=== PATIENT | female | born 1960 | race Caucasian/White ===

== ENCOUNTER 2018-11-05 12:21 | Emergency (ER) | payer OTHER ==
[2018-11-05 13:26] LABS: Absolute Lymphocytes (CBC) 1.8 K/uL (0.7-4.9); Absolute Monocytes 0.7 K/uL (0.1-1.3); Absolute Neutrophil 6.9 K/uL (1.8-8.0); Basophils % 0.3 % (0-1.3); Eosinophils % 0.4 % (0-4.4); Hematocrit 44.1 % (36.0-45.0); Lymphocytes % 19.3 % (15.3-44.8); MPV 8.2 fL (7.6-11.3); Monocytes % 7.2 % (3.3-12.3); RBC Red Blood Cell Count 5.43 M/uL (3.86-4.86)
[2018-11-05] MEDS ORDERED: FENTANYL CITR 100 MCG/2 ML ONE (13:41)
[2018-11-05 13:45] LABS: ALT/SGPT 21 U/L (12-78); AST/SGOT 23 U/L (15-37); Albumin 3.7 g/dL (3.4-5.0); Alkaline Phosphatase 149 U/L (45-117); BUN Blood Urea Nitrogen 8 mg/dL (7-18); Bicarbonate 30 mmol/L (21-32); Bilirubin Direct 0.1 mg/dL (0-0.2); Bilirubin Total 0.3 mg/dL (0.2-1.0); Glucose Level 90 mg/dL (74-106); Potassium 3.6 mmol/L (3.5-5.1); Protein, Total 8.4 g/dL (6.4-8.2); Sodium Level 137 mmol/L (136-145)
--- NOTE | 2018-11-05 14:34 | RAD REPORT ---
EXAM DESCRIPTION: CT - Abdomen W Contrast - 11/05/2018 1:59 pm CLINICAL HISTORY: Abdominal pain with diarrhea COMPARISON: 2014 TECHNIQUE: Computed axial tomography from the diaphragm to the iliac crest was obtained. Oral contra st was given. 100 cc Isovue-[address] scans are performed using dose optimization technique as appropriate and may include automated exposure control or mA/KV adjustment according to patient size. FINDINGS: The evaluation of solid organs and vessels is limited secondary to the lack of IV contrast administration. The liver, spleen, adrenals, pancreas and kidneys appear grossly normal. Wall of the distal stomach is thickened. Mild gallbladder distention IMPRESSION: Wall of the distal stomach is thickened which may indicate gastritis. Mild gallbladder distention
--- NOTE | 2018-11-05 14:36 | RAD REPORT ---
EXAM DESCRIPTION: Dennis Pa And Lat (2 Views)11/05/2018 1:26 pm CLINICAL HISTORY: Cough COMPARISON: 2015 FINDINGS: Lungs are hyperaerated with upper lobe volume loss. Bilateral nodules within the lungs are without obvious change. Heart is normal sized
--- NOTE | 2018-11-05 15:50 | RAD REPORT ---
EXAM DESCRIPTION: US - Abdomen Exam Limited - 11/05/2018 3:00 pm CLINICAL HISTORY: Abdominal pain. COMPARISON: CT abdomen October 2018 FINDINGS: Gallbladder is borderline distended. A gallstone is not seen. Gallbladder wall is mildly t hickened. . The biliary tree is normal caliber. IMPRESSION: Mild gallbladder wall thickening with borderline gallbladder distention
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
[2018-11-05 19:00] VITALS: TEMP 98.1
[2018-11-05 19:07] VITALS: BP 129/79; O2SAT 99
== END 2018-11-05 16:47 | disposition home or self-care (01) ==
LOC: ER 12:21
DX: S39.011A Strain of muscle, fascia and tendon of abdomen, initial encounter (principal); X58.XXXA Exposure to other specified factors, initial encounter; R05 Cough; K82.8 Other specified diseases of gallbladder; Z72.0 Tobacco use
CPT/HCPCS: 36415; 71046; 74160; 76705; 80048; 80076; 85025; 87040; 96374; 99284; J3010; Q9967

== ENCOUNTER 2019-06-27 13:27 | Emergency (ER) | payer OTHER ==
[2019-06-27] MEDS ORDERED: IPRATROPIUM BROM 0.5MG/2.5ML ONE ×2 (13:55→14:33)
[2019-06-27] MEDS ORDERED: ALBUTEROL 2.5 MG/3 ML NEB SOL ONE ×2 (13:55→14:33)
[2019-06-27] MEDS ORDERED: METHYLPREDNISOLONE 125 MG INJ ONE (14:19)
[2019-06-27 14:40] LABS: Absolute Lymphocytes (CBC) 1.4 K/uL (0.7-4.9); Basophils % 0.3 % (0-1.3); Hematocrit 34.2 % (36.0-45.0); Lymphocytes % 7.2 % (15.3-44.8); MPV 7.5 fL (7.6-11.3); RBC Red Blood Cell Count 4.43 M/uL (3.86-4.86)
[2019-06-27 14:53] LABS: Albumin 2.8 g/dL (3.4-5.0); Bilirubin Direct 0.2 mg/dL (0-0.2); Bilirubin Total 0.5 mg/dL (0.2-1.0); Potassium 3.4 mmol/L (3.5-5.1); Protein, Total 7.6 g/dL (6.4-8.2)
--- NOTE | 2019-06-27 14:53 | RAD REPORT ---
EXAM DESCRIPTION: RAD - Chest Pa And Lat (2 Views) - 06/27/2019 2:29 pm CLINICAL HISTORY: Cough;Congestion Chest pain. COMPARISON: Chest Pa And Lat (2 Views) dated 11/05/2018; CHEST SINGLE VIEW dated 04/01/2014; CHEST SINGL E VIEW dated 06/01/2012; CHEST SINGLE VIEW dated 05/29/2012 FINDINGS: Emphysematous changes are present with irregular scarring in the lung apices with pleural thickening, greater on the left. This appears unchanged since comparative study. No focal infiltrate typical of pneumonia seen. The heart is normal in size. No displaced fractures. IMPRESSION: Prominent emphysematous changes with pleural and parenchymal scarring in both lung apice s, unchanged. No acute focal infiltrate detected.
[2019-06-27] MEDS ORDERED: CEFTRIAXONE/SWI 1gm 1 GM/10 ML SYR ONE (15:39)
[2019-06-27] MEDS ORDERED: AZITHROMYCIN IV 500 MG in NA CHLORIDE 0.9% 250 ML IVPB ONE (16:00)
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
[2019-06-27 17:54] VITALS: TEMP 98.2
[2019-06-27 18:01] VITALS: BP 116/65; O2SAT 94
== END 2019-06-27 17:42 | disposition home or self-care (01) ==
LOC: ER 13:27
DX: J44.1 Chronic obstructive pulmonary disease with (acute) exacerbation (principal); Z88.6 Allergy status to analgesic agent
CPT/HCPCS: 96365; 96368; 87040 ×2; 85025; 80048; 36415; 80076; 87804 ×2; 71046; 94640; 96375; 99284; J0456; J0696; J2930

== ENCOUNTER 2019-07-12 16:42 | Inpatient (IN) | payer OTHER ==
[2019-07-12] MEDS ORDERED: ACETAMINOPHEN 500 MG TAB ONE (18:06)
[2019-07-12] MEDS ORDERED: FENTANYL CITR 100 MCG/2 ML ONE ×2 (18:06→21:25)
[2019-07-12] MEDS ORDERED: NA CHLORIDE 0.9% 250 ML ONE (18:07)
[2019-07-12] MEDS ORDERED: ONDANSETRON 4 MG/2 ML VIAL ONE (18:07)
[2019-07-12] MEDS ORDERED: NA CHLORIDE 0.9% 1,000 ML ONE ×2 (18:07→21:06)
[2019-07-12 18:36] LABS: Absolute Lymphocytes (CBC) 1.7 K/uL (0.7-4.9); Basophils % 0.4 % (0-1.3); Hematocrit 33.8 % (36.0-45.0); MPV 7.7 fL (7.6-11.3); RBC Red Blood Cell Count 4.43 M/uL (3.86-4.86)
[2019-07-12 18:41] LABS: Protime INR 1.07
[2019-07-12 18:54] LABS: ALT/SGPT 28 U/L (12-78); AST/SGOT 20 U/L (15-37); Albumin 2.6 g/dL (3.4-5.0); Alkaline Phosphatase 222 U/L (45-117); BUN Blood Urea Nitrogen 13 mg/dL (7-18); Bicarbonate 29 mmol/L (21-32); Bilirubin Direct < 0.1 mg/dL (0-0.2); Bilirubin Total 0.2 mg/dL (0.2-1.0); Creatine Phosphokinase 33 U/L (26-192); Glucose Level 94 mg/dL (74-106); Lipase 75 U/L (73-393); Potassium 3.8 mmol/L (3.5-5.1); Protein, Total 6.8 g/dL (6.4-8.2); Sodium Level 135 mmol/L (136-145); Troponin (Emerg Dept Use Only) < 0.02 ng/mL (0.0-0.045)
--- NOTE | 2019-07-12 20:16 | RAD REPORT ---
EXAM DESCRIPTION: CT - Chest Abdomen Pelvis W Cont - 07/12/2019 7:55 pm CLINICAL HISTORY: Chest and abdominal pain COMPARISON: CT chest 2015 TECHNIQUE: Computed axial tomography of the chest, abdomen and pelvis was obtained. 100 cc Isovue-30 0 was administered intravenously. Oral contrast was not requested. This limits evaluation of bowel. All CT scans are performed using dose optimization technique as appropriate and may include automated exposure control or mA/KV adjustment according to patient size. FINDINGS: Left upper lobe cavitary lesion posteriorly measuring 3 centimeters was present on the juan daniel or exam. A 2 centimeter soft tissue structure medial left upper lobe has developed. 2.6 centimeter ca vitary lesion posterior left upper lobe has developed since the prior exam. Mild lingular opacities a re present. A couple of subcentimeter lung nodules noted. Calcified granulomas noted Right upper lobe opacities without significant change. Moderate to marked COPD No pleural effusion. No pericardial effusion. No mediastinal or hilar lymphadenopathy. The liver, spleen, pancreas, adrenals and kidneys appear unremarkable. Moderate amount stool within the colon. IMPRESSION: Development of 2.6 centimeter cavitary lesion left upper lobe as well as 2 centimeter le ft upper lobe opacity with small right lung nodules most likely infectious. This could indicate TB/fu ngal infection . YUDITH is another consideration
--- NOTE | 2019-07-12 20:18 | RAD REPORT ---
EXAM DESCRIPTION: Dennis Single View07/12/2019 6:30 pm CLINICAL HISTORY: Chest pain COMPARISON: May 2019 FINDINGS: Mild worsening in left upper lobe opacities. No change in right lung opacities Upper lobe volume loss Moderate to marked COPD Heart is normal size IMPRESSION: Mild worsening in left upper lobe opacities some which are cavitary. This likely represe nts an acute process superimposed over chronic changes. This may represent TB/fungal infection or YUDITH
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
[2019-07-12] MEDS ORDERED: PIPER/TAZO/NS 3.375gm 3.375 GM/100 ML BAG ONE (21:06)
[2019-07-12] MEDS ORDERED: ACETAMINOPHEN 500 MG TAB PO PRN (22:19)
[2019-07-12] MEDS ORDERED: ONDANSETRON 4 MG/2 ML VIAL IV PRN (22:19)
[2019-07-13 00:09] VITALS: BMI 16.4
[2019-07-13] MEDS: IPRATROPIUM BROM 0.5MG/2.5ML NEB SCH ×4 (02:00→20:00)
[2019-07-13] MEDS: ALBUTEROL 2.5 MG/3 ML NEB SOL NEB SCH ×4 (02:00→20:00)
[2019-07-13] MEDS: FENTANYL CITR 100 MCG/2 ML IV PRN ×3 (05:51→22:00)
[2019-07-13 06:39] LABS: Absolute Lymphocytes (CBC) 1.1 K/uL (0.7-4.9); Basophils % 0.6 % (0-1.3); MPV 7.4 fL (7.6-11.3)
[2019-07-13 06:56] LABS: ALT/SGPT 23 U/L (12-78); AST/SGOT 17 U/L (15-37); Albumin 2.1 g/dL (3.4-5.0); Alkaline Phosphatase 176 U/L (45-117); BUN Blood Urea Nitrogen 9 mg/dL (7-18); Bicarbonate 28 mmol/L (21-32); Bilirubin Total 0.1 mg/dL (0.2-1.0); Glucose Level 84 mg/dL (74-106); HDL Cholesterol 31 mg/dL (40-60); LDL Cholesterol, Calculated 96 (<130); Magnesium 2.2 mg/dL (1.8-2.4); NT PRO-BNP 159 pg/mL (<125); Phosphorus 3.4 mg/dL (2.5-4.9); Protein, Total 5.8 g/dL (6.4-8.2); Sodium Level 143 mmol/L (136-145)
[2019-07-13 07:09] LABS: Protime INR 1.01
[2019-07-13] MEDS: ENOXAPARIN 40 MG/0.4 ML SQ SCH (08:07)
[2019-07-13] MEDS ORDERED: CEFTRIAXONE 1 GM/NS 50 ML 1 GM/50 ML BAG IV SCH (09:00)
[2019-07-13] MEDS: AZITHROMYCIN IV 500 MG in NA CHLORIDE 0.9% 250 ML IVPB SCH (09:10)
[2019-07-13] MEDS: CEFTRIAXONE/SWI 1gm 1 GM/10 ML SYR IVP SCH ×2 (09:11→20:51)
[2019-07-13 10:01] LABS: Urine Appearance CLEAR; Urine Bilirubin NEGATIVE (NEG); Urine Blood NEGATIVE (NEG); Urine Color YELLOW; Urine Glucose NEGATIVE (NEG); Urine Protein NEGATIVE (NEG); Urine Urobilinogen 0.2 mg/dL (0.2-1.0); Urine pH 5.5 (5.0-7.0)
[2019-07-13 10:32] LABS: Urine Bacteria <20 /HPF (<20); Urine Culture Reflex Order NOT NEEDED; Urine RBC <5 /HPF (NONE SEEN); Urine Yeast PRESENT (NONE SEEN)
[2019-07-13 10:33] LABS: Urine Mucus LIGHT /HPF (NONE SEEN)
[2019-07-13] MEDS: TEMAZEPAM 15 MG CAP PO PRN (23:14)
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
[2019-07-13] MEDS: METHYLPREDNISOLONE 125 MG INJ IV SCH (23:30)
[2019-07-14] MEDS: IPRATROPIUM BROM 0.5MG/2.5ML NEB SCH ×4 (02:00→20:00)
[2019-07-14] MEDS: ALBUTEROL 2.5 MG/3 ML NEB SOL NEB SCH ×4 (02:00→20:00)
[2019-07-14] MEDS: METHYLPREDNISOLONE 125 MG INJ IV SCH ×4 (05:13→23:10)
[2019-07-14] MEDS: FENTANYL CITR 100 MCG/2 ML IV PRN ×4 (05:13→23:10)
[2019-07-14] MEDS: ENOXAPARIN 40 MG/0.4 ML SQ SCH (08:35)
[2019-07-14] MEDS: CEFTRIAXONE/SWI 1gm 1 GM/10 ML SYR IVP SCH ×2 (08:36→20:19)
[2019-07-14] MEDS: AZITHROMYCIN IV 500 MG in NA CHLORIDE 0.9% 250 ML IVPB SCH (09:23)
--- NOTE | 2019-07-14 11:37 | EKG ---
Test Date: 2019-07-12 Test Time: 18:15:14 [employer] Laborer: ISABEL MEASUREMENT RESULTS: Intervals: Rate: 88 [place]: 126 QRSD: 94 QT: 360 QTc: 435 [place]: P: 88 [place]: 126 QRS: 88 T: 74 INTERPRETIVE STATEMENTS: Normal sinus rhythm Normal ECG Compared to ECG 04/01/2014 07:51:04 No significant changes Electronically Signed On 07-14-19 11:31:38 CDT by Jagdeep Romano
[2019-07-14] MEDS: ENSURE ENLIVE 237 ML CAN PO SCH (20:19)
[2019-07-14] MEDS: TEMAZEPAM 15 MG CAP PO PRN (20:19)
[2019-07-15] MEDS: ALBUTEROL 2.5 MG/3 ML NEB SOL NEB SCH ×4 (02:00→21:08)
[2019-07-15] MEDS: IPRATROPIUM BROM 0.5MG/2.5ML NEB SCH ×4 (02:00→21:08)
[2019-07-15] MEDS: FENTANYL CITR 100 MCG/2 ML IV PRN ×3 (05:38→19:59)
[2019-07-15] MEDS: METHYLPREDNISOLONE 125 MG INJ IV SCH ×2 (05:38→11:45)
[2019-07-15] MEDS: AZITHROMYCIN IV 500 MG in NA CHLORIDE 0.9% 250 ML IVPB SCH (09:00)
[2019-07-15] MEDS: CEFTRIAXONE/SWI 1gm 1 GM/10 ML SYR IVP SCH (09:00)
[2019-07-15] MEDS: ENSURE ENLIVE 237 ML CAN PO SCH ×2 (09:26→19:47)
[2019-07-15] MEDS: ENOXAPARIN 40 MG/0.4 ML SQ SCH (09:26)
[2019-07-15] MEDS: levoFLOXacin 500 MG TAB PO SCH (09:33)
[2019-07-15] MEDS: PIPER/TAZO/NS 4.5gm 4.5 GM/100 ML BAG IVPB SCH ×2 (16:00→23:59)
[2019-07-15] MEDS: VENLAFAXINE HCL XR 37.5MG CAP PO SCH (16:15)
[2019-07-15] MEDS: METHYLPREDNISOLONE 40 MG INJ IV SCH (19:52)
[2019-07-15] MEDS ORDERED: TRAMADOL HCL 50 MG TAB PO PRN (20:45)
--- NOTE | 2019-07-15 21:02 | PN ---
Date of Progress Note: 07/15/2019 Subjective: Patient is seen and examined. Chart reviewed and case discussed with RN. Treatment luis n explained. All questions answered. Case discussed with Dr. Kilpatrick. Patient still has not produ malika sample for AFB smears today. Medications: List reviewed. Physical Examination: Vital Signs: Temperature 98.2, heart rate 77, blood pressure 111/64, respirations 16, O2 of 95% on r oom air. General: Awake, alert, oriented x3. Frail, cachectic, appears older than stated age female. BMI 16 . CV: S1, S2. Regular rate and rhythm. No murmurs. Peripheral pulses present. Respiratory: Diminished breath sounds. Some rhonchi heard. No wheezing or stridor. Gastrointestinal: Abdomen is soft, nontender, nondistended. Positive bowel sounds. Extremities: No clubbing, cyanosis, or edema. Neuro: Cranial nerves 2 through 12 intact grossly. No focal neurological deficits. Speech is lolis l. Laboratory Data: Blood cultures, no growth to date. Sputum cultures growing out normal quantity of respiratory hailey. AFB smear is pending. Assessment And Plan: A 59-year-old female with: 1.Pneumonia, failed outpatient treatment. CT scan shows development of 2.6 cm cavitary lesion in th e left upper lobe and 2 cm left upper lobe opacity with small right lung nodules, most likely infecti ous, possible tuberculosis, fungal infection. AURORA is another consideration. Patient is on respirato ry isolation with negative pressure room. Patient will need to provide AFB smears x3. If negative, can take off isolation. Appreciate Dr. Kilpatrick's input. 2.Failure to thrive. BMI 16. 3.Severe protein-calorie malnutrition. Albumin is 2.1. 4.Microcytic hypochromic anemia, likely due to iron deficiency anemia. Ferritin level is normal. W e will continue to monitor hemoglobin and transfuse as needed. 5.Deep venous thrombosis prophylaxis with Lovenox. Plan: Respiratory Therapy consultation for obtaining AFB smears. Continue with IV antibiotics. Fol low up on culture results and AFB smear. We will start to wean steroids. Continue respiratory isola tion. SA/MODL Voice ID: [id number] Report ID: [id number]
[2019-07-15] MEDS: CODEINE 30MG/APAP 300MG TAB PO PRN (22:04)
[2019-07-15] MEDS: TEMAZEPAM 15 MG CAP PO PRN (22:04)
[2019-07-16] MEDS: IPRATROPIUM BROM 0.5MG/2.5ML NEB SCH ×4 (02:15→20:20)
[2019-07-16] MEDS: ALBUTEROL 2.5 MG/3 ML NEB SOL NEB SCH ×4 (02:15→20:20)
[2019-07-16 04:41] LABS: Absolute Lymphocytes (CBC) 0.7 K/uL (0.7-4.9); Basophils % 0.1 % (0-1.3); MPV 7.9 fL (7.6-11.3)
[2019-07-16 04:53] LABS: ALT/SGPT 37 U/L (12-78); AST/SGOT 37 U/L (15-37); Albumin 2.2 g/dL (3.4-5.0); Alkaline Phosphatase 153 U/L (45-117); BUN Blood Urea Nitrogen 17 mg/dL (7-18); Bicarbonate 30 mmol/L (21-32); Bilirubin Total 0.1 mg/dL (0.2-1.0); Glucose Level 135 mg/dL (74-106); Potassium 3.9 mmol/L (3.5-5.1); Protein, Total 5.9 g/dL (6.4-8.2); Sodium Level 144 mmol/L (136-145)
[2019-07-16 05:22] LABS: Blood Morphology Comment NOT SEEN (NOT SEEN); Platelet Estimate INCR
[2019-07-16] MEDS ORDERED: POTASSIUM CL SA 10 MEQ TAB PO ONE (09:00)
[2019-07-16] MEDS: PIPER/TAZO/NS 4.5gm 4.5 GM/100 ML BAG IVPB SCH (09:58)
[2019-07-16] MEDS: ENOXAPARIN 40 MG/0.4 ML SQ SCH (09:58)
[2019-07-16] MEDS: VENLAFAXINE HCL XR 37.5MG CAP PO SCH (09:59)
[2019-07-16] MEDS: METHYLPREDNISOLONE 40 MG INJ IV SCH (09:59)
[2019-07-16] MEDS: levoFLOXacin 500 MG TAB PO SCH (09:59)
[2019-07-16] MEDS: ENSURE ENLIVE 237 ML CAN PO SCH ×2 (10:01→19:50)
[2019-07-16] MEDS: CODEINE 30MG/APAP 300MG TAB PO PRN ×2 (10:37→20:01)
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
[2019-07-16] MEDS: predniSONE 20 MG TAB PO SCH ×2 (14:27→19:50)
--- NOTE | 2019-07-16 15:30 | PN ---
Date of Progress Note: 07/16/2019 Subjective: Patient seen and examined. Chart reviewed and case discussed with RN and Dr. Kilpatrick. Patient does not have any specific complaints. No acute events overnight. Medications: List reviewed. Physical Examination: Vital Signs: Temperature 98, heart rate 59, blood pressure 106/63, respirations 16, O2 96% on room air. General: Awake, alert, oriented x3, not in any acute distress. CV: S1, S2. Regular rate and rhythm. Peripheral pulses present. Respiratory: Diminished breath sounds. No wheezing or stridor. Gastrointestinal: Abdomen is soft, nontender, nondistended. Positive bowel sounds. Extremities: No clubbing, cyanosis, or edema. Neurologic: Nonfocal. Laboratory Data: Sodium 144, potassium 3.9 chloride 107, CO2 30, BUN 17, creatinine 0.61, glucose 135, calcium 8.7, albumin 2.2. WBC 24.1, H and H 9.8 and 29, platelets 480, neutrophils 94%. Blood cultures, no growth to date. Acid fast bacilli smear pending. Assessment: A 59-year-old female with; 1. Pneumonia, failed outpatient treatment. Concern for possible tuberculosis due to cavitary lesions in the left upper lobe and small right lung nodules. AFB smear x3 pending. Appreciate Pulmonology input. Currently on respiratory isolation in negative pressure room. 2. Severe protein-calorie malnutrition. Albumin is 2.2. Continue with supplementation. 3. Failure to thrive. BMI 16. 4. Microcytic hypochromic anemia, likely due to iron deficiency anemia. We will continue to monitor H and H level, transfuse as needed. 5. Leukocytosis with left shift, likely secondary to above. Patient is also on steroids. We will continue to wean down. We will switch to p.o. 6. Deep venous thrombosis prophylaxis. Lovenox. Disposition: Pending AFB smears. /SURESH Voice ID: [id number] Report ID: [id number] MTDD
[2019-07-16] MEDS: TEMAZEPAM 15 MG CAP PO PRN (22:45)
[2019-07-17] MEDS: ALBUTEROL 2.5 MG/3 ML NEB SOL NEB SCH ×4 (01:35→20:30)
[2019-07-17] MEDS: IPRATROPIUM BROM 0.5MG/2.5ML NEB SCH ×4 (01:35→20:30)
[2019-07-17 05:42] LABS: Hematocrit 30.7 % (36.0-45.0); Lymphocytes % 5.7 % (15.3-44.8); MPV 7.9 fL (7.6-11.3)
[2019-07-17 05:52] LABS: ALT/SGPT 58 U/L (12-78); AST/SGOT 36 U/L (15-37); Albumin 2.4 g/dL (3.4-5.0); Alkaline Phosphatase 151 U/L (45-117); BUN Blood Urea Nitrogen 14 mg/dL (7-18); Bicarbonate 31 mmol/L (21-32); Bilirubin Total 0.1 mg/dL (0.2-1.0); Glucose Level 110 mg/dL (74-106); Potassium 4.3 mmol/L (3.5-5.1); Protein, Total 5.8 g/dL (6.4-8.2); Sodium Level 143 mmol/L (136-145)
[2019-07-17] MEDS: VENLAFAXINE HCL XR 37.5MG CAP PO SCH (09:34)
[2019-07-17] MEDS: levoFLOXacin 500 MG TAB PO SCH (09:34)
[2019-07-17] MEDS: predniSONE 20 MG TAB PO SCH ×2 (09:34→21:02)
[2019-07-17] MEDS: ENSURE ENLIVE 237 ML CAN PO SCH ×2 (09:35→21:00)
[2019-07-17] MEDS: ENOXAPARIN 40 MG/0.4 ML SQ SCH (09:35)
[2019-07-17] MEDS: CODEINE 30MG/APAP 300MG TAB PO PRN ×2 (09:40→18:06)
--- NOTE | 2019-07-17 18:13 | PN ---
Date of Progress Note: 07/17/2019 Subjective: Patient seen and examined. Chart reviewed and case discussed with RN and Dr. Kilpatrick. Patient overall feels better. Still having some cough with sputum production. Medications: List reviewed. Physical Examination: Vital Signs: Temperature 97.9, heart rate 70, blood pressure 149/88, respirations 18, O2 98% on room air. General: Awake, alert, oriented x3, not in any acute distress, frail cachectic female, BMI 16. CV: S1, S2. No murmurs. Respiratory: Diminished breath sounds. No wheezing or stridor. Gastrointestinal: Abdomen is soft, nontender, nondistended. Positive bowel sounds. Extremities: No clubbing, cyanosis, or edema. Neurologic: Nonfocal. Laboratory Data: Sodium 143, potassium 4.3, chloride 106, CO2 of 31, BUN 14, creatinine 0.61, glucos e 110, calcium 9, albumin 2.4. WBC 18.4, H and H 10.1 and 30.7, platelets 467, neutrophils 91%. Blo od cultures, no growth to date. AFB smear is pending. Sputum culture, normal respiratory hailey. Assessment: A 59-year-old female with; 1.Pneumonia, failed outpatient treatment, possible tuberculosis due to cavitary lesions in the left upper lobe. Patient also has small right lung nodules, likely infectious. AFB smear is pending. Cu rrently in isolation room with negative pressure. Pulmonology on board. 2.Severe protein-calorie malnutrition. Albumin is improving. Continue with supplementation. 3.Failure to thrive. BMI 16. 4.Microcytic hyperchromic anemia, likely due to iron deficiency. Continue to monitor H and H, trans fuse as needed. 5.Leukocytosis with left shift, likely secondary to above and also possibly due to steroids. Patien t now on p.o. steroids. WBC count is trending down. 6.Deep venous thrombosis prophylaxis with Lovenox. Plan: Pending AFB smears. /MODL Voice ID: [id number] Report ID: [id number]
[2019-07-17] MEDS: TEMAZEPAM 15 MG CAP PO PRN (21:02)
[2019-07-18] MEDS: IPRATROPIUM BROM 0.5MG/2.5ML NEB SCH ×2 (01:50→08:00)
[2019-07-18] MEDS: ALBUTEROL 2.5 MG/3 ML NEB SOL NEB SCH ×2 (01:50→08:00)
[2019-07-18 06:17] LABS: Absolute Lymphocytes (CBC) 1.4 K/uL (0.7-4.9); Basophils % 0.1 % (0-1.3); Hematocrit 32.6 % (36.0-45.0); Lymphocytes % 11.2 % (15.3-44.8); MPV 7.7 fL (7.6-11.3); RBC Red Blood Cell Count 4.26 M/uL (3.86-4.86)
[2019-07-18 06:38] LABS: ALT/SGPT 62 U/L (12-78); AST/SGOT 34 U/L (15-37); Albumin 2.4 g/dL (3.4-5.0); Alkaline Phosphatase 149 U/L (45-117); BUN Blood Urea Nitrogen 15 mg/dL (7-18); Bicarbonate 31 mmol/L (21-32); Bilirubin Total 0.1 mg/dL (0.2-1.0); Glucose Level 103 mg/dL (74-106); Potassium 4.4 mmol/L (3.5-5.1); Protein, Total 5.8 g/dL (6.4-8.2); Sodium Level 140 mmol/L (136-145)
[2019-07-18] MEDS: VENLAFAXINE HCL XR 37.5MG CAP PO SCH (09:30)
[2019-07-18] MEDS: predniSONE 20 MG TAB PO SCH (09:30)
[2019-07-18] MEDS: ENOXAPARIN 40 MG/0.4 ML SQ SCH (09:30)
[2019-07-18] MEDS: levoFLOXacin 500 MG TAB PO SCH (09:30)
[2019-07-18] MEDS: ENSURE ENLIVE 237 ML CAN PO SCH ×2 (09:31→20:28)
[2019-07-18] MEDS ORDERED: ALBUTEROL 2.5 MG/3 ML NEB SOL NEB PRN ×2 (11:16→15:00)
--- NOTE | 2019-07-18 11:18 | P.PN ---
Subjective Date of Service: 07/18/19 Chief Complaint: Pneumonia COPD exacerbation Subjective: Improving (Patient is doing well no new complaints) Review of Systems Unremarkable Physical Examination - Vital Signs Temperature: 97.6 F Blood Pressure: 163/79 Pulse: 53 Respirations: 18 Pulse Ox (%): 97 - Physical Exam General: Alert, Oriented x3 Neck: Supple Respiratory: Expiratory wheezes Cardiovascular: No edema, Normal S1 S2 - Studies Microbiology Data (last 24 hrs): 07/12/19 18:25 Blood - Blood Aerobic Blood Culture - Final No growth in 5 days. 07/12/19 18:25 Blood - Blood Anaerobic Blood Culture - Final No growth in 5 days. 07/12/19 18:10 Blood - Blood Aerobic Blood Culture - Final No growth in 5 days. 07/12/19 18:10 Blood - Blood Anaerobic Blood Culture - Final No growth in 5 days. Assessment & Plan - Problems (Diagnosis) (1) COPD exacerbation Current Visit: Yes Status: Acute Plan: Patient is doing much better white count is declining doubt active tuberculosis possible Perez a verses a regular pneumonia patient's white count is declining once her AFB smear is negative she can be discharged home on Dulera from the hospital I will also fax in a prescription for trilogy also prednisone 10 mg twice a day for 10 days and a nebulized bronchodilator p.r.n. basis to follow up with me in 2 weeks also add Levaquin for another 7 days
[2019-07-18] MEDS ORDERED: IPRATROPIUM BROM 0.5MG/2.5ML NEB PRN ×2 (11:19→15:00)
[2019-07-18] MEDS: FENTANYL CITR 100 MCG/2 ML IV PRN ×2 (13:15→21:25)
--- NOTE | 2019-07-18 14:02 | PN ---
Date of Progress Note: 07/18/2019 Subjective: Patient seen and examined. Chart reviewed and case discussed with RN and Dr. Kilpatrick. Patient is doing significantly better. Cough has improved. Patient has already sent out 3 AFB sputum smears, which are pending as they are sent out. Medications: List reviewed. Physical Examination: Vital Signs: Temperature 97.6, heart rate 53, blood pressure 163/79, respirations 18, O2 97% on room air. General: Awake, alert, oriented x3, not in any acute distress, frail, cachectic female. BMI 16. CV: S1, S2. Regular rate and rhythm. Peripheral pulses present. Respiratory: Diminished breath sounds at the apices, however, otherwise moving air well. No wheezing or stridor. Gastrointestinal: Abdomen is soft, nontender, nondistended. Positive bowel sounds. Extremities: No clubbing, cyanosis, or edema. Neurologic: Nonfocal. Laboratory Data: Sodium 140, potassium 4.4, CO2 of 31, BUN 15, creatinine 0.52 , glucose 103, calcium 8.9, magnesium 2.4, albumin is also 2.4. WBC 12.5, H and H are 10.9 and 32.6, platelets 492. Blood cultures negative to date. AFB smears still pending. Sputum cultures, no growth to date. Assessment And Plan: A 59-year-old female with: 1. Pneumonia, failed outpatient treatment, possibility of tuberculosis due to cavitary lesions in the left upper lobe versus YUDITH. AFB smears x3 have been sent out, currently pending. We will check in with [facility] sent on labs. Appreciate Dr. Kilpatrick's input. 2. Severe protein-calorie malnutrition. Albumin is 2.4. We will continue with supplementation. 3. Failure to thrive, BMI 16. 4. Microcytic hypochromic anemia, likely due to iron deficiency. H and H are stable. Continue to monitor and transfuse for hemoglobin less than 7. 5. Deep venous thrombosis prophylaxis with Lovenox. 6. Acute chronic obstructive pulmonary disease exacerbation, improving. Continue to wean steroids. 7. Disposition: Discharge once AFB smears are negative. /MODL Voice ID: [id number] Report ID: [id number] [facility]
[2019-07-18] MEDS: predniSONE 10 MG TAB PO SCH (20:27)
[2019-07-18] MEDS: DULERA 200/5 (MOMETASONE/FORMOTEROL) INHALER IH SCH (20:28)
[2019-07-18] MEDS: TEMAZEPAM 15 MG CAP PO PRN (21:25)
[2019-07-19] MEDS: VENLAFAXINE HCL XR 37.5MG CAP PO SCH (08:41)
[2019-07-19] MEDS: ENOXAPARIN 40 MG/0.4 ML SQ SCH (08:41)
[2019-07-19] MEDS: ENSURE ENLIVE 237 ML CAN PO SCH ×2 (08:41→20:08)
[2019-07-19] MEDS: predniSONE 10 MG TAB PO SCH ×2 (08:41→20:08)
[2019-07-19] MEDS: levoFLOXacin 500 MG TAB PO SCH (08:41)
[2019-07-19] MEDS: DULERA 200/5 (MOMETASONE/FORMOTEROL) INHALER IH SCH ×2 (08:43→20:11)
[2019-07-19] MEDS ORDERED: PYRAZINAMIDE 500 MG TAB PO SCH (11:04)
--- NOTE | 2019-07-19 12:15 | PN ---
Date of Progress Note: 07/19/2019 Patient seen and examined. Chart reviewed and case discussed with RN and Dr. Kilpatrick. Patient's AFB smear came back positive. Medications: List reviewed. Physical Examination: Vital Signs: Temperature 97.2, heart rate 66, blood pressure 133/36, respirations 18, O2 at 95% on room air. General: Awake, alert, oriented x3, not in any acute distress, frail, cachectic female. BMI 16. CV: S1, S2. No murmurs. Respiratory: Diminished breath sounds. No wheezing or stridor. Gastrointestinal: Abdomen is soft, nontender, nondistended. Positive bowel sounds. Extremities: No clubbing, cyanosis, or edema. Neurologic: Nonfocal. Laboratory Data: Pending blood cultures. No growth final, sputum cultures no growth. AFB smear positive. Assessment And Plan: A 59-year-old female with: 1. Pneumonia with failed outpatient treatment, AFB smear positive. Likely has TB versus YUDITH. We will start on RIPE therapy. Dr. Kilpatrick on board. 2. Severe protein-calorie malnutrition. Albumin 2.4. 3. Failure to thrive. BMI 16. 4. Microcytic hypochromic anemia, likely due to iron deficiency. Transfuse as needed. 5. Acute chronic obstructive pulmonary disease exacerbation, improved. Wean steroids. 6. DVT prophylaxis with Lovenox. Plan: Initiate RIPE therapy. Patient will likely be discharged with face mask for 7 days. The patient will need to follow up with health department and Pulmonology for ongoing treatment and PCP and Pulmonology to follow up on final culture results. GHAZALA Voice ID: [id number] Report ID: [id number] LEXIE
[2019-07-19] MEDS: ISONIAZID 300 MG TAB PO SCH (12:21)
[2019-07-19] MEDS: AZITHROMYCIN 250 MG TAB PO SCH (12:21)
[2019-07-19] MEDS: PYRIDOXINE (VIT B6) 50 MG TAB PO SCH (12:23)
[2019-07-19] MEDS: FENTANYL CITR 100 MCG/2 ML IV PRN ×3 (12:57→23:26)
[2019-07-19] MEDS: ETHAMBUTOL HCL 400 MG TAB PO SCH (20:08)
[2019-07-19] MEDS: PANTOPRAZOLE 40MG TABLET PO SCH (23:26)
[2019-07-19] MEDS: TEMAZEPAM 15 MG CAP PO PRN (23:59)
[2019-07-20] MEDS: PANTOPRAZOLE 40MG TABLET PO SCH (05:35)
[2019-07-20 05:59] LABS: Hematocrit 34.3 % (36.0-45.0); Lymphocytes % 15.7 % (15.3-44.8); MPV 7.7 fL (7.6-11.3); RBC Red Blood Cell Count 4.49 M/uL (3.86-4.86)
[2019-07-20 06:05] LABS: ALT/SGPT 68 U/L (12-78); AST/SGOT 34 U/L (15-37); Albumin 2.4 g/dL (3.4-5.0); Alkaline Phosphatase 140 U/L (45-117); BUN Blood Urea Nitrogen 21 mg/dL (7-18); Bicarbonate 31 mmol/L (21-32); Bilirubin Total 0.3 mg/dL (0.2-1.0); Glucose Level 80 mg/dL (74-106); Potassium 4.5 mmol/L (3.5-5.1); Protein, Total 5.6 g/dL (6.4-8.2); Sodium Level 140 mmol/L (136-145)
[2019-07-20] MEDS: AZITHROMYCIN 250 MG TAB PO SCH (09:48)
[2019-07-20] MEDS: ENOXAPARIN 40 MG/0.4 ML SQ SCH (09:48)
[2019-07-20] MEDS: predniSONE 10 MG TAB PO SCH ×2 (09:49→20:15)
[2019-07-20] MEDS: ENSURE ENLIVE 237 ML CAN PO SCH ×2 (09:49→20:15)
[2019-07-20] MEDS: ISONIAZID 300 MG TAB PO SCH (09:49)
[2019-07-20] MEDS: PYRIDOXINE (VIT B6) 50 MG TAB PO SCH (09:49)
[2019-07-20] MEDS: VENLAFAXINE HCL XR 37.5MG CAP PO SCH (09:49)
[2019-07-20] MEDS: DULERA 200/5 (MOMETASONE/FORMOTEROL) INHALER IH SCH ×2 (09:58→20:16)
[2019-07-20] MEDS: FENTANYL CITR 100 MCG/2 ML IV PRN ×3 (10:04→20:25)
--- NOTE | 2019-07-20 15:31 | PN ---
Date of Progress Note: 07/20/2019 Subjective: Patient is seen and examined. Chart reviewed and case discussed with RN. Patient seems to be in good spirits despite being told she is AFB positive. She was started on RIPE therapy yesterday. Tolerated medications well. Physical Examination: Vital Signs: Temperature 97.1, heart rate 61, blood pressure 115/98, respirations 17, O2 at 91% on room air. General: Awake, alert, oriented x3, not in any acute distress. CV: S1 and S2. Peripheral pulses present. Respiratory: Diminished breath sounds. Some rhonchi heard. Gastrointestinal: Abdomen is soft, nontender, nondistended. Positive bowel sounds. Extremities: No clubbing, cyanosis, edema. Neurologic: Nonfocal. Laboratory Data: Sodium 140, potassium 4.5, chloride 105, CO2 of 31, BUN 21, creatinine 0.57, glucose 80, calcium 8.6. AST 34, ALT 16, albumin 2.4. WBC 12.9, H and H 11.5 and 34.3, platelets 547. AFB smear positive x1. Remainder are still pending, not reported by [facility] as of yet. Assessment And Plan: A 59-year-old female with: 1. Pneumonia with failed outpatient treatment. AFB smear positive, likely TB versus YUDITH. The patient has been initiated on RIPE therapy. Dr. Kilpatrick on board. 2. Severe protein-calorie malnutrition. We will continue with supplementation. 3. Failure to thrive. BMI 16. 4. Microcytic hypochromic anemia, likely due to iron deficiency. We will continue with monitoring H and H. 5. Acute chronic obstructive pulmonary disease exacerbation, improved. We will wean steroids as tolerated. 6. Deep vein thrombosis prophylaxis with Lovenox. Plan: As per Pulmonology. SA/MODL Voice ID: [id number] Report ID: [id number] LEXIE
[2019-07-20] MEDS: ETHAMBUTOL HCL 400 MG TAB PO SCH (20:15)
[2019-07-20] MEDS: TEMAZEPAM 15 MG CAP PO PRN (21:28)
[2019-07-21] MEDS: FENTANYL CITR 100 MCG/2 ML IV PRN ×2 (03:39→09:01)
[2019-07-21] MEDS: PANTOPRAZOLE 40MG TABLET PO SCH (05:21)
[2019-07-21 08:02] VITALS: BP 118/62; TEMP 97.1
--- NOTE | 2019-07-21 08:47 | P.PN ---
Subjective Date of Service: 07/21/19 Chief Complaint: AFB positive Subjective: Improving (Patient is doing well no new complaints complaining of some chest discomfort on the right side coughing and insomnia) Review of Systems General: Weakness Respiratory: Cough, Shortness of Breath Physical Examination - Vital Signs Temperature: 97.1 F Blood Pressure: 118/62 Pulse: 60 Respirations: 17 Pulse Ox (%): 98 - Physical Exam General: Alert, Oriented x3 HEENT: Atraumatic Neck: Supple Respiratory: Clear to auscultation bilaterally, Diminished Cardiovascular: No edema, Normal pulses Assessment & Plan - Problems (Diagnosis) (1) COPD exacerbation Current Visit: Yes Status: Acute Plan: Patient is doing much better continue with Dulera and nebulizers p.r.n. (2) Acid fast bacillus Current Visit: Yes Status: Acute Plan: Patient has acid-fast bacilli in the sputum probably atypical mycobacterium infection as she has chronic fiber cavitary changes in the left apex patient will be started on 4 drug therapy pending cultures resume work in 1 week and wear a mask for at least a week follow up with me next week white count improving labs reviewed vital signs stable discharged home
[2019-07-21] MEDS: ENOXAPARIN 40 MG/0.4 ML SQ SCH (08:58)
[2019-07-21] MEDS: PYRIDOXINE (VIT B6) 50 MG TAB PO SCH (08:59)
[2019-07-21] MEDS: AZITHROMYCIN 250 MG TAB PO SCH (08:59)
[2019-07-21] MEDS: ISONIAZID 300 MG TAB PO SCH (08:59)
[2019-07-21] MEDS: predniSONE 10 MG TAB PO SCH (08:59)
[2019-07-21] MEDS: ENSURE ENLIVE 237 ML CAN PO SCH (09:00)
[2019-07-21] MEDS: VENLAFAXINE HCL XR 37.5MG CAP PO SCH (09:00)
[2019-07-21] MEDS: DULERA 200/5 (MOMETASONE/FORMOTEROL) INHALER IH SCH (09:02)
[2019-07-21 09:08] VITALS: O2SAT 95
--- NOTE | 2019-07-21 22:41 | DS ---
Date of Discharge: 07/21/2019 Consultants: Dr. Kilpatrick with Pulmonology. Admitting Diagnosis: Pneumonia. Discharge Diagnoses: 1.Acute chronic obstructive pulmonary disease exacerbation, improved. 2.Pneumonia with failed outpatient treatment, likely secondary to TB versus YUDITH. 3.Acid-fast bacilli positive. 4.Severe protein-calorie malnutrition. 5.Failure to thrive, BMI 16. 6.Microcytic hypochromic anemia. Hospital Course: Patient is a 59-year-old female who comes into the hospital with shortness of breat h, pneumonia was found on the x-ray. She was previously on antibiotics orally, however, did not impr ove. CT scan was done of the chest, abdomen, and pelvis, showed left upper lobe cavitary lesion lore uring 3 cm, which was present on prior exam in 2014, 2 cm soft tissue structure medial left upper lob e has developed 2.6 cm cavitary lesion posterior left upper lobe has developed since prior exam. Emy gular opacities present along with subcentimeter lung nodules, calcified granulomas noted. Marked CO PD. Possibility of TB, fungal infection or YUDITH was considered due to the cavitary lesions and patien t's cachectic status, therefore AFB smears were ordered. Pulmonology was consulted. Patient's AFB s mear was positive. She was started on RIPE therapy. Her blood cultures and sputum cultures were neg ative. Patient will need to be on RIPE therapy for extended period of time, cultures which take 5-6 weeks will be reported through the laboratory and Department of Health. Spoke with infection control nurse, Susan Hardy who is aware of the patient's status. Patient was then cleared for discharge from Pulmonology standpoint. She will wear N95 mask, stay home from work, continue on RIPE therapy. Followup: Will need to follow up with primary care physician and with cotton grower, Dr. Kilpatrick in a week. Diet: Regular diet. Activity: As tolerated. The patient was encouraged to continue with protein supplementation. Physical Examination: General: Awake, alert, oriented x3. No acute distress. CV: S1-S2. RESPIRATORY: Moving air well bilaterally. Abdomen: Abdomen is soft, nontender, nondistended. Positive bowel sounds. Extremities: No clubbing, cyanosis, or edema. Neurologic: Nonfocal. Time Spent: Total time spent discharging patient was 45 minutes. SA/MODL Voice ID: [id number] Report ID: [id number]
--- NOTE | 2019-07-23 16:42 | P.PN ---
Subjective Date of Service: 07/14/19 Chief Complaint: AFB positive Subjective: No new changes Review of Systems 10-point ROS is otherwise unremarkable Physical Examination - Vital Signs Temperature: 97.1 F Blood Pressure: 118/62 Pulse: 60 Respirations: 17 Pulse Ox (%): 98 - Physical Exam General: Cachectic HEENT: Atraumatic, PERRLA, EOMI Neck: Supple, JVD not distended Respiratory: Clear to auscultation bilaterally, Normal air movement Cardiovascular: Regular rate/rhythm, Normal S1 S2 Gastrointestinal: Normal bowel sounds, No tenderness Musculoskeletal: No tenderness Integumentary: No rashes Neurological: Normal speech, Normal tone, Normal affect Lymphatics: No axilla or inguinal lymphadenopathy Assessment And Plan - Current Problems (Diagnosis) (1) Failure to thrive Status: Acute Qualifiers: Failure to thrive age range: in adult Qualified Code(s): R62.7 - Adult failure to thrive (2) Malnutrition Status: Acute Qualifiers: Malnutrition type: protein-calorie malnutrition Protein-calorie malnutrition severity: moderate Qualified Code(s): E44.0 - Moderate protein- calorie malnutrition (3) Pneumonia Status: Acute Qualifiers: Pneumonia type: due to unspecified organism Laterality: unspecified laterality Lung location: unspecified part of lung Qualified Code(s): J18.9 - Pneumonia, unspecified organism - Plan 1. Continue with IV antibiotics 2. Awaiting sputum and blood cultures 3. Repeat chest x-ray 4. Appreciate pulmonary consultation 5. Continue with nebs as needed 6. O2 per protocol 7. Continue with gentle hydration 8. Repeat labs including CBC and renal function in a.m. 9. GI and DVT prophylaxis
== END 2019-07-21 12:10 | disposition home or self-care (01) | DRG 177 ==
LOC: ER 16:42 → 4TH 23:13
PROVIDERS: ADMIT Hospitalist; ATTEND Hospitalist
DX: A15.0 Tuberculosis of lung (principal); E43 Unspecified severe protein-calorie malnutrition; J44.0 Chronic obstructive pulmonary disease with (acute) lower respiratory infection; Z68.1 Body mass index [BMI] 19.9 or less, adult; R64 Cachexia; J44.1 Chronic obstructive pulmonary disease with (acute) exacerbation; D50.9 Iron deficiency anemia, unspecified
CPT/HCPCS: 36415; 71045; 71260; 74177; 80048; 80053; 80061; 80076; 81001; 82550; 82728; 82962; 83605; 83690; 83735; 83880; 84100; 84145; 84484; 85025; 85610; 85730; 87015; 87040; 87070; 87116; 87205; 87206; 93005; 94760; 96361; 96365; 96375; 99285; J0456; J0696; J1650; J2405; J2543; J2920; J2930; J3010; J7030; J7512; J7606; Q9967

== ENCOUNTER 2022-03-31 06:55 | Day surgery (SDC) | payer OTHER ==
--- NOTE | 2022-03-30 09:12 | RAD REPORT ---
EXAM DESCRIPTION: RAD - Chest Pa And Lat (2 Views) - 03/30/2022 8:59 am CLINICAL HISTORY: Pre op pending colonoscopy COMPARISON: Chest Single View dated 07/12/2019; Chest Pa And Lat (2 Views) dated 06/27/2019; Chest Pa And Lat (2 Views) dated 11/05/2018; CHEST SINGLE VIEW dated 04/01/2014; Chest Abdomen Pelvis W Cont dated 07/12/2019 FINDINGS: Lines: None. Lungs: Emphysema. New left suprahilar masslike opacity measuring over 5 cm. Bilateral apical scarring . Pleural: No significant pleural effusions or pneumothorax. Cardiac: The heart size is within normal limits. Bones: No acute fractures. Other: IMPRESSION: Possible left upper lobe mass. Recommend chest CT for further evaluation. Background of emphysema and apical scarring.
[2022-03-30 09:53] LABS: Absolute Lymphocytes (CBC) 2.8 K/uL (0.7-4.9); Hematocrit 37.7 % (36.0-45.0); Lymphocytes % 16.2 % (15.3-44.8)
[2022-03-31] MEDS ORDERED: Ringers Lactate 1,000 ML IV ONE (07:08)
[2022-03-31] MEDS ORDERED: propofoL 200 MG/20 ML VIAL IV ONE ×3 (09:32→10:49)
[2022-03-31] MEDS ORDERED: LIDOCAINE 1% MPF 5 ML VIAL ONE (09:32)
[2022-03-31] MEDS ORDERED: NA CHLORIDE 0.9% 1,000 ML ONE (10:43)
--- NOTE | 2022-03-31 11:08 | ENDO RPT ---
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 ESTIMATED BLOOD LOSS: None CONSENT: The patient understands the risks and benefits of the procedure and understands that these risks include, but are not limited to: sedation, allergic reaction, infection, perforation and/or bleeding. Alternative means of evaluation and treatment include, among others: physical exam, x-rays, and/or surgical intervention. The patient elects to proceed with this endoscopic procedure. DESCRIPTION OF PROCEDURE: During intra-op preparation period all mechanical medical equipment was checked for proper function. Hand hygiene and appropriate measures for infection prevention was taken. Procedure, possible complications, alternatives including, but not limited to possibility of bleeding, perforation, tear, infection, sepsis, need for surgery, need for blood transfusion, were explained to the patient. After the risks, benefits and alternatives of the procedure were thoroughly explained, Informed consent was verified, confirmed and timeout was successfully executed by the treatment team. The patient was placed in the left lateral position. A digital rectal exam was performed and revealed internal hemorrhoids, A digital rectal exam was performed and revealed a palpable rectal mass, and A digital rectal exam was performed and revealed external hemorrhoids. After appropriate level of anesthesia, the scope was passed. The EC-[id number] ([id number]) and EC-[id number] ([id number]) endoscope was introduced through the anus and advanced to the cecum, which was identified by both the appendix and ileocecal valve. The quality of the prep was poor. The instrument was then slowly withdrawn as the colon was fully examined. Scope withdrawal time was 30 minutes. COLON FINDINGS: A one-quarter circumferential firm and fungating mass with friable surfaces was found in the rectum. A polypectomy was performed using snare cautery. The resection was complete, the polyp tissue was completely retrieved and sent to histology. A saline Injection was given to lift the mucosal wall. A tattoo was applied to the resection site in the rectum @ 8cm from verge. There was moderate diverticulosis noted in the sigmoid colon with associated angulation. No bleeding was noted from the diverticulosis. Multiple semi-pedunculated polyps were found in the rectum. A polypoid shaped and smooth semi-pedunculated polyp ranging between 5-9mm in size with a friable surface was found in the descending colon. A polypectomy was performed using snare cautery. The resection was complete, the polyp tissue was completely retrieved and sent to histology. A tattoo was applied. Retroflexed views revealed no abnormalities. The scope was then completely withdrawn from the patient and the procedure terminated. ADVERSE EVENTS: There were no complications. IMPRESSIONS: One-quarter circumferential mass was found in the rectum RECOMMENDATIONS: RECALL: Talat Price DR eSigned: Talat Price DR 03/31/2022 11:07 AM cc: CPT CODES: ICD9 CODES: PATIENT NAME: Irene Venegas MR#: [id number]
[2022-03-31 12:24] VITALS: BP 144/76; TEMP 97.8; O2SAT 100
--- NOTE | 2022-04-01 14:34 | EKG ---
Test Date: 2022-03-30 Test Time: 08:40:17 Professor Of Industrial Technology: MIS MEASUREMENT RESULTS: Intervals: Rate: 72 ND: 120 QRSD: 72 QT: 372 QTc: 407 Nora: P: 92 ND: 120 QRS: 88 T: 81 INTERPRETIVE STATEMENTS: Normal sinus rhythm with sinus arrhythmia Normal ECG Compared to ECG 07/12/2019 18:15:14 No significant changes Electronically Signed On 04-01-22 14:33:32 CDT by Seven Fair
== END 2022-03-31 12:08 | disposition home or self-care (01) ==
LOC: OR 06:55
PROVIDERS: ATTEND Surgery
PROC: 0DBP8ZX Excision of Rectum, Via Natural or Artificial Opening Endoscopic, Diagnostic (ICD-10-PCS; 2022-03-31)
PROC: 0DBK8ZX Excision of Ascending Colon, Via Natural or Artificial Opening Endoscopic, Diagnostic (ICD-10-PCS; principal; 2022-03-31 08:30)
DX: Z12.11 Encounter for screening for malignant neoplasm of colon (principal); Z20.822 Contact with and (suspected) exposure to COVID-19; D12.7 Benign neoplasm of rectosigmoid junction; D12.4 Benign neoplasm of descending colon; K64.8 Other hemorrhoids
CPT/HCPCS: 93005; 85025; 36415; 88305; 71046; 45385; U0003; J2704 ×3; J7120; J7030

== ENCOUNTER 2022-05-25 07:51 | Day surgery (SDC) | payer OTHER, SELFPAY ==
[2022-05-25 08:16] LABS: MPV 7.1 fL (7.6-11.3)
[2022-05-25] MEDS ORDERED: NA CHLORIDE 0.9% 500 ML ONE (08:20)
[2022-05-25 08:22] LABS: Protime INR 1.03
[2022-05-25 09:02] VITALS: TEMP 98; BMI 18.7
[2022-05-25] MEDS ORDERED: MIDAZOLAM HCL 2 MG/2 ML INJ ONE (09:22)
[2022-05-25] MEDS ORDERED: FENTANYL CITR 100 MCG/2 ML ONE (09:23)
[2022-05-25] MEDS ORDERED: NALOXONE 0.4 MG/ML VIAL ONE (09:23)
[2022-05-25] MEDS ORDERED: FLUMAZENIL 0.1 MG/ML (5 mL VIAL) IV ONE (09:23)
--- NOTE | 2022-05-25 11:37 | RAD REPORT ---
EXAM DESCRIPTION: CT - Lung Biopsy Perc w/CT - 05/25/2022 11:02 am CLINICAL HISTORY: left lung mass COMPARISON: No comparisons FINDINGS: Preoperative diagnosis: Left lower lobe lung mass Post operative diagnosis: Same Conscious Sedation: Conscious sedation was provided. 30 minutes of urrb-yo-jyxx time. 1 milligram Sudhakar sed, 50 mcg fentanyl. Patient was continuously monitored by nursing staff. Contrast used: NONE Estimated blood loss: less than 5 mL Specimens: 3 x 18 gauge core samples The patient was placed prone on the table and the left back area was prepped and draped in the usual sterile fashion. 1% lidocaine was infiltrated into the subcutaneous tissues for local anesthesia. Und er computed tomographic guidance, a 17 gauge introducer was advanced into the lesion. Subsequently, a 18 gauge, 15 cm long, 20 mm throw core biopsy gun was advanced into the lesion and 3 cores were obta ined. Postprocedure imaging demonstrated no complications. Samples were given to pathology for analysis. Th e patient tolerated the procedure without immediate complication and transferred to the recovery room in stable condition. IMPRESSION: 1. Technically successful CT-guided core biopsy of a left lower lobe lung mass. 2. No immediate complications. 3. Conscious sedation was utilized. All CT scans are performed using dose optimization technique as appropriate and may include automated exposure control or mA/KV adjustment according to patient size.
--- NOTE | 2022-05-25 12:54 | RAD REPORT ---
EXAM DESCRIPTION: RAD - Chest Single View - 05/25/2022 12:36 pm CLINICAL HISTORY: POST LUNG BX COMPARISON: CT chest biopsy 05/25/2022 and two view chest 03/30/2022 TECHNIQUE: Portable supine inspiration and expiration images obtained 05/25/2022 12:36 pm . FINDINGS: No pneumothorax is identifiable. Again noted is the very extensive pleural and parenchymal disease. Heart size is normal. No abnormal pleural fluid collection. IMPRESSION: Initial post biopsy examination shows no identifiable pneumothorax.
[2022-05-25 14:16] VITALS: O2SAT 96
[2022-05-25 14:18] VITALS: BP 121/73
== END 2022-05-25 13:30 | disposition home or self-care (01) ==
LOC: DS 07:51
PROVIDERS: ATTEND Internal Medicine Sleep Medicine
PROC: 0BDJ4ZX Extraction of Left Lower Lung Lobe, Percutaneous Endoscopic Approach, Diagnostic (ICD-10-PCS; principal; 2022-05-25)
DX: R91.8 Other nonspecific abnormal finding of lung field (principal)
CPT/HCPCS: 36415; 71045; 77012; 85049; 85610; 85730; 88305; 88312; J2250; J2310; J3010; J7040

== ENCOUNTER 2022-07-04 19:59 | Inpatient (IN) | payer OTHER ==
--- OUTSIDE RECORDS SUMMARY | 2022-07-04 20:02 | XMS REPORT | Continuity of Care Document ---
:1960 Author Organization [facility] Address [address] [place] [address] Care Team Providers Name Role Phone FLORY_Richie Attending Clinician Unavailable Umm Starks Attending Clinician [phone] Umm Starks Attending Clinician Doctor Unassigned, [place] [address] [place] Attending Clinician Unavailable Lab, Adc Fam Pob I Attending Clinician Unavailable Isac Payne Attending Clinician ISAC CARRERA Attending Clinician Unavailable FLORY_Richie Admitting Clinician Unavailable Payers Payer Name Policy Type Policy Number Effective Date Expiration Date S pillo [facility] - [id number] 2018 SELF FUNDED - 00:00:00 [facility] [id number] 2018 [facility] 00:00:00 CHOICE PLUS Problems This patient has no known problems. Allergies, Adverse Reactions, Alerts Allergy Allergy Status Severity Reaction(s) Onset Inactive Treating Comm ents Source Name Type Date Date Clinician NO KNOWN Drug Active Univers ALLERGIE Class ity of S [facility] Social History Social Habit Start Date Stop Date Quantity Comments Source Sex Assigned At [birth year] [facility] 00:00:00 00:00:00 Medical Branch Smoking Status Start Date Stop Date Source Unknown if ever smoked [facility] Medications This patient has no known medications. Procedures Procedure Date / Time Performed Performing Clinician [facility] e REFERRAL- 2021-03-17 05:01:00 [facility]RESPONSE Name Medical Branch Encounters Start End Encounter Admission Attending Care Care Encounter Source Date/Time Date/Time Type Type Clinicians Facility Department ID 2022-06-23 2022-06-23 Outpatient KEFFER[facility]A [facility] [id number] [place] 00:00:00 00:00:00 [facility] 2022-06-20 2022-06-20 Outpatient [facility] [id number] [place] 00:00:00 00:00:00 [facility] 2022-06-20 2022-06-20 Outpatient Umm Starks [facility] [id number] 00:00:00 00:00:00 Judith [id number] 2022-06-17 2022-06-17 Outpatient KEEDVIN_A [facility] [id number] [place] 00:00:00 00:00:00 [facility] 2022-05-15 2022-05-15 Outpatient [facility] [id number] [place] 05:02:00 05:02:00 718 [facility] 2022-04-24 2022-04-24 Outpatient KEFFER_Richie [facility] [id number] 0220 [place] 02:04:00 02:04:00 627 [facility] 2022-04-24 2022-04-24 Outpatient Umm Starks [facility] [id number] 00:00:00 00:00:00 Judith [id number] 2022-04-08 2022-04-08 Outpatient [facility] [id number] 0220 [place] 01:24:00 01:24:00 611 [facility] 2022-03-20 2022-03-20 Outpatient [facility]VIN[facility] [id number] 0220 [place] 02:04:00 02:04:00 523 [facility] 2022-03-20 2022-03-20 Outpatient Umm Starks [facility] [id number] 00:00:00 00:00:00 Judith [id number] 2022-03-132022-03-13 Outpatient [facility] [id number] 0220 [place] 06:18:00 06:18:00 516 [facility] 2022-03-13 2022-03-13 Outpatient Umm Starks [facility] [id number] 00:00:00 00:00:00 Judith [id number] 2022-03-13 2022-03-13 Outpatient Umm Starks [facility] [id number] 00:00:00 00:00:00 Judith [id number] 2022-02-20 2022-02-20 Outpatient KEEDVIN[facility]A [facility] [id number] 0220 [place] 04:34:00 04:34:00 425 [facility] 2022-02-20 2022-02-20 Outpatient Umm Starks [facility] [id number] 00:00:00 00:00:00 Judith [id number] 2022-02-15 2022-02-15 Outpatient [facility] [id number] 0220 [place] 07:49:00 07:49:00 420 [facility] 2021-07-28 2021-07-28 Outpatient [facility] [id number] [place] 12:51:00 12:51:00 930 [facility] 2021-03-30 2021-03-30 Umm Kidd [id number] Univers 00:00:00 00:00:00 (Out) Sylvester MONTES [id number] [facility] [id number] Mao as [phone] [address] 2021-03-17 2021-03-17 Outpatient KEFFER_Richie [facility] [id number] 0210 [place] 12:03:00 12:03:00 520 [facility] 2021-03-17 2021-03-17 Kavitha DAVIDSON [id number] Univers 00:00:00 00:00:00 Only Unassigned, JYOTI [id number] [facility]y of [place] [facility] [place] [facility] [id number] Mao as [phone] [facility] 009 Branch 2021-03-17 2021-03-17 Outpatient Umm Starks [facility] [id number] 00:00:00 00:00:00 Judith [id number] 2020-12-12 2020-12-12 Outpatient FLORY_Richie [facility] [id number] 0210 [place] 01:03:00 01:03:00 214 [facility] 2020-11-07 2020-11-07 Outpatient FLORY_Richie [facility] [id number] 0210 [place] 01:02:00 01:02:00 110 [facility] 2020-06-17 2020-06-17 Laboratory Lab, Adc Fam Pob I [facility] [id number] Univers 12:47:46 13:07:46 Only Isac Carrera [facility] [id number] ity of [place] [id number] Mao as Professio [phone] [facility] [address] 2020-06-17 2020-06-17 Outpatient R DEBI [facility] [id number] Univers 13:00:00 13:00:00 ISAC ity of [facility] 2020-06-17 2020-06-17 Outpatient R [facility] [id number] Univers 11:00:00 11:00:00 ity of [facility] 2020-06-17 2020-06-17 Letter Doctor STUART [id number] Univers 00:00:00 00:00:00 (Out) Unassigned, JYOTI [id number] [facility]y [facility] [place] [facility] [id number] Mao as [phone] [address] Results This patient has no known results.
[2022-07-04 22:28] LABS: Absolute Lymphocytes (CBC) 1.8 K/uL (0.7-4.9); Hematocrit 39.1 % (36.0-45.0); Lymphocytes % 12.2 % (15.3-44.8); MCV 74.5 fL (80-100); MPV 7.5 fL (7.6-11.3); RBC Red Blood Cell Count 5.25 M/uL (3.86-4.86)
--- NOTE | 2022-07-04 22:30 | RAD REPORT ---
EXAM DESCRIPTION: RAD - Chest Single View - 07/04/2022 10:14 pm CLINICAL HISTORY: Hemoptysis COMPARISON: Chest Single View dated 05/25/2022; Chest Pa And Lat (2 Views) dated 03/30/2022; Chest Sing le View dated 07/12/2019; Chest Pa And Lat (2 Views) dated 06/27/2019; Lung Biopsy Perc w/CT dated 05/25; Chest Abdomen Pelvis W Cont dated 07/12/2019 FINDINGS: Lines: None. Lungs: Biapical scarring. Previously biopsied left lung mass is better demonstrated on CT. Advanced e mphysema. Pleural: No pleural effusions or pneumothorax. Cardiac: The heart size is within normal limits. Mediastinum: Within normal limits. Bones: No acute fractures. Other: None IMPRESSION: Known left lung mass and biapical scarring that is similar to 05/25/2022. Hemoptysis cou ld be secondary to the patient's known lung mass. No new acute process identified.
[2022-07-04 22:38] LABS: ALT/SGPT 20 U/L (12-78); AST/SGOT 16 U/L (15-37); Albumin 3.2 g/dL (3.4-5.0); Alkaline Phosphatase 187 U/L (45-117); BUN Blood Urea Nitrogen 12 mg/dL (7-18); Bicarbonate 27 mmol/L (21-32); Bilirubin Total 0.3 mg/dL (0.2-1.0); Glomerular Filtration Rate 100 ml/min (=/>90); Glucose Level 117 mg/dL (74-106); Magnesium 2.3 mg/dL (1.8-2.4); NT PRO-BNP 90 pg/mL (<125); Potassium 3.6 mmol/L (3.5-5.1); Sodium Level 136 mmol/L (136-145); Troponin High Sensitivity 6.4 pg/mL (<58.9)
[2022-07-04] MEDS ORDERED: NA CHLORIDE 0.9% 500 ML ONE (22:55)
[2022-07-04 23:04] LABS: Protime INR 1.14
[2022-07-04 23:05] LABS: Bilirubin Direct < 0.1 mg/dL (0-0.2)
[2022-07-05] MEDS ORDERED: Levofloxacin500mg IV 500 MG/100 ML BAG IV ONE (01:28)
--- NOTE | 2022-07-05 02:17 | EDPHYS ---
Physician Documentation [facility] Name: Irene Venegas Age: 62 yrs Sex: Female : 1960 Arrival Date: 07/04/2022 Time: 20:03 Bed 15 Private MD: ED Physician Americo Vital HPI: 07/04 21:20 This 62 yrs old Female presents to ER via Ambulatory with complaints of Cough, cp COUGHING/VOMITING BLOOD, Congestion. 21:20 The patient or guardian reports cough, with productive sputum, that is bloody. Onset: cp The symptoms/episode began/occurred today. Severity of symptoms: in the emergency department the symptoms are unchanged. Associated signs and symptoms: Pertinent positives: sweats. Historical: - Allergies: 20:14 Morphine; ld1 - PMHx: 20:14 Pneumonia; Pneumothorax; ld1 - PSHx: 20:14 Total abdominal hysterectomy; Partial stomach removed; ld1 - Immunization history:: Adult Immunizations up to date, Client reports receiving the 2nd dose of the Covid vaccine. - Social history:: Smoking status: Patient reports the use of cigarette tobacco products, smokes one-half pack cigarettes per day, Patient/guardian denies using alcohol. ROS: 21:25 Constitutional: Negative for body aches, chills, fever. cp 21:25 Eyes: Negative for injury, pain, redness, and discharge. cp 21:25 ENT: Negative for drainage from ear(s), ear pain, sore throat, difficulty swallowing, difficulty handling secretions. 21:25 Cardiovascular: Negative for chest pain, edema, palpitations. 21:25 Respiratory: Positive for hemoptysis, Negative for wheezing. 21:25 Abdomen/GI: Negative for abdominal pain, nausea, vomiting, and diarrhea. 21:25 Neuro: Negative for altered mental status, dizziness, headache, numbness, weakness. 21:25 All other systems are negative. Exam: 21:30 Constitutional: The patient appears in no acute distress, alert, awake, cp non-diaphoretic, non-toxic, well developed, well nourished. 21:30 Head/Face: Normocephalic, atraumatic. cp 21:30 Eyes: Periorbital structures: appear normal, Conjunctiva: normal, no exudate, no injection, Sclera: no appreciated abnormality, Lids and lashes: appear normal, bilaterally. 21:30 ENT: External ear(s): are unremarkable, Nose: is normal, Mouth: Lips: moist, Oral mucosa: pink and intact, moist, Posterior pharynx: Airway: no evidence of obstruction, patent. 21:30 Neck: ROM/movement: is normal, is supple, without pain, no range of motions limitations. 21:30 Chest/axilla: Inspection: normal. 21:30 Cardiovascular: Rate: tachycardic, Rhythm: regular, Edema: is not appreciated, JVD: is not appreciated. 21:30 Respiratory: the patient does not display signs of respiratory distress, Respirations: normal, no use of accessory muscles, no retractions, labored breathing, is not present, Breath sounds: are clear throughout, no decreased breath sounds, no stridor, no wheezing. 21:30 Abdomen/GI: Inspection: abdomen appears normal, Bowel sounds: active, all quadrants, Palpation: abdomen is soft and non-tender, in all quadrants. 21:30 Back: pain, is absent, ROM is normal. 21:30 Skin: no rash present. 21:30 Neuro: Orientation: to person, place \\T\\ time. Mentation: is normal, Motor: moves all fours, strength is normal, Sensation: is normal. 22:07 ECG was reviewed by the Attending Physician. Vital Signs: 20:12 BP 124 / 106; Pulse 120; Resp 18; Temp 99.3(O); Pulse Ox 98% on R/A; Weight 43.54 kg; ld1 Height 5 ft. 3 in. (160.02 cm); Pain 0/10; 22:41 BP 124 / 75; Pulse 89; Resp 16; Pulse Ox 96% on R/A; jb4 07/05 00:30 BP 126 / 83; Pulse 87; Resp 16; Pulse Ox 95% on R/A; jb4 06:00 BP 122 / 86; Pulse 83; Resp 22; Pulse Ox 96% on R/A; jb4 07/04 20:12 Body Mass Index 17.00 (43.54 kg, 160.02 cm) ld1 MDM: 07/04 20:58 Patient medically screened. cp 23:00 Differential Diagnosis: Bronchitis Influenza Pneumonia Other carcinoma, pulmonary cp embolism. 07/05 01:15 Data reviewed: vital signs, nurses notes, lab test result(s), EKG, radiologic studies, cp CT scan, plain films, I have discussed the patient's presentation/case with the attending Emergency Department Physician; and as a result, I will admit patient. 01:15 Test interpretation: by ED physician or midlevel provider: ECG, plain radiologic cp studies. Physician consultation: Kourtney SPANN was called at 01:15, was contacted at 01:15, regarding admission, to the telemetry unit. 07/04 21:17 Order name: COVID-19 SARS RT PCR (Document "Date of Onset" if Symptomatic) 07/04 22:08 Order name: Basic Metabolic Panel; Complete Time: 23:09 EDMS 07/04 23:13 Interpretation: Normal except: GLUC 117. 07/04 22:08 Order name: Liver (Hepatic) Function; Complete Time: 23:09 EDMS 07/05 00:09 Interpretation: Normal except: ALK 187; ALB 3.2; GLOB 4.8; A/G 0.7. 07/04 22:08 Order name: Troponin High Sensitivity; Complete Time: 23:09 EDNE 07/04 22:08 Order name: NT PRO-BNP; Complete Time: 23:09 EDMS 07/04 21:56 Order name: Chest Single View; Complete Time: 22:44 EDMS 07/04 22:13 Order name: CT Chest For PE Angio 07/04 22:23 Order name: Magnesium; Complete Time: 23:09 EDMS 07/04 22:23 Order name: CBC with Automated Diff; Complete Time: 22:44 EDMS 07/04 22:44 Interpretation: Normal except: WBC 14.40; RBC 5.25; MCV 74.5; MCH 24.0; PLT 602; RDW cp 15.6; MPV 7.5; KAYLEEN% 81.3; LYM% 12.2; NEUT A 11.7. 07/04 22:23 Order name: Protime (+INR); Complete Time: 00:08 EDMS 07/05 00:08 Interpretation: Abnormal. 07/04 22:23 Order name: D-Dimer; Complete Time: 23:37 EDMS 07/04 22:23 Order name: SARS-COV-2 RT PCR; Complete Time: 00:08 EDMS 07/04 22:23 Order name: Influenza Screen (A ; Complete Time: 00:08 EDMS 07/05 10:20 Order name: CBC with Automated Diff EDMS 07/05 10:30 Order name: Basic Metabolic Panel EDMS 07/05 10:30 Order name: Magnesium EDMS 07/04 21:17 Order name: EKG; Complete Time: 22:37 cp 07/04 21:17 Order name: Cardiac monitoring; Complete Time: 22:04 cp 07/04 21:17 Order name: EKG - Nurse/Tech; Complete Time: 22:04 cp 07/04 21:17 Order name: IV Saline Lock; Complete Time: 22:04 cp 07/04 21:17 Order name: Labs collected and sent; Complete Time: 22:04 cp 07/04 21:17 Order name: O2 Per Protocol; Complete Time: 22:04 cp 07/04 21:17 Order name: O2 Sat Monitoring; Complete Time: 22:04 cp EC/06 22:07 Rate is 92 beats/min. Rhythm is regular. [place] interval is normal. QRS interval is normal. cp QT interval is normal. T waves are Inverted in leads aVL, aVR. Interpreted by me. Reviewed by me. Administered Medications: 22:54 Drug: NS 0.9% 500 ml Route: IV; Rate: bolus; Site: right antecubital; jb4 07/05 01:00 CANCELLED (Physician Discretion): LevaQUIN (levofloxacin) 500 mg 100 ml IVPB once over cp 60 mins 01:37 Drug: LevaQUIN (levofloxacin) 500 mg Volume: 100 ml; Route: IVPB; Infused Over: 60 jb4 mins; Site: right forearm; Disposition Summary: 07/05/22 02:16 Hospitalization Ordered Hospitalization Status: Inpatient Admission cp Provider: Kishore Garcia cp Condition: Stable cp Problem: new cp Symptoms: have improved cp Bed/Room Type: Standard cp Location: [facility] ER HOLD(07/05/22 04:28) cg Room Assignment: ERHOLD-(07/05/22 04:28) cg Diagnosis - Hemoptysis cp - Other pneumonia, unspecified organism cp Forms: - Medication Reconciliation Form cp - SBAR form cp Signatures: Dispatcher [employer] Americo Michel MD MD cha Page, Corey, PA PA cp Garcia, Cindy, RN RN Elian Hope RN RN jb4 Lucero Melendez RN RN ld1 Kourtney Iglesias PA PA sb3 Corrections: (The following items were deleted from the chart) 07/04 20:14 20:14 PSHx: stomach removed; ld1 ld1 22:43 22:37 Chest Single View+RAD.RAD.BRZ ordered. EDMS EDMS 22:44 22:35 Chest For Pe Angio ordered. EDMS EDMS 22:56 22:37 CBC+H.LAB.BRZ ordered. EDMS EDMS 22:56 22:37 D-DIMER+COAG.LAB.BRZ ordered. EDMS EDMS 22:56 22:37 PROTIME (+INR)+COAG.LAB.BRZ ordered. EDMS EDMS 22:56 22:37 Influenza Screen (A \\T\\ B)+BA.LAB.BRZ ordered. EDMS EDMS 23:34 22:37 BASIC METABOLIC PANEL+C.LAB.BRZ ordered. EDMS EDMS 23:34 22:37 HEPATIC FUNCTION+C.LAB.BRZ ordered. EDMS EDMS 23:34 22:37 MAGNESIUM+C.LAB.BRZ ordered. EDMS EDMS 23:34 22:37 PROBNP+C.LAB.BRZ ordered. EDMS EDMS 23:34 22:37 Troponin High Sensitivity+C.LAB.BRZ ordered. EDMS EDMS 07/05 01:00 01:00 LevaQUIN (levofloxacin) 500 mg 100 ml IVPB once over 60 mins ordered. cp cp 04:28 02:16 Telemetry/MedSurg (Inpatient) cp cg 04:28 02:16 cp cg
--- NOTE | 2022-07-05 02:17 | ER ---
Nurse's Notes [facility] – [place], [place] Name: Irene Venegas Age: 62 yrs Sex: Female : 1960 Arrival Date: 07/04/2022 Time: 20:03 Bed 15 Private MD: Diagnosis: Hemoptysis;Other pneumonia, unspecified organism Presentation: 07/04 20:12 Chief complaint: Patient states: 2 episodes of coughing up blood at 1900 this evening. ld1 Denies pain. Pt reports sweating at work this evening. Coronavirus screen: At this time, the client does not indicate any symptoms associated with coronavirus-19. Ebola Screen: No symptoms or risks identified at this time. Resp Distress? No respiratory distress is noted at this time. Initial Sepsis Screen: Does the patient meet any 2 criteria? No. Patient's initial sepsis screen is negative. Does the patient have a suspected source of infection? No. Patient's initial sepsis screen is negative. Risk Assessment: Do you want to hurt yourself or someone else? Patient reports no desire to harm self or others. Onset of symptoms was July 04, 2022. 20:12 Method Of Arrival: Ambulatory ld1 20:12 Acuity: REVA 3 ld1 Triage Assessment: 20:14 General: Appears in no apparent distress. comfortable, Behavior is calm, cooperative, ld1 appropriate for age. Pain: Denies pain. EENT: No signs and/or symptoms were reported regarding the EENT system. Neuro: Level of Consciousness is awake, alert, obeys commands, Oriented to person, place, time, situation. Cardiovascular: Capillary refill < 3 seconds Patient's skin is warm and dry. Respiratory: Airway is patent Respiratory effort is even, unlabored. GI: Abdomen is flat, non-distended. : No signs and/or symptoms were reported regarding the genitourinary system. Derm: No signs and/or symptoms reported regarding the dermatologic system. Musculoskeletal: No signs and/or symptoms reported regarding the musculoskeletal system. 20:18 Respiratory: Breath sounds with crackles bilaterally. ld1 Historical: - Allergies: 20:14 Morphine; ld1 - PMHx: 20:14 Pneumonia; Pneumothorax; ld1 - PSHx: 20:14 Total abdominal hysterectomy; Partial stomach removed; ld1 - Immunization history:: Adult Immunizations up to date, Client reports receiving the 2nd dose of the Covid vaccine. - Social history:: Smoking status: Patient reports the use of cigarette tobacco products, smokes one-half pack cigarettes per day, Patient/guardian denies using alcohol. Assessment: 21:00 General: Appears in no apparent distress. comfortable, Behavior is calm, cooperative, jb4 appropriate for age. Pain: Denies pain. Neuro: Level of Consciousness is awake, alert, obeys commands, Oriented to person, place, time, situation. Cardiovascular: Patient's skin is warm and dry. Respiratory: Reports cough that is productive, Report coughing up blood Airway is patent Respiratory effort is even, unlabored, Respiratory pattern is regular, symmetrical. GI: No signs and/or symptoms were reported involving the gastrointestinal system. : No signs and/or symptoms were reported regarding the genitourinary system. EENT: No signs and/or symptoms were reported regarding the EENT system. Derm: Skin is intact, Skin is pink, warm \T\ dry. 22:00 Reassessment: Patient appears in no apparent distress at this time. Patient and/or jb4 family updated on plan of care and expected duration. Pain level reassessed. Patient is alert, oriented x 3, equal unlabored respirations, skin warm/dry/pink. 23:00 Reassessment: Patient appears in no apparent distress at this time. Patient and/or jb4 family updated on plan of care and expected duration. Pain level reassessed. Patient is alert, oriented x 3, equal unlabored respirations, skin warm/dry/pink. 07/05 00:00 Reassessment: Patient appears in no apparent distress at this time. Patient and/or jb4 family updated on plan of care and expected duration. Pain level reassessed. Patient is alert, oriented x 3, equal unlabored respirations, skin warm/dry/pink. 01:00 Reassessment: Patient appears in no apparent distress at this time. Patient and/or jb4 family updated on plan of care and expected duration. Pain level reassessed. Patient is alert, oriented x 3, equal unlabored respirations, skin warm/dry/pink. 02:00 Reassessment: Patient appears in no apparent distress at this time. Patient and/or jb4 family updated on plan of care and expected duration. Pain level reassessed. Patient is alert, oriented x 3, equal unlabored respirations, skin warm/dry/pink. 03:00 Reassessment: Pt is resting in bed with no s/s of pain or dsitress noted. Respirations jb4 are even and unlabored with no s/s of pain or distress noted. 04:00 Reassessment: Patient appears in no apparent distress at this time. No changes from jb4 previously documented assessment. Patient and/or family updated on plan of care and expected duration. Pain level reassessed. 05:00 Reassessment: Patient appears in no apparent distress at this time. No changes from jb4 previously documented assessment. Patient and/or family updated on plan of care and expected duration. Pain level reassessed. 06:00 Reassessment: Patient appears in no apparent distress at this time. Patient and/or jb4 family updated on plan of care and expected duration. Pain level reassessed. Patient is alert, oriented x 3, equal unlabored respirations, skin warm/dry/pink. Vital Signs: 07/04 20:12 BP 124 / 106; Pulse 120; Resp 18; Temp 99.3(O); Pulse Ox 98% on R/A; Weight 43.54 kg; ld1 Height 5 ft. 3 in. (160.02 cm); Pain 0/10; 22:41 BP 124 / 75; Pulse 89; Resp 16; Pulse Ox 96% on R/A; jb4 07 00:30 BP 126 / 83; Pulse 87; Resp 16; Pulse Ox 95% on R/A; jb4 06:00 BP 122 / 86; Pulse 83; Resp 22; Pulse Ox 96% on R/A; jb4 07/04 20:12 Body Mass Index 17.00 (43.54 kg, 160.02 cm) ld1 ED Course: 07/04 20:03 Patient arrived in ED. jj6 20:14 Triage completed. ld1 20:14 Arm band placed on right wrist. ld1 20:42 Americo Sky PA is PHCP. cp 20:42 Americo Vital MD is Attending Physician. cp 21:20 Elian Sethi, CONNIE is Primary Nurse. jb4 21:35 Initial lab(s) drawn, by pr, sent to lab. Inserted saline lock: 18 gauge in right jb4 forearm, using aseptic technique. Blood collected. 22:23 Chest Single View In Process Unspecified. EDMS 23:44 CT Chest For PE Angio In Process Unspecified. EDMS 07/05 02:15 Kishore Garcia MD is Hospitalizing Provider. cp Administered Medications: 07/04 22:54 Drug: NS 0.9% 500 ml Route: IV; Rate: bolus; Site: right antecubital; jb4 07/05 01:00 CANCELLED (Physician Discretion): LevaQUIN (levofloxacin) 500 mg 100 ml IVPB once over cp 60 mins 01:37 Drug: LevaQUIN (levofloxacin) 500 mg Volume: 100 ml; Route: IVPB; Infused Over: 60 jb4 mins; Site: right forearm; Outcome: 02:16 Decision to Hospitalize by Provider. cp 12:26 Patient left the ED. ph Signatures: Dispatcher [employer] EDMS Danika Mahan RN RN ph Americo Sky PA PA cp Elian Sethi RN RN jb4 Lucero Melendez RN RN ld1 Leanne Espinal jj6 Corrections: (The following items were deleted from the chart) 07/04 20:14 20:14 PSHx: stomach removed; ld1 ld1 20:16 20:12 43.54 kg; Height 5 ft. 3 in.; BMI: 17.0; Pain 0/10; ld1 ld1 20:17 20:12 Chief complaint: Patient states: 2 episodes of coughing up blood at 1900 this ld1 evening. Denies pain ld1
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
[2022-07-05] MEDS ORDERED: ACETAMINOPHEN 500 MG TAB PO PRN (07:51)
[2022-07-05] MEDS ORDERED: ALBUTEROL 2.5 MG/3 ML NEB SOL NEB PRN ×2 (07:51→13:00)
[2022-07-05] MEDS ORDERED: ONDANSETRON 4 MG/2 ML VIAL IV PRN (07:51)
[2022-07-05] MEDS ORDERED: ENOXAPARIN 40 MG/0.4 ML SQ ONE (08:33)
[2022-07-05] MEDS ORDERED: ENOXAPARIN 40 MG/0.4 ML SQ SCH (09:00)
[2022-07-05] MEDS ORDERED: predniSONE 20 MG TAB PO SCH (09:00)
[2022-07-05] MEDS ORDERED: DOXYCYCLINE 100 MG CAP PO SCH (09:00)
[2022-07-05] MEDS ORDERED: levoFLOXacin 500 MG TAB PO SCH (09:00)
[2022-07-05] MEDS ORDERED: levoFLOXacin 250 MG TAB ONE (09:54)
[2022-07-05] MEDS ORDERED: DOXYCYCLINE 100 MG CAP PO ONE (09:55)
[2022-07-05] MEDS ORDERED: predniSONE 20 MG TAB ONE (09:57)
[2022-07-05 10:16] LABS: Absolute Lymphocytes (CBC) 1.2 K/uL (0.7-4.9); Hematocrit 34.6 % (36.0-45.0); Lymphocytes % 8.7 % (15.3-44.8); MCV 73.1 fL (80-100); MPV 7.1 fL (7.6-11.3); RBC Red Blood Cell Count 4.74 M/uL (3.86-4.86)
[2022-07-05 10:30] LABS: Magnesium 2.2 mg/dL (1.8-2.4); Potassium 3.9 mmol/L (3.5-5.1)
[2022-07-05 10:38] VITALS: BMI 16.9
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
[2022-07-05 12:48] VITALS: TEMP 99.3
--- NOTE | 2022-07-05 12:48 | EKG ---
Test Date: 2022-07-04 Test Time: 22:03:06 Trailer Driver: NACHO MEASUREMENT RESULTS: Intervals: Rate: 92 HI: 132 QRSD: 86 QT: 342 QTc: 422 Palmer: P: 88 HI: 132 QRS: 88 T: 77 INTERPRETIVE STATEMENTS: Normal sinus rhythm Normal ECG Compared to ECG 03/30/2022 08:40:17 Sinus arrhythmia no longer present Electronically Signed On 07-05-22 12:46:45 CDT by Seven Fair
[2022-07-05 12:54] VITALS: BP 122/86; O2SAT 96
[2022-07-06] MEDS ORDERED: Levofloxacin500mg IV 500 MG/100 ML BAG IV SCH (01:00)
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
== END 2022-07-05 12:25 | disposition home or self-care (01) | DRG 204 ==
LOC: ER 19:59 → ERHOLD 07-05 03:18
PROVIDERS: ADMIT Hospitalist; ATTEND Hospitalist
DX: R04.2 Hemoptysis (principal); J43.2 Centrilobular emphysema; F17.210 Nicotine dependence, cigarettes, uncomplicated; R91.8 Other nonspecific abnormal finding of lung field; Z88.5 Allergy status to narcotic agent; Z79.52 Long term (current) use of systemic steroids; Z90.710 Acquired absence of both cervix and uterus; Z79.899 Other long term (current) drug therapy; Z20.822 Contact with and (suspected) exposure to COVID-19
CPT/HCPCS: 36415; 71045; 71275; 80048; 80076; 83735; 83880; 84484; 85025; 85379; 85610; 87804; 93005; 96374; 99284; J1650; J7040; J7512; Q9967; U0003

== ENCOUNTER 2023-09-02 12:14 | Inpatient (IN) | payer OTHER ==
--- OUTSIDE RECORDS SUMMARY | 2023-09-02 12:17 | XMS REPORT | Continuity of Care Document ---
:1960 Author Organization [facility] t Address [address] [place] [id number] Care Team Providers Name Role Phone FLORY_Richie Attending Clinician Unavailable Umm Starks Attending Clinician [phone] Umm Starks Attending Clinician Doctor Unassigned, [place] Attending Clinician Unavailable Lab, Adc Fam Pob I Attending Clinician Unavailable Eboni Payne Attending Clinician EBONI CARRERA Attending Clinician Unavailable FLORY_Richie Admitting Clinician Unavailable Payers Payer Name Policy Type Policy Number Effective Date Expiration Date S pillo [employer] - [id number] 2018 SELF FUNDED - 00:00:00 [facility] [id number] 2018 [facility] 00:00:00 CHOICE PLUS Problems Condition Condition Condition Status Onset Resolution Last Treating Co mments Source Name Details Category Date Date Treatment Clinician Date Hernia of Hernia of Problem Active 2022-10 Swe bernadette anterior Anterior 0-16 Commun i abdominal Abdominal 00:00: ty wall Wall 00 [facility] Hemoptysis Hemoptysis Problem Active S weeny 9-20 [facility]i 00:00: ty 00 [facility] 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 00 [facility] Long-term Long-term Problem Active Swe bernadette drug Drug 8-23 [facility] therapy Therapy 00:00: ty 00 [facility] 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 weeny rectum Rectum 6-27 [facility]i 00:00: ty 00 [facility] Solitary Solitary Problem Active 2022-0 [facility] nodule of Nodule of 6-27 [facility] lung Lung 00:00: ty [facility] Thrombocyt Thrombocyt Problem Active S we[facility] osis osis 03-20 [facility] 00:00: ty [facility] Loss of Loss of Problem Active [place] appetite Appetite 03-20 [facility] i 00:00: ty 00 [facility] Pain of Pain of Problem Active [place] right Right 03-17 [facility] shoulder Shoulder 00:00: ty joint Joint 00 [facility] Chronic Chronic Problem Active 2019- [place] neck pain Neck Pain 07-01 Comm uni 00:00: ty [facility] Scapulalgi Scapulalgi Problem Active 2019- S weeny a a 07-01 [facility] 00:00: ty 00 [facility] Gout Gout Problem Active 2018- [place] 05-19 [facility] 00:00: ty 00 [facility] Insomnia Insomnia Problem Active 2018- [facility] 05-19 [facility] 00:00: ty 00 [facility] Hearing Hearing Problem Active 2018- [place] loss Loss 05-19 [facility] 00:00: ty 00 [facility] Hypertensi Hypertensi Problem Active 2018-0 S weeny ve ve 05-19 [facility]i disorder Disorder 00:00: ty 00 [facility] Seasonal Seasonal Problem Active 2018- [facility] allergy Allergy 05-19 [facility] 00:00: ty 00 [facility] Asthma Asthma Problem Active 2018- [place] 05-19 [facility] 00:00: ty 00 [facility] Chronic Chronic Problem Active 2018-0 [place] obstructiv Obstructiv 05-19 Co m[facility]i e lung e Lung 00:00: ty disease Disease 00 [facility] Hematochez Hematochez Problem Active 2019-0 S weeny ia ia 05-19 [facility] 00:00: ty 00 [facility] Arthritis Arthritis Problem Active 2018-0 Swe bernadette 05-19 [facility] 00:00: ty 00 [facility] Cramp in Cramp in Problem Active 2019-0 [facility] lower leg Lower Leg 05-19 Comm uni associated Associated 00:00: ty with rest with Rest 00 [facility] Syncope Syncope Problem Active 2018-0 [place] 05-19 [facility] 00:00: ty 00 [facility] Malaise Malaise Problem Active [place] 05-19 [facility] 00:00: ty 00 [facility] Fracture Fracture Problem Active [facility] of of 05-19 [facility]i multiple Multiple 00:00: ty ribs Ribs 00 [facility] Bipolar Bipolar Problem Active [place] disorder Disorder Commun i ty [facility] 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eny manic Manic Communi depressive Depressive ty disorder Disorder [facility] Clin[facility] Allergies, Adverse Reactions, Alerts Allergy Allergy Status Severity Reaction(s) Onset Inactive Treating Comm ents Source Name Type Date Date Clinician NO KNOWN Drug Active Univers ALLERGIE Class ity of S [facility] Morphine Allergy Active [place] to Communi substanc ty e [facility]ospita [facility] Clinics Social History Social Habit Start Date Stop Date Quantity Comments Source Sex Assigned At [birth year] [facility] 00:00:00 00:00:00 [facility] Smoking Status Start Date Stop Date Source Unknown if ever smoked [facility] Heavy Tobacco Smoker [place] [facility] Medications Ordered Filled Start Stop Current Ordering Indication Dosage Frequency Signature Comments Components Source Medication Medication Date Date Medication? Clinician (SIG) Name Name cyanocobala cyanocobala No cyanocobal [place] min (vit min (vit 5-16 rahman (vit Co m[facility]i B-12) 1,000 B-12) 1,000 17:16: B-12) ty mcg/mL mcg/mL 36 1,000 Hospita injection injection mcg/mL l solutionInj solutionInj injection Clinics ect 1 mL ect 1 mL solutionIn every month every month ject 1 mL by by every subcutaneou subcutaneou month by s route. s route. subcutaneo us route. albuterol albuterol No 2puff(s Q4H albuterol [place] sulfate HFA sulfate HFA ) sulfate Communi 90 90 HFA 90 ty mcg/actuati mcg/actuati mcg/actuat Hospita on aerosol on aerosol ion l inhaler inhaler aerosol Clinic s Inhale 2 Inhale 2 inhaler puffs every puffs every Inhale 2 4 hours by 4 hours by puffs inhalation inhalation every 4 route as route as hours by needed for needed for inhalation 90 days. 90 days. route as needed for 90 days. cyclobenzap cyclobenzap No cyclobenza [place] rine 10 mg rine 10 mg king 10 Communi tablet TAKE tablet TAKE mg tablet ty 1 TABLET BY 1 TABLET BY TAKE 1 Hospita MOUTH THREE MOUTH THREE TABLET BY l TIMES A DAY TIMES A DAY MOUTH Clinics NEEDED NEEDED THREE TIMES A DAY NEEDED gabapentin gabapentin No gabapentin [place] 300 mg 300 mg 300 mg Communi capsule capsule capsule ty TAKE 1 TAKE 1 TAKE 1 Hospita CAPSULE BY CAPSULE BY CAPSULE BY l MOUTH TWICE MOUTH TWICE MOUTH Clinics A DAY A DAY TWICE A DAY hydrocodone hydrocodone No 1 Q6H hydrocodon [place] 5 5 e 5 Communi mg-acetamin mg-acetamin mg-acetami ty ophen 325 ophen 325 nophen 325 Hospita mg tablet mg tablet mg tablet l Take 1 Take 1 Take 1 Clinics tablet tablet tablet every 6 every 6 every 6 hours by hours by hours by oral route oral route oral route as needed. as needed. as needed. iron otc iron otc No iron otc Swe bernadette one BID one BID one BID Commun i with meals with meals with meals ty [facility]ospita [facility] Clinics meloxicam meloxicam No meloxicam [place] 7.5 mg 7.5 mg 7.5 mg Communi tablet TAKE tablet TAKE tablet ty 1 TABLET BY 1 TABLET BY TAKE 1 Hospita MOUTH EVERY MOUTH EVERY TABLET BY l DAY DAY MOUTH Clinics EVERY DAY quetiapine quetiapine No quetiapine [place] 100 mg 100 mg 100 mg Communi tablet TAKE tablet TAKE tablet ty 1 TABLET BY 1 TABLET BY TAKE 1 Hospita MOUTH MOUTH TABLET BY l EVERYDAY AT EVERYDAY AT MOUTH Clinics BEDTIME BEDTIME EVERYDAY AT BEDTIME Symbicort Symbicort No 2puff(s BID Symbicort [place] 160 mcg-4.5 160 mcg-4.5 ) 160 C om[facility]i mcg/actuati mcg/actuati mcg-4.5 ty on HFA on HFA mcg/actuat Hospi ta aerosol aerosol ion HFA l inhaler inhaler aerosol Clinic s Inhale 2 Inhale 2 inhaler puffs twice puffs twice Inhale 2 a day by a day by puffs inhalation inhalation twice a route as route as day by directed directed inhalation for 30 for 30 route as days. days. directed for 30 days. venlafaxine venlafaxine No venlafaxin [place] ER 37.5 mg ER 37.5 mg e ER 37.5 Communi capsule,ext capsule,ext mg t y ended ended capsule,ex Hospita release 24 release 24 tended l hr TAKE 1 hr TAKE 1 release 24 Clinics CAPSULE BY CAPSULE BY hr TAKE 1 MOUTH EVERY MOUTH EVERY CAPSULE BY DAY DAY MOUTH EVERY DAY Vitamin D3 Vitamin D3 No Vitamin D3 [place] otc 5000 iu otc 5000 iu otc 5000 Communi daily daily iu daily ty Hospita l Clinics albuterol albuterol No albuterol [place] sulfate 2.5 sulfate 2.5 sulfate Communi mg/3 mL mg/3 mL 2.5 mg/3 ty (0.083 %) (0.083 %) mL (0.083 Hospita solution solution %) l for for solution Clinics nebulizatio nebulizatio for n USE 1 n USE 1 nebulizati VIAL IN VIAL IN on USE 1 NEBULIZER 3 NEBULIZER 3 VIAL IN TIMES A DAY TIMES A DAY NEBULIZER 3 TIMES A DAY albuterol albuterol No albuterol [place] sulfate HFA sulfate HFA sulfate Communi 90 90 HFA 90 ty mcg/actuati mcg/actuati mcg/actuat Hospita on aerosol on aerosol ion l inhaler inhaler aerosol Clinic s INHALE 2 INHALE 2 inhaler PUFFS EVERY PUFFS EVERY INHALE 2 4 HOURS 4 HOURS PUFFS NEEDED NEEDED EVERY 4 HOURS NEEDED azithromyci azithromyci No azithromyc [place] n 250 mg n 250 mg in 250 mg Co m[facility]i tablet TAKE tablet TAKE tablet ty 2 TABLETS 2 TABLETS TAKE 2 Hos mazin BY MOUTH BY MOUTH TABLETS BY l TODAY, THEN TODAY, THEN MOUTH Clinics TAKE 1 TAKE 1 TODAY, TABLET TABLET THEN TAKE DAILY FOR 4 DAILY FOR 4 1 TABLET DAYS DAYS DAILY FOR 4 DAYS cyclobenzap cyclobenzap No cyclobenza [place] rine 10 mg rine 10 mg king 10 Communi tablet TAKE tablet TAKE mg tablet ty 1 TABLET BY 1 TABLET BY TAKE 1 Hospita MOUTH THREE MOUTH THREE TABLET BY l TIMES A DAY TIMES A DAY MOUTH Clinics NEEDED NEEDED THREE TIMES A DAY NEEDED escitalopra escitalopra No escitalopr [place] m 10 mg m 10 mg am 10 mg Commu ni tablet TAKE tablet TAKE tablet ty 1 TABLET BY 1 TABLET BY TAKE 1 Hospita MOUTH EVERY MOUTH EVERY TABLET BY l DAY FOR 30 DAY FOR 30 MOUTH Cl inics DAYS DAYS EVERY DAY FOR 30 DAYS gabapentin gabapentin No gabapentin [place] 300 mg 300 mg 300 mg Communi capsule capsule capsule ty TAKE 1 TAKE 1 TAKE 1 Hospita CAPSULE BY CAPSULE BY CAPSULE BY l MOUTH TWICE MOUTH TWICE MOUTH Clinics A DAY A DAY TWICE A DAY hydrocodone hydrocodone No 1 Q6H hydrocodon [place] 5 5 e 5 Communi mg-acetamin mg-acetamin mg-acetami ty ophen 325 ophen 325 nophen 325 Hospita mg tablet mg tablet mg tablet l Take 1 Take 1 Take 1 Clinics tablet tablet tablet every 6 every 6 every 6 hours by hours by hours by oral route oral route oral route as needed. as needed. as needed. iron otc iron otc No iron otc Swe bernadette one BID one BID one BID Commun i with meals with meals with meals ty Hospita [facility] Clinics meloxicam meloxicam No meloxicam [place] 7.5 mg 7.5 mg 7.5 mg Communi tablet TAKE tablet TAKE tablet ty 1 TABLET BY 1 TABLET BY TAKE 1 Hospita MOUTH EVERY MOUTH EVERY TABLET BY l DAY DAY MOUTH Clinics EVERY DAY methylpredn methylpredn No methylpred [place] isolone 4 isolone 4 nisolone 4 Communi mg tablets mg tablets mg tablets ty in a dose in a dose in a dose Hospita pack TAKE 6 pack TAKE 6 pack TAKE l TABLETS ON TABLETS ON 6 TABLETS Clinics DAY 1 DAY 1 ON DAY 1 DIRECTED ON DIRECTED ON PACKAGE AND PACKAGE AND DIRECTED DECREASE BY DECREASE BY ON PACKAGE 1 TAB EACH 1 TAB EACH AND DAY FOR A DAY FOR A DECREASE TOTAL OF 6 TOTAL OF 6 BY 1 TAB DAYS DAYS EACH DAY FOR A TOTAL OF 6 DAYS quetiapine quetiapine No quetiapine [place] 100 mg 100 mg 100 mg Communi tablet TAKE tablet TAKE tablet ty 1 TABLET BY 1 TABLET BY TAKE 1 Hospita MOUTH MOUTH TABLET BY l EVERYDAY AT EVERYDAY AT MOUTH Clinics BEDTIME BEDTIME EVERYDAY AT BEDTIME Symbicort Symbicort No 2puff(s BID Symbicort [place] 160 mcg-4.5 160 mcg-4.5 ) 160 C [facility]i mcg/actuati mcg/actuati mcg-4.5 ty on HFA on HFA mcg/actuat Hospi ta aerosol aerosol ion HFA l inhaler inhaler aerosol Clinic s Inhale 2 Inhale 2 inhaler puffs twice puffs twice Inhale 2 a day by a day by puffs inhalation inhalation twice a route as route as day by directed directed inhalation for 30 for 30 route as days. days. directed for 30 days. venlafaxine venlafaxine No venlafaxin [place] ER 37.5 mg ER 37.5 mg e ER 37.5 Communi capsule,ext capsule,ext mg t y ended ended capsule,ex Hospita release 24 release 24 tended l hr TAKE 1 hr TAKE 1 release 24 Clinics CAPSULE BY CAPSULE BY hr TAKE 1 MOUTH EVERY MOUTH EVERY CAPSULE BY DAY DAY MOUTH EVERY DAY Vitamin D3 Vitamin D3 No Vitamin D3 [place] otc 5000 iu otc 5000 iu otc 5000 Communi daily daily iu daily ty Hospita l Clinics albuterol albuterol No albuterol [place] sulfate 2.5 sulfate 2.5 sulfate Communi mg/3 mL mg/3 mL 2.5 mg/3 ty (0.083 %) (0.083 %) mL (0.083 Hospita solution solution %) l for for solution Clinics nebulizatio nebulizatio for n USE 1 n USE 1 nebulizati VIAL IN VIAL IN on USE 1 NEBULIZER 3 NEBULIZER 3 VIAL IN TIMES A DAY TIMES A DAY NEBULIZER 3 TIMES A DAY albuterol albuterol No albuterol [place] sulfate HFA sulfate HFA sulfate Communi 90 90 HFA 90 ty mcg/actuati mcg/actuati mcg/actuat Hospita on aerosol on aerosol ion l inhaler inhaler aerosol Clinic s INHALE 2 INHALE 2 inhaler PUFFS EVERY PUFFS EVERY INHALE 2 4 HOURS 4 HOURS PUFFS NEEDED NEEDED EVERY 4 HOURS NEEDED benzonatate benzonatate No benzonatat [place] 100 mg 100 mg e 100 mg Communi capsule capsule capsule ty TAKE 1 TAKE 1 TAKE 1 Hospita CAPSULE BY CAPSULE BY CAPSULE BY l MOUTH THREE MOUTH THREE MOUTH Clinics TIMES A DAY TIMES A DAY THREE TIMES A DAY cyclobenzap cyclobenzap No cyclobenza [place] rine 10 mg rine 10 mg king 10 Communi tablet TAKE tablet TAKE mg tablet ty 1 TABLET BY 1 TABLET BY TAKE 1 Hospita MOUTH THREE MOUTH THREE TABLET BY l TIMES A DAY TIMES A DAY MOUTH Clinics NEEDED NEEDED THREE TIMES A DAY NEEDED escitalopra escitalopra No escitalopr [place] m 10 mg m 10 mg am 10 mg Commu ni tablet TAKE tablet TAKE tablet ty 1 TABLET BY 1 TABLET BY TAKE 1 Hospita MOUTH EVERY MOUTH EVERY TABLET BY l DAY FOR 30 DAY FOR 30 MOUTH Cl inics DAYS DAYS EVERY DAY FOR 30 DAYS meloxicam meloxicam No meloxicam [place] 7.5 mg 7.5 mg 7.5 mg Communi tablet TAKE tablet TAKE tablet ty 1 TABLET BY 1 TABLET BY TAKE 1 Hospita MOUTH EVERY MOUTH EVERY TABLET BY l DAY DAY MOUTH Clinics EVERY DAY quetiapine quetiapine No quetiapine [place] 100 mg 100 mg 100 mg Communi tablet TAKE tablet TAKE tablet ty 1 TABLET BY 1 TABLET BY TAKE 1 Hospita MOUTH MOUTH TABLET BY l EVERYDAY AT EVERYDAY AT MOUTH Clinics BEDTIME BEDTIME EVERYDAY AT BEDTIME Vitamin D3 Vitamin D3 No Vitamin D3 [place] otc 5000 iu otc 5000 iu otc 5000 Communi daily daily iu daily ty Hospita l Clinics albuterol albuterol No albuterol [place] sulfate 2.5 sulfate 2.5 sulfate Communi mg/3 mL mg/3 mL 2.5 mg/3 ty (0.083 %) (0.083 %) mL (0.083 Hospita solution solution %) l for for solution Clinics nebulizatio nebulizatio for n USE 1 n USE 1 nebulizati VIAL IN VIAL IN on USE 1 NEBULIZER 3 NEBULIZER 3 VIAL IN TIMES A DAY TIMES A DAY NEBULIZER 3 TIMES A DAY albuterol albuterol No albuterol [place] sulfate HFA sulfate HFA sulfate Communi 90 90 HFA 90 ty mcg/actuati mcg/actuati mcg/actuat Hospita on aerosol on aerosol ion l inhaler inhaler aerosol Clinic s INHALE 2 INHALE 2 inhaler PUFFS EVERY PUFFS EVERY INHALE 2 4 HOURS 4 HOURS PUFFS NEEDED NEEDED EVERY 4 HOURS NEEDED benzonatate benzonatate No benzonatat [place] 100 mg 100 mg e 100 mg Communi capsule capsule capsule ty TAKE 1 TAKE 1 TAKE 1 Hospita CAPSULE BY CAPSULE BY CAPSULE BY l MOUTH THREE MOUTH THREE MOUTH Clinics TIMES A DAY TIMES A DAY THREE TIMES A DAY cyanocobala cyanocobala No 1mL cyanocobal [place] min (vit min (vit rahman (vit Co [facility]i B-12) 1,000 B-12) 1,000 B-12) ty mcg/mL mcg/mL 1,000 Hospita injection injection mcg/mL l solution solution injection Cl inics Inject 1 mL Inject 1 mL solution every month every month Inject 1 by by mL every subcutaneou subcutaneou month by s route. s route. subcutaneo us route. cyclobenzap cyclobenzap No cyclobenza [place] rine 10 mg rine 10 mg king 10 Communi tablet TAKE tablet TAKE mg tablet ty 1 TABLET BY 1 TABLET BY TAKE 1 Hospita MOUTH THREE MOUTH THREE TABLET BY l TIMES A DAY TIMES A DAY MOUTH Clinics NEEDED NEEDED THREE TIMES A DAY NEEDED escitalopra escitalopra No escitalopr [place] m 10 mg m 10 mg am 10 mg Commu ni tablet TAKE tablet TAKE tablet ty 1 TABLET BY 1 TABLET BY TAKE 1 Hospita MOUTH EVERY MOUTH EVERY TABLET BY l DAY FOR 30 DAY FOR 30 MOUTH Cl inics DAYS DAYS EVERY DAY FOR 30 DAYS meloxicam meloxicam No meloxicam [place] 7.5 mg 7.5 mg 7.5 mg Communi tablet TAKE tablet TAKE tablet ty 1 TABLET BY 1 TABLET BY TAKE 1 Hospita MOUTH EVERY MOUTH EVERY TABLET BY l DAY DAY MOUTH Clinics EVERY DAY quetiapine quetiapine No quetiapine [place] 100 mg 100 mg 100 mg Communi tablet TAKE tablet TAKE tablet ty 1 TABLET BY 1 TABLET BY TAKE 1 Hospita MOUTH MOUTH TABLET BY l EVERYDAY AT EVERYDAY AT MOUTH Clinics BEDTIME BEDTIME EVERYDAY AT BEDTIME Vitamin D3 Vitamin D3 No Vitamin D3 [place] otc 5000 iu otc 5000 iu otc 5000 Communi daily daily iu daily ty Hospita l Clinics albuterol albuterol No albuterol [place] sulfate 2.5 sulfate 2.5 sulfate Communi mg/3 mL mg/3 mL 2.5 mg/3 ty (0.083 %) (0.083 %) mL (0.083 Hospita solution solution %) l for for solution Clinics nebulizatio nebulizatio for n USE 1 n USE 1 nebulizati VIAL IN VIAL IN on USE 1 NEBULIZER 3 NEBULIZER 3 VIAL IN TIMES A DAY TIMES A DAY NEBULIZER 3 TIMES A DAY albuterol albuterol No albuterol [place] sulfate HFA sulfate HFA sulfate Communi 90 90 HFA 90 ty mcg/actuati mcg/actuati mcg/actuat Hospita on aerosol on aerosol ion l inhaler inhaler aerosol Clinic s INHALE 2 INHALE 2 inhaler PUFFS EVERY PUFFS EVERY INHALE 2 4 HOURS 4 HOURS PUFFS NEEDED NEEDED EVERY 4 HOURS NEEDED benzonatate benzonatate No benzonatat [place] 100 mg 100 mg e 100 mg Communi capsule capsule capsule ty TAKE 1 TAKE 1 TAKE 1 Hospita CAPSULE BY CAPSULE BY CAPSULE BY l MOUTH THREE MOUTH THREE MOUTH Clinics TIMES A DAY TIMES A DAY THREE TIMES A DAY cyanocobala cyanocobala No 1mL cyanocobal [place] min (vit min (vit rahman (vit Co [facility]i B-12) 1,000 B-12) 1,000 B-12) ty mcg/mL mcg/mL 1,000 Hospita injection injection mcg/mL l solution solution injection Cl inics Inject 1 mL Inject 1 mL solution every month every month Inject 1 by by mL every subcutaneou subcutaneou month by s route. s route. subcutaneo us route. cyclobenzap cyclobenzap No cyclobenza [place] rine 10 mg rine 10 mg king 10 Communi tablet TAKE tablet TAKE mg tablet ty 1 TABLET BY 1 TABLET BY TAKE 1 Hospita MOUTH THREE MOUTH THREE TABLET BY l TIMES A DAY TIMES A DAY MOUTH Clinics NEEDED NEEDED THREE TIMES A DAY NEEDED escitalopra escitalopra No escitalopr [place] m 10 mg m 10 mg am 10 mg Commu ni tablet TAKE tablet TAKE tablet ty 1 TABLET BY 1 TABLET BY TAKE 1 Hospita MOUTH EVERY MOUTH EVERY TABLET BY l DAY FOR 30 DAY FOR 30 MOUTH Cl inics DAYS DAYS EVERY DAY FOR 30 DAYS megestrol megestrol No 10mL Q1D megestrol [place] 400 mg/10 400 mg/10 400 mg/10 Communi mL (40 mL (40 mL (40 ty mg/mL) oral mg/mL) oral mg/mL) Hospita suspension suspension oral l Take 10 mL Take 10 mL suspension Clinics every day every day Take 10 mL by oral by oral every day route in route in by oral the the route in morning. morning. the morning. meloxicam meloxicam No meloxicam [place] 7.5 mg 7.5 mg 7.5 mg Communi tablet TAKE tablet TAKE tablet ty 1 TABLET BY 1 TABLET BY TAKE 1 Hospita MOUTH EVERY MOUTH EVERY TABLET BY l DAY DAY MOUTH Clinics EVERY DAY quetiapine quetiapine No quetiapine [place] 100 mg 100 mg 100 mg [facility]i tablet TAKE tablet TAKE tablet ty 1 TABLET BY 1 TABLET BY TAKE 1 Hospita MOUTH MOUTH TABLET BY l EVERYDAY AT EVERYDAY AT MOUTH Clinics BEDTIME BEDTIME EVERYDAY AT BEDTIME Vitamin D3 Vitamin D3 No Vitamin D3 [place] otc 5000 iu otc 5000 iu otc 5000 Communi daily daily iu daily ty Hospita l Clinics albuterol albuterol No albuterol [place] sulfate 2.5 sulfate 2.5 sulfate Communi mg/3 mL mg/3 mL 2.5 mg/3 ty (0.083 %) (0.083 %) mL (0.083 Hospita solution solution %) l for for solution Clinics nebulizatio nebulizatio for n USE 1 n USE 1 nebulizati VIAL IN VIAL IN on USE 1 NEBULIZER 3 NEBULIZER 3 VIAL IN TIMES A DAY TIMES A DAY NEBULIZER 3 TIMES A DAY albuterol albuterol No albuterol [place] sulfate HFA sulfate HFA sulfate Communi 90 90 HFA 90 ty mcg/actuati mcg/actuati mcg/actuat Hospita on aerosol on aerosol ion l inhaler inhaler aerosol Clinic s INHALE 2 INHALE 2 inhaler PUFFS EVERY PUFFS EVERY INHALE 2 4 HOURS 4 HOURS PUFFS NEEDED NEEDED EVERY 4 HOURS NEEDED benzonatate benzonatate No benzonatat [place] 100 mg 100 mg e 100 mg Communi capsule capsule capsule ty TAKE 1 TAKE 1 TAKE 1 Hospita CAPSULE BY CAPSULE BY CAPSULE BY l MOUTH THREE MOUTH THREE MOUTH Clinics TIMES A DAY TIMES A DAY THREE TIMES A DAY cyanocobala cyanocobala No 1mL cyanocobal [place] min (vit min (vit rahman (vit Co [facility]i B-12) 1,000 B-12) 1,000 B-12) ty mcg/mL mcg/mL 1,000 Hospita injection injection mcg/mL l solution solution injection Cl inics Inject 1 mL Inject 1 mL solution every month every month Inject 1 by by mL every subcutaneou subcutaneou month by s route. s route. subcutaneo us route. cyclobenzap cyclobenzap No cyclobenza [place] rine 10 mg rine 10 mg king 10 Communi tablet TAKE tablet TAKE mg tablet ty 1 TABLET BY 1 TABLET BY TAKE 1 Hospita MOUTH THREE MOUTH THREE TABLET BY l TIMES A DAY TIMES A DAY MOUTH Clinics NEEDED NEEDED THREE TIMES A DAY NEEDED escitalopra escitalopra No escitalopr [place] m 10 mg m 10 mg am 10 mg Commu ni tablet TAKE tablet TAKE tablet ty 1 TABLET BY 1 TABLET BY TAKE 1 Hospita MOUTH EVERY MOUTH EVERY TABLET BY l DAY FOR 30 DAY FOR 30 MOUTH Cl inics DAYS DAYS EVERY DAY FOR 30 DAYS megestrol megestrol No megestrol [place] 400 mg/10 400 mg/10 400 mg/10 Communi mL (40 mL (40 mL (40 ty mg/mL) oral mg/mL) [facility] oral l TAKE 10 ML TAKE 10 ML suspension Clinics BY MOUTH BY MOUTH TAKE 10 ML EVERY DAY EVERY DAY BY MOUTH IN THE IN THE EVERY DAY MORNING. MORNING. IN THE MORNING. meloxicam meloxicam No meloxicam [place] 7.5 mg 7.5 mg 7.5 mg Communi tablet TAKE tablet TAKE tablet ty 1 TABLET BY 1 TABLET BY TAKE 1 Hospita MOUTH EVERY MOUTH EVERY TABLET BY l DAY DAY MOUTH Clinics EVERY DAY quetiapine quetiapine No quetiapine [place] 100 mg 100 mg 100 mg Communi tablet TAKE tablet TAKE tablet ty 1 TABLET BY 1 TABLET BY TAKE 1 Hospita MOUTH MOUTH TABLET BY l EVERYDAY AT EVERYDAY AT MOUTH Clinics BEDTIME BEDTIME EVERYDAY AT BEDTIME Vitamin D3 Vitamin D3 No Vitamin D3 [place] otc 5000 iu otc 5000 iu otc 5000 Communi daily daily iu daily ty Hospita l Clinics albuterol albuterol No albuterol [place] sulfate 2.5 sulfate 2.5 sulfate Communi mg/3 mL mg/3 mL 2.5 mg/3 ty (0.083 %) (0.083 %) mL (0.083 Hospita solution solution %) l for for solution Clinics nebulizatio nebulizatio for n USE 1 n USE 1 nebulizati VIAL IN VIAL IN on USE 1 NEBULIZER 3 NEBULIZER 3 VIAL IN TIMES A DAY TIMES A DAY NEBULIZER 3 TIMES A DAY albuterol albuterol No albuterol [place] sulfate HFA sulfate HFA sulfate Communi 90 90 HFA 90 ty mcg/actuati mcg/act[facility]ati [facility] ion l inhaler inhaler aerosol Clinic s INHALE 2 INHALE 2 inhaler PUFFS EVERY PUFFS EVERY INHALE 2 4 HOURS 4 HOURS PUFFS NEEDED NEEDED EVERY 4 HOURS NEEDED benzonatate benzonatate No benzonatat [place] 100 mg 100 mg e 100 mg Communi capsule capsule capsule ty TAKE 1 TAKE 1 TAKE 1 Hospita CAPSULE BY CAPSULE BY CAPSULE BY l MOUTH THREE MOUTH THREE MOUTH Clinics TIMES A DAY TIMES A DAY THREE TIMES A DAY cyanocobala cyanocobala No 1mL cyanocobal [place] min (vit min (vit rahman (vit Co [facility]i B-12) 1,000 B-12) 1,000 B-12) ty mcg/mL mcg/mL 1,000 Hospita injection injection mcg/mL l solution solution injection Cl inics Inject 1 mL Inject 1 mL solution every month every month Inject 1 by by mL every subcutaneou subcutaneou month by s route. s route. subcutaneo us route. cyclobenzap cyclobenzap No cyclobenza [place] rine 10 mg rine 10 mg king 10 Communi tablet TAKE tablet TAKE mg tablet ty 1 TABLET BY 1 TABLET BY TAKE 1 Hospita MOUTH THREE MOUTH THREE TABLET BY l TIMES A DAY TIMES A DAY MOUTH Clinics NEEDED NEEDED THREE TIMES A DAY NEEDED escitalopra escitalopra No escitalopr [place] m 10 mg m 10 mg am 10 mg Commu ni tablet TAKE tablet TAKE tablet ty 1 TABLET BY 1 TABLET BY TAKE 1 Hospita MOUTH EVERY MOUTH EVERY TABLET BY l DAY FOR 30 DAY FOR 30 MOUTH Cl inics DAYS DAYS EVERY DAY FOR 30 DAYS megestrol megestrol No megestrol [place] 400 mg/10 400 mg/10 400 mg/10 Communi mL (40 mL (40 mL (40 ty mg/mL) oral mg/mL) oral mg/mL) Hospita suspension suspension oral l TAKE 10 ML TAKE 10 ML suspension Clinics BY MOUTH BY MOUTH TAKE 10 ML EVERY DAY EVERY DAY BY MOUTH IN THE IN THE EVERY DAY MORNING. MORNING. IN THE MORNING. meloxicam meloxicam No meloxicam [place] 7.5 mg 7.5 mg 7.5 mg Communi tablet TAKE tablet TAKE tablet ty 1 TABLET BY 1 TABLET BY TAKE 1 Hospita MOUTH EVERY MOUTH EVERY TABLET BY l DAY DAY MOUTH Clinics EVERY DAY prednisone prednisone No prednisone [place] 10 mg 10 mg 10 mg Communi tablet TAKE tablet TAKE tablet ty 1 TABLET BY 1 TABLET BY TAKE 1 Hospita MOUTH EVERY MOUTH EVERY TABLET BY l DAY FOR 30 DAY FOR 30 MOUTH Cl inics DAYS DAYS EVERY DAY FOR 30 DAYS quetiapine quetiapine No quetiapine [place] 100 mg 100 mg 100 mg Communi tablet TAKE tablet TAKE tablet ty 1 TABLET BY 1 TABLET BY TAKE 1 Hospita MOUTH MOUTH TABLET BY l EVERYDAY AT EVERYDAY AT MOUTH Clinics BEDTIME BEDTIME EVERYDAY AT BEDTIME tramadol tramadol No tramadol Swe bernadette 37.5 37.5 37.5 Communi mg-acetamin mg-acetamin mg-acetami ty ophen 325 ophen 325 nophen 325 Hospita mg tablet mg tablet mg tablet l TAKE 1 TAKE 1 TAKE 1 Clinics TABLET BY TABLET BY TABLET BY MOUTH EVERY MOUTH EVERY MOUTH 8 HOURS 8 HOURS EVERY 8 NEEDED FOR NEEDED FOR HOURS 15 DAYS. 15 DAYS. NEEDED FOR 15 DAYS. Vitamin D3 Vitamin D3 No Vitamin D3 [place] otc 5000 iu otc 5000 iu otc 5000 Communi daily daily iu daily ty Hospita l Clinics albuterol albuterol No albuterol [place] sulfate 2.5 sulfate 2.5 sulfate Communi mg/3 mL mg/3 mL 2.5 mg/3 ty (0.083 %) (0.083 %) mL (0.083 Hospita solution solution %) l for for solution Clinics nebulizatio nebulizatio for n USE 1 n USE 1 nebulizati VIAL IN VIAL IN on USE 1 NEBULIZER 3 NEBULIZER 3 VIAL IN TIMES A DAY TIMES A DAY NEBULIZER 3 TIMES A DAY albuterol albuterol No 2puff(s Q4H albuterol [place] sulfate HFA sulfate HFA ) sulfate Communi 90 90 HFA 90 ty mcg/actuati mcg/actuati mcg/actuat Hospita on aerosol on aerosol ion l inhaler inhaler aerosol Clinic s Inhale 2 Inhale 2 inhaler puffs every puffs every Inhale 2 4 hours by 4 hours by puffs inhalation inhalation every 4 route as route as hours by needed for needed for inhalation 90 days. 90 days. route as needed for 90 days. Cymbalta 60 Cymbalta 60 No 1capsul Q1D Cymbalta [place] mg mg e(s) 60 mg Communi capsule,del capsule,del capsule,de ty ayed ayed layed Hospita release release release l Take 1 Take 1 Take 1 Clinics capsule capsule capsule every day every day every day by oral by oral by oral route. route. route. albuterol albuterol No albuterol [place] sulfate 2.5 sulfate 2.5 sulfate Communi mg/3 mL mg/3 mL 2.5 mg/3 ty (0.083 %) (0.083 %) mL (0.083 Hospita solution solution %) l for for solution Clinics nebulizatio nebulizatio for n USE 1 n USE 1 nebulizati VIAL IN VIAL IN on USE 1 NEBULIZER 3 NEBULIZER 3 VIAL IN TIMES A DAY TIMES A DAY NEBULIZER 3 TIMES A DAY albuterol albuterol No albuterol [place] sulfate HFA sulfate HFA sulfate Communi 90 90 HFA 90 ty mcg/actuati mcg/actuati mcg/actuat Hospita on aerosol on aerosol ion l inhaler inhaler aerosol Clinic s INHALE 2 INHALE 2 inhaler PUFFS BY PUFFS BY INHALE 2 MOUTH EVERY MOUTH EVERY PUFFS BY 4 HOURS 4 HOURS MOUTH NEEDED NEEDED EVERY 4 HOURS NEEDED duloxetine duloxetine No duloxetine [place] 30 mg 30 mg 30 mg Communi capsule,del capsule,del capsule,de ty ayed ayed layed Hospita release release release l TAKE 1 TAKE 1 TAKE 1 Clinics CAPSULE BY CAPSULE BY CAPSULE BY MOUTH EVERY MOUTH EVERY MOUTH DAY DAY EVERY DAY albuterol albuterol No albuterol [place] sulfate 2.5 sulfate 2.5 sulfate Communi mg/3 mL mg/3 mL 2.5 mg/3 ty (0.083 %) (0.083 %) mL (0.083 Hospita solution solution %) l for for solution Clinics nebulizatio nebulizatio for n USE 1 n USE 1 nebulizati VIAL IN VIAL IN on USE 1 NEBULIZER 3 NEBULIZER 3 VIAL IN TIMES A DAY TIMES A DAY NEBULIZER 3 TIMES A DAY albuterol albuterol No albuterol [place] sulfate HFA sulfate HFA sulfate Communi 90 90 HFA 90 ty mcg/actuati mcg/actuati mcg/actuat Hospita on aerosol on aerosol ion l inhaler inhaler aerosol Clinic s INHALE 2 INHALE 2 inhaler PUFFS EVERY PUFFS EVERY INHALE 2 4 HOURS 4 HOURS PUFFS NEEDED NEEDED EVERY 4 HOURS NEEDED cyanocobala cyanocobala No 1mL cyanocobal [place] min (vit min (vit rahman (vit Co mmuni B-12) 1,000 B-12) 1,000 B-12) ty mcg/mL mcg/mL 1,000 Hospita injection injection mcg/mL l solution solution injection Cl inics Inject 1 mL Inject 1 mL solution every month every month Inject 1 by by mL every subcutaneou subcutaneou month by s route. s route. subcutaneo us route. doxycycline doxycycline No doxycyclin [place] hyclate 100 hyclate 100 e hyclate Communi mg tablet mg tablet 100 mg ty TAKE 1 TAKE 1 tablet Hospita TABLET BY TABLET BY TAKE 1 l MOUTH TWICE MOUTH TWICE TABLET BY Clinics A DAY A DAY MOUTH TWICE A DAY levofloxaci levofloxaci No levofloxac [place] n 500 mg n 500 mg in 500 mg Co mmuni tablet TAKE tablet TAKE tablet ty 1 TABLET BY 1 TABLET BY TAKE 1 Hospita MOUTH EVERY MOUTH EVERY TABLET BY l DAY DAY MOUTH Clinics EVERY DAY prednisone prednisone No prednisone [place] 10 mg 10 mg 10 mg Communi tablet TAKE tablet TAKE tablet ty 1 TABLET BY 1 TABLET BY TAKE 1 Hospita MOUTH EVERY MOUTH EVERY TABLET BY l DAY FOR 30 DAY FOR 30 MOUTH Cl inics DAYS DAYS EVERY DAY FOR 30 DAYS tramadol tramadol No tramadol Swe bernadette 37.5 37.5 37.5 Communi mg-acetamin mg-acetamin mg-acetami ty ophen 325 ophen 325 nophen 325 Hospita mg tablet mg tablet mg tablet l TAKE 1 TAKE 1 TAKE 1 Clinics TABLET BY TABLET BY TABLET BY MOUTH EVERY MOUTH EVERY MOUTH 8 HOURS 8 HOURS EVERY 8 NEEDED FOR NEEDED FOR HOURS 15 DAYS. 15 DAYS. NEEDED FOR 15 DAYS. Vitamin D3 Vitamin D3 No Vitamin D3 [place] otc 5000 iu otc 5000 iu otc 5000 Communi daily daily iu daily ty Hospita l Clinics Immunizations Ordered Filled Immunization Date Status Comments [facility] e Immunization Name Name SARS-COV-2 SARS-COV-2 2021-01-26 Completed [place] (COVID-19) vaccine, (COVID-19) vaccine, 00:00:00 Community UNSPECIFIED UNSPECIFIED Hospital Clinics SARS-COV-2 SARS-COV-2 2021-01-26 Completed [place] (COVID-19) vaccine, (COVID-19) vaccine, 00:00:00 Community UNSPECIFIED UNSPECIFIED Hospital Clinics COVID-19 COVID-19 2021-01-26 Completed [place] (SARS-COV-2) (SARS-COV-2) 00:00:00 Community vaccine, vaccine, Hospital unspecified unspecified Clinics COVID-19 COVID-19 2021-01-26 Completed [place] (SARS-COV-2) (SARS-COV-2) 00:00:00 Community vaccine, vaccine, Hospital unspecified unspecified Clinics COVID-19 COVID-19 2021-01-26 Completed [place] (SARS-COV-2) (SARS-COV-2) 00:00:00 [facility] vaccine, vaccine, Hospital unspecified unspecified Clinics COVID-19 COVID-19 2021-01-26 Completed [place] (SARS-COV-2) (SARS-COV-2) 00:00:00 [facility] vaccine, vaccine, Hospital unspecified unspecified Clinics COVID-19 COVID-19 2021-01-26 Completed [place] (SARS-COV-2) (SARS-COV-2) 00:00:00 [facility] vaccine, vaccine, Hospital unspecified unspecified Clinics COVID-19 COVID-19 2021-01-26 Completed [place] (SARS-COV-2) (SARS-COV-2) 00:00:00 [facility] vaccine, vaccine, Hospital unspecified unspecified Clinics COVID-19 COVID-19 2021-01-26 Completed [place] (SARS-COV-2) (SARS-COV-2) 00:00:00 [facility] vaccine, vaccine, Hospital unspecified unspecified Clinics COVID-19 COVID-19 2021-01-26 Completed [place] (SARS-COV-2) (SARS-COV-2) 00:00:00 Community vaccine, vaccine, Hospital unspecified unspecified Clinics COVID-19 COVID-19 2021-01-26 Completed [place] (SARS-COV-2) (SARS-COV-2) 00:00:00 [facility] vaccine, vaccine, Hospital unspecified unspecified Clinics COVID-19 COVID-19 2021-01-26 Completed [place] (SARS-COV-2) (SARS-COV-2) 00:00:00 [facility] vaccine, vaccine, Hospital unspecified unspecified Clinics COVID-19 COVID-19 2021-01-26 Completed [place] (SARS-COV-2) (SARS-COV-2) 00:00:00 [facility] vaccine, vaccine, Hospital unspecified unspecified Clinics COVID-19 COVID-19 2021-01-26 Completed [place] (SARS-COV-2) (SARS-COV-2) 00:00:00 [facility] vaccine, vaccine, Hospital unspecified unspecified Clinics COVID-19 COVID-19 2021-01-26 Completed [place] (SARS-COV-2) (SARS-COV-2) 00:00:00 [facility] vaccine, vaccine, Hospital unspecified unspecified Clinics COVID-19 COVID-19 2021-01-26 Completed [place] (SARS-COV-2) (SARS-COV-2) 00:00:00 [facility] vaccine, vaccine, Hospital unspecified unspecified Clinics COVID-19 COVID-19 Unknown Completed [place] (SARS-COV-2) (SARS-COV-2) [facility] vaccine, vaccine, Hospital unspecified unspecified Clinics COVID-19 COVID-19 Unknown Completed [place] (SARS-COV-2) (SARS-COV-2) [facility] vaccine, vaccine, Hospital unspecified unspecified Clinics COVID-19 COVID-19 Unknown Completed [place] (SARS-COV-2) (SARS-COV-2) [facility] vaccine, vaccine, Hospital unspecified unspecified Clinics COVID-19 COVID-19 Unknown Completed [place] (SARS-COV-2) (SARS-COV-2) [facility] vaccine, vaccine, Hospital unspecified unspecified Clinics Vital Signs Vital Name Observation Time Observation Value Comments Source Height 2023-08-13 00:00:00 61 [in_i] [facility] s BP Diastolic 2023-08-13 00:00:00 80 mm[Hg] [facility] s Body Weight 2023-08-13 00:00:00 1308.8 [oz_av] [facility] s BP Systolic 2023-08-13 00:00:00 140 mm[Hg] [facility] s BMI (Body Mass 2023-08-13 00:00:00 15.5 kg/m2 [facility] s BMI (Body Mass 2023-07-19 00:00:00 15.2 kg/m2 [facility] Height 2023-07-19 00:00:00 61 [in_i] [facility] s Body Weight 2023-07-19 00:00:00 1286.4 [oz_av] [facility] s BP Diastolic 2023-07-19 00:00:00 80 mm[Hg] [facility] s BP Systolic 2023-07-19 00:00:00 130 mm[Hg] [facility] s BP Diastolic 2022-07-18 00:00:00 84 mm[Hg] [facility] s Height 2022-07-18 00:00:00 61 [in_i] [facility] s BMI (Body Mass 2022-07-18 00:00:00 17 kg/m2 [facility] s BP Systolic 2022-07-18 00:00:00 160 mm[Hg] [facility] s Body Weight 2022-07-18 00:00:00 1440 [oz_av] [facility] s BP Diastolic 2022-06-20 00:00:00 80 mm[Hg] [facility] s Height 2022-06-20 00:00:00 61 [in_i] [facility] s BMI (Body Mass 2022-06-20 00:00:00 17.2 kg/m2 [facility] s BP Systolic 2022-06-20 00:00:00 121 mm[Hg] [facility] Body Weight 2022-06-20 00:00:00 1452.8 [oz_av] [facility] s BP Diastolic 2022-04-24 00:00:00 80 mm[Hg] [facility] s Height 2022-04-24 00:00:00 61 [in_i] [facility] s BMI (Body Mass 2022-04-24 00:00:00 17.3 kg/m2 [facility]) [facility] s BP Systolic 2022-04-24 00:00:00 120 mm[Hg] [facility] s Body Weight 2022-04-24 00:00:00 1465.6 [oz_av] [facility] s BP Diastolic 2022-03-20 00:00:00 88 mm[Hg] [facility] Height 2022-03-20 00:00:00 61 [in_i] [facility] s BMI (Body Mass 2022-03-20 00:00:00 16 kg/m2 [facility]) [facility] s BP Systolic 2022-03-20 00:00:00 144 mm[Hg] [facility] s Body Weight 2022-03-20 00:00:00 1356.8 [oz_av] [facility] s BP Diastolic 2022-03-13 00:00:00 80 mm[Hg] [facility] s Height 2022-03-13 00:00:00 61 [in_i] [facility] s BMI (Body Mass 2022-03-13 00:00:00 15.9 kg/m2 [facility]) [facility] s BP Systolic 2022-03-13 00:00:00 125 mm[Hg] [facility] s Body Weight 2022-03-13 00:00:00 1347.2 [oz_av] [facility] s Height 2022-02-20 00:00:00 61 [in_i] [facility] s BP Diastolic 2021-03-17 00:00:00 90 mm[Hg] [facility] s Height 2021-03-17 00:00:00 61 [in_i] [facility] s BMI (Body Mass 2021-03-17 00:00:00 17.7 kg/m2 [facility] s BP Systolic 2021-03-17 00:00:00 160 mm[Hg] [facility] s Body Weight 2021-03-17 00:00:00 1497.6 [oz_av] [facility] s Procedures Procedure Date / Time Performed Performing Clinician [facility] e Biopsy of Lung 2022-05-25 00:00:00 [facility] CT, abdomen + pelvis, 2022-04-24 00:00:00 [facility] w/ contrast [facility] CT, chest, w/ 2022-04-24 00:00:00 [facility] XR, chest, 2 view 2022-03-13 00:00:00 [facility] REFERRAL- 2021-03-17 05:01:00 Doctor Unassigned, No Veronica [facility] REQUEST/RESPONSE Name Medical Branch XR, shoulder, 2 or 2021-03-17 00:00:00 [facility] Procedure on Spleen [facility] Procedure on Lung [facility] Procedure on Ear [facility] Unlisted Procedure [facility] Plan of Care Planned Activity Planned Date Details Comments Source Diagnostic Test 2022-06-20 CMP, serum or [place] Comm [facility] Pending 00:00:00 plasma [code = Hospital Clin ics CMP, serum or plasma] Diagnostic Test 2022-06-20 CBC w/ diff [code [facility] Pending 00:00:00 = CBC w/ diff] Hospital Clin ics Diagnostic Test 2022-06-20 iron panel, serum [facility] Pending 00:00:00 or plasma [code = [facility] linics iron panel, serum or plasma] Future Appointment 2023-11-13 Umm Starks, [address] [facility] 00:00:00 Andrew Moss [facility] s [address]; [address], [place] [address] Encounters Start End Encounter Admission Attending Care Care Encounter Source Date/Time Date/Time Type Type Clinicians Facility Department ID 2023-08-13 2023-08-13 Outpatient LYN [facility] [id number] [place] 00:00:00 00:00:00 [facility] 2023-08-13 2023-08-13 Umm Wong [facility] [place] - [place] 016 [place] 00:00:00 00:00:00 Nafisa Starks MD: [address] [facility] Hospit a [address], COMMUNITY [address], H[facility] [place], [place] CLINIC, [address] FLORY , Ph. 2023-07-19 2023-07-19 Outpatient KEFFER_A [facility] [id number] [place] 00:00:00 00:00:00 921 [facility] i ty [facility] Clinics 2023-07-19 2023-07-19 Umm Wong [facility] [place] [facility] [place] 921 [place] 00:00:00 00:00:00 Nafisa Starks MD: [address] [facility] a [address], COMMUNITY l [address], [facility] [place], [place] CLINIC, [address] FLORY , Ph. 2022-10-01 2022-10-01 Outpatient KEFFER_A [facility] [id number] [place] 00:00:00 00:00:00 204 [facility] i ty [facility] Clinics 2022-08-26 2022-08-26 Outpatient KEFFER_A [facility] [id number] [place] 00:00:00 00:00:00 029 Commun i ty [facility] Clinics 2022-07-22 2022-07-22 Outpatient KEFFER_A [facility] [id number] [place] 00:00:00 00:00:00 924 [facility] i ty [facility] Clinics 2022-07-18 2022-07-18 Outpatient KEFFER_A [facility] [id number] [place] 00:00:00 00:00:00 920 Commun i ty [facility]osp[facility] Clinics 2022-07-18 2022-07-18 Umm Wong [facility] [place] [facility] [place] 920 [place] 00:00:00 00:00:00 Nafisa Starks MD: [address] [facility] Hospit a [address], COMMUNITY l [address], HOSP[facility], [address] FLORY , Ph. 2022-06-23 2022-06-23 Outpatient KEFFER_A [facility] [id number] [place] 00:00:00 00:00:00 826 Commun i ty [facility]osp[facility] Clinics 2022-06-20 2022-06-20 Outpatient KEFFER_A [facility] [id number] [place] 00:00:00 00:00:00 823 Commun i ty [facility]osp[facility] Clinics 2022-06-20 2022-06-20 Outpatient Umm Starks [facility] [id number] 00:00:00 00:00:00 Judith [id number] 2022-06-20 2022-06-20 Umm Wong [facility] [place] - [place] 823 [place] 00:00:00 00:00:00 Nafisa Starks MD: [address] [facility] Hospit a [address], [facility] l [address], [place], [place] CLINIC, [address] FLORY , Ph. 2022-06-17 2022-06-17 Outpatient KEFFER_A [facility] [id number] [place] 00:00:00 00:00:00 820 Commun i ty [facility] Clinics 2022-05-15 2022-05-15 Outpatient KEFFER_A [facility] [id number] [place] 05:02:00 05:02:00 718 Commun i ty Hospita l Clinics 2022-04-24 2022-04-24 Outpatient KEFFER_A [facility] [id number] [place] 02:04:00 02:04:00 627 Commun i ty Hospita l Clinics 2022-04-24 2022-04-24 Umm Wong [facility] [place] [facility] [place] 627 [place] 00:00:00 00:00:00 Nafisa Starks MD: [address] [facility] Hospit a [address], COMMUNITY l [address], H[facility] [place], [place] CLINIC, [address] FLORY , Ph. 2022-04-24 2022-04-24 Outpatient Umm Starks [facility] [id number] 00:00:00 00:00:00 Judith [id number] 2022-04-08 2022-04-08 Outpatient FLORY_Richie [facility] [id number] [place] 01:24:00 01:24:00 611 [facility] i [facility] Clinics 2022-03-20 2022-03-20 Outpatient FLORY_Richie [facility] [id number] [place] 02:04:00 02:04:00 523 Commun i ty Hospita l Clinics 2022-03-20 2022-03-20 Umm Wong [facility] [place] [facility] [place] 523 [place] 00:00:00 00:00:00 Nafisa Starks MD: [address] [facility] Hospit a [address], COMMUNITY l [address], [facility] [place], [place] CLINIC, [address] FLORY , Ph. 2022-03-20 2022-03-20 Outpatient Umm Starks [facility] [id number] 00:00:00 00:00:00 Judith [id number] 2022-03-13 2022-03-13 Outpatient FLORY_Richie [facility] [id number] [place] 06:18:00 06:18:00 516 Commun i ty Hospita [facility] Clinics 2022-03-13 2022-03-13 Umm Wong [facility] [place] [facility] [place] 516 [place] 00:00:00 00:00:00 Nafisa Starks MD: [address] [facility] Hospit a [address], COMMUNITY l [address], [facility] [place], [place]INIC, [address] FLORY , Ph. 2022-03-13 2022-03-13 Outpatient Umm Starks [facility] [id number] 00:00:00 00:00:00 Judith [id number] 2022-03-13 2022-03-13 Outpatient Umm Starks [facility] [id number] 00:00:00 00:00:00 Judith [id number] 2022-02-20 2022-02-20 Outpatient FLORY_Richie [facility] [id number] [place] 04:34:00 04:34:00 425 Commun i ty [facility]osp[facility] Clinics 2022-02-20 2022-02-20 Umm Reddn [facility] [place] [facility] [place] 00:00:00 00:00:00 Nafisa Starks [facility] MD: [address] [facility] a [address], [facility] B, [facility], [facility], [address] FLORY , Ph. 2022-02-20 2022-02-20 Outpatient Flory Umm [facility] [id number] 00:00:00 00:00:00 Judith [id number] 2022-02-15 2022-02-15 Outpatient FLORY_Richie [facility] [id number] [place] 07:49:00 07:49:00 420 [facility] Clinics 2021-07-28 2021-07-28 Outpatient FLORY_Richie [facility] [id number] [place] 12:51:00 12:51:00 930 Commun i ty [facility]osp[facility] Clinics 2021-03-30 2021-03-30 Umm Kidd [id number] [facility] 00:00:00 00:00:00 (Out) Sylvester MONTES [id number] [facility] [id number] Mao as [phone] [address] 2021-03-172021-03-17 Outpatient KEFFER_A [facility] [id number] [place] 12:03:00 12:03:00 520 [facility] Clinics 2021-03-17 2021-03-17 Orders Doctor STUART [id number] 00:00:00 00:00:00 Only Unassigned, JYOTI [id number] ity of [place] [facility] [id number] Mao as [id number] [address] 2021-03-17 2021-03-17 Outpatient Umm Starks [facility] [id number] 00:00:00 00:00:00 Judith [id number] 2021-03-17 2021-03-17 Umm Wong [facility] [place] [facility] [place] 520 [place] 00:00:00 00:00:00 Nafisa Starks MD: [address] [facility] Hospit a [address], [facility] l [address], HOSPITAL Clinic [facility], [place] CLINIC, [address] FLORY , Ph. 2020-12-12 2020-12-12 Outpatient FLORY_Richie [facility] [id number] [place] 01:03:00 01:03:00 214 Commun i ty [facility]osp[facility] 2020-11-07 2020-11-07 Outpatient FLORY_A [facility] [id number] [place] 01:02:00 01:02:00 110 Commun i ty [facility] Clinics 2020-06-17 2020-06-17 Laboratory Lab, Adc Fam Pob I [facility] [id number] [facility] 12:47:46 13:07:46 Only Eboni Carrera [id number] ity of [place] [id number] Mao as Professio [phone] Ks dical nal [address] 2020-06-17 2020-06-17 Outpatient Gregoria CARRERA [facility] [id number] [facility] 13:00:00 13:00:00 EBONI ity [facility] 2020-06-17 2020-06-17 Outpatient R [facility] [id number] [facility] 11:00:00 11:00:00 ity [facility] 2020-06-17 2020-06-17 Letter Doctor STUART [id number] [facility] 00:00:00 00:00:00 (Out) Unassigned, JYOTI [id number] ity of [place] [facility] [id number] Mao as [phone] [address] Results Test Description Test Time Test Comments Results Result Comments Source Free T4 and TSH panel - Serum or Plasma 2022-03-14 00:00:00 Test Item Value Reference Range Interpretation Comme nts Thyrotropin [Units/volume] in Serum or Plasma by 2.720 uIU/mL 0.450 -4.500 Detection limit <= 0.005 mIU/L (test code = 78447-6) Thyroxine (T4) free [Mass/volume] in Serum or Plasma 1.02 NG/dL 0 .82-1.77 (test code = 3024-7) [facility] W Auto Differential panel - [id number] 00:00:00 Test Item Value Reference Range Interpretation Comments Leukocytes [#/volume] in Blood 13.0 x10e3/uL 3.4-10.8 H by Automated count (test code = 6690-2) Erythrocytes [#/volume] in 4.74 x10e6/uL 3.77-5.28 Blood by Automated count (test code = 789-8) Hemoglobin [Mass/volume] in 11.5 g/dL 11.1-15.9 Blood (test code = 718-7) Hematocrit [Volume Fraction] of 35.5 % 34.0-46.6 Blood by Automated count (test code = 4544-3) Erythrocyte mean corpuscular 75 fL 79-97 L volume [Entitic volume] by Automated count (test code = 787-2) MCH [Entitic mass] by Automated 24.3 pg 26.6-33.0 L count (test code = 785-6) Erythrocyte mean corpuscular 32.4 g/dL 31.5-35.7 hemoglobin concentration [Mass/volume] by Automated count (test code = 786-4) Erythrocyte distribution width 13.7 % 11.7-15.4 [Ratio] by Automated count (test code = 788-0) Platelets [#/volume] in Blood 743 x10e3/uL 150-450 H by Automated count (test code = 777-3) Neutrophils/100 leukocytes in 75 % not estab. Blood by Automated count (test code = 770-8) Lymphocytes/100 leukocytes in 15 % not estab. Blood by Automated count (test code = 736-9) Monocytes/100 leukocytes in 8 % not estab. Blood by Automated count (test code = 5905-5) Eosinophils/100 leukocytes in 2 % not estab. Blood by Automated count (test code = 713-8) Basophils/100 leukocytes in 0 % not estab. Blood by Automated count (test code = 706-2) immature cells (test code = meat soaker immature cells) Neutrophils [#/volume] in Blood 9.8 x10e3/uL 1.4-7.0 H by Automated count (test code = 751-8) Lymphocytes [#/volume] in Blood 1.9 x10e3/uL 0.7-3.1 by Automated count (test code = 731-0) Monocytes [#/volume] in Blood 1.0 x10e3/uL 0.1-0.9 H by Automated count (test code = 742-7) Eosinophils [#/volume] in Blood 0.2 x10e3/uL 0.0-0.4 by Automated count (test code = 711-2) Basophils [#/volume] in Blood 0.0 x10e3/uL 0.0-0.2 by Automated count (test code = 704-7) Immature granulocytes/100 0 % not estab. leukocytes in Blood by Automated count (test code = 55327-8) Immature granulocytes 0.0 x10e3/uL 0.0-0.1 [#/volume] in Blood by Automated count (test code = 28226-4) Nucleated erythrocytes/100 meat soaker leukocytes [Ratio] in Blood by Automated count (test code = 24953-7) Morphology [Interpretation] in meat soaker Blood Narrative (test code = 81745-1) [facility] - Serum or [id number] 00:00:00 Test Item Value Reference Range Interpretation Comments Glucose [Mass/volume] in 92 mg/dL 65-99 Serum or Plasma (test code = 2345-7) Urea nitrogen [Mass/volume] 9 mg/dL 6-24 in Serum or Plasma (test code = 3094-0) Creatinine [Mass/volume] in 0.53 mg/dL 0.57-1.00 L Serum or Plasma (test code = 2160-0) eGFR (test code = eGFR) 106 mL/min/1.73 >59 Urea nitrogen/Creatinine 17 9-23 [Mass Ratio] in Serum or Plasma (test code = 3097-3) Sodium [Moles/volume] in 137 mmol/L 134-144 Serum or Plasma (test code = 2951-2) Potassium [Moles/volume] in 4.1 mmol/L 3.5-5.2 Serum or Plasma (test code = 2823-3) Chloride [Moles/volume] in 97 mmol/L 96-106 Serum or Plasma (test code = 5-0) Carbon dioxide, total 26 mmol/L 20-29 [Moles/volume] in Serum or Plasma (test code = 2027-9) Calcium [Mass/volume] in 9.4 mg/dL 8.7-10.2 Serum or Plasma (test code = 44010-8) Protein [Mass/volume] in 6.5 g/dL 6.0-8.5 Serum or Plasma (test code = 2885-2) Albumin [Mass/volume] in 3.8 g/dL 3.8-4.9 Serum or Plasma (test code = 1751-7) Globulin [Mass/volume] in 2.7 g/dL 1.5-4.5 Serum by calculation (test code = 16054-1) Albumin/Globulin [Mass Ratio] 1.4 1.2-2.2 in Serum or Plasma (test code = 1759-0) Bilirubin.total [Mass/volume] <0.2 0.0-1.2 in Serum or Plasma (test code = 1974-) Alkaline phosphatase 212 IU/L 44-121 H [Enzymatic activity/volume] in Serum or Plasma (test code = 6768-6) Aspartate aminotransferase 12 IU/L 0-40 [Enzymatic activity/volume] in Serum or Plasma (test code = 1920-8) Alanine aminotransferase 12 IU/L 0-32 [Enzymatic activity/volume] in Serum or Plasma (test code = 1742-6) [facility] Reflex Culture panel - [id number] 00:00:00 Test Item Value Reference Range Interpretation Comments Specific gravity of Urine by Test 1.013 1.005-1.030 strip (test code = 5811-5) pH of Urine by Test strip (test 5.5 5.0-7.5 code = 5803-2) Color of Urine (test code = 5778-6) yellow yellow Appearance of Urine (test code = clear clear 5767-9) Leukocyte esterase [Presence] in 1+ negative A Urine by Test strip (test code = 5799-2) Protein [Presence] in Urine by Test negative negative/trace strip (test code = 32386-7) Glucose [Presence] in Urine by Test negative negative strip (test code = 35858-5) Ketones [Presence] in Urine by Test negative negative strip (test code = 2514-8) Hemoglobin [Presence] in Urine by negative negative Test strip (test code = 5794-3) Bilirubin.total [Presence] in Urine negative negative by Test strip (test code = 5770-3) Urobilinogen [Mass/volume] in Urine 0.2 mg/dL 0.2-1.0 by Test strip (test code = 58640-2) Nitrite [Presence] in Urine by Test negative negative strip (test code = 5802-4) Microscopic observation meat soaker [Identifier] in Urine sediment by Light microscopy (test code = 29793-6) Leukocytes [#/area] in Urine 6-10 0-5 A sediment by Microscopy high power field (test code = 5821-4) Erythrocytes [#/area] in Urine none seen 0-2 sediment by Microscopy high power field (test code = 11953-1) Epithelial cells [#/area] in Urine 0-10 0-10 sediment by Microscopy high power field (test code = 5787-7) Epithelial cells.renal [#/area] in meat soaker Urine sediment by Microscopy high power field (test code = 59160-2) Casts [Presence] in Urine sediment none seen none seen by Light microscopy (test code = 61118-5) Casts [Type] in Urine sediment by meat soaker Light microscopy (test code = 68466-3) Unidentified crystals [Presence] in meat soaker Urine sediment by Light microscopy (test code = 5783-6) Crystals [type] in Urine sediment meat soaker by Light microscopy (test code = 5782-8) Mucus [Presence] in Urine sediment meat soaker by Light microscopy (test code = 8247-9) Bacteria [#/area] in Urine sediment none seen none seen/few by Microscopy high power field (test code = 5769-5) Yeast [#/area] in Urine sediment by meat soaker Microscopy high power field (test code = 5822-2) Trichomonas vaginalis [Presence] in meat soaker Urine sediment by Light microscopy (test code = 5813-1) Urine sediment comments by Light meat soaker microscopy Narrative (test code = 21385-5) urinalysis reflex (test code = comment urinalysis reflex) Bacteria identified in Urine by no growth Culture (test code = 630-4) [facility]olate[facility]Cyanocobalamin [Interpretation] in Serum or [id number] 00:00:00 Test Item Value Reference Range Interpretation Comments Cobalamin (Vitamin B12) 870 pg/mL 232-1245 [Mass/volume] in Serum or Plasma (test code = 2132-9) Folate [Mass/volume] in Serum or 9.7 NG/mL >3.0 Plasma (test code = 2284-8) [facility]25-Hydroxy[facility]amin D3+25-Hydroxyvitamin D2 [Mass/volume] in Serum or [id number] 00:00:00 Test Item Value Reference Range Interpretation Comments 25-Hydroxyvitamin 34.4 NG/mL 30.0-100.0 D3+25-Hydroxyvitamin D2 [Mass/volume] in Serum or Plasma (test code = 70710-0) [facility]em[facility] A1c/Hemoglobin.total in Blood 2022-03-14 00:00:00 Test Item Value Reference Range Interpretation Comments Hemoglobin A1c/Hemoglobin.total in 6.1 % 4.8-5.6 H Blood (test code = 4548-4) [facility]Erythrocyte sedimentation [id number] 00:00:00 Test Item Value Reference Range Interpretation Comments Erythrocyte sedimentation rate by 76 mm/HR 0-40 H Westergren method (test code = 4537-7) [facility]-reactive protein, [id number] 00:00:00 Test Item Value Reference Range Interpretation Comments C reactive protein [Mass/volume] in 41 mg/L 0-10 H Serum or Plasma (test code = 1987-5) [facility]
[2023-09-02] MEDS ORDERED: METHYLPREDNISOLONE 125 MG INJ ONE (13:12)
[2023-09-02] MEDS ORDERED: ACETAMINOPHEN 325 MG TABLET ONE (13:13)
[2023-09-02] MEDS ORDERED: IPRATROPIUM BROM 0.5MG/2.5ML ONE (13:13)
[2023-09-02] MEDS ORDERED: MAGNESIUM SULFATE 1 gm IVPB 1 GM/100 ML BAG IV ONE (13:13)
[2023-09-02] MEDS ORDERED: LEVALBUTEROL 1.25 MG/3 ML NEB ONE (13:13)
[2023-09-02] MEDS ORDERED: NA CHLORIDE 0.9% 1,000 ML ONE (13:13)
[2023-09-02 13:15] LABS: Absolute Lymphocytes (CBC) 1.1 K/uL (0.7-4.9); Hematocrit 36.7 % (36.0-45.0); Lymphocytes % 4.8 % (15.3-44.8); MCV 75.9 fL (80-100); MPV 7.7 fL (7.6-11.3); Platelets 617 thou/uL (152-406); RBC Red Blood Cell Count 4.84 M/uL (3.86-4.86)
[2023-09-02 13:20] LABS: SARS-CoV-2 Antigen Rapid Res Negative (Negative)
[2023-09-02 13:27] LABS: Protime INR 1.2
[2023-09-02 13:36] LABS: Albumin 2.6 g/dL (3.4-5.0); Bilirubin Total 0.4 mg/dL (0.2-1.0); Potassium 3.9 mEq/L (3.5-5.1); Protein, Total 7.9 g/dL (6.4-8.2)
--- NOTE | 2023-09-02 13:58 | RAD REPORT ---
EXAM DESCRIPTION: RADChest Single View09/02/2023 12:51 pm CLINICAL HISTORY: Dyspnea;Fever COMPARISON: Chest Single View dated 07/04/2022; Chest Single View dated 05/25/2022; Chest Pa And Lat (2 Views) dated 03/30/2022; Chest Single View dated 07/12/2019; Chest For Pe Angio dated 07/04/2022 TECHNIQUE: Portable AP view of the chest. FINDINGS: Chronic interstitial changes, and areas of bilateral upper lobe scarring and left upper lo be previously biopsied mass are stable. Emphysematous background changes and bullae formation at the right apex are also stable. New reticulonodular opacities in the right mid to lower lung. No pneumot horax or effusion. The cardiomediastinal contours are unremarkable. IMPRESSION: New reticulonodular opacities in the right mid to lower lung, suggestive of COPD exacerb ation or areas of pneumonitis. Other stable findings as above.
[2023-09-02] MEDS ORDERED: Levofloxacin500mg IV 500 MG/100 ML BAG IV ONE (14:59)
[2023-09-02] MEDS ORDERED: OSELTAMIVIR 75 MG CAP PO ONE (14:59)
[2023-09-02 15:07] LABS: Platelet Estimate INCR
[2023-09-02 15:08] LABS: Anisocytosis 1+; Blood Morphology Comment NOTED (NOT SEEN); Poikilocytosis 1+
--- NOTE | 2023-09-02 15:21 | EDPHYS ---
Physician Documentation [facility] Name: Irene Venegas Age: 63 yrs Sex: Female : 1960 Arrival Date: 09/02/2023 Time: 12:14 Bed 20 Private MD: ED Physician Issa Santamaria HPI: 09/02 12:42 This 63 yrs old Female presents to ER via EMS with complaints of Shortness Of Breath. rn 12:42 The patient has shortness of breath at rest, with light activity. Onset: The rn symptoms/episode began/occurred 1 week(s) ago. Duration: The symptoms are continuous. The patient's shortness of breath is aggravated by exertion, light activity, is alleviated by rest, sitting up, application of supplemental oxygen. Associated signs and symptoms: Pertinent positives: productive cough, fever, Pertinent negatives: hemoptysis, loss of consciousness. Severity of symptoms: At their worst the symptoms were moderate in the emergency department the symptoms are unchanged. The patient has experienced similar episodes in the past. The patient has not recently seen a physician. Historical: - Allergies: 12:27 Morphine; db - PMHx: 12:27 Pneumonia; Pneumothorax; db - PSHx: 12:27 Partial stomach removed; Total abdominal hysterectomy; db - Immunization history:: Adult Immunizations unknown. - Social history:: Smoking status: Patient reports the use of cigarette tobacco products, smokes one pack cigarettes per day. - Family history:: not pertinent. - Hospitalizations: : No recent hospitalization is reported. ROS: 12:42 Constitutional: Positive for fever and chills Eyes: Negative for injury, pain, redness, rn and discharge, Cardiovascular: Negative for chest pain, palpitations, and edema, Respiratory: Positive for shortness of breath and productive cough Abdomen/GI: Positive for nausea and vomiting with diarrhea MS/Extremity: Negative for injury and deformity, Skin: Negative for injury, rash, and discoloration, Neuro: Positive for generalized weakness Exam: 12:42 Constitutional: Thin cachectic female with moderate tachypnea Head/Face: rn Normocephalic, atraumatic. ENT: Dry mucous membranes, no stridor Cardiovascular: Regular rate and rhythm with a normal S1 and S2. No gallops, murmurs, or rubs. Normal PMI, no JVD. No pulse deficits. Respiratory: Moderate tachypnea, poor inspiratory airflow, diminished at bilateral bases Abdomen/GI: Soft, non-tender Skin: Warm, dry MS/ Extremity: Pulses equal, no cyanosis. Neuro: Awake and alert, GCS 15 17:38 ECG was reviewed by the Attending Physician. rn Vital Signs: 12:15 BP 156 / 127; Pulse 111; Resp 30; Temp 99.9; Pulse Ox 88% on R/A; Weight 39.46 kg; db Height 5 ft. 1 in. ; 12:15 BP 191 / 88; Pulse 129; Resp 30; Pulse Ox 97% on 4 lpm NC; db 12:30 BP 152 / 86; Pulse 114; Resp 30; Pulse Ox 98% on 4 lpm NC; db 13:00 BP 146 / 105; Pulse 107; Resp 30; Pulse Ox 98% on 4 lpm NC; db 14:00 BP 137 / 78; Pulse 95; Resp 28; Pulse Ox 99% on 4 lpm NC; db 14:30 BP 134 / 78; Pulse 100; Resp 26; Pulse Ox 98% on 4 lpm NC; db 15:30 BP 136 / 90; Pulse 96; Resp 18; Pulse Ox 99% on 4 lpm NC; db 16:00 BP 156 / 100; Pulse 102; Resp 28; Pulse Ox 98% on 4 lpm NC; db 17:30 BP 143 / 70; Pulse 93; Resp 22; Pulse Ox 98% on 4 lpm NC; db 12:15 Body Mass Index 16.44 (39.46 kg, 154.94 cm) db 12:15 PLACED ON 4L O2 db MDM: 12:28 Patient medically screened. rn 15:18 Differential diagnosis: Anemia Chronic Obstructive Pulmonary Disease pneumonia, rn Pneumothorax pulmonary edema, reactive airway disease. Data reviewed: vital signs, nurses notes, lab test result(s), radiologic studies, plain films, and as a result, I will admit patient. Independent interpretation of the following test(s) in the Emergency Department EKG: See my EKG interpretation above X-Ray: My interpretation is Chest x-ray images show basilar infiltrate per my interpretation. Counseling: I had a detailed discussion with the patient and/or guardian regarding the historical points, exam findings, and any diagnostic results supporting the discharge/admit diagnosis, lab results, radiology results, the need for further work-up and treatment in the hospital. Response to treatment: the patient's symptoms have mildly improved after treatment, and as a result, I will admit patient. ED course: Patient with influenza, possible pneumonitis on x-ray, COPD exacerbation. Spoke with hospitalist and will admit for further care. Antibiotics administered after blood cultures and lactate.. 09/02 12:32 Order name: Blood Culture Adult (2) rn 09/02 12:32 Order name: CBC with Diff; Complete Time: 15:14 rn 09/02 12:32 Order name: CMP; Complete Time: 14:11 09/02 12:32 Order name: Lactate w/ 2H reflex if indic.; Complete Time: 14:11 09/02 12:32 Order name: Protime (+inr); Complete Time: 14:11 09/02 12:32 Order name: Ptt, Activated; Complete Time: 14:11 09/02 12:32 Order name: Flu; Complete Time: 14:11 09/02 12:32 Order name: SARS RAPID; Complete Time: 14:11 09/02 13:24 Order name: Manual Differential; Complete Time: 15:14 EDMS 09/02 16:21 Order name: Urinalysis w/ reflexes EDMS 09/02 16:21 Order name: Basic Metabolic Panel EDMS 09/02 16:21 Order name: Basic Metabolic Panel EDMS 09/02 16:21 Order name: Basic Metabolic Panel EDMS 09/02 16:21 Order name: Basic Metabolic Panel EDMS 09/02 16:21 Order name: Basic Metabolic Panel EDMS 09/02 16:21 Order name: Basic Metabolic Panel EDMS 09/02 16:21 Order name: CBC with Automated Diff EDMS 09/02 16:21 Order name: CBC with Automated Diff EDMS 09/02 16:21 Order name: CBC with Automated Diff EDMS 09/02 16:21 Order name: CBC with Automated Diff EDMS 09/02 16:21 Order name: CBC with Automated Diff EDMS 09/02 16:21 Order name: CBC with Automated Diff EDMS 09/02 16:21 Order name: Magnesium EDMS 09/02 16:21 Order name: Magnesium EDMS 09/02 16:21 Order name: Magnesium EDMS 09/02 16:21 Order name: Magnesium EDMS 09/02 16:21 Order name: Magnesium EDMS 09/02 16:21 Order name: Magnesium EDMS 09/02 16:21 Order name: Phosphorus EDMS 09/02 16:21 Order name: Phosphorus EDMS 09/02 16:21 Order name: Phosphorus EDMS 09/02 16:21 Order name: Phosphorus EDMS 09/02 16:21 Order name: Phosphorus EDMS 09/02 16:21 Order name: Phosphorus EDMS 09/02 12:32 Order name: Chest Single View XRAY; Complete Time: 14:11 rn 09/02 12:32 Order name: EKG; Complete Time: 12:33 rn 09/02 16:21 Order name: Dietitian Consult EDMO 09/02 12:32 Order name: Accucheck; Complete Time: 15:34 rn 09/02 12:32 Order name: Cardiac monitoring; Complete Time: 13:05 rn 09/02 12:32 Order name: EKG - Nurse/Tech; Complete Time: 13:05 rn 09/02 12:32 Order name: IV Saline Lock - Large Bore; Complete Time: 13:05 rn 09/02 12:32 Order name: Labs collected and sent; Complete Time: 13:05 rn 09/02 12:32 Order name: O2 Per Protocol; Complete Time: 13:05 rn 09/02 12:32 Order name: O2 Sat Monitoring; Complete Time: 13:05 rn 09/02 12:32 Order name: Vital Signs; Complete Time: 13:05 rn EC:38 Rate is 101 beats/min. Rhythm is regular. QRS [place] is Normal. ID interval is normal. rn QRS interval is normal. QT interval is normal. No Q waves. T waves are Normal. No ST changes noted. Clinical impression: Sinus tachycardia. Interpreted by me. Reviewed by me. Administered Medications: 13:08 Drug: NS 0.9% IV 1000 ml IV at 1000 ml once Route: IV; Rate: 1000 ml; Site: right db antecubital; 14:58 Follow up: Response: No adverse reaction; IV Status: Completed infusion; IV Intake: db 1000ml 13:08 Drug: Acetaminophen PO 650 mg PO once Route: PO; db 14:59 Follow up: Response: No adverse reaction db 13:09 Drug: Levalbuterol Inhalation 1.25 mg Inhalation once Route: Inhalation; db 14:59 Follow up: Response: No adverse reaction db 13:09 Drug: Ipratropium Inhalation Aerosol 0.5 mg Inhalation once Route: Inhalation; db 14:59 Follow up: Response: No adverse reaction db 13:10 Drug: Magnesium Sulfate IVPB 1 grams IVPB once over 1 hrs Route: IVPB; Infused Over: 1 db hrs; Site: right antecubital; 14:59 Follow up: Response: No adverse reaction; IV Status: Completed infusion; IV Intake: db 100ml 13:15 Drug: MethylPrednisoLONE IVP 125 mg IVP once Route: IVP; Site: right antecubital; db 14:59 Follow up: Response: No adverse reaction db 14:50 Drug: Oseltamivir PO 75 mg PO once Route: PO; db 15:34 Follow up: Response: No adverse reaction db 14:55 Drug: levofloxacin IVPB 500 mg 100 ml IVPB once over 60 mins Volume: 100 ml; Route: db IVPB; Infused Over: 60 mins; Site: right antecubital; 16:55 Follow up: IV Status: Completed infusion; IV Intake: 100ml db Disposition Summary: 09/02/23 15:21 Hospitalization Ordered Notes: Hospitalization Status: Inpatient Admission rn Provider: Vince Fong [facility] Condition: Stable rn Problem: new rn Symptoms: have improved rn Bed/Room Type: Standard rn Room Assignment: 409(09/02/23 17:00) eb Diagnosis - Influenza due to other identified influenza virus with other respiratory rn manifestations - pneumonitis - COPD/ Chronic obstructive pulmonary disease with acute lower respiratory infection rn - COPD/ Chronic obstructive pulmonary disease with (acute) exacerbation rn - Dyspnea, unspecified rn - Hypoxemia rn Forms: - Medication Reconciliation Form rn - SBAR form rn - Leadership Thank You Letter rn Signatures: Dispatcher [employer] Issa Knight MD MD rn Botello, Elizabeth eb Benton, Danielle, RN RN db Corrections: (The following items were deleted from the chart) 17:00 15:21 rn eb
--- NOTE | 2023-09-02 15:21 | ER ---
Nurse's Notes [facility] Name: Irene Venegas Age: 63 yrs Sex: Female : 1960 Arrival Date: 09/02/2023 Time: 12:14 Bed 20 Private MD: Diagnosis: Influenza due to other identified influenza virus with other respiratory manifestations-pneumonitis;COPD/ Chronic obstructive pulmonary disease with acute lower respiratory infection;COPD/ Chronic obstructive pulmonary disease with (acute) exacerbation;Dyspnea, unspecified;Hypoxemia Presentation: 09/02 12:15 Chief complaint: EMS states: SOB, DIFFICULTY BREATHING. 88% ON SCENE FOR EMS. GIVEN NC db 6L. PT STATES VOMITING, FEVER, HEADACHE, COUGH X 1 WEEK WORSE TODAY WHERE CAN'T WALK TO RESTROOM. ALBUTEROL TREATMENTS NOT HELPING. Coronavirus screen: Vaccine status: Patient reports receiving the 2nd dose of the covid vaccine. Client denies travel out of the [place] in the last 14 days. At this time, the client does not indicate any symptoms associated with coronavirus-19. Ebola Screen: Patient negative for fever greater than or equal to 101.5 degrees Fahrenheit, and additional compatible Ebola Virus Disease symptoms Patient denies exposure to infectious person. Patient denies travel to an Ebola-affected area in the 21 days before illness onset. No symptoms or risks identified at this time. Initial Sepsis Screen: Does the patient meet any 2 criteria? RR > 20 per min. HR > 90 bpm. Yes Does the patient have a suspected source of infection? No. Patient's initial sepsis screen is negative. Risk Assessment: Do you want to hurt yourself or someone else? Patient reports no desire to harm self or others. Onset of symptoms was September 02, 2023. 12:15 Method Of Arrival: EMS: [facility] db 12:15 Acuity: REVA 2 db Triage Assessment: 12:15 General: Appears in no apparent distress. comfortable, Behavior is cooperative, db anxious. Pain: Complains of pain in head. Neuro: Level of Consciousness is awake, alert, obeys commands, Oriented to person, place, time, situation, Speech is normal. Cardiovascular: Patient's skin is warm and dry. Rhythm is sinus tachycardia. Respiratory: Reports shortness of breath at rest cough that is labored breathing Airway is patent Respiratory effort is labored, Respiratory pattern is tachypnea Breath sounds are coarse bilaterally. Onset: The symptoms/episode began/occurred gradually, the patient has severe shortness of breath. Historical: - Allergies: 12:27 Morphine; db - PMHx: 12:27 Pneumonia; Pneumothorax; db - PSHx: 12:27 Partial stomach removed; Total abdominal hysterectomy; db - Immunization history:: Adult Immunizations unknown. - Social history:: Smoking status: Patient reports the use of cigarette tobacco products, smokes one pack cigarettes per day. - Family history:: not pertinent. - Hospitalizations: : No recent hospitalization is reported. Screenin:00 [facility] ED Fall Risk Assessment (Adult) History of falling in the last 3 months, db including since admission Yes- single mechanical fall (1 pt) Confusion or Disorientation No (0 pts) Intoxicated or Sedated No (0 pts) Impaired Gait Yes (1 pt) Mobility Assist Device Used Yes (1 pt) Altered Elimination No (0 pt) Score/Fall Risk Level 3 or more points = High Risk Oriented to surroundings, Maintained a safe environment. Abuse screen: Denies threats or abuse. Denies injuries from another. Nutritional screening: Had unintentional weight loss of 10 pounds or more. Tuberculosis screening: No symptoms or risk factors identified. Assessment: 12:30 Reassessment: SEE TRIAGE FOR INITIAL ASSESSMENT. db 13:30 Reassessment: Patient appears in no apparent distress at this time. Patient and/or db family updated on plan of care and expected duration. Pain level reassessed. Patient is alert, oriented x 3, equal unlabored respirations, skin warm/dry/pink. 14:30 Reassessment: Patient appears in no apparent distress at this time. Patient and/or db family updated on plan of care and expected duration. Pain level reassessed. Patient is alert, oriented x 3, equal unlabored respirations, skin warm/dry/pink. 15:01 Reassessment: Patient appears in no apparent distress at this time. Patient and/or db family updated on plan of care and expected duration. Pain level reassessed. Patient is alert, oriented x 3, equal unlabored respirations, skin warm/dry/pink. Patient states feeling better. General: Appears comfortable. Cardiovascular: Patient's skin is warm and dry. Rhythm is sinus tachycardia. Respiratory: Airway is patent Respiratory effort is even, labored, Respiratory pattern is regular, symmetrical, BREATHING IS BETTER. 16:30 Reassessment: Patient appears in no apparent distress at this time. Patient and/or db family updated on plan of care and expected duration. Pain level reassessed. Patient is alert, oriented x 3, equal unlabored respirations, skin warm/dry/pink. PT ASSISTED TO BEDSIDE COMMODE. 17:30 Reassessment: REPORT GIVEN TO CONNIE RIOS. db 17:30 Reassessment: Patient appears in no apparent distress at this time. Patient and/or db family updated on plan of care and expected duration. Pain level reassessed. Patient is alert, oriented x 3, equal unlabored respirations, skin warm/dry/pink. PT IS SITTING UP EATING CHIPS AND TALKING WITH FAMILY. Vital Signs: 12:15 BP 156 / 127; Pulse 111; Resp 30; Temp 99.9; Pulse Ox 88% on R/A; Weight 39.46 kg; db Height 5 ft. 1 in. ; 12:15 BP 191 / 88; Pulse 129; Resp 30; Pulse Ox 97% on 4 lpm NC; db 12:30 BP 152 / 86; Pulse 114; Resp 30; Pulse Ox 98% on 4 lpm NC; db 13:00 BP 146 / 105; Pulse 107; Resp 30; Pulse Ox 98% on 4 lpm NC; db 14:00 BP 137 / 78; Pulse 95; Resp 28; Pulse Ox 99% on 4 lpm NC; db 14:30 BP 134 / 78; Pulse 100; Resp 26; Pulse Ox 98% on 4 lpm NC; db 15:30 BP 136 / 90; Pulse 96; Resp 18; Pulse Ox 99% on 4 lpm NC; db 16:00 BP 156 / 100; Pulse 102; Resp 28; Pulse Ox 98% on 4 lpm NC; db 17:30 BP 143 / 70; Pulse 93; Resp 22; Pulse Ox 98% on 4 lpm NC; db 12:15 Body Mass Index 16.44 (39.46 kg, 154.94 cm) db 12:15 PLACED ON 4L O2 db Vitals: 12:30 Cardiac Rhythm Assessment Sinus tach. db ED Course: 12:15 Arm band placed on right wrist. Patient placed in an exam room. db 12:16 Patient arrived in ED. ds4 12:24 Jane Melissa RN is Primary Nurse. db 12:27 Triage completed. db 12:28 Issa Santamaria MD is Attending Physician. rn 12:53 Chest Single View XRAY In Process Unspecified. EDMS 13:05 Inserted saline lock: 22 gauge in right antecubital area, using aseptic technique. db ,using aseptic technique. zoe Blood collected. 13:20 Patient has correct armband on for positive identification. Bed in low position. Side db rails up X2. Client placed on continuous cardiac and pulse oximetry monitoring. NIBP monitoring applied. Warm blanket given. 15:20 Vince Fong is Hospitalizing Provider. rn 16:00 Provided Education on: ADMISSION. db 16:00 No provider procedures requiring assistance completed. Patient admitted, IV remains in db place. Administered Medications: 13:08 Drug: NS 0.9% IV 1000 ml IV at 1000 ml once Route: IV; Rate: 1000 ml; Site: right db antecubital; 14:58 Follow up: Response: No adverse reaction; IV Status: Completed infusion; IV Intake: db 1000ml 13:08 Drug: Acetaminophen PO 650 mg PO once Route: PO; db 14:59 Follow up: Response: No adverse reaction db 13:09 Drug: Levalbuterol Inhalation 1.25 mg Inhalation once Route: Inhalation; db 14:59 Follow up: Response: No adverse reaction db 13:09 Drug: Ipratropium Inhalation Aerosol 0.5 mg Inhalation once Route: Inhalation; db 14:59 Follow up: Response: No adverse reaction db 13:10 Drug: Magnesium Sulfate IVPB 1 grams IVPB once over 1 hrs Route: IVPB; Infused Over: 1 db hrs; Site: right antecubital; 14:59 Follow up: Response: No adverse reaction; IV Status: Completed infusion; IV Intake: db 100ml 13:15 Drug: MethylPrednisoLONE IVP 125 mg IVP once Route: IVP; Site: right antecubital; db 14:59 Follow up: Response: No adverse reaction db 14:50 Drug: Oseltamivir PO 75 mg PO once Route: PO; db 15:34 Follow up: Response: No adverse reaction db 14:55 Drug: levofloxacin IVPB 500 mg 100 ml IVPB once over 60 mins Volume: 100 ml; Route: db IVPB; Infused Over: 60 mins; Site: right antecubital; 16:55 Follow up: IV Status: Completed infusion; IV Intake: 100ml db Medication: 17:45 VIS not applicable for this client. db Intake: 14:58 IV: 1000ml; Total: 1000ml. db 14:59 IV: 100ml; Total: 1100ml. db 16:55 IV: 100ml; Total: 1200ml. db Outcome: 15:21 Decision to Hospitalize by Provider. rn 16:00 Admitted to ER Hold. Please see [facility] for further documentation. db 16:00 Condition: stable 16:00 Instructed on the need for admit, 17:45 Patient left the ED. db Signatures: Dispatcher [employer] Issa Knight MD MD rn Swanson, Donovan ds4 Jane Melissa RN RN db
[2023-09-02] MEDS ORDERED: IPRATROPIUM BROM 0.5MG/2.5ML NEB PRN (16:26)
[2023-09-02] MEDS ORDERED: ALBUTEROL 2.5 MG/3 ML NEB SOL NEB PRN (16:27)
[2023-09-02] MEDS ORDERED: ACETAMINOPHEN 500 MG TAB PO PRN (16:29)
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
[2023-09-02] MEDS ORDERED: Levofloxacin500mg IV 500 MG/100 ML BAG IV SCH (17:00)
[2023-09-02] MEDS: OSELTAMIVIR 30 MG CAP PO SCH (17:00)
[2023-09-02 18:36] VITALS: BMI 15.0
[2023-09-02] MEDS: HYDROCODONE/APAP 10/325 TAB PO PRN (19:59)
[2023-09-02] MEDS: GUAIFENESIN/CODEINE 5ML UCUP PO PRN (19:59)
[2023-09-02] MEDS: ZOLPIDEM TARTRATE 5 MG TABLET PO PRN (20:00)
[2023-09-03 03:57] LABS: Absolute Lymphocytes (CBC) 0.9 K/uL (0.7-4.9); Hematocrit 33.1 % (36.0-45.0); MCV 76.1 fL (80-100); MPV 7.8 fL (7.6-11.3); Platelets 597 thou/uL (152-406); RBC Red Blood Cell Count 4.35 M/uL (3.86-4.86)
[2023-09-03 04:23] LABS: Magnesium 2.2 mg/dL (1.6-2.4); Phosphorus 3.4 mg/dL (2.5-4.9); Potassium 4.3 mEq/L (3.5-5.1)
[2023-09-03] MEDS: OSELTAMIVIR 30 MG CAP PO SCH (05:00)
[2023-09-03] MEDS: METHYLPREDNISOLONE 40 MG INJ IV SCH ×2 (08:36→20:37)
[2023-09-03] MEDS: GUAIFENESIN/CODEINE 5ML UCUP PO PRN ×2 (08:36→20:37)
[2023-09-03] MEDS: ENOXAPARIN 40 MG/0.4 ML SQ SCH (08:36)
[2023-09-03] MEDS: OSELTAMIVIR 75 MG CAP PO SCH ×2 (08:36→20:38)
[2023-09-03] MEDS ORDERED: OSELTAMIVIR 30 MG CAP PO SCH (09:00)
[2023-09-03] MEDS ORDERED: OSELTAMIVIR 75 MG CAP PO SCH (09:00)
[2023-09-03] MEDS ORDERED: ALBUTEROL 2.5 MG/3 ML NEB SOL NEB PRN (12:00)
[2023-09-03] MEDS ORDERED: IPRATROPIUM BROM 0.5MG/2.5ML NEB PRN (12:00)
[2023-09-03] MEDS: HYDROCODONE/APAP 10/325 TAB PO PRN ×2 (13:48→20:37)
--- NOTE | 2023-09-03 15:51 | P.PN ---
Subjective Date of Service: 09/03/23 Chief Complaint: COPD exacerbation, PNA Patient is currently maintained on 4 L oxygen by nasal cannula. She does not use oxygen at home. She was noted to be wheezing. Physical Examination - Vital Signs Temperature: 97.3 F Blood Pressure: 139/82 Pulse: 83 Respirations: 16 Pulse Ox (%): 96 - Studies Microbiology Data (last 24 hrs): 09/02/23 12:49 Nasopharnyx Influenza Type A Antigen Screen - Final 09/02/23 12:49 Nasopharnyx Influenza Type B Antigen Screen - Final Assessment And Plan - Plan Physical Exam General: Alert, In no apparent distress, Oriented x3, cachexia. HEENT: Oxygen by nasal cannula Neck: JVD not distended Respiratory: Diffuse expiratory wheezes, no crackles, Normal air movement Cardiovascular: No edema, Normal pulses, Regular rate/rhythm, Normal S1 S2 Gastrointestinal: Normal bowel sounds, Soft and benign Musculoskeletal: No clubbing, No swelling, No contractures Integumentary: No rashes, No breakdown, No significant lesion Neurological: Normal speech, Normal strength at 5/5 x4 extr, Normal tone Plan: COPD exacerbation vs pneumonitis Acute respiratory failure with hypoxia Acute Pneumonia Acute flu B Leukocytosis Febrile Initial WBC 23.6 Leukocytosis trended down. Continue antibiotics-Levaquin Continue tamiflu Nebs PRN solu-medrol BID Tylenol for fever procalcitonin unremarkable Wean oxygen as tolerated. Thrombocythemia Platelets 617. Lovenox monitor in AM labs Irene was seeing Dr. Bryan in the past, will follow up outpatient Cacehctic History of rectal polyps Reduced oral intake attributed to gastrectomy. Dietary consulted Patient drinks 560 yumiko boost at home, and high-calorie smoothies. DVT ppx: lovenox DNR Discharge Plan: Home
[2023-09-03] MEDS ORDERED: Levofloxacin500mg IV 500 MG/100 ML BAG IV SCH (17:00)
[2023-09-03 17:45] LABS: Specific Gravity > 1.030 (1.005-1.030); Urine Bacteria <20 /HPF (<20); Urine Bilirubin NEGATIVE (Negative); Urine Blood Negative (Negative); Urine Clarity Turbid (Clear); Urine Color Yellow (Yellow); Urine Glucose NEGATIVE (Negative); Urine Mucus 1+ /HPF (None Seen); Urine Protein 1+ (Negative); Urine RBC <5 /HPF (None Seen); Urine Urobilinogen Normal (Normal)
[2023-09-03] MEDS: ZOLPIDEM TARTRATE 5 MG TABLET PO PRN (20:37)
[2023-09-03] MEDS: ENSURE ENLIVE 237 ML CAN PO SCH (20:39)
[2023-09-04 06:59] LABS: Absolute Lymphocytes (CBC) 1.3 K/uL (0.7-4.9); Hematocrit 33.9 % (36.0-45.0); Lymphocytes % 5.3 % (15.3-44.8); MCV 76.6 fL (80-100); MPV 7.6 fL (7.6-11.3); Platelets 702 thou/uL (152-406); RBC Red Blood Cell Count 4.43 M/uL (3.86-4.86)
[2023-09-04 07:16] LABS: Magnesium 2.4 mg/dL (1.6-2.4); Phosphorus 3.4 mg/dL (2.5-4.9); Potassium 4.7 mEq/L (3.5-5.1)
[2023-09-04 08:55] LABS: Blood Morphology Comment NOT SEEN (NOT SEEN); Platelet Estimate INCR; White Blood Cell Scan OK (OK)
[2023-09-04] MEDS: OSELTAMIVIR 75 MG CAP PO SCH ×2 (09:00→20:38)
[2023-09-04] MEDS: predniSONE 20 MG TAB PO SCH ×2 (09:39→20:38)
[2023-09-04] MEDS: levoFLOXacin 500 MG TAB PO SCH (09:39)
[2023-09-04] MEDS: GUAIFENESIN/CODEINE 5ML UCUP PO PRN (09:39)
[2023-09-04] MEDS: ENSURE ENLIVE 237 ML CAN PO SCH ×3 (09:39→20:38)
[2023-09-04] MEDS: ENOXAPARIN 40 MG/0.4 ML SQ SCH (09:39)
--- NOTE | 2023-09-04 09:55 | RAD REPORT ---
EXAM DESCRIPTION: CT - Thorax Wo Con - 09/04/2023 9:10 am CLINICAL HISTORY: sob COMPARISON: June 2022 TECHNIQUE: Computed axial tomography of the chest was obtained. Contrast was not requested. All CT scans are performed using dose optimization technique as appropriate and may include automated exposure control or mA/KV adjustment according to patient size. FINDINGS: The evaluation of mediastinum, rianna and vessels is limited secondary to lack of IV contras t administration. Moderate to marked COPD Left upper lobe volume loss. Scarring and bronchiectasis without significant change. Mild tree-in-bud opacities within the left lung. Scarring and pulmonary calcifications right upper lobe without significant change. Hilar and mediastinal lymphadenopathy without change presumably reactive. A pleural effusion is not present. No pericardial effusion IMPRESSION: COPD Bronchiectasis and scarring without significant change Mild tree in bud opacities left lung probably atypical infection
[2023-09-04] MEDS: DULERA 200/5 (MOMETASONE/FORMOTEROL) INHALER IH SCH ×2 (10:30→20:38)
--- NOTE | 2023-09-04 11:07 | P.PN ---
Date of Service: 09/04/23 Subjective: no acute events overnight remains on 4L NC feels slightly improved weak, getting to bedside commode no new/worsening symptoms ROS: 10 point ROS as noted above, otherwise negative Physical Exam: GEN: Alert, oriented, NAD, cachexia HEENT: Normal conjunctiva, sclera anicteric CV: Regular rate and rhythm, no edema Pulm: Non-labored respirations on 4L NC, diminished at bases b/l ABD: Soft, nontender, nondistended Neuro: Normal speech, normal affect vitals reviewed Problem List: Acute hypoxic respiratory failure secondary to Pneumonitis vs. new COPD exacerbation Acute Influenza B Thrombocythemia Cachectic History of rectal polyps Acute hypoxic respiratory failure secondary to Pneumonitis vs. new COPD exacerbation Acute Influenza B CXR (09/02): new reticulonodular opacities right mid-lower lung; COPD exacerbation vs Pneumonitis CT chest (09/04): COPD, Bronchitis and scarring without significant change, mild tree in bud opacities left lung probably atypical infection. Pulm consulted Continue empiric PO levaquin (09/04-) afebrile, leukocytosis 18.5 -> 24.4 Start PO prednisone; given IV solu-medrol yesterday Continue tamiflu (09/03-09/07) PRN nebs, PRN pain medication wean oxygen as tolerated Thrombocythemia Daily labs. Continue to monitor. Sees Dr. Bryan as outpatient Cachectic History of rectal polyps Reduced oral intake attributed to gastrectomy. Dietary consulted Encourage nutrition; +Ensure TID VTE: Lovenox Code: DNR Dispo: Home, 2-3 days Pending further improvement, afebrile > 24 hours
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
[2023-09-04] MEDS: IPRATROPIUM BROM 0.5MG/2.5ML NEB SCH ×2 (13:05→20:00)
[2023-09-04] MEDS: HYDROCODONE/APAP 10/325 TAB PO PRN ×2 (18:09→22:17)
[2023-09-04] MEDS: ZOLPIDEM TARTRATE 5 MG TABLET PO PRN (20:44)
[2023-09-05] MEDS: IPRATROPIUM BROM 0.5MG/2.5ML NEB SCH ×4 (02:00→19:55)
[2023-09-05 07:19] LABS: Absolute Lymphocytes (CBC) 1.6 K/uL (0.7-4.9); Hematocrit 32.6 % (36.0-45.0); Lymphocytes % 8.7 % (15.3-44.8); MCV 75.9 fL (80-100); MPV 7.3 fL (7.6-11.3); Platelets 626 thou/uL (152-406); RBC Red Blood Cell Count 4.29 M/uL (3.86-4.86)
[2023-09-05 07:32] LABS: Magnesium 2.4 mg/dL (1.6-2.4); Phosphorus 3.2 mg/dL (2.5-4.9); Potassium 4.3 mEq/L (3.5-5.1)
--- NOTE | 2023-09-05 09:25 | P.PN ---
Date of Service: 09/05/23 Subjective: Feels some improvement each day no acute events overnight ambulated ~50 ft with walker and assistance yesterday per PT note remains on 4L NC; wean as tolerated afebrile ROS: 10 point ROS as noted above, otherwise negative Physical Exam: GEN: Alert, oriented, NAD, cachexia HEENT: Normal conjunctiva, sclera anicteric CV: Regular rate and rhythm, no edema Pulm: Non-labored respirations on 4L NC at rest, diminished at bases b/l ABD: Soft, nontender, nondistended Neuro: Normal speech, normal affect vitals reviewed Problem List: Acute hypoxic respiratory failure secondary to Pneumonitis vs. COPD exacerbation Acute Influenza B Thrombocythemia Cachectic History of rectal polyps Acute hypoxic respiratory failure secondary to Pneumonitis vs. COPD exacerbation Acute Influenza B CXR (09/02): new reticulonodular opacities right mid-lower lung; COPD exacerbation vs Pneumonitis CT chest (09/04): COPD, Bronchitis and scarring without significant change, mild tree in bud opacities left lung probably atypical infection. 09/04 patient reports h/o COPD; no home oxygen currently setup but does use nebulizer/inhaler at home 09/05 AM - 90% SPO2 on room air per RT currently on 4L NC; wean as tolerated Pulm consulted afebrile, leukocytosis 24.4 -> 18.1 sputum cx (09/04): culture pending; gram stain with 1+ GPC, <25 SqEpi/LPF blood cx (09/02): NGTD Continue empiric PO levaquin (09/04-) continue PO prednisone Continue tamiflu (09/03-09/07) PRN nebs, PRN pain medication Thrombocythemia Daily labs. Continue to monitor. Sees Dr. Bryan as outpatient Cachectic History of rectal polyps Reduced oral intake attributed to gastrectomy. Dietary consulted Encourage nutrition; +Ensure TID VTE: Lovenox Code: DNR Dispo: Home, 1-2 days Pending further improvement, weak wean O2 may need home O2 set up
[2023-09-05] MEDS: ENOXAPARIN 40 MG/0.4 ML SQ SCH (09:59)
[2023-09-05] MEDS: OSELTAMIVIR 75 MG CAP PO SCH ×2 (10:00→19:49)
[2023-09-05] MEDS: GUAIFENESIN/CODEINE 5ML UCUP PO PRN ×2 (10:00→19:49)
[2023-09-05] MEDS: predniSONE 20 MG TAB PO SCH ×2 (10:00→19:49)
[2023-09-05] MEDS: levoFLOXacin 500 MG TAB PO SCH (10:00)
[2023-09-05] MEDS: ENSURE ENLIVE 237 ML CAN PO SCH ×3 (10:00→19:51)
[2023-09-05] MEDS: DULERA 200/5 (MOMETASONE/FORMOTEROL) INHALER IH SCH ×2 (10:00→19:51)
[2023-09-05] MEDS: HYDROCODONE/APAP 10/325 TAB PO PRN ×3 (10:00→20:30)
--- NOTE | 2023-09-05 12:06 | P.PN ---
Subjective Date of Service: 09/05/23 Chief Complaint: COPD exacerbation, Subjective: Improving (Patient is doing well still has some chest congestion) Review of Systems General: Weakness Respiratory: Cough, Shortness of Breath Physical Examination - Vital Signs Temperature: 98.3 F Blood Pressure: 148/81 Pulse: 59 Respirations: 16 Pulse Ox (%): 100 - Physical Exam General: Alert, Oriented x3 Respiratory: Diminished, Expiratory wheezes Cardiovascular: No edema, Regular rate/rhythm Gastrointestinal: Normal bowel sounds, Soft and benign Assessment And Plan - Current Problems (Diagnosis) (1) COPD exacerbation Current Visit: No Status: Acute Plan: Patient is 63 years of age admitted with COPD exacerbation she is doing better cultures are all pending Trey's reviewed white count is declining oxygenation and blood pressure is satisfactory plan to discharge home on low-dose prednisone 10 mg twice a day addition to levofloxacin and Dulera from the hospital follow- up in my clinic in 2 weeks 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
[2023-09-05] MEDS: ZOLPIDEM TARTRATE 5 MG TABLET PO PRN (19:48)
[2023-09-06] MEDS: IPRATROPIUM BROM 0.5MG/2.5ML NEB SCH ×4 (01:45→19:35)
[2023-09-06 06:19] LABS: Absolute Lymphocytes (CBC) 1.4 K/uL (0.7-4.9); Hematocrit 34.7 % (36.0-45.0); Lymphocytes % 7.6 % (15.3-44.8); MCV 75.3 fL (80-100); MPV 7.1 fL (7.6-11.3); Platelets 664 thou/uL (152-406)
[2023-09-06 06:34] LABS: Magnesium 2.6 mg/dL (1.6-2.4); Phosphorus 2.7 mg/dL (2.5-4.9); Potassium 4.4 mEq/L (3.5-5.1)
[2023-09-06 06:57] LABS: Platelet Estimate ADEQ
[2023-09-06 06:58] LABS: Blood Morphology Comment NOT SEEN (NOT SEEN); Hypersegmented Neutrophils PRESENT
[2023-09-06] MEDS: OSELTAMIVIR 75 MG CAP PO SCH ×2 (10:38→20:27)
[2023-09-06] MEDS: levoFLOXacin 500 MG TAB PO SCH (10:38)
[2023-09-06] MEDS: ENOXAPARIN 40 MG/0.4 ML SQ SCH (10:38)
[2023-09-06] MEDS: DULERA 200/5 (MOMETASONE/FORMOTEROL) INHALER IH SCH ×2 (10:38→20:27)
[2023-09-06] MEDS: predniSONE 20 MG TAB PO SCH ×2 (10:38→20:20)
[2023-09-06] MEDS: GUAIFENESIN/CODEINE 5ML UCUP PO PRN ×2 (10:38→20:26)
[2023-09-06] MEDS: ENSURE ENLIVE 237 ML CAN PO SCH ×3 (10:40→20:26)
--- NOTE | 2023-09-06 12:20 | P.PN ---
Date of Service: 09/06/23 Subjective: Feeling better today weaned off oxygen overnight; breathing okay on room air at rest still feeling weak, fatigued, worn down ; dyspnea on exertion, +cough no new / worsening problems afebrile ROS: 10 point ROS as noted above, otherwise negative Physical Exam: GEN: Alert, oriented, NAD, cachexia HEENT: Normal conjunctiva, sclera anicteric CV: Regular rate and rhythm, no edema Pulm: Non-labored respirations on room air at rest, diminished at bases b/l ABD: Soft, nontender, nondistended Neuro: Normal speech, normal affect vitals reviewed Problem List: Acute hypoxic respiratory failure secondary to Pneumonitis vs. COPD exacerbation Acute Influenza B Thrombocythemia Cachectic History of rectal polyps Acute hypoxic respiratory failure secondary to Pneumonitis vs. COPD exacerbation Acute Influenza B CXR (09/02): new reticulonodular opacities right mid-lower lung; COPD exacerbation vs Pneumonitis CT chest (09/04): COPD, Bronchitis and scarring without significant change, mild tree in bud opacities left lung probably atypical infection. 09/04 patient reports h/o COPD; no home oxygen currently setup but does use nebulizer/inhaler at home 09/05 AM - 90% SPO2 on room air per RT 09/06 weaned off O2 supplementation; breathing okay on room air at rest; +no longer qualifies for home oxygen Pulm consulted afebrile, leukocytosis 18.1 -> 18.8 sputum cx (09/04): culture pending; gram stain with 1+ GPC, <25 SqEpi/LPF blood cx (09/02): NGTD Continue empiric PO levaquin (09/04-) continue PO prednisone Continue tamiflu (09/03-09/07) PRN nebs, PRN pain medication Thrombocythemia Daily labs. Continue to monitor. Sees Dr. Bryan as outpatient Cachectic History of rectal polyps Reduced oral intake attributed to gastrectomy. Dietary consulted Encourage nutrition; +Ensure TID VTE: Lovenox Code: DNR Dispo: Home, ~1 day Pending further improvement, weak wean O2 may need home O2 set up
[2023-09-06] MEDS: HYDROCODONE/APAP 10/325 TAB PO PRN (14:50)
[2023-09-06] MEDS ORDERED: HYDROCODONE/APAP 10/325 TAB ONE (15:18)
[2023-09-06] MEDS: ZOLPIDEM TARTRATE 5 MG TABLET PO PRN (20:26)
[2023-09-07] MEDS: IPRATROPIUM BROM 0.5MG/2.5ML NEB SCH ×3 (01:40→13:46)
[2023-09-07 07:07] LABS: Absolute Lymphocytes (CBC) 1.9 K/uL (0.7-4.9); Hematocrit 33.5 % (36.0-45.0); Lymphocytes % 8.9 % (15.3-44.8); MCV 75.7 fL (80-100); MPV 7.1 fL (7.6-11.3); Platelets 650 thou/uL (152-406); RBC Red Blood Cell Count 4.43 M/uL (3.86-4.86)
[2023-09-07 07:22] LABS: Magnesium 2.3 mg/dL (1.6-2.4); Potassium 4.1 mEq/L (3.5-5.1)
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
[2023-09-07] MEDS: OSELTAMIVIR 75 MG CAP PO SCH (09:00)
[2023-09-07] MEDS: ENSURE ENLIVE 237 ML CAN PO SCH (09:00)
[2023-09-07] MEDS: DULERA 200/5 (MOMETASONE/FORMOTEROL) INHALER IH SCH (09:00)
[2023-09-07 09:21] LABS: Blood Morphology Comment NOT SEEN (NOT SEEN); Platelet Estimate ADEQ
[2023-09-07 09:36] VITALS: O2SAT 96
[2023-09-07] MEDS: POTASS/SODIUM PHOSPHATE 1 PKT POWD.PACK PO SCH ×2 (09:38→10:54)
[2023-09-07] MEDS: ENOXAPARIN 40 MG/0.4 ML SQ SCH (09:38)
[2023-09-07] MEDS: levoFLOXacin 500 MG TAB PO SCH (09:38)
[2023-09-07] MEDS: predniSONE 20 MG TAB PO SCH (09:38)
[2023-09-07 10:00] VITALS: BP 154/85; TEMP 97.9
--- NOTE | 2023-09-08 14:36 | EKG ---
Test Date: 2023-09-02 Test Time: 12:37:20 [employer]ter: MANISH MEASUREMENT RESULTS: Intervals: Rate: 101 NM: 114 QRSD: 74 QT: 314 QTc: 407 Trent: P: 79 NM: 114 QRS: 95 T: 84 INTERPRETIVE STATEMENTS: Sinus tachycardia Rightward axis Nonspecific ST abnormality Abnormal ECG Compared to ECG 07/04/2022 22:03:06 Right-axis deviation now present ST (T wave) deviation now present Sinus rhythm no longer present Electronically Signed On 09-08-23 14:18:46 [employer] ENGINE[employer] by [employer]
== END 2023-09-07 13:00 | disposition home or self-care (01) | DRG 865 ==
LOC: ER 12:14 → ERHOLD 16:08 → 4TH 17:33
PROVIDERS: ADMIT Internal Medicine; ATTEND Hospitalist
DX: J10.89 Influenza due to other identified influenza virus with other manifestations (principal); J96.01 Acute respiratory failure with hypoxia; J44.1 Chronic obstructive pulmonary disease with (acute) exacerbation; Z68.1 Body mass index [BMI] 19.9 or less, adult; R64 Cachexia; A31.0 Pulmonary mycobacterial infection; D75.839 Thrombocytosis, unspecified; F17.210 Nicotine dependence, cigarettes, uncomplicated; Z66 Do not resuscitate; Z88.5 Allergy status to narcotic agent; Z11.52 Encounter for screening for COVID-19; Z90.3 Acquired absence of stomach [part of]; Z79.52 Long term (current) use of systemic steroids; Z79.899 Other long term (current) drug therapy; Z90.710 Acquired absence of both cervix and uterus
CPT/HCPCS: 36415; 71045; 71250; 80048; 80053; 81001; 83605; 83735; 84100; 84145; 85025; 85610; 85730; 87015; 87040; 87070; 87116; 87205; 87206; 87804; 87811; 93005; 94640; 96365; 96366; 96375; 97116; 97161; 97530; 99285; J1650; J2920; J2930; J3475; J3535; J7030; J7512; J7613; J7614; J7644

== ENCOUNTER 2023-09-13 09:36 | Inpatient (IN) | payer OTHER ==
--- OUTSIDE RECORDS SUMMARY | 2023-09-13 09:51 | XMS REPORT | Continuity of Care Document ---
:1960 Author Organization [facility] t Address [address] [place] [id number] Care Team Providers Name Role Phone FLORY_Richie Attending Clinician Unavailable Umm Starks Attending Clinician [phone] Umm Starks Attending Clinician Doctor Unassigned, [place] Attending Clinician Unavailable Lab, [facility] Attending Clinician Unavailable Eboni Payne Attending Clinician EBONI CARRERA Attending Clinician Unavailable FLORY_Richie Admitting Clinician Unavailable Payers Payer Name Policy Type Policy Number Effective Date Expiration Date S pillo [facility] - [id number] 2018 SELF FUNDED - 00:00:00 [facility] [id number] 2018 [facility] 00:00:00 CHOICE PLUS Problems Condition Condition Condition Status Onset Resolution Last Treating Co mments Source Name Details Category Date Date Treatment Clinician Date Hernia of Hernia of Problem Active 2022-10 Swe bernadette anterior Anterior 0-16 Commun i abdominal Abdominal 00:00: ty wall Wall 00 [facility] Hemoptysis Hemoptysis Problem Active S [facility] 9-20 Communi 00:00: ty 00 [facility] 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 00 [facility] Long-term Long-term Problem Active Swe bernadette drug Drug 8-23 [facility] therapy Therapy 00:00: ty 00 [facility] 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 [facility]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 Rectum 6-27 [facility]i 00:00: ty 00 [facility] Solitary Solitary Problem Active 2022-0 [facility] nodule of Nodule of 6-27 Comm [facility] lung Lung 00:00: ty [facility] Thrombocyt Thrombocyt Problem Active [facility] osis osis 03-20 [facility] 00:00: ty [facility] Loss of Loss of Problem Active [place] appetite Appetite 03-20 [facility] i 00:00: ty [facility] Pain of Pain of Problem Active [place] right Right 03-17 [facility] shoulder Shoulder 00:00: ty joint Joint 00 [facility] Chronic Chronic Problem Active 2019- [place] neck pain Neck Pain 07-01 Comm uni 00:00: ty [facility] Scapulalgi Scapulalgi Problem Active 2019- S [facility] a a 07-01 [facility] 00:00: ty [facility] Gout Gout Problem Active 2018- [place] 05-19 [facility] 00:00: ty [facility] Insomnia Insomnia Problem Active 2018- [facility] 05-19 [facility] 00:00: ty [facility] Hearing Hearing Problem Active 2018- [place] loss Loss 05-19 [facility] 00:00: ty 00 [facility] Hypertensi Hypertensi Problem Active 2018-0 [facility] ve ve 05-19 [facility] disorder Disorder 00:00: ty 00 [facility] Seasonal Seasonal Problem Active 2018- [facility] allergy Allergy 05-19 [facility] 00:00: ty [facility] Asthma Asthma Problem Active 2018- [place] 05-19 [facility] 00:00: ty [facility] Chronic Chronic Problem Active 2018-0 [place] obstructiv Obstructiv 05-19 Co mmuni e lung e Lung 00:00: ty disease Disease 00 [facility] Hematochez Hematochez Problem Active 2019-0 S [facility] ia ia 05-19 [facility] 00:00: ty 00 [facility] Arthritis Arthritis Problem Active 2018-0 Swe ebrnadette 05-19 [facility] 00:00: ty 00 [facility] Cramp in Cramp in Problem Active 2019-0 [facility] lower leg Lower Leg 05-19 Comm uni associated Associated 00:00: ty with rest with Rest 00 [facility] Syncope Syncope Problem Active 2018-0 [place] 05-19 [facility] 00:00: ty 00 [facility] Malaise Malaise Problem Active [place] 05-19 [facility] 00:00: ty 00 [facility] Fracture Fracture Problem Active [facility] of of 05-19 [facility] multiple Multiple 00:00: ty ribs Ribs 00 [facility] Bipolar Bipolar Problem Active [place] disorder Disorder Commun i ty [facility] 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 manic Manic [facility] depressive Depressive ty disorder Disorder [facility] Allergies, Adverse Reactions, Alerts Allergy Allergy Status Severity Reaction(s) Onset Inactive Treating Comm ents Source Name Type Date Date Clinician NO KNOWN Drug Active Univers ALLERGIE Class ity of [facility] Morphine Allergy Active [place] to [facility]i substanc ty e [facility] Clin[facility] Social History Social Habit Start Date Stop Date Quantity Comments Source Sex Assigned At [birth year] [facility] 00:00:00 00:00:00 [facility] Smoking Status Start Date Stop Date Source Unknown if ever smoked [facility] Heavy Tobacco Smoker [place] Comm [facility] Clinics Medications Ordered Filled Start Stop Current Ordering Indication Dosage Frequency Signature Comments Components Source Medication Medication Date Date Medication? Clinician (SIG) Name Name cyanocobala cyanocobala No cyanocobal [place] min (vit min (vit 5-16 rahman (vit Co mmuni B-12) 1,000 B-12) 1,000 17:16: B-12) ty mcg/mL mcg/mL 36 1,000 Hospita injection injection mcg/mL l solutionInj solutionInj injection Clinics ect 1 mL ect 1 mL solutionIn every month every month ject 1 mL by by every subcutaneou subcutaneou month by s route. s route. subcutaneo us route. albuterol albuterol No 2puff(s Q4H albuterol [place] sulfate HFA sulfate HFA ) sulfate Communi [...] for 90 days. cyclobenzap cyclobenzap No cyclobenza [place] rine 10 mg rine 10 mg king 10 [facility] tablet TAKE tablet TAKE mg tablet ty 1 TABLET BY 1 TABLET BY TAKE 1 Hospita MOUTH THREE MOUTH THREE TABLET BY l TIMES A DAY TIMES A DAY MOUTH Clinics NEEDED NEEDED THREE TIMES A DAY NEEDED gabapentin gabapentin No gabapentin [place] 300 mg 300 mg 300 mg [facility] capsule capsule capsule ty TAKE 1 TAKE 1 TAKE 1 Hospita CAPSULE BY CAPSULE BY CAPSULE BY l MOUTH TWICE MOUTH TWICE MOUTH Clinics A DAY A DAY TWICE A DAY hydrocodone hydrocodone No 1 Q6H hydrocodon [place] 5 5 e 5 [facility]i mg-acetamin mg-acetamin [...] Hospita l Clinics meloxicam meloxicam No meloxicam [place] 7.5 mg 7.5 mg 7.5 mg [facility] tablet TAKE tablet TAKE tablet ty 1 TABLET BY 1 TABLET BY TAKE 1 Hospita MOUTH EVERY MOUTH EVERY TABLET BY l DAY DAY MOUTH Clinics EVERY DAY quetiapine quetiapine No quetiapine [place] 100 mg 100 mg 100 mg [facility] tablet TAKE tablet TAKE tablet ty 1 TABLET BY 1 TABLET BY TAKE 1 Hospita MOUTH MOUTH TABLET BY l EVERYDAY AT EVERYDAY AT MOUTH Clinics BEDTIME BEDTIME EVERYDAY AT BEDTIME Symbicort Symbicort No 2puff(s BID Symbicort [place] 160 mcg-4.5 160 mcg-4.5 ) 160 C [...] for 30 days. venlafaxine venlafaxine No venlafaxin [place] ER 37.5 mg ER 37.5 mg e ER 37.5 [facility]i capsule,ext capsule,ext mg t y ended ended capsule,ex Hospita release 24 release 24 tended l hr TAKE 1 hr TAKE 1 release 24 Clinics CAPSULE BY CAPSULE BY hr TAKE 1 MOUTH EVERY MOUTH EVERY CAPSULE BY DAY DAY MOUTH EVERY DAY Vitamin D3 Vitamin D3 No Vitamin D3 [place] otc 5000 iu otc 5000 iu otc 5000 [facility]i daily daily iu daily ty Hospita l Clinics albuterol albuterol No albuterol [place] sulfate 2.5 sulfate 2.5 sulfate [facility] mg/3 [...] TIMES A DAY albuterol albuterol No albuterol [place] sulfate HFA sulfate HFA sulfate Communi 90 90 HFA 90 ty mcg/actuati mcg/actuati mcg/actuat Hospita on aerosol on aerosol ion l inhaler inhaler aerosol Clinic s INHALE 2 INHALE 2 inhaler PUFFS EVERY PUFFS EVERY INHALE 2 4 HOURS 4 HOURS PUFFS NEEDED NEEDED EVERY 4 HOURS NEEDED azithromyci azithromyci No azithromyc [place] n 250 mg n 250 mg in [...] FOR 4 DAYS cyclobenzap cyclobenzap No cyclobenza [place] rine 10 mg rine 10 mg king 10 Communi tablet TAKE tablet TAKE mg tablet ty 1 TABLET BY 1 TABLET BY TAKE 1 Hospita MOUTH THREE MOUTH THREE TABLET BY l TIMES A DAY TIMES A DAY MOUTH Clinics NEEDED NEEDED THREE TIMES A DAY NEEDED escitalopra escitalopra No escitalopr [place] m 10 mg m 10 mg am 10 mg Commu ni tablet TAKE tablet TAKE tablet ty 1 TABLET BY 1 TABLET BY TAKE 1 Hospita MOUTH EVERY MOUTH EVERY TABLET BY l DAY FOR 30 DAY FOR 30 MOUTH Cl inics DAYS DAYS EVERY DAY FOR 30 DAYS gabapentin gabapentin No gabapentin [place] 300 mg 300 mg 300 mg [facility] capsule capsule capsule ty TAKE 1 TAKE 1 TAKE 1 Hospita CAPSULE BY CAPSULE BY CAPSULE BY l MOUTH TWICE MOUTH TWICE MOUTH Clinics A DAY A DAY TWICE A DAY hydrocodone hydrocodone No 1 Q6H hydrocodon [place] 5 5 e 5 [facility]i mg-acetamin mg-acetamin [...] Hospita l Clinics meloxicam meloxicam No meloxicam [place] 7.5 mg 7.5 mg 7.5 mg [facility] tablet TAKE tablet TAKE tablet ty 1 TABLET BY 1 TABLET BY TAKE 1 Hospita MOUTH EVERY MOUTH EVERY TABLET BY l DAY DAY MOUTH Clinics EVERY DAY methylpredn methylpredn No methylpred [place] isolone 4 isolone 4 nisolone 4 Communi [...] OF 6 DAYS quetiapine quetiapine No quetiapine [place] 100 mg 100 mg 100 mg [facility]i tablet TAKE tablet TAKE tablet ty 1 TABLET BY 1 TABLET BY TAKE 1 Hospita MOUTH MOUTH TABLET BY l EVERYDAY AT EVERYDAY AT MOUTH Clinics BEDTIME BEDTIME EVERYDAY AT BEDTIME Symbicort Symbicort No 2puff(s BID Symbicort [place] 160 mcg-4.5 160 mcg-4.5 ) 160 C [...] for 30 days. venlafaxine venlafaxine No venlafaxin [place] ER 37.5 mg ER 37.5 mg e ER 37.5 [facility] capsule,ext capsule,ext mg t y ended ended capsule,ex Hospita release 24 release 24 tended l hr TAKE 1 hr TAKE 1 release 24 Clinics CAPSULE BY CAPSULE BY hr TAKE 1 MOUTH EVERY MOUTH EVERY CAPSULE BY DAY DAY MOUTH EVERY DAY Vitamin D3 Vitamin D3 No Vitamin D3 [place] otc 5000 iu otc 5000 iu otc 5000 Communi daily daily iu daily ty Hospita l Clinics albuterol albuterol No albuterol [place] sulfate 2.5 sulfate 2.5 sulfate [facility] mg/3 [...] TIMES A DAY albuterol albuterol No albuterol [place] sulfate HFA sulfate HFA sulfate Communi 90 90 HFA 90 ty mcg/actuati mcg/actuati mcg/actuat Hospita on aerosol on aerosol ion l inhaler inhaler aerosol Clinic s INHALE 2 INHALE 2 inhaler PUFFS EVERY PUFFS EVERY INHALE 2 4 HOURS 4 HOURS PUFFS NEEDED NEEDED EVERY 4 HOURS NEEDED benzonatate benzonatate No benzonatat [place] 100 mg 100 mg e 100 mg Communi capsule capsule capsule ty TAKE 1 TAKE 1 TAKE 1 Hospita CAPSULE BY CAPSULE BY CAPSULE BY l MOUTH THREE MOUTH THREE MOUTH Clinics TIMES A DAY TIMES A DAY THREE TIMES A DAY cyclobenzap cyclobenzap No cyclobenza [place] rine 10 mg rine 10 mg king 10 Communi tablet TAKE tablet TAKE mg tablet ty 1 TABLET BY 1 TABLET BY TAKE 1 Hospita MOUTH THREE MOUTH THREE TABLET BY l TIMES A DAY TIMES A DAY MOUTH Clinics NEEDED NEEDED THREE TIMES A DAY NEEDED escitalopra escitalopra No escitalopr [place] m 10 mg m 10 mg am 10 mg Commu ni tablet TAKE tablet TAKE tablet ty 1 TABLET BY 1 TABLET BY TAKE 1 Hospita MOUTH EVERY MOUTH EVERY TABLET BY l DAY FOR 30 DAY FOR 30 MOUTH Cl inics DAYS DAYS EVERY DAY FOR 30 DAYS meloxicam meloxicam No meloxicam [place] 7.5 mg 7.5 mg 7.5 mg [facility] tablet TAKE tablet TAKE tablet ty 1 TABLET BY 1 TABLET BY TAKE 1 Hospita MOUTH EVERY MOUTH EVERY TABLET BY l DAY DAY MOUTH Clinics EVERY DAY quetiapine quetiapine No quetiapine [place] 100 mg 100 mg 100 mg [facility] tablet TAKE tablet TAKE tablet ty 1 TABLET BY 1 TABLET BY TAKE 1 Hospita MOUTH MOUTH TABLET BY l EVERYDAY AT EVERYDAY AT MOUTH Clinics BEDTIME BEDTIME EVERYDAY AT BEDTIME Vitamin D3 Vitamin D3 No Vitamin D3 [place] otc 5000 iu otc 5000 iu otc 5000 Communi daily daily iu daily ty Hospita l Clinics albuterol albuterol No albuterol [place] sulfate 2.5 sulfate 2.5 sulfate [facility]i mg/3 [...] TIMES A DAY albuterol albuterol No albuterol [place] sulfate HFA sulfate HFA sulfate Communi 90 90 HFA 90 ty mcg/actuati mcg/actuati mcg/actuat Hospita on aerosol on aerosol ion l inhaler inhaler aerosol Clinic s INHALE 2 INHALE 2 inhaler PUFFS EVERY PUFFS EVERY INHALE 2 4 HOURS 4 HOURS PUFFS NEEDED NEEDED EVERY 4 HOURS NEEDED benzonatate benzonatate No benzonatat [place] 100 mg 100 mg e 100 mg [facility] capsule capsule capsule ty TAKE 1 TAKE 1 TAKE 1 Hospita CAPSULE BY CAPSULE BY CAPSULE BY l MOUTH THREE MOUTH THREE MOUTH Clinics TIMES A DAY TIMES A DAY THREE TIMES A DAY cyanocobala cyanocobala No 1mL cyanocobal [place] min (vit min (vit rahman (vit Co mmuni B-12) 1,000 B-12) 1,000 B-12) ty mcg/mL mcg/mL 1,000 Hospita injection injection mcg/mL l solution solution injection Cl inics Inject 1 mL Inject 1 mL solution every month every month Inject 1 by by mL every subcutaneou subcutaneou month by s route. s route. subcutaneo us route. cyclobenzap cyclobenzap No cyclobenza [place] rine 10 mg rine 10 mg king 10 Communi tablet TAKE tablet TAKE mg tablet ty 1 TABLET BY 1 TABLET BY TAKE 1 Hospita MOUTH THREE MOUTH THREE TABLET BY l TIMES A DAY TIMES A DAY MOUTH Clinics NEEDED NEEDED THREE TIMES A DAY NEEDED escitalopra escitalopra No escitalopr [place] m 10 mg m 10 mg am 10 mg Commu ni tablet TAKE tablet TAKE tablet ty 1 TABLET BY 1 TABLET BY TAKE 1 Hospita MOUTH EVERY MOUTH EVERY TABLET BY l DAY FOR 30 DAY FOR 30 MOUTH Cl inics DAYS DAYS EVERY DAY FOR 30 DAYS meloxicam meloxicam No meloxicam [place] 7.5 mg 7.5 mg 7.5 mg Communi tablet TAKE tablet TAKE tablet ty 1 TABLET BY 1 TABLET BY TAKE 1 Hospita MOUTH EVERY MOUTH EVERY TABLET BY l DAY DAY MOUTH Clinics EVERY DAY quetiapine quetiapine No quetiapine [place] 100 mg 100 mg 100 mg [facility] tablet TAKE tablet TAKE tablet ty 1 TABLET BY 1 TABLET BY TAKE 1 Hospita MOUTH MOUTH TABLET BY l EVERYDAY AT EVERYDAY AT MOUTH Clinics BEDTIME BEDTIME EVERYDAY AT BEDTIME Vitamin D3 Vitamin D3 No Vitamin D3 [place] otc 5000 iu otc 5000 iu otc 5000 Communi daily daily iu daily ty Hospita l Clinics albuterol albuterol No albuterol [place] sulfate 2.5 sulfate 2.5 sulfate Communi mg/3 [...] TIMES A DAY albuterol albuterol No albuterol [place] sulfate HFA sulfate HFA sulfate Communi 90 90 HFA 90 ty mcg/actuati mcg/actuati mcg/actuat Hospita on aerosol on aerosol ion l inhaler inhaler aerosol Clinic s INHALE 2 INHALE 2 inhaler PUFFS EVERY PUFFS EVERY INHALE 2 4 HOURS 4 HOURS PUFFS NEEDED NEEDED EVERY 4 HOURS NEEDED benzonatate benzonatate No benzonatat [place] 100 mg 100 mg e 100 mg [facility] capsule capsule capsule ty TAKE 1 TAKE 1 TAKE 1 Hospita CAPSULE BY CAPSULE BY CAPSULE BY l MOUTH THREE MOUTH THREE MOUTH Clinics TIMES A DAY TIMES A DAY THREE TIMES A DAY cyanocobala cyanocobala No 1mL cyanocobal [place] min (vit min (vit rahman (vit Co mmuni B-12) 1,000 B-12) 1,000 B-12) ty mcg/mL mcg/mL 1,000 Hospita injection injection mcg/mL l solution solution injection Cl inics Inject 1 mL Inject 1 mL solution every month every month Inject 1 by by mL every subcutaneou subcutaneou month by s route. s route. subcutaneo us route. cyclobenzap cyclobenzap No cyclobenza [place] rine 10 mg rine 10 mg king 10 Communi tablet TAKE tablet TAKE mg tablet ty 1 TABLET BY 1 TABLET BY TAKE 1 Hospita MOUTH THREE MOUTH THREE TABLET BY l TIMES A DAY TIMES A DAY MOUTH Clinics NEEDED NEEDED THREE TIMES A DAY NEEDED escitalopra escitalopra No escitalopr [place] m 10 mg m 10 mg am 10 mg Commu ni tablet TAKE tablet TAKE tablet ty 1 TABLET BY 1 TABLET BY TAKE 1 Hospita MOUTH EVERY MOUTH EVERY TABLET BY l DAY FOR 30 DAY FOR 30 MOUTH Cl inics DAYS DAYS EVERY DAY FOR 30 DAYS megestrol megestrol No 10mL Q1D megestrol [place] 400 mg/10 400 mg/10 400 mg/10 Communi mL (40 mL (40 mL (40 ty mg/mL) oral mg/mL) oral mg/mL) Hospita suspension suspension oral l Take 10 mL Take 10 mL suspension Clinics every day every day Take 10 mL by oral by oral every day route in route in by oral the the route in morning. morning. the morning. meloxicam meloxicam No meloxicam [place] 7.5 mg 7.5 mg 7.5 mg [facility] tablet TAKE tablet TAKE tablet ty 1 TABLET BY 1 TABLET BY TAKE 1 Hospita MOUTH EVERY MOUTH EVERY TABLET BY l DAY DAY MOUTH Clinics EVERY DAY quetiapine quetiapine No quetiapine [place] 100 mg 100 mg 100 mg [facility] tablet TAKE tablet TAKE tablet ty 1 TABLET BY 1 TABLET BY TAKE 1 Hospita MOUTH MOUTH TABLET BY l EVERYDAY AT EVERYDAY AT MOUTH Clinics BEDTIME BEDTIME EVERYDAY AT BEDTIME Vitamin D3 Vitamin D3 No Vitamin D3 [place] otc 5000 iu otc 5000 iu otc 5000 Communi daily daily iu daily ty Hospita l Clinics albuterol albuterol No albuterol [place] sulfate 2.5 sulfate 2.5 sulfate [facility] mg/3 [...] TIMES A DAY albuterol albuterol No albuterol [place] sulfate HFA sulfate HFA sulfate Communi 90 90 HFA 90 ty mcg/actuati mcg/actuati mcg/actuat Hospita on aerosol on aerosol ion l inhaler inhaler aerosol Clinic s INHALE 2 INHALE 2 inhaler PUFFS EVERY PUFFS EVERY INHALE 2 4 HOURS 4 HOURS PUFFS NEEDED NEEDED EVERY 4 HOURS NEEDED benzonatate benzonatate No benzonatat [place] 100 mg 100 mg e 100 mg [facility] capsule capsule capsule ty TAKE 1 TAKE 1 TAKE 1 Hospita CAPSULE BY CAPSULE BY CAPSULE BY l MOUTH THREE MOUTH THREE MOUTH Clinics TIMES A DAY TIMES A DAY THREE TIMES A DAY cyanocobala cyanocobala No 1mL cyanocobal [place] min (vit min (vit rahman (vit Co mmuni B-12) 1,000 B-12) 1,000 B-12) ty mcg/mL mcg/mL 1,000 Hospita injection injection mcg/mL l solution solution injection Cl inics Inject 1 mL Inject 1 mL solution every month every month Inject 1 by by mL every subcutaneou subcutaneou month by s route. s route. subcutaneo us route. cyclobenzap cyclobenzap No cyclobenza [place] rine 10 mg rine 10 mg king 10 Communi tablet TAKE tablet TAKE mg tablet ty 1 TABLET BY 1 TABLET BY TAKE 1 Hospita MOUTH THREE MOUTH THREE TABLET BY l TIMES A DAY TIMES A DAY MOUTH Clinics NEEDED NEEDED THREE TIMES A DAY NEEDED escitalopra escitalopra No escitalopr [place] m 10 mg m 10 mg am 10 mg Commu ni tablet TAKE tablet TAKE tablet ty 1 TABLET BY 1 TABLET BY TAKE 1 Hospita MOUTH EVERY MOUTH EVERY TABLET BY l DAY FOR 30 DAY FOR 30 MOUTH Cl inics DAYS DAYS EVERY DAY FOR 30 DAYS megestrol megestrol No megestrol [place] 400 mg/10 400 mg/10 400 mg/10 Communi mL (40 mL (40 mL (40 ty mg/mL) oral mg/mL) [facility]KE 10 ML TAKE 10 ML suspension Clinics BY MOUTH BY MOUTH TAKE 10 ML EVERY DAY EVERY DAY BY MOUTH IN THE IN THE EVERY DAY MORNING. MORNING. IN THE MORNING. meloxicam meloxicam No meloxicam [place] 7.5 mg 7.5 mg 7.5 mg [facility] tablet TAKE tablet TAKE tablet ty 1 TABLET BY 1 TABLET BY TAKE 1 Hospita MOUTH EVERY MOUTH EVERY TABLET BY l DAY DAY MOUTH Clinics EVERY DAY quetiapine quetiapine No quetiapine [place] 100 mg 100 mg 100 mg [facility] tablet TAKE tablet TAKE tablet ty 1 TABLET BY 1 TABLET BY TAKE 1 Hospita MOUTH MOUTH TABLET BY l EVERYDAY AT EVERYDAY AT MOUTH Clinics BEDTIME BEDTIME EVERYDAY AT BEDTIME Vitamin D3 Vitamin D3 No Vitamin D3 [place] otc 5000 iu otc 5000 iu otc 5000 Communi daily daily iu daily ty Hospita l Clinics albuterol albuterol No albuterol [place] sulfate 2.5 sulfate 2.5 sulfate Commun[facility] mg/3 [...] TIMES A DAY albuterol albuterol No albuterol [place] sulfate HFA sulfate HFA sulfate Communi 90 90 HFA 90 ty mcg/actuati mcg/act[facility]ati [facility] inhaler aerosol Clinic s INHALE 2 INHALE 2 inhaler PUFFS EVERY PUFFS EVERY INHALE 2 4 HOURS 4 HOURS PUFFS NEEDED NEEDED EVERY 4 HOURS NEEDED benzonatate benzonatate No benzonatat [place] 100 mg 100 mg e 100 mg Communi capsule capsule capsule ty TAKE 1 TAKE 1 TAKE 1 Hospita CAPSULE BY CAPSULE BY CAPSULE BY l MOUTH THREE MOUTH THREE MOUTH Clinics TIMES A DAY TIMES A DAY THREE TIMES A DAY cyanocobala cyanocobala No 1mL cyanocobal [place] min (vit min (vit rahman (vit Co mmuni B-12) 1,000 B-12) 1,000 B-12) ty mcg/mL mcg/mL 1,000 Hospita injection injection mcg/mL l solution solution injection Cl inics Inject 1 mL Inject 1 mL solution every month every month Inject 1 by by mL every subcutaneou subcutaneou month by s route. s route. subcutaneo us route. cyclobenzap cyclobenzap No cyclobenza [place] rine 10 mg rine 10 mg king 10 Communi tablet TAKE tablet TAKE mg tablet ty 1 TABLET BY 1 TABLET BY TAKE 1 Hospita MOUTH THREE MOUTH THREE TABLET BY l TIMES A DAY TIMES A DAY MOUTH Clinics NEEDED NEEDED THREE TIMES A DAY NEEDED escitalopra escitalopra No escitalopr [place] m 10 mg m 10 mg am 10 mg Commu ni tablet TAKE tablet TAKE tablet ty 1 TABLET BY 1 TABLET BY TAKE 1 Hospita MOUTH EVERY MOUTH EVERY TABLET BY l DAY FOR 30 DAY FOR 30 MOUTH Cl inics DAYS DAYS EVERY DAY FOR 30 DAYS megestrol megestrol No megestrol [place] 400 mg/10 400 mg/10 400 mg/10 [facility]i mL (40 mL (40 mL (40 ty mg/mL) oral mg/mL) oral mg/mL) Hospita suspension suspension oral l TAKE 10 ML TAKE 10 ML suspension Clinics BY MOUTH BY MOUTH TAKE 10 ML EVERY DAY EVERY DAY BY MOUTH IN THE IN THE EVERY DAY MORNING. MORNING. IN THE MORNING. meloxicam meloxicam No meloxicam [place] 7.5 mg 7.5 mg 7.5 mg [facility]i tablet TAKE tablet TAKE tablet ty 1 TABLET BY 1 TABLET BY TAKE 1 Hospita MOUTH EVERY MOUTH EVERY TABLET BY l DAY DAY MOUTH Clinics EVERY DAY prednisone prednisone No prednisone [place] 10 mg 10 mg 10 mg [facility] tablet TAKE tablet TAKE tablet ty 1 TABLET BY 1 TABLET BY TAKE 1 Hospita MOUTH EVERY MOUTH EVERY TABLET BY l DAY FOR 30 DAY FOR 30 MOUTH Cl inics DAYS DAYS EVERY DAY FOR 30 DAYS quetiapine quetiapine No quetiapine [place] 100 mg 100 mg 100 mg Communi [...] Vitamin D3 Vitamin D3 No Vitamin D3 [place] otc 5000 iu otc 5000 iu otc 5000 Communi daily daily iu daily ty Hospita l Clinics albuterol albuterol No albuterol [place] sulfate 2.5 sulfate 2.5 sulfate [facility] mg/3 [...] DAY albuterol albuterol No 2puff(s Q4H albuterol [place] sulfate HFA sulfate HFA ) sulfate Communi [...] 60 Cymbalta 60 No 1capsul Q1D Cymbalta [place] mg mg e(s) 60 mg Communi capsule,del capsule,del capsule,de ty ayed ayed layed Hospita release release release l Take 1 Take 1 Take 1 Clinics capsule capsule capsule every day every day every day by oral by oral by oral route. route. route. albuterol albuterol No albuterol [place] sulfate 2.5 sulfate 2.5 sulfate Communi mg/3 [...] TIMES A DAY albuterol albuterol No albuterol [place] sulfate HFA sulfate HFA sulfate Communi 90 90 HFA 90 ty mcg/actuati mcg/actuati mcg/actuat Hospita on aerosol on aerosol ion l inhaler inhaler aerosol Clinic s INHALE 2 INHALE 2 inhaler PUFFS BY PUFFS BY INHALE 2 MOUTH EVERY MOUTH EVERY PUFFS BY 4 HOURS 4 HOURS MOUTH NEEDED NEEDED EVERY 4 HOURS NEEDED duloxetine duloxetine No duloxetine [place] 30 mg 30 mg 30 mg Communi capsule,del capsule,del capsule,de ty ayed ayed layed Hospita release release release l TAKE 1 TAKE 1 TAKE 1 Clinics CAPSULE BY CAPSULE BY CAPSULE BY MOUTH EVERY MOUTH EVERY MOUTH DAY DAY EVERY DAY albuterol albuterol No albuterol [place] sulfate 2.5 sulfate 2.5 sulfate Commun[facility] mg/3 [...] TIMES A DAY albuterol albuterol No albuterol [place] sulfate HFA sulfate HFA sulfate Communi 90 90 HFA 90 ty mcg/actuati mcg/actuati mcg/actuat Hospita on aerosol on aerosol ion l inhaler inhaler aerosol Clinic s INHALE 2 INHALE 2 inhaler PUFFS EVERY PUFFS EVERY INHALE 2 4 HOURS 4 HOURS PUFFS NEEDED NEEDED EVERY 4 HOURS NEEDED cyanocobala cyanocobala No 1mL cyanocobal [place] min (vit min (vit rahman (vit Co mmuni B-12) 1,000 B-12) 1,000 B-12) ty mcg/mL mcg/mL 1,000 Hospita injection injection mcg/mL l solution solution injection Cl inics Inject 1 mL Inject 1 mL solution every month every month Inject 1 by by mL every subcutaneou subcutaneou month by s route. s route. subcutaneo us route. doxycycline doxycycline No doxycyclin [place] hyclate 100 hyclate 100 e hyclate Communi mg tablet mg tablet 100 mg ty TAKE 1 TAKE 1 tablet Hospita TABLET BY TABLET BY TAKE 1 l MOUTH TWICE MOUTH TWICE TABLET BY Clinics A DAY A DAY MOUTH TWICE A DAY levofloxaci levofloxaci No levofloxac [place] n 500 mg n 500 mg in 500 mg Co mmuni tablet TAKE tablet TAKE tablet ty 1 TABLET BY 1 TABLET BY TAKE 1 Hospita MOUTH EVERY MOUTH EVERY TABLET BY l DAY DAY MOUTH Clinics EVERY DAY prednisone prednisone No prednisone [place] 10 mg 10 mg 10 mg Communi [...] Vitamin D3 Vitamin D3 No Vitamin D3 [place] otc 5000 iu otc 5000 iu otc 5000 Communi daily daily iu daily ty Hospita l Clinics Immunizations Ordered Filled Immunization Date Status Comments [facility] e Immunization Name Name SARS-COV-2 SARS-COV-2 2021-01-26 Completed [place] (COVID-19) vaccine, (COVID-19) vaccine, 00:00:00 [facility] Clin[facility] SARS-COV-2 SARS-COV-2 2021-01-26 Completed [place] (COVID-19) vaccine, (COVID-19) vaccine, 00:00:00 [facility]PEC[facility]IED Hospital Clinics COVID-19 COVID-19 2021-01-26 Completed [place] (SARS-COV-2) (SARS-COV-2) 00:00:00 Community vaccine, vaccine, Hospital unspecified unspecified Clinics COVID-19 COVID-19 2021-01-26 Completed [place] (SARS-COV-2) (SARS-COV-2) 00:00:00 Community vaccine, vaccine, Hospital unspecified unspecified Clinics COVID-19 COVID-19 2021-01-26 Completed [place] (SARS-COV-2) (SARS-COV-2) 00:00:00 [facility] vaccine, vaccine, Hospital unspecified unspecified Clinics COVID-19 COVID-19 2021-01-26 Completed [place] (SARS-COV-2) (SARS-COV-2) 00:00:00 [facility] vaccine, vaccine, Hospital unspecified unspecified Clinics COVID-19 COVID-19 2021-01-26 Completed [place] (SARS-COV-2) (SARS-COV-2) 00:00:00 [facility] vaccine, vaccine, Hospital unspecified unspecified Clinics COVID-19 COVID-19 2021-01-26 Completed [place] (SARS-COV-2) (SARS-COV-2) 00:00:00 [facility] vaccine, vaccine, Hospital unspecified unspecified Clinics COVID-19 COVID-19 2021-01-26 Completed [place] (SARS-COV-2) (SARS-COV-2) 00:00:00 [facility] vaccine, vaccine, Hospital unspecified unspecified Clinics COVID-19 COVID-19 2021-01-26 Completed [place] (SARS-COV-2) (SARS-COV-2) 00:00:00 Community vaccine, vaccine, Hospital unspecified unspecified Clinics COVID-19 COVID-19 2021-01-26 Completed [place] (SARS-COV-2) (SARS-COV-2) 00:00:00 [facility] vaccine, vaccine, Hospital unspecified unspecified Clinics COVID-19 COVID-19 2021-01-26 Completed [place] (SARS-COV-2) (SARS-COV-2) 00:00:00 [facility] vaccine, vaccine, Hospital unspecified unspecified Clinics COVID-19 COVID-19 2021-01-26 Completed [place] (SARS-COV-2) (SARS-COV-2) 00:00:00 [facility] vaccine, vaccine, Hospital unspecified unspecified Clinics COVID-19 COVID-19 2021-01-26 Completed [place] (SARS-COV-2) (SARS-COV-2) 00:00:00 [facility] vaccine, vaccine, Hospital unspecified unspecified Clinics COVID-19 COVID-19 2021-01-26 Completed [place] (SARS-COV-2) (SARS-COV-2) 00:00:00 [facility] vaccine, vaccine, Hospital unspecified unspecified Clinics COVID-19 COVID-19 2021-01-26 Completed [place] (SARS-COV-2) (SARS-COV-2) 00:00:00 [facility] vaccine, vaccine, Hospital unspecified unspecified Clinics COVID-19 COVID-19 Unknown Completed [place] (SARS-COV-2) (SARS-COV-2) [facility] vaccine, vaccine, Hospital unspecified unspecified Clinics COVID-19 COVID-19 Unknown Completed [place] (SARS-COV-2) (SARS-COV-2) [facility] vaccine, vaccine, Hospital unspecified unspecified Clinics COVID-19 COVID-19 Unknown Completed [place] (SARS-COV-2) (SARS-COV-2) [facility] vaccine, vaccine, Hospital unspecified unspecified Clinics COVID-19 COVID-19 Unknown Completed [place] (SARS-COV-2) (SARS-COV-2) [facility] vaccine, vaccine, Hospital unspecified unspecified Clinics Vital Signs Vital Name Observation Time Observation Value Comments Source Height 2023-08-13 00:00:00 61 [in_i] [facility] s BP Diastolic 2023-08-13 00:00:00 80 mm[Hg] [facility] s Body Weight 2023-08-13 00:00:00 1308.8 [oz_av] [facility] s BP Systolic 2023-08-13 00:00:00 140 mm[Hg] [facility] s BMI (Body Mass 2023-08-13 00:00:00 15.5 kg/m2 [facility] s BMI (Body Mass 2023-07-19 00:00:00 15.2 kg/m2 [facility] Height 2023-07-19 00:00:00 61 [in_i] [facility] s Body Weight 2023-07-19 00:00:00 1286.4 [oz_av] [facility] BP Diastolic 2023-07-19 00:00:00 80 mm[Hg] [facility] s BP Systolic 2023-07-19 00:00:00 130 mm[Hg] [facility] s BP Diastolic 2022-07-18 00:00:00 84 mm[Hg] [facility] s Height 2022-07-18 00:00:00 61 [in_i] [facility] s BMI (Body Mass 2022-07-18 00:00:00 17 kg/m2 [facility] BP Systolic 2022-07-18 00:00:00 160 mm[Hg] [facility] s Body Weight 2022-07-18 00:00:00 1440 [oz_av] [facility] s BP Diastolic 2022-06-20 00:00:00 80 mm[Hg] [facility] s Height 2022-06-20 00:00:00 61 [in_i] [facility] s BMI (Body Mass 2022-06-20 00:00:00 17.2 kg/m2 [facility] BP Systolic 2022-06-20 00:00:00 121 mm[Hg] [facility] s Body Weight 2022-06-20 00:00:00 1452.8 [oz_av] [facility] s BP Diastolic 2022-04-24 00:00:00 80 mm[Hg] [facility] s Height 2022-04-24 00:00:00 61 [in_i] [facility] s BMI (Body Mass 2022-04-24 00:00:00 17.3 kg/m2 [facility]) [facility] s BP Systolic 2022-04-24 00:00:00 120 mm[Hg] [facility] s Body Weight 2022-04-24 00:00:00 1465.6 [oz_av] [facility] BP Diastolic 2022-03-20 00:00:00 88 mm[Hg] [facility] s Height 2022-03-20 00:00:00 61 [in_i] [facility] s BMI (Body Mass 2022-03-20 00:00:00 16 kg/m2 [facility]) [facility] s BP Systolic 2022-03-20 00:00:00 144 mm[Hg] [facility] s Body Weight 2022-03-20 00:00:00 1356.8 [oz_av] [facility] s BP Diastolic 2022-03-13 00:00:00 80 mm[Hg] [facility] s Height 2022-03-13 00:00:00 61 [in_i] [facility] s BMI (Body Mass 2022-03-13 00:00:00 15.9 kg/m2 [facility]) [facility] s BP Systolic 2022-03-13 00:00:00 125 mm[Hg] [facility] s Body Weight 2022-03-13 00:00:00 1347.2 [oz_av] [facility] Height 2022-02-20 00:00:00 61 [in_i] [facility] s BP Diastolic 2021-03-17 00:00:00 90 mm[Hg] [facility] s Height 2021-03-17 00:00:00 61 [in_i] [facility] s BMI (Body Mass 2021-03-17 00:00:00 17.7 kg/m2 [facility]) [facility] s BP Systolic 2021-03-17 00:00:00 160 mm[Hg] [facility] s Body Weight 2021-03-17 00:00:00 1497.6 [oz_av] [facility] s Procedures Procedure Date / Time Performed Performing Clinician [facility] e Biopsy of Lung 2022-05-25 00:00:[address] [facility] [address], abdomen + pelvis, 2022-04-24 00:00:00 [facility] w/ contrast [facility] CT, chest, w/ 2022-04-24 00:00:00 [facility] XR, chest, 2 view 2022-03-13 00:00:00 [facility] REFERRAL- 2021-03-17 05:01:00 Doctor Unassigned, No Veronica [facility] [place] [place] REQUEST/RESPONSE Name Medical [facility] XR, shoulder, 2 or 2021-03-17 00:00:00 [facility] Procedure on Lung [facility] Procedure on Ear [facility] Unlisted Procedure [facility] Plan of Care Planned Activity Planned Date Details Comments Source Diagnostic Test 2022-06-20 CMP, serum or [place] [facility] Pending 00:00:00 plasma [code = Hospital Clin ics CMP, serum or plasma] Diagnostic Test 2022-06-20 CBC w/ diff [code [facility] Pending 00:00:00 = CBC w/ diff] Hospital Clin ics Diagnostic Test 2022-06-20 iron panel, serum [facility] Pending 00:00:00 or plasma [code = [facility] linics iron panel, serum or plasma] Future Appointment 2023-11-13 Umm Starks, [address] [facility] 00:00:00 Andrew Moss [facility] s [address]; [address], [place] [address] Encounters Start End Encounter Admission Attending Care Care Encounter Source Date/Time Date/Time Type Type Clinicians Facility Department ID 2023-08-13 2023-08-13 Outpatient LYN [facility] [id number] [place] 00:00:00 00:00:00 [facility] 2023-08-13 2023-08-13 Umm Wong [facility] [place] 016 [place] 00:00:00 00:00:00 Nafisa Starks MD: [address] [facility] Hospit a [address], COMM[facility]ITY [address], H[facility] [place], [place]IC, [address] FLORY , Ph. 2023-07-19 2023-07-19 Outpatient KEFFER_A [facility] [id number] [place] 00:00:00 00:00:00 921 [facility] 2023-07-19 2023-07-19 Umm Wong [facility] [place] 921 [place] 00:00:00 00:00:00 Nafisa Starks MD: [address] [facility] a [address], COMM[facility]ITY [address], [facility] [place], [place], [address] FLORY , Ph. 2022-10-01 2022-10-01 Outpatient KEFFER_A [facility] [id number] [place] 00:00:00 00:00:00 204 [facility] 2022-08-26 2022-08-26 Outpatient KEFFER_A [facility] [id number] [place] 00:00:00 00:00:00 029 [facility] 2022-07-22 2022-07-22 Outpatient KEFFER_A [facility] [id number] [place] 00:00:00 00:00:00 924 [facility] 2022-07-18 2022-07-18 Outpatient KEFFER_A [facility] [id number] [place] 00:00:00 00:00:00 920 [facility] 2022-07-18 2022-07-18 Umm Wong [facility] [place] 920 [place] 00:00:00 00:00:00 Nafisa Starks MD: [address] [facility] [place] Hospit a [address], COMMUNITY [address], HOSPITAL [facility], [address] [place] , Ph. 2022-06-23 2022-06-23 Outpatient KEFFER_A [facility] [id number] [place] 00:00:00 00:00:00 826 [facility] 2022-06-20 2022-06-20 Outpatient KEFFER_A [facility] [id number] [place] 00:00:00 00:00:00 823 [facility] 2022-06-20 2022-06-20 Outpatient Umm Starks [facility] [id number] 00:00:00 00:00:00 Judith [id number] 2022-06-20 2022-06-20 Umm Wong [facility] [place] [id number] [place] 00:00:00 00:00:00 Nafisa Starks MD: [address] [facility] Hospit a [address], [facility] l [address], [place], [place] CLINIC, [address] FLORY , Ph. 2022-06-17 2022-06-17 Outpatient KEFFER_A [facility] [id number] [place] 00:00:00 00:00:00 820 [facility] 2022-05-15 2022-05-15 Outpatient KEFFER_A [facility] [id number] [place] 05:02:00 05:02:00 718 [facility] 2022-04-24 2022-04-24 Outpatient KEFFER_A [facility] [id number] [place] 02:04:00 02:04:00 627 [facility] i [facility]ics 2022-04-24 2022-04-24 Umm Wong [facility] [place] [id number] [place] 00:00:00 00:00:00 Nafisa Starks MD: [address] [facility] Hospit a [address], COMM[facility]ITY [address], [facility] [place], [place], [address] FLORY , Ph. 2022-04-24 2022-04-24 Outpatient Umm Starks [facility] [id number] 00:00:00 00:00:00 Judith [id number] 2022-04-08 2022-04-08 Outpatient FLORY_Richie [facility] [id number] [place] 01:24:00 01:24:00 611 [facility] 2022-03-20 2022-03-20 Outpatient FLORY_Richie [facility] [id number] [place] 02:04:00 02:04:00 523 [facility] Clinics 2022-03-20 2022-03-20 Umm Wong [facility] [place] 523 [place] 00:00:00 00:00:00 Nafisa Starks MD: [address] [facility] Hospit a [address], COMM[facility]ITY l [address], [facility] [place], [place], [address] FLORY , Ph. 2022-03-20 2022-03-20 Outpatient Umm Starks [facility] [id number] 00:00:00 00:00:00 Judith [id number] 2022-03-13 2022-03-13 Outpatient FLORY_Richie [facility] [id number] [place] 06:18:00 06:18:00 516 [facility] Clinics 2022-03-13 2022-03-13 Umm Wong [facility] [place] 516 [place] 00:00:00 00:00:00 Nafisa Starks MD: [address] [facility] Hospit a [address], COMM[facility]ITY l [address], [facility] [place], [place], [address] [place] , Ph. 2022-03-13 2022-03-13 Outpatient Umm Starks [facility] [id number] 00:00:00 00:00:00 Judith [id number] 2022-03-13 2022-03-13 Outpatient Umm Starks [facility] [id number] 00:00:00 00:00:00 Judith [id number] 2022-02-20 2022-02-20 Outpatient FLORY_Richie [facility] [id number] [place] 04:34:00 04:34:00 425 [facility] Clinics 2022-02-20 2022-02-20 Umm Reddn [facility] [place] 00:00:00 00:00:00 Nafisa Starks [facility] MD: [address] [facility] [place] a [address], [facility] B, [facility], [facility], [address] [place] , Ph. 2022-02-20 2022-02-20 Outpatient [place] Umm [facility] [id number] 00:00:00 00:00:00 Judith [id number] 2022-02-15 2022-02-15 Outpatient FLORY_Richie [facility] [id number] [place] 07:49:00 07:49:00 420 [facility] 2021-07-28 2021-07-28 Outpatient FLORY_Richie [facility] [id number] [place] 12:51:00 12:51:00 930 [facility] i [facility] 2021-03-30 2021-03-30 Umm Kidd [id number] [facility] [place] 00:00:00 00:00:00 (Out) Sylvester MONTES [id number] [facility] [id number] Mao as [phone] [address] 2021-03-172021-03-17 Outpatient KEFFER_A [facility] [id number] [place] 12:03:00 12:03:00 520 [facility] 2021-03-17 2021-03-17 Orders Doctor STUART [id number] 00:00:00 00:00:00 Only Unassigned, JYOTI [id number] ity of [place] [facility] [id number] Mao as [phone] [address] 2021-03-17 2021-03-17 Outpatient Umm Starks [facility] [id number] 00:00:00 00:00:00 Judith [id number] 2021-03-17 2021-03-17 Umm Wong [facility] [place] 520 [place] 00:00:00 00:00:00 Nafisa Starks MD: [address] [facility] Hospit a [address], [facility] l [address], HOSPITAL Clinic [facility], [place] CL[place], [address] [place] , Ph. 2020-12-12 2020-12-12 Outpatient FLORY_Richie [facility] [id number] [place] 01:03:00 01:03:00 214 Commun i ty Hospita l [facility] 2020-11-07 2020-11-07 Outpatient FLORY_A [facility] [id number] [place] 01:02:00 01:02:00 110 [facility] Clinics 2020-06-17 2020-06-17 Laboratory Lab, Adc Fam Pob I [facility] 1.2. [id number] [facility] 12:47:46 13:07:46 Only Eboni Carrera [id number] ity of [place] [id number] Mao as Professio [phone] Ri dical nal [address] 2020-06-17 2020-06-17 Outpatient Gregoria CARRERA [facility] [id number] [facility] 13:00:00 13:00:[address] [facility] [place] 2020-06-17 2020-06-17 Outpatient R [facility] [id number] [facility] 11:00:00 11:00:[address] [facility] [place] 2020-06-17 2020-06-17 Letter Doctor STUART [id number] [facility] 00:00:00 00:00:00 (Out) Unassigned, JYOTI [id number] ity of [place] [facility] [id number] Mao as [phone] [address] Results Test Description Test Time Test Comments Results Result Comments Source Free T4 and TSH panel - Serum or Plasma 2022-03-14 00:00:00 Test Item Value Reference Range Interpretation Comme nts Thyrotropin [Units/volume] in Serum or Plasma by 2.720 uIU/mL 0.450 -4.500 Detection limit <= 0.005 mIU/L (test code = 80584-8) Thyroxine (T4) free [Mass/volume] in Serum or Plasma 1.02 NG/dL 0 .82-1.77 (test code = 3024-7) [facility] W Auto Differential panel - [id number] 00:00:00 Test Item Value Reference Range Interpretation [...] = 706-2) immature cells (test code = label paster immature cells) Neutrophils [#/volume] in Blood 9.8 [...] Blood by Automated count (test code = 50821-9) Immature granulocytes 0.0 x10e3/uL 0.0-0.1 [#/volume] in Blood by Automated count (test code = 83443-7) Nucleated erythrocytes/100 label paster leukocytes [Ratio] in Blood by Automated count (test code = 86680-2) Morphology [Interpretation] in label paster Blood Narrative (test code = 24042-0) [facility] - Serum or [id number] 00:00:00 Test Item Value Reference Range Interpretation [...] 8.7-10.2 Serum or Plasma (test code = 67688-3) Protein [Mass/volume] in 6.5 g/dL 6.0-8.5 Serum or Plasma (test code = 2885-2) Albumin [Mass/volume] in 3.8 g/dL 3.8-4.9 Serum or Plasma (test code = 1751-7) Globulin [Mass/volume] in 2.7 g/dL 1.5-4.5 Serum by calculation (test code = 49421-1) Albumin/Globulin [Mass Ratio] 1.4 1.2-2.2 in Serum [...] Serum or Plasma (test code = 1742-6) [facility] Reflex Culture panel - [id number] 00:00:00 Test Item Value Reference Range Interpretation [...] Test negative negative/trace strip (test code = 01394-0) Glucose [Presence] in Urine by Test negative negative strip (test code = 45122-0) Ketones [Presence] in Urine by Test negative negative strip (test code = 2514-8) Hemoglobin [Presence] in Urine by negative negative Test strip (test code = 5794-3) Bilirubin.total [Presence] in Urine negative negative by Test strip (test code = 5770-3) Urobilinogen [Mass/volume] in Urine 0.2 mg/dL 0.2-1.0 by Test strip (test code = 85631-5) Nitrite [Presence] in Urine by Test negative negative strip (test code = 5802-4) Microscopic observation label paster [Identifier] in Urine sediment by Light microscopy (test code = 31736-1) Leukocytes [#/area] in Urine 6-10 0-5 A sediment by Microscopy high power field (test code = 5821-4) Erythrocytes [#/area] in Urine none seen 0-2 sediment by Microscopy high power field (test code = 24580-8) Epithelial cells [#/area] in Urine 0-10 0-10 sediment by Microscopy high power field (test code = 5787-7) Epithelial cells.renal [#/area] in label paster Urine sediment by Microscopy high power field (test code = 20573-5) Casts [Presence] in Urine sediment none seen none seen by Light microscopy (test code = 17961-6) Casts [Type] in Urine sediment by label paster Light microscopy (test code = 59038-5) Unidentified crystals [Presence] in label paster Urine sediment by Light microscopy (test code = 5783-6) Crystals [type] in Urine sediment label paster by Light microscopy (test code = 5782-8) Mucus [Presence] in Urine sediment label paster by Light microscopy (test code = 8247-9) Bacteria [#/area] in Urine sediment none seen none seen/few by Microscopy high power field (test code = 5769-5) Yeast [#/area] in Urine sediment by label paster Microscopy high power field (test code = 5822-2) Trichomonas vaginalis [Presence] in label paster Urine sediment by Light microscopy (test code = 5813-1) Urine sediment comments by Light label paster microscopy Narrative (test code = 29556-0) urinalysis reflex (test code = comment urinalysis reflex) Bacteria identified in Urine by no growth Culture (test code = 630-4) [facility]Cyanocobalamin [Interpretation] in Serum or [id number] 00:00:00 Test Item Value Reference Range Interpretation Comments Cobalamin (Vitamin B12) 870 pg/mL 232-1245 [Mass/volume] in Serum or Plasma (test code = 2132-9) Folate [Mass/volume] in Serum or 9.7 NG/mL >3.0 Plasma (test code = 2284-8) [facility]25-Hydroxyvitamin D3+25-Hydroxyvitamin D2 [Mass/volume] in Serum or [id number] 00:00:00 Test Item Value Reference Range Interpretation Comments 25-Hydroxyvitamin 34.4 NG/mL 30.0-100.0 D3+25-Hydroxyvitamin D2 [Mass/volume] in Serum or Plasma (test code = 28090-3) [facility] A1c/Hemoglobin.total in Blood 2022-03-14 00:00:00 Test Item Value Reference Range Interpretation Comments Hemoglobin A1c/Hemoglobin.total in 6.1 % 4.8-5.6 H Blood (test code = 4548-4) [facility]ryth[facility] sedimentation [id number] 00:00:00 Test Item Value Reference Range Interpretation Comments Erythrocyte sedimentation rate by 76 mm/HR 0-40 H Westergren method (test code = 4537-7) [facility]-reactive protein, [id number] 00:00:00 Test Item Value Reference Range Interpretation Comments C reactive protein [Mass/volume] in 41 mg/L 0-10 H Serum or Plasma (test code = 1987-5) [facility]
[2023-09-13 10:25] LABS: Absolute Lymphocytes (CBC) 0.9 K/uL (0.7-4.9); Hematocrit 32.6 % (36.0-45.0); Lymphocytes % 2.9 % (15.3-44.8); MCV 74.7 fL (80-100); MPV 7.4 fL (7.6-11.3); Platelets 615 thou/uL (152-406); RBC Red Blood Cell Count 4.36 M/uL (3.86-4.86)
[2023-09-13] MEDS ORDERED: ACETAMINOPHEN 325 MG TABLET ONE (10:25)
[2023-09-13 10:36] LABS: SARS-CoV-2 Antigen Rapid Res Negative (Negative)
[2023-09-13 10:37] LABS: Protime INR 1.28
[2023-09-13 10:46] LABS: Albumin 2.1 g/dL (3.4-5.0); Bilirubin Total 0.4 mg/dL (0.2-1.0); Potassium 4.3 mEq/L (3.5-5.1); Troponin High Sensitivity 7.6 pg/mL (<58.9)
--- NOTE | 2023-09-13 11:02 | RAD REPORT ---
EXAM DESCRIPTION: RAD - Chest Single View - 09/13/2023 10:40 am CLINICAL HISTORY: DYSPNEA COMPARISON: Chest Single View dated 09/02/2023; Chest Single View dated 07/04/2022; Chest Single View d ated 05/25/2022; Chest Pa And Lat (2 Views) dated 03/30/2022; Thorax Wo Con dated 09/04/2023 FINDINGS: Lines: None. Lungs: Increased consolidation in the left upper lobe compared with the most recent chest radiograph and CT from 09/02/2023 and 09/04/2023, respectively architectural distortion and scarring in the righ t lung apex. Pleural: No significant pleural effusions or pneumothorax. Cardiac: The heart size is within normal limits. Mediastinum: Within normal limits. Bones: No acute fractures. Other: None IMPRESSION: Increased left upper lobe opacification compared with the recent chest CT and chest radi ograph could represent an acute pneumonia superimposed upon chronic changes.
--- NOTE | 2023-09-13 11:12 | ER ---
Nurse's Notes [facility] Name: Irene Venegas Age: 63 yrs Sex: Female : 1960 Arrival Date: 09/13/2023 Time: 09:36 Bed 4 Private MD: Diagnosis: Pneumonia, unspecified organism Presentation: 09/13 09:42 Method Of Arrival: Wheelchair ll1 09:42 Acuity: REVA 3 ll1 09:50 Chief complaint: Patient states: Fever, SOB, cough, L CP, body aches, fatigue, weakness ll1 since Sunday. Tested positive for flu the past week. Coronavirus screen: Client denies travel out of the [place] in the last 14 days. congestion, cough unrelated to allergies, difficulty breathing, fatigue, fever, headache, muscle pain, shortness of breath, Client presents with at least one sign or symptom that may indicate coronavirus-19. Standard/surgical mask placed on the client. Ebola Screen: Patient denies travel to an Ebola-affected area in the 21 days before illness onset. Initial Sepsis Screen: Does the patient meet any 2 criteria? RR > 20 per min. Temp <36.0*C (96.8*F)) or > 38.3*C (100.9*F). HR > 90 bpm. Yes Does the patient have a suspected source of infection? Yes: Productive cough/pneumonia. Risk Assessment: Do you want to hurt yourself or someone else? Patient reports no desire to harm self or others. Onset of symptoms was September 11, 2023. Triage Assessment: 09:53 General: Appears uncomfortable, ill, Behavior is calm, cooperative, appropriate for ll1 age, Reports chills for fever for feeling ill for fatigue for. Pain: Complains of pain in L chest Pain currently is 8 out of 10 on a pain scale. Quality of pain is described as aching, sharp, Aggravated by cough. Neuro: Reports weakness. Cardiovascular: Reports chest pain, fatigue, shortness of breath. Respiratory: Reports shortness of breath cough that is pain with cough. Musculoskeletal: Reports pain in body aches. Historical: - Allergies: 09:42 Morphine; ll1 - Home Meds: 15:37 Albuterol Inhl 2 inhalations every 4 hours [Active]; duloxetine 30 mg oral ll1 capsule,delayed release (e.c.) 1 cap daily [Active]; - PMHx: 09:42 Pneumonia; Pneumothorax; ll1 09:52 COPD; ll1 - PSHx: 09:42 Partial stomach removed; Total abdominal hysterectomy; ll1 09:52 Lobectomy of lung; ll1 - Immunization history:: Adult Immunizations up to date. - Social history:: Smoking status: Patient/guardian denies using tobacco, Stopped _ months ago .7. Screenin:07 [facility] ED Fall Risk Assessment (Adult) History of falling in the last 3 months, ph including since admission No falls in past 3 months (0 pts) Confusion or Disorientation No (0 pts) Intoxicated or Sedated No (0 pts) Impaired Gait No (0 pts) Mobility Assist Device Used No (0 pt) Altered Elimination No (0 pt) Score/Fall Risk Level 0 - 2 = Low Risk Oriented to surroundings, Maintained a safe environment, Provided non-skid footwear, Hourly rounding (assess needs \T\ fall precautionary measures) done. Abuse screen: Denies threats or abuse. Denies injuries from another. Nutritional screening: No deficits noted. Tuberculosis screening: No symptoms or risk factors identified. Assessment: 10:18 General: Appears in no apparent distress. Behavior is calm, cooperative, Reports chills ph for fever for > 3 days. Pain: Denies pain. Neuro: Level of Consciousness is awake, alert, obeys commands, Oriented to person, place, time, situation. Cardiovascular: Capillary refill < 3 seconds in bilateral fingers Patient's skin is warm and dry. Respiratory: Reports shortness of breath cough that is Airway is patent Respiratory effort is even, unlabored, Respiratory pattern is regular, symmetrical. GI: No signs and/or symptoms were reported involving the gastrointestinal system. Derm: Skin is pink, warm \T\ dry. 11:30 Reassessment: Patient appears in no apparent distress at this time. Patient and/or db family updated on plan of care and expected duration. Pain level reassessed. Patient is alert, oriented x 3, equal unlabored respirations, skin warm/dry/pink. 12:30 Reassessment: Patient appears in no apparent distress at this time. Patient and/or db family updated on plan of care and expected duration. Pain level reassessed. Patient is alert, oriented x 3, equal unlabored respirations, skin warm/dry/pink. 13:30 Reassessment: Patient appears in no apparent distress at this time. Patient and/or db family updated on plan of care and expected duration. Pain level reassessed. Patient is alert, oriented x 3, equal unlabored respirations, skin warm/dry/pink. PATIENT EATING. Reassessment: Patient states feeling better. Patient states symptoms have improved. General: Appears in no apparent distress. comfortable, Behavior is calm, cooperative. 14:30 Reassessment: Patient appears in no apparent distress at this time. Patient and/or db family updated on plan of care and expected duration. Pain level reassessed. Patient is alert, oriented x 3, equal unlabored respirations, skin warm/dry/pink. 15:15 Reassessment: Patient appears in no apparent distress at this time. Patient and/or db family updated on plan of care and expected duration. Pain level reassessed. Patient is alert, oriented x 3, equal unlabored respirations, skin warm/dry/pink. 16:00 Reassessment: SEE [facility] DOCUMENTATION FOR CONTINUED CARE. db Vital Signs: 09:50 BP 148 / 90; Pulse 146; Resp 28; Temp 101; Pulse Ox 93% on R/A; Weight 36.29 kg; Height ll1 5 ft. 1 in. ; Pain 8/10; 10:19 BP 118 / 79; Pulse 136; Resp 24; Pulse Ox 95% on 2 lpm NC; ph 11:08 BP 111 / 73; Pulse 117; Pulse Ox 97% ; db 12:00 BP 114 / 72; Pulse 103; Resp 32; Pulse Ox 97% on 1 lpm NC; db 13:30 Pulse 115; Pulse Ox 100% ; ll1 14:30 BP 124 / 62; Pulse 109; Resp 28; Pulse Ox 98% on 2 lpm NC; db 09:50 Body Mass Index 15.12 (36.29 kg, 154.94 cm) ll1 09:50 Pain Scale: Adult ll1 ED Course: 09:41 Patient arrived in ED. mg5 09:42 Arm band placed on Patient placed in an exam room, on a stretcher. ll1 09:43 Triage completed. ll1 09:44 [facility] jh7 09:44 Yasir Montes De Oca MD is Attending Physician. jh7 10:06 Troponin High Sensitivity Sent. bc6 10:06 SARS RAPID Sent. bc6 10:06 Flu Sent. bc6 10:06 CMP Sent. bc6 10:06 Blood Culture Adult (2) Sent. bc6 10:06 CBC with Diff Sent. bc6 10:06 Lactate w/ 2H reflex if indic. Sent. bc6 10:06 Protime (+inr) Sent. bc6 10:06 Ptt, Activated Sent. bc6 10:07 Patient has correct armband on for positive identification. Placed in gown. Bed in low ph position. Call light in reach. Side rails up X 1. Pulse ox on. NIBP on. 10:07 Inserted saline lock: 18 gauge in right forearm, using aseptic technique. Blood bc6 collected. 10:42 Chest Single View XRAY In Process Unspecified. EDMS 11:07 Jane Melissa, CONNIE is Primary Nurse. db 11:10 Kishore Garcia MD is Hospitalizing Provider. [facility] 16:32 Provided Education on: ADMISSION. db 16:32 No provider procedures requiring assistance completed. Patient admitted, IV remains in db place. Administered Medications: 10:20 Drug: NS 0.9% IV (30 ml/kg) 30 ml/kg IV at bolus once; Sepsis Protocol Route: IV; Rate: ph bolus; Site: right forearm; 10:20 Drug: Acetaminophen PO 650 mg PO once Route: PO; ph 12:12 Follow up: Response: No adverse reaction db 11:21 Drug: Rocephin IV 1 grams IV at 1 calculated rate once; Given slow IV push per pharmacy db instructions Route: IV; Rate: 1 calculated rate; Site: right forearm; 12:05 Follow up: Response: No adverse reaction; IV Status: Completed infusion; IV Intake: 50mldb 12:05 Drug: AZITHromycin IVPB 500 mg IVPB once over 1 hrs; (mix in 250 mL NS) Route: IVPB; db Infused Over: 1 hrs; Site: right forearm; 13:14 Follow up: Response: No adverse reaction; IV Status: Completed infusion; IV Intake: ll1 250ml Medication: 10:08 VIS not applicable for this client. ph Intake: 12:05 IV: 50ml; Total: 50ml. db 13:14 IV: 250ml; Total: 300ml. ll1 Outcome: 11:11 Decision to Hospitalize by Provider. [facility] 16:25 Admitted to db 16:25 Admitted to Tele accompanied by tech, with oxygen, with chart, Report called to MELANIA 16:25 Condition: stable 16:25 Instructed on the need for admit, 16:35 Patient left the ED. db Signatures: Dispatcher [employer] Danika Ybarra RN RN Emilee Avilez RN RN 1 Leanne Ferreira, MD OPHTHALMOLOGIST MD OPHTHALMOLOGIST 7 Jane Melissa RN RN Kathya Bowles6 Amanda High mg5 Corrections: (The following items were deleted from the chart) 09:55 09:53 General: Appears uncomfortable, ill, Behavior is calm, cooperative, appropriate ll1 for age, Reports chills for fever for feeling ill for fatigue for ll1
--- NOTE | 2023-09-13 11:12 | EDPHYS ---
Physician Documentation [facility] Name: Irene Venegas Age: 63 yrs Sex: Female : 1960 Arrival Date: 09/13/2023 Time: 09:36 Bed 4 Private MD: ED Physician Yasir Montes De Oca HPI: 09/13 09:45 This 63 yrs old Female presents to ER via Wheelchair with complaints of Fever. jh7 09:45 The patient reports fever, that was measured at 103 degrees Fahrenheit. Onset: The jh7 symptoms/episode began/occurred yesterday. Associated signs and symptoms: Pertinent positives: chest pain, cough, shortness of breath, malaise, Pertinent negatives: abdominal pain. 63-year-old female presents to the ER complaining of fever of 103, chest pain, shortness of breath, cough, and weakness. History of COPD, pneumonia, and partial lobectomy. She reports Dr. 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 Historical: - Allergies: 09:42 Morphine; ll1 - Home Meds: 15:37 Albuterol Inhl 2 inhalations every 4 hours [Active]; duloxetine 30 mg oral ll1 capsule,delayed release (e.c.) 1 cap daily [Active]; - PMHx: 09:42 Pneumonia; Pneumothorax; ll1 09:52 COPD; ll1 - PSHx: 09:42 Partial stomach removed; Total abdominal hysterectomy; ll1 09:52 Lobectomy of lung; ll1 - Immunization history:: Adult Immunizations up to date. - Social history:: Smoking status: Patient/guardian denies using tobacco, Stopped _ months ago .7. ROS: 09:45 Eyes: Negative for injury, pain, redness, and discharge, ENT: Negative for injury, jh7 pain, and discharge, Neck: Negative for injury, pain, and swelling, Abdomen/GI: Negative for abdominal pain, nausea, vomiting, diarrhea, and constipation, Back: Negative for injury and pain, MS/Extremity: Negative for injury and deformity, Skin: Negative for injury, rash, and discoloration, Neuro: Negative for headache, weakness, numbness, tingling, and seizure, 09:45 Constitutional: Positive for body aches, chills, fatigue, fever, malaise, 09:45 Cardiovascular: Positive for chest pain, with cough, 09:45 Respiratory: Positive for cough, shortness of breath, 09:45 All other systems are negative, Exam: 09:45 Head/Face: Normocephalic, atraumatic. ENT: Nares patent. No nasal discharge, no jh7 septal abnormalities noted. Oropharynx with no redness, swelling, or masses, exudates, or evidence of obstruction, uvula midline. Mucous membranes moist. Neck: Trachea midline, no thyromegaly or masses palpated, and no cervical lymphadenopathy. Supple, full range of motion without nuchal rigidity, or vertebral point tenderness. No Meningismus. Cardiovascular: Regular rate and rhythm with a normal S1 and S2. No gallops, murmurs, or rubs. Normal PMI, no JVD. No pulse deficits. 09:45 Abdomen/GI: Soft, non-tender, with normal bowel sounds. No distension or tympany. No guarding or rebound. No evidence of tenderness throughout. Back: No spinal tenderness. No costovertebral tenderness. Full range of motion. Skin: Warm, dry with normal turgor. Normal color with no rashes, no lesions, and no evidence of cellulitis. MS/ Extremity: Pulses equal, no cyanosis. Neurovascular intact. Full, normal range of motion. Neuro: Awake and alert, GCS 15, oriented to person, place, time, and situation. Motor strength 5/5 in all extremities. Sensory grossly intact. Normal gait. 09:45 Constitutional: The patient appears alert, awake, obviously ill, 09:45 Respiratory: mild respiratory distress is noted, Respirations: labored breathing, that is mild, Breath sounds: decreased breath sounds, that are mild, Vital Signs: 09:50 BP 148 / 90; Pulse 146; Resp 28; Temp 101; Pulse Ox 93% on R/A; Weight 36.29 kg; Height ll1 5 ft. 1 in. ; Pain 8/10; 10:19 BP 118 / 79; Pulse 136; Resp 24; Pulse Ox 95% on 2 lpm NC; ph 11:08 BP 111 / 73; Pulse 117; Pulse Ox 97% ; db 12:00 BP 114 / 72; Pulse 103; Resp 32; Pulse Ox 97% on 1 lpm NC; db 13:30 Pulse 115; Pulse Ox 100% ; ll1 14:30 BP 124 / 62; Pulse 109; Resp 28; Pulse Ox 98% on 2 lpm NC; db 09:50 Body Mass Index 15.12 (36.29 kg, 154.94 cm) ll1 09:50 Pain Scale: Adult ll1 MDM: 09:44 Patient medically screened. [facility] 11:07 Differential diagnosis: viral Infection, bacterial infection, bronchitis, pneumonia [facility] sepsis. Data reviewed: vital signs, nurses notes, lab test result(s), EKG, radiologic studies, CT scan, plain films. Consideration of Admission/Observation Patient was admitted/placed on observation. Management of patient was discussed with the following: Hospitalist: Dr. Garcia. I considered the following discharge prescriptions or medication management in the emergency department Medications were administered in the Emergency Department. See MAR. Independent interpretation of the following test(s) in the Emergency Department EKG: See my EKG interpretation above. Care significantly affected by the following chronic conditions: Chronic Obstructive Pulmonary Disease. Counseling: I had a detailed discussion with the patient and/or guardian regarding the historical points, exam findings, and any diagnostic results supporting the discharge/admit diagnosis, the need for further work-up and treatment in the hospital. Response to treatment: the patient's symptoms have mildly improved after treatment. 09/13 09:51 Order name: Blood Culture Adult (2) [facility] 09/13 09:51 Order name: CBC with Diff; Complete Time: 13:46 [facility] 09/13 09:51 Order name: CMP; Complete Time: 10:56 [facility] 09/13 09:51 Order name: Lactate w/ 2H reflex if indic.; Complete Time: 10:56 [facility] 09/13 09:51 Order name: Protime (+inr); Complete Time: 10:45 [facility] 09/13 09:51 Order name: Ptt, Activated; Complete Time: 10:45 [facility] 09/13 09:51 Order name: Urinalysis w/ reflexes; Complete Time: 13:14 [facility] 09/13 09:51 Order name: Flu; Complete Time: 10:45 [facility] 09/13 09:51 Order name: SARS RAPID; Complete Time: 10:45 [facility] 09/13 09:51 Order name: Troponin High Sensitivity; Complete Time: 10:56 [facility] 09/13 13:39 Order name: CBC Smear Scan; Complete Time: 13:46 [facility] 09/13 09:51 Order name: Chest Single View XRAY; Complete Time: 11:06 [facility] 09/13 09:51 Order name: EKG; Complete Time: 09:54 [facility] 09/13 11:20 Order name: CONS Physician Consult [facility] 09/13 09:51 Order name: Accucheck; Complete Time: 10:20 [facility] 09/13 09:51 Order name: Cardiac monitoring; Complete Time: 10:06 [facility] 09/13 09:51 Order name: EKG - Nurse/Tech; Complete Time: 10:06 [facility] 09/13 09:51 Order name: IV Saline Lock - Large Bore; Complete Time: 10:06 [facility] 09/13 09:51 Order name: Labs collected and sent; Complete Time: 10: [facility] 09/13 09:51 Order name: O2 Per Protocol; Complete Time: 10: [facility] 09/13 09:51 Order name: O2 Sat Monitoring; Complete Time: 10: [facility] 09/13 09:51 Order name: Vital Signs; Complete Time: 10:20 [facility] 09/13 11:07 Order name: Recheck Vital Signs; Complete Time: 11:21 [facility] EC:07 Rate is 136 beats/min. Rhythm is regular. Right axis deviation noted. NJ interval is jh7 normal at 114 msec. QRS interval is normal at 70 msec. QT interval is normal at 272 msec. T waves are Normal. No ST changes noted. Clinical impression: Sinus tachycardia. Administered Medications: 10:20 Drug: NS 0.9% IV (30 ml/kg) 30 ml/kg IV at bolus once; Sepsis Protocol Route: IV; Rate: ph bolus; Site: right forearm; 10:20 Drug: Acetaminophen PO 650 mg PO once Route: PO; ph 12:12 Follow up: Response: No adverse reaction db 11:21 Drug: Rocephin IV 1 grams IV at 1 calculated rate once; Given slow IV push per pharmacy db instructions Route: IV; Rate: 1 calculated rate; Site: right forearm; 12:05 Follow up: Response: No adverse reaction; IV Status: Completed infusion; IV Intake: 50mldb 12:05 Drug: AZITHromycin IVPB 500 mg IVPB once over 1 hrs; (mix in 250 mL NS) Route: IVPB; db Infused Over: 1 hrs; Site: right forearm; 13:14 Follow up: Response: No adverse reaction; IV Status: Completed infusion; IV Intake: ll1 250ml Disposition: 17:17 Co-signature as Attending Physician, Yasir Montes De Oca MD I agree with the assessment and kdr plan of care. Disposition Summary: 09/13/23 11:11 Hospitalization Ordered Notes: Hospitalization Status: Inpatient Admission [facility] Provider: Kishore Garcia [facility] Condition: Fair [facility] Problem: new [facility] Symptoms: are unchanged [facility] Bed/Room Type: Standard [facility] Room Assignment: 231(09/13/23 15:52) em1 Diagnosis - Pneumonia, unspecified organism [facility] Forms: - Medication Reconciliation Form [facility] - SBAR form [facility] - Leadership Thank You Letter [facility] Signatures: Dispatcher [employer] EDMS Yasir Montes De Oca MD MD [facility] Bebo Herrera em1 Danika Mahan RN RN Emilee Piper RN RN [facility] Leanne Ferreira FNP [place] [id number] Jane Melissa RN RN db Corrections: (The following items were deleted from the chart) 15:52 11:11 [facility] em1
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
[2023-09-13] MEDS ORDERED: NA CHLORIDE 0.9% 50 ML ONE (11:30)
[2023-09-13] MEDS ORDERED: NA CHLORIDE 0.9% 250 ML ONE (11:30)
[2023-09-13 13:11] LABS: Specific Gravity 1.006 (1.005-1.030); Urine Bacteria <20 /HPF (<20); Urine Bilirubin NEGATIVE (Negative); Urine Blood Negative (Negative); Urine Clarity Clear (Clear); Urine Color Light-Yellow (Yellow); Urine Glucose NEGATIVE (Negative); Urine Protein NEGATIVE (Negative); Urine RBC <5 /HPF (None Seen); Urine Urobilinogen Normal (Normal)
[2023-09-13 13:39] LABS: Blood Morphology Comment NOT SEEN (NOT SEEN); Platelet Estimate INCR; White Blood Cell Scan OK (OK)
[2023-09-13] MEDS ORDERED: ALBUTEROL 2.5 MG/3 ML NEB SOL NEB PRN (15:45)
[2023-09-13] MEDS: NA CHLORIDE 0.9% 1,000 ML IV SCH (15:50)
[2023-09-13] MEDS ORDERED: AZITHROMYCIN IV 500 MG in NA CHLORIDE 0.9% 250 ML IVPB SCH (16:00)
[2023-09-13] MEDS ORDERED: NA CHLORIDE 0.9% 1,000 ML ONE (16:07)
[2023-09-13] MEDS ORDERED: INFLUENZA VACCINE (for 6+ mo) 0.5 ML DOSE IMVAC ONE (17:00)
[2023-09-13 17:06] VITALS: BMI 15.1
[2023-09-13] MEDS: ACETAMINOPHEN 500 MG TAB PO PRN (17:23)
[2023-09-13] MEDS: ENOXAPARIN 40 MG/0.4 ML SQ SCH (17:24)
[2023-09-13] MEDS: CEFEPIME 2 GM in NA CHLORIDE 0.9% 100 ML IV SCH (17:26)
[2023-09-13] MEDS ORDERED: GUAIFENESIN/DM 5 ML UCUP PO PRN (20:58)
[2023-09-14] MEDS: ACETAMINOPHEN 500 MG TAB PO PRN ×4 (00:14→21:29)
[2023-09-14] MEDS: CEFEPIME 2 GM in NA CHLORIDE 0.9% 100 ML IV SCH ×3 (00:18→17:58)
[2023-09-14] MEDS: NA CHLORIDE 0.9% 1,000 ML IV SCH (03:17)
[2023-09-14 04:12] LABS: Absolute Lymphocytes (CBC) 1.2 K/uL (0.7-4.9); Lymphocytes % 3.6 % (15.3-44.8); MCV 74.8 fL (80-100); MPV 7.6 fL (7.6-11.3); Platelets 495 thou/uL (152-406); RBC Red Blood Cell Count 3.61 M/uL (3.86-4.86)
[2023-09-14 05:03] LABS: Albumin 1.6 g/dL (3.4-5.0); Bilirubin Total 0.4 mg/dL (0.2-1.0); Potassium 3.6 mEq/L (3.5-5.1); Protein, Total 5.4 g/dL (6.4-8.2)
[2023-09-14] MEDS ORDERED: POTASSIUM CL SA 10 MEQ TAB PO ONE (09:00)
[2023-09-14] MEDS ORDERED: AZITHROMYCIN IV 500 MG in NA CHLORIDE 0.9% 250 ML IVPB SCH (09:00)
[2023-09-14] MEDS ORDERED: NA CHLORIDE 0.9% 250 ML ONE (09:12)
[2023-09-14] MEDS ORDERED: VANCOMYCIN 1 GM in NA CHLORIDE 0.9% 250 ML IVPB ONE (10:00)
[2023-09-14] MEDS: ENOXAPARIN 40 MG/0.4 ML SQ SCH (10:05)
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
[2023-09-14] MEDS: DULERA 100/5 (MOMETASONE/FORMOTEROL) INHALER IH SCH ×2 (10:47→21:00)
[2023-09-14] MEDS: IPRATROPIUM BROM 0.5MG/2.5ML NEB SCH ×2 (13:50→21:00)
[2023-09-14] MEDS: ENSURE ENLIVE 237 ML CAN PO SCH ×2 (14:00→21:00)
[2023-09-14] MEDS: VANCOMYCIN 750 MG in NA CHLORIDE 0.9% 150 ML IVPB SCH (21:31)
[2023-09-14] MEDS: predniSONE 10 MG TAB PO SCH (21:37)
[2023-09-15] MEDS: IPRATROPIUM BROM 0.5MG/2.5ML NEB SCH ×4 (01:15→21:25)
[2023-09-15] MEDS: CEFEPIME 2 GM in NA CHLORIDE 0.9% 100 ML IV SCH ×3 (01:28→18:05)
[2023-09-15] MEDS: ACETAMINOPHEN 500 MG TAB PO PRN (02:06)
[2023-09-15 04:01] LABS: Absolute Lymphocytes (CBC) 0.7 K/uL (0.7-4.9); Hematocrit 27.2 % (36.0-45.0); Lymphocytes % 3.5 % (15.3-44.8); MCV 74.9 fL (80-100); MPV 7.5 fL (7.6-11.3); Platelets 554 thou/uL (152-406); RBC Red Blood Cell Count 3.63 M/uL (3.86-4.86)
[2023-09-15 04:21] LABS: Albumin 1.6 g/dL (3.4-5.0); Bilirubin Total 0.3 mg/dL (0.2-1.0); Magnesium 2.2 mg/dL (1.6-2.4); Potassium 4.2 mEq/L (3.5-5.1); Protein, Total 5.7 g/dL (6.4-8.2)
[2023-09-15] MEDS: DULERA 100/5 (MOMETASONE/FORMOTEROL) INHALER IH SCH ×2 (09:00→21:47)
--- NOTE | 2023-09-15 09:57 | P.PN ---
Subjective Date of Service: 09/15/23 Chief Complaint: Pneumonia Subjective: Improving (Patient is doing better still short of breath and congested) Review of Systems General: Weakness Respiratory: Cough, Shortness of Breath Physical Examination - Vital Signs Temperature: 98.3 F Blood Pressure: 124/59 Pulse: 82 Respirations: 20 Pulse Ox (%): 100 - Physical Exam General: Alert, Oriented x3 Respiratory: Diminished, Expiratory wheezes Cardiovascular: No edema, Regular rate/rhythm Assessment And Plan - Current Problems (Diagnosis) (1) Pneumonia Current Visit: No Status: Acute Plan: Patient is 63 years of age with a history of terminal COPD possible MAC admitted with progressive pneumonia in the left upper lobe continue with present therapy vancomycin and cefepime failed outpatient therapy with levofloxacin white count now is declined cultures are pending vital signs stable Qualifiers: Pneumonia type: due to unspecified organism Laterality: unspecified laterality Lung location: unspecified part of lung Qualified Code(s): J18.9 - Pneumonia, unspecified organism Physician Review: Patient Assessed, Agree with Above Assessment and Plan
[2023-09-15] MEDS: VANCOMYCIN 750 MG in NA CHLORIDE 0.9% 150 ML IVPB SCH ×2 (10:00→12:29)
[2023-09-15] MEDS: DULOXETINE 30 MG CAP PO SCH (10:54)
[2023-09-15] MEDS: ENOXAPARIN 40 MG/0.4 ML SQ SCH (10:54)
[2023-09-15] MEDS: predniSONE 10 MG TAB PO SCH ×2 (10:54→21:46)
[2023-09-15] MEDS: ENSURE ENLIVE 237 ML CAN PO SCH ×3 (10:55→21:47)
[2023-09-15] MEDS ORDERED: VANCOMYCIN 750 MG in NA CHLORIDE 0.9% 150 ML IVPB SCH (12:15)
[2023-09-16] MEDS ORDERED: VANCOMYCIN 500 MG/VIAL ONE (01:04)
[2023-09-16] MEDS: CEFEPIME 2 GM in NA CHLORIDE 0.9% 100 ML IV SCH ×3 (01:05→16:19)
[2023-09-16] MEDS: VANCOMYCIN 750 MG in NA CHLORIDE 0.9% 150 ML IVPB SCH ×2 (01:44→22:00)
[2023-09-16] MEDS: IPRATROPIUM BROM 0.5MG/2.5ML NEB SCH ×4 (02:00→19:35)
[2023-09-16 03:36] LABS: Absolute Lymphocytes (CBC) 0.6 K/uL (0.7-4.9); Hematocrit 24.7 % (36.0-45.0); MCV 74.4 fL (80-100); MPV 7.4 fL (7.6-11.3); Platelets 625 thou/uL (152-406); RBC Red Blood Cell Count 3.32 M/uL (3.86-4.86)
[2023-09-16 04:01] LABS: Albumin 1.6 g/dL (3.4-5.0); Bilirubin Total 0.2 mg/dL (0.2-1.0); Magnesium 1.9 mg/dL (1.6-2.4); Potassium 3.9 mEq/L (3.5-5.1); Protein, Total 5.7 g/dL (6.4-8.2)
[2023-09-16] MEDS ORDERED: POTASSIUM 25 MEQ EFFERV TAB PO ONE (05:43)
[2023-09-16] MEDS: ENOXAPARIN 40 MG/0.4 ML SQ SCH (08:34)
[2023-09-16] MEDS: DULOXETINE 30 MG CAP PO SCH (08:34)
[2023-09-16] MEDS: predniSONE 10 MG TAB PO SCH ×2 (08:34→21:42)
[2023-09-16] MEDS: DULERA 100/5 (MOMETASONE/FORMOTEROL) INHALER IH SCH ×2 (08:34→21:00)
[2023-09-16] MEDS: ENSURE ENLIVE 237 ML CAN PO SCH ×3 (08:42→21:00)
[2023-09-16] MEDS ORDERED: VANCOMYCIN 750 MG in NA CHLORIDE 0.9% 150 ML IVPB SCH (10:00)
--- NOTE | 2023-09-16 10:00 | P.PN ---
Subjective Date of Service: 09/16/23 Chief Complaint: Pneumonia Subjective: Improving (Patient is doing better still complaining of cough and chest congestion) Review of Systems General: Weakness Respiratory: Shortness of Breath Physical Examination - Vital Signs Temperature: 98.2 F Blood Pressure: 149/82 Pulse: 87 Respirations: 16 Pulse Ox (%): 100 - Physical Exam General: Alert, Oriented x3 Respiratory: Clear to auscultation bilaterally, Diminished Cardiovascular: No edema, Regular rate/rhythm Assessment And Plan - Current Problems (Diagnosis) (1) Pneumonia Current Visit: No Status: Acute Plan: Patient admitted with left upper lobe pneumonia currently on cefepime and vancomycin is clearly improved possible that she has an MRSA superinfection not respond to levofloxacin as an outpatient count is declined to 14,000 sputum cultures so far negative with cefepime vancomycin once her white count is normal Added treatment with p.o. doxycycline continue with the high-dose levofloxacin unless discharged dictate so the signs are all stable no fever Qualifiers: Pneumonia type: due to unspecified organism Laterality: unspecified laterality Lung location: unspecified part of lung Qualified Code(s): J18.9 - Pneumonia, unspecified organism Physician Review: Patient Assessed, Agree with Above Assessment and Plan
[2023-09-16] MEDS ORDERED: ALBUMIN HUMAN 25% 100 ML IV ONE (17:55)
[2023-09-17] MEDS: CEFEPIME 2 GM in NA CHLORIDE 0.9% 100 ML IV SCH ×2 (01:16→10:34)
[2023-09-17] MEDS: IPRATROPIUM BROM 0.5MG/2.5ML NEB SCH ×3 (01:35→14:35)
--- NOTE | 2023-09-17 03:29 | P.PN ---
Date of Service: 09/14/23 Subjective Patient's clinical symptoms are improving. Patient respiratory status has stabilized. Patient still gets really tachypneic on moving out of her bed and ambulating. We will continue with steroids and diuretics. Physical Examination -Vitals Reviewed -Physical Exam General: Alert, In no apparent distress, Cachectic, Mild distress Respiratory: Diminished; expiratory wheezing Cardiovascular: Regular rate and rhythm with no murmurs Gastrointestinal: Normal bowel sounds, Soft and benign Musculoskeletal: No clubbing, No swelling Integumentary: No abnormalities Neurological: No focal deficits Assessment and Plan -Assessment and Plan Assessment and Plan Acute hypoxic respiratory failure secondary to pneumonia Sepsis without septic shock secondary to pneumonia COPD exacerbation with severe emphysema and bronchiectasis Plan is to continue with IV steroids along with neb treatments and antibiotic therapy. Patient's had repeated admissions for her COPD. She is got very advanced disease and her long-term prognosis is very poor. She will probably need referral to a tertiary care facility for evaluation for transplant. In the meantime we will continue with nebs, steroids, and antibiotics. She has not had an echocardiogram done and even though her BNP levels have been within normal limits we will reassess her right ventricular pressures. Microcytic anemia HH 10.8, 32.6, so we will continue monitoring H&H; check iron levels as well as B12 levels Thrombocytosis Most likely related to anemia. Most likely reactive thrombocytosis Cachexia; Most likely related to bronchiectasis. Continue with IV steroids and nutritional supplementation Full code DVT Lovenox Diet regular Discharge Plan: Home Plan to discharge in: 48 Hours - Advance Directives Does patient have a Living Will: No Does patient have a Durable POA for Healthcare: No - Code Status/Comfort Care Code Status: Full Code Physician Review: Patient Assessed, Agree with Above Assessment and Plan Critical Care: No Time Spent Managing Pts Care (In Minutes): 35
--- NOTE | 2023-09-17 03:46 | P.PN ---
Date of Service: 09/15/23 Subjective Patient continues to improve. Clinical symptoms are improving. We will continue with physical therapy evaluation. Echocardiogram pending. Continue with IV steroids. Continue with nebs Physical Examination -Vitals Reviewed -Physical Exam General: Alert, In no apparent distress, Cachectic, Mild distress Respiratory: Diminished; expiratory wheezing Cardiovascular: Regular rate and rhythm with no murmurs Gastrointestinal: Normal bowel sounds, Soft and benign Musculoskeletal: No clubbing, No swelling Integumentary: No abnormalities Neurological: No focal deficits Assessment and Plan -Assessment and Plan Assessment and Plan Acute hypoxic respiratory failure secondary to pneumonia Sepsis without septic shock secondary to pneumonia COPD exacerbation with severe emphysema and bronchiectasis Continue with plan of care as mentioned; plan is to continue with IV steroids along with neb treatments and antibiotic therapy. Patient's had repeated admissions for her COPD. She is got very advanced disease and her long-term prognosis is very poor. She will probably need referral to a tertiary care facility for evaluation for transplant. In the meantime we will continue with nebs, steroids, and antibiotics. She has not had an echocardiogram done and even though her BNP levels have been within normal limits we will reassess her right ventricular pressures. Microcytic anemia HH 10.8, 32.6, so we will continue monitoring H&H; check iron levels as well as B12 levels Thrombocytosis Most likely related to anemia. Most likely reactive thrombocytosis Cachexia; Most likely related to bronchiectasis. Continue with IV steroids and nutritional supplementation Full code DVT Lovenox Diet regular Discharge Plan: Home Plan to discharge in: 48 Hours - Advance Directives Does patient have a Living Will: No Does patient have a Durable POA for Healthcare: No - Code Status/Comfort Care Code Status: Full Code Physician Review: Patient Assessed, Agree with Above Assessment and Plan Critical Care: No Time Spent Managing Pts Care (In Minutes): 35
--- NOTE | 2023-09-17 03:52 | P.PN ---
Date of Service: 09/16/23 Subjective Patient states she is doing much better. We will going get physical therapy evaluation. Continue nutritional support. Out of bed and ambulate. Arrange for discharge planning. Physical Examination -Vitals Reviewed -Physical Exam General: Alert, In no apparent distress, Cachectic, Mild distress Respiratory: Diminished; end-expiratory wheezing Cardiovascular: Regular rate and rhythm with no murmurs Gastrointestinal: Normal bowel sounds, Soft and benign Musculoskeletal: No clubbing, No swelling Integumentary: No abnormalities Neurological: No focal deficits Assessment and Plan -Assessment and Plan Assessment and Plan Acute hypoxic respiratory failure secondary to pneumonia Sepsis without septic shock secondary to pneumonia COPD exacerbation with severe emphysema and bronchiectasis Continue with plan of care as mentioned; continue with IV steroids along with neb treatments and antibiotic therapy. Patient's had repeated admissions for her COPD. She's got very advanced disease and her long-term prognosis is very poor. She will probably need referral to a tertiary care facility for evaluation for transplant. In the meantime we will continue with nebs, steroids, and antibiotics. She has not had an echocardiogram done and even though her BNP levels have been within normal limits we will reassess her right ventricular pressures. We will also get physical therapy evaluation. Plan for discharge planning over the next 24 to 48 hours. Microcytic anemia HH 10.8, 32.6, so we will continue monitoring H&H; check iron levels as well as B12 levels Thrombocytosis Most likely related to anemia. Most likely reactive thrombocytosis Cachexia; Most likely related to bronchiectasis. Continue with IV steroids and nutritional supplementation Full code DVT Lovenox Diet regular Discharge Plan: Home Plan to discharge in: 48 Hours - Advance Directives Does patient have a Living Will: No Does patient have a Durable POA for Healthcare: No - Code Status/Comfort Care Code Status: Full Code Physician Review: Patient Assessed, Agree with Above Assessment and Plan Critical Care: No Time Spent Managing Pts Care (In Minutes): 35
[2023-09-17] MEDS: VANCOMYCIN 750 MG in NA CHLORIDE 0.9% 150 ML IVPB SCH (05:34)
[2023-09-17 06:18] LABS: Absolute Lymphocytes (CBC) 0.6 K/uL (0.7-4.9); Hematocrit 25.6 % (36.0-45.0); Lymphocytes % 4.4 % (15.3-44.8); MCV 74.2 fL (80-100); MPV 7.3 fL (7.6-11.3); Platelets 711 thou/uL (152-406); RBC Red Blood Cell Count 3.45 M/uL (3.86-4.86)
[2023-09-17 06:47] LABS: Bilirubin Total 0.3 mg/dL (0.2-1.0); Phosphorus 2.4 mg/dL (2.5-4.9); Potassium 4.1 mEq/L (3.5-5.1); Protein, Total 5.9 g/dL (6.4-8.2)
[2023-09-17 07:31] LABS: White Blood Cell Scan OK (OK)
[2023-09-17 07:32] LABS: Anisocytosis SLIGHT; Blood Morphology Comment NOTED (NOT SEEN); Platelet Estimate INCR
[2023-09-17] MEDS ORDERED: VANCOMYCIN 750 MG in NA CHLORIDE 0.9% 150 ML IVPB SCH (08:00)
[2023-09-17] MEDS: ENSURE ENLIVE 237 ML CAN PO SCH ×3 (09:00→20:56)
[2023-09-17] MEDS: JUVEN PACKET PO SCH ×2 (09:00→20:52)
[2023-09-17] MEDS: DULERA 100/5 (MOMETASONE/FORMOTEROL) INHALER IH SCH ×2 (09:00→20:56)
--- NOTE | 2023-09-17 09:10 | RAD REPORT ---
EXAM DESCRIPTION: [facility] Single View09/17/2023 4:28 am CLINICAL HISTORY: Chest pain COMPARISON: September 13, 2023 FINDINGS: Progression in left upper lobe opacities Left lung volume loss No change additional bilateral pulmonary opacities. Heart is normal size IMPRESSION: Progression in left upper lobe opacities likely representing worsening pneumonia superim posed over chronic changes
[2023-09-17] MEDS: POTASS/SODIUM PHOSPHATE 1 PKT POWD.PACK PO SCH ×2 (10:32→11:26)
[2023-09-17] MEDS: ENOXAPARIN 40 MG/0.4 ML SQ SCH (10:33)
[2023-09-17] MEDS: DULOXETINE 30 MG CAP PO SCH (10:34)
[2023-09-17] MEDS: predniSONE 10 MG TAB PO SCH ×2 (10:34→20:56)
[2023-09-17] MEDS: ACETAMINOPHEN 500 MG TAB PO PRN (12:26)
--- NOTE | 2023-09-17 12:56 | P.PN ---
Subjective Date of Service: 09/18/23 Chief Complaint: Pneumonia Subjective: No new changes, Improving Physical Examination - Vital Signs Temperature: 100.1 F Blood Pressure: 131/74 Pulse: 89 Respirations: 19 Pulse Ox (%): 97 - Physical Exam General: Alert HEENT: Atraumatic, Normocephalic Neck: Supple Respiratory: Clear to auscultation bilaterally Cardiovascular: Normal pulses, Regular rate/rhythm Gastrointestinal: Soft and benign Musculoskeletal: No swelling Integumentary: No significant lesion Neurological: Normal speech, Normal strength at 5/5 x4 extr Assessment And Plan - Plan Assessment and Plan -Assessment and Plan Assessment and Plan Acute hypoxic respiratory failure secondary to pneumonia Sepsis without septic shock secondary to pneumonia COPD exacerbation with severe emphysema and bronchiectasis Continue with plan of care as mentioned; continue with IV steroids along with neb treatments and antibiotic therapy. Patient's had repeated admissions for h er COPD. She's got very advanced disease and her long-term prognosis is very poor. She will probably need referral to a tertiary care facility for evaluation for transplant. In the meantime we will continue with nebs, steroids, and antibiotics. She has not had an echocardiogram done and even though her BNP levels have been within normal limits we will reassess her right ventricular pressures. We will also get physical therapy evaluation. Plan for discharge planning over the next 24 to 48 hours. Pulmonary physician considering possibility of Mycobacterium infection. Management plan as per pulmonary physician. Microcytic anemia HH 10.8, 32.6, so we will continue monitoring H&H; check iron levels as well as B12 levels Thrombocytosis Most likely related to anemia. Most likely reactive thrombocytosis Cachexia; Most likely related to bronchiectasis. Continue with IV steroids and nutritional supplementation Full code DVT Lovenox Diet regular Discharge Plan: Home Plan to discharge in: 48 Hours - Advance Directives Does patient have a Living Will: No Does patient have a Durable POA for Healthcare: No - Code Status/Comfort Care Code Status: Full Code Physician Review: Patient Assessed, Agree with Above Assessment and Plan Critical Care: No Time Spent Managing Pts Care (In Minutes): 35 Physician Review: Patient Assessed, Agree with Above Assessment and Plan
[2023-09-17] MEDS: levoFLOXacin 750 MG TAB PO SCH (14:25)
[2023-09-17] MEDS ORDERED: IPRATROPIUM BROM 0.5MG/2.5ML NEB PRN (14:32)
[2023-09-18] MEDS: predniSONE 10 MG TAB PO SCH ×2 (08:52→20:22)
[2023-09-18] MEDS: DULOXETINE 30 MG CAP PO SCH (08:52)
[2023-09-18] MEDS: ENOXAPARIN 40 MG/0.4 ML SQ SCH (08:52)
[2023-09-18] MEDS: DOXYCYCLINE 100 MG CAP PO SCH ×2 (08:52→20:21)
[2023-09-18] MEDS: DULERA 100/5 (MOMETASONE/FORMOTEROL) INHALER IH SCH ×2 (08:53→20:24)
[2023-09-18] MEDS: ENSURE ENLIVE 237 ML CAN PO SCH ×3 (08:53→20:22)
[2023-09-18] MEDS: JUVEN PACKET PO SCH (08:53)
[2023-09-18] MEDS: levoFLOXacin 750 MG TAB PO SCH (08:53)
[2023-09-18 11:19] LABS: Hematocrit 26.1 % (36.0-45.0); MCV 73.5 fL (80-100); MPV 6.7 fL (7.6-11.3); Platelets 708 thou/uL (152-406); RBC Red Blood Cell Count 3.55 M/uL (3.86-4.86)
--- NOTE | 2023-09-18 12:35 | P.PN ---
Subjective Date of Service: 09/18/23 Chief Complaint: Pneumonia Subjective: Improving (Patient is feeling better chest x-ray looks worse still has some fever) Review of Systems General: Weakness Respiratory: Cough, Shortness of Breath Physical Examination - Vital Signs Temperature: 97.7 F Blood Pressure: 137/78 Pulse: 102 Respirations: 16 Pulse Ox (%): 95 - Physical Exam General: Alert, Oriented x3 Respiratory: Clear to auscultation bilaterally, Diminished Cardiovascular: No edema, Regular rate/rhythm - Studies Microbiology Data (last 24 hrs): 09/13/23 10:45 Blood - Blood Aerobic Blood Culture - Final No growth in 5 days. 09/13/23 10:45 Blood - Blood Anaerobic Blood Culture - Final No growth in 5 days. 09/13/23 10:00 Blood - Blood Aerobic Blood Culture - Final No growth in 5 days. 09/13/23 10:00 Blood - Blood Anaerobic Blood Culture - Final No growth in 5 days. Assessment And Plan - Current Problems (Diagnosis) (1) Pneumonia Current Visit: No Status: Acute Plan: Patient failed outpatient therapy continue with cefepime add doxycycline chest x-ray looks worse sputum AFBs are pending check QuantiFERON test oxygenation satisfactory still had some fever yesterday oxygenation satisfactory may need a bronchoscopy for diagnosis Qualifiers: Pneumonia type: due to unspecified organism Laterality: unspecified laterality Lung location: unspecified part of lung Qualified Code(s): J18.9 - Pneumonia, unspecified organism Physician Review: Patient Assessed, Agree with Above Assessment and Plan
[2023-09-18] MEDS: CEFEPIME 1 GM in NA CHLORIDE 0.9% 100 ML IV SCH ×2 (13:39→20:21)
--- NOTE | 2023-09-18 16:54 | P.PN ---
Subjective Date of Service: 09/19/23 Chief Complaint: Pneumonia Subjective: No new changes, Improving Physical Examination - Vital Signs Temperature: 100.1 F Blood Pressure: 131/74 Pulse: 89 Respirations: 19 Pulse Ox (%): 97 - Physical Exam General: Alert, Oriented x3 HEENT: Atraumatic, Normocephalic Neck: Supple Respiratory: Normal air movement Cardiovascular: Regular rate/rhythm, Normal S1 S2 Gastrointestinal: Soft and benign Musculoskeletal: No swelling Neurological: Normal speech - Studies Microbiology Data (last 24 hrs): 09/13/23 10:45 Blood - Blood Aerobic Blood Culture - Final No growth in 5 days. 09/13/23 10:45 Blood - Blood Anaerobic Blood Culture - Final No growth in 5 days. 09/13/23 10:00 Blood - Blood Aerobic Blood Culture - Final No growth in 5 days. 09/13/23 10:00 Blood - Blood Anaerobic Blood Culture - Final No growth in 5 days. Assessment And Plan - Plan Assessment and Plan -Assessment and Plan Assessment and Plan Acute hypoxic respiratory failure secondary to pneumonia Sepsis without septic shock secondary to pneumonia COPD exacerbation with severe emphysema and bronchiectasis Continue with plan of care as mentioned; continue with her oral steroids along with neb treatments and antibiotic therapy. Patient's had repeated admissions for her COPD. She's got very advanced disease and her long-term prognosis is very poor. She will probably need referral to a tertiary care facility for evaluation for transplant. In the meantime we will continue with nebs, steroids, and antibiotics. Pulmonary physician following and adjustment of antibiotic therapy noted. Thought process to have bronchoscopy done as per pulmonary physician. Slight uptrending WBC noted. Adjustments to antibiotic therapy noted. Will follow closely. Microcytic anemia HH 10.8, 32.6, so we will continue monitoring H&H; check iron levels as well as B12 levels Thrombocytosis Most likely related to anemia. Most likely reactive thrombocytosis Cachexia; Most likely related to bronchiectasis. Continue with steroids and nutritional supplementation Full code DVT Lovenox Diet regular Discharge Plan: Home Plan to discharge in: In the next 48 Hours - Advance Directives Does patient have a Living Will: No Does patient have a Durable POA for Healthcare: No - Code Status/Comfort Care Code Status: Full Code Physician Review: Patient Assessed, Agree with Above Assessment and Plan Critical Care: No Time Spent Managing Pts Care (In Minutes): 35 Physician Review: Patient Assessed, Agree with Above Assessment and Plan
--- NOTE | 2023-09-19 08:14 | RAD REPORT ---
EXAM DESCRIPTION: [facility] And Lat (2 Views)09/19/2023 4:59 am CLINICAL HISTORY: Pneumonia COMPARISON: Chest Single View dated 09/17/2023; Chest Single View dated 09/13/2023; Chest Single Vie w dated 09/02/2023; Chest Single View dated 07/04/2022 TECHNIQUE: PA and lateral views of the chest. FINDINGS: Partial improvement of aeration in the left upper to mid lung. Background hyperinflation a nd chronic interstitial changes with scarring more pronounced in the left upper lung, otherwise stabl e. There may be trace left pleural effusion, stable. No pneumothorax. The cardiomediastinal contours are unremarkable. IMPRESSION: Partial improvement of aeration in the left upper to mid lung, suggesting improving pneu monia.
[2023-09-19 08:20] LABS: Hematocrit 24.6 % (36.0-45.0); MCV 74.1 fL (80-100); MPV 6.4 fL (7.6-11.3); Platelets 831 thou/uL (152-406); RBC Red Blood Cell Count 3.32 M/uL (3.86-4.86)
[2023-09-19] MEDS: ENOXAPARIN 40 MG/0.4 ML SQ SCH (08:30)
[2023-09-19] MEDS: DULOXETINE 30 MG CAP PO SCH (08:30)
[2023-09-19] MEDS: DOXYCYCLINE 100 MG CAP PO SCH ×2 (08:30→20:21)
[2023-09-19] MEDS: predniSONE 10 MG TAB PO SCH ×2 (08:30→20:21)
[2023-09-19] MEDS: levoFLOXacin 750 MG TAB PO SCH (08:30)
[2023-09-19] MEDS: CEFEPIME 1 GM in NA CHLORIDE 0.9% 100 ML IV SCH ×2 (08:31→20:22)
[2023-09-19] MEDS: ENSURE ENLIVE 237 ML CAN PO SCH ×3 (08:31→20:23)
[2023-09-19] MEDS: DULERA 100/5 (MOMETASONE/FORMOTEROL) INHALER IH SCH ×2 (08:31→20:22)
--- NOTE | 2023-09-19 12:15 | P.PN ---
Subjective Date of Service: 09/19/23 Chief Complaint: Pneumonia Subjective: Improving (Patient is doing better has any fever or chills able to cough up any sputum) Review of Systems General: Weakness Respiratory: Cough, Shortness of Breath Physical Examination - Vital Signs Temperature: 98.6 F Blood Pressure: 118/66 Pulse: 80 Respirations: 14 Pulse Ox (%): 95 - Physical Exam General: Alert, Oriented x3 Respiratory: Clear to auscultation bilaterally, Diminished Cardiovascular: No edema, Normal pulses, Regular rate/rhythm - Studies Microbiology Data (last 24 hrs): 09/13/23 10:45 Blood - Blood Aerobic Blood Culture - Final No growth in 5 days. 09/13/23 10:45 Blood - Blood Anaerobic Blood Culture - Final No growth in 5 days. 09/13/23 10:00 Blood - Blood Aerobic Blood Culture - Final No growth in 5 days. 09/13/23 10:00 Blood - Blood Anaerobic Blood Culture - Final No growth in 5 days. Assessment And Plan - Current Problems (Diagnosis) (1) Pneumonia Current Visit: No Status: Acute Plan: Patient admitted with left upper lobe pneumonia presumed atypical Mycobacterium infection sputum cultures are all pending his white count is declined today continue with IV cefepime and levofloxacin plan to discharge home tomorrow on high-dose levofloxacin 750 in addition to doxycycline follow-up with me in 2 weeks add low-dose prednisone 10 mg twice a day whatley vital signs are stable ambulate Qualifiers: Pneumonia type: due to unspecified organism Laterality: unspecified laterality Lung location: unspecified part of lung Qualified Code(s): J18.9 - Pneumonia, unspecified organism Physician Review: Patient Assessed, Agree with Above Assessment and Plan
--- NOTE | 2023-09-19 12:57 | ECHO ---
HEIGHT: 5 ft 1 in WEIGHT: 80 lb 0.092 oz DATE OF STUDY: 09/18/[address]: Kishore Garcia MD 2-DIMENSIONAL: YES M.MODE: YES DOPPLER: YES COLOR FLOW: YES TDS: PORTABLE: YES DEFINITY: BUBBLE STUDY: DIAGNOSIS: HYPOXEMIA, RIGHT VENTRICULAR PRESSURES CARDIAC HISTORY: CATHERIZATION: NO SURGERY: NO PROSTHETIC VALVE: NO PACEMAKER: NO MEASUREMENTS (cm) DIASTOLIC (NORMALS) SYSTOLIC (NORMALS) IVSd 0.8 (0.6-1.2) LA Diam 2.0 (1.9-4.0) LVEF 66% LVIDd 3.1 (3.5-5.7) LVIDs 2.0 (2.0-3.5) %FS 35% LVPWd 0.9 (0.6-1.2) Ao Diam 2.6 (2.0-3.7) 2 DIMENSIONAL ASSESSMENT: RIGHT ATRIUM: NORMAL LEFT ATRIUM: NORMAL RIGHT VENTRICLE: NORMAL LEFT VENTRICLE: NORMAL SIZE AND FUNCTION, EJECTION FRACTION 60% TRICUSPID VALVE: NORMAL MITRAL VALVE: NORMAL PULMONIC VALVE: NORMAL AORTIC VALVE: MILD CALCIFIED, NO STENOSIS OR AORTIC INSUFFICIENCY PERICARDIAL EFFUSION: MODERATE AROUND RIGHT VENTRICLE AND RIGHT ATRIUM, NO TAMPONADE AORTIC ROOT: NORMAL LEFT VENTRICULAR WALL MOTION: NORMAL DOPPLER/COLOR FLOW: NO TAMPONADE COMMENTS: 1. NORMAL LEFT VENTRICULAR SIZE AND FUNCTION. 2. EJECTION FRACTION 60% 3. MILD CALCIFIED AORTIC VALVE, NO STENOSIS OR AORTIC INSUFFICIENCY 4. MODERATE PERICARDIAL EFFUSION AROUND RIGHT VENTRICLE AND RIGHT ATRIUM, NO TAMPONADE TECHNOLOGIST: STUART BECERRIL
--- NOTE | 2023-09-19 13:55 | P.PN ---
Subjective Date of Service: 09/19/23 Chief Complaint: Pneumonia Subjective: No new changes, Improving Physical Examination - Vital Signs Temperature: 100.1 F Blood Pressure: 131/74 Pulse: 89 Respirations: 19 Pulse Ox (%): 97 - Physical Exam General: Alert, Oriented x3 HEENT: Atraumatic, Normocephalic Neck: Supple Respiratory: Normal air movement Cardiovascular: Regular rate/rhythm, Normal S1 S2 Gastrointestinal: Soft and benign Musculoskeletal: No swelling Neurological: Normal speech - Studies Microbiology Data (last 24 hrs): 09/13/23 10:45 Blood - Blood Aerobic Blood Culture - Final No growth in 5 days. 09/13/23 10:45 Blood - Blood Anaerobic Blood Culture - Final No growth in 5 days. 09/13/23 10:00 Blood - Blood Aerobic Blood Culture - Final No growth in 5 days. 09/13/23 10:00 Blood - Blood Anaerobic Blood Culture - Final No growth in 5 days. Assessment And Plan - Plan Assessment and Plan -Assessment and Plan Assessment and Plan Acute hypoxic respiratory failure secondary to pneumonia Sepsis without septic shock secondary to pneumonia COPD exacerbation with severe emphysema and bronchiectasis Patient has significant improvement in symptoms. Slight downtrend of WBCs noted with adjustments to antibiotic by addition of cefepime. Will continue present care. Pulmonary physician recommendation noted. For possible discharge in the next 24. Microcytic anemia HH 10.8, 32.6, so we will continue monitoring H&H; check iron levels as well as B12 levels Thrombocytosis Most likely related to anemia. Most likely reactive thrombocytosis Cachexia; Most likely related to bronchiectasis. Continue with steroids and nutritional supplementation Full code DVT Lovenox Diet regular Discharge Plan: Home Plan to discharge in: In the next 24 Hours - Advance Directives Does patient have a Living Will: No Does patient have a Durable POA for Healthcare: No - Code Status/Comfort Care Code Status: Full Code Physician Review: Patient Assessed, Agree with Above Assessment and Plan Critical Care: No Time Spent Managing Pts Care (In Minutes): 35 Physician Review: Patient Assessed, Agree with Above Assessment and Plan
--- NOTE | 2023-09-19 17:13 | EKG ---
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
[2023-09-20] MEDS: ENOXAPARIN 40 MG/0.4 ML SQ SCH (08:06)
[2023-09-20] MEDS: CEFEPIME 1 GM in NA CHLORIDE 0.9% 100 ML IV SCH ×2 (08:06→20:33)
[2023-09-20] MEDS: DOXYCYCLINE 100 MG CAP PO SCH (08:06)
[2023-09-20] MEDS: DULERA 100/5 (MOMETASONE/FORMOTEROL) INHALER IH SCH ×2 (08:06→20:36)
[2023-09-20] MEDS: predniSONE 10 MG TAB PO SCH (08:06)
[2023-09-20] MEDS: DULOXETINE 30 MG CAP PO SCH (08:06)
[2023-09-20] MEDS: ENSURE ENLIVE 237 ML CAN PO SCH ×3 (08:06→20:36)
[2023-09-20] MEDS: levoFLOXacin 750 MG TAB PO SCH (08:06)
[2023-09-20 08:43] LABS: Hematocrit 26.1 % (36.0-45.0); MPV 6.6 fL (7.6-11.3); Platelets 982 thou/uL (152-406); RBC Red Blood Cell Count 3.48 M/uL (3.86-4.86)
--- NOTE | 2023-09-20 13:48 | P.PN ---
Subjective Date of Service: 09/20/23 Chief Complaint: Pneumonia Subjective: No new changes, Improving (still has tachycardia.) Physical Examination - Vital Signs Temperature: 97.1 F Blood Pressure: 136/71 Pulse: 73 Respirations: 16 Pulse Ox (%): 100 - Physical Exam General: Alert HEENT: Atraumatic, Normocephalic Neck: Supple Cardiovascular: Regular rate/rhythm, Normal S1 S2 Gastrointestinal: Soft and benign Musculoskeletal: No swelling Neurological: Normal speech Assessment And Plan - Plan Assessment and Plan -Assessment and Plan Assessment and Plan Acute hypoxic respiratory failure secondary to pneumonia Sepsis without septic shock secondary to pneumonia COPD exacerbation with severe emphysema and bronchiectasis Sputum culture grew atypical Mycobacterium organism. RIPE therapy started as per pulmonary physician recommendation. Will continue to follow trend of symptoms as patient continues to have tachycardia and suspected to be having active infection. Follow symptomatology closely. Microcytic anemia HH 10.8, 32.6, so we will continue monitoring H&H; check iron levels as well as B12 levels Thrombocytosis Most likely related to anemia. Most likely reactive thrombocytosis Cachexia; Most likely related to bronchiectasis. Continue with steroids and nutritional supplementation Full code DVT Lovenox Diet regular Discharge Plan: Home Plan to discharge in: In the next 24 Hours - Advance Directives Does patient have a Living Will: No Does patient have a Durable POA for Healthcare: No - Code Status/Comfort Care Code Status: Full Code Physician Review: Patient Assessed, Agree with Above Assessment and Plan Critical Care: No Time Spent Managing Pts Care (In Minutes): 35 Physician Review: Patient Assessed, Agree with Above Assessment and Plan
[2023-09-20] MEDS: ISONIAZID 300 MG TAB PO SCH (14:00)
[2023-09-20] MEDS: PYRIDOXINE (VIT B6) 50 MG TAB PO SCH (14:27)
[2023-09-20] MEDS: PYRAZINAMIDE 500 MG TAB PO SCH (20:35)
[2023-09-20] MEDS ORDERED: LINEZOLID 600 MG TAB PO SCH (21:00)
[2023-09-20] MEDS ORDERED: ETHAMBUTOL HCL 400 MG TAB PO SCH (21:00)
[2023-09-21] MEDS: ONDANSETRON 4 MG/2 ML VIAL IV PRN ×3 (02:21→17:17)
[2023-09-21] MEDS: ACETAMINOPHEN 500 MG TAB PO PRN ×2 (04:26→10:28)
[2023-09-21] MEDS ORDERED: ISONIAZID 300 MG TAB PO SCH (09:00)
[2023-09-21] MEDS: ENSURE ENLIVE 237 ML CAN PO SCH ×3 (09:00→20:50)
[2023-09-21] MEDS: DULERA 100/5 (MOMETASONE/FORMOTEROL) INHALER IH SCH ×2 (09:00→20:50)
[2023-09-21] MEDS: PYRAZINAMIDE 500 MG TAB PO SCH ×2 (09:51→20:50)
[2023-09-21] MEDS: ISONIAZID 300 MG TAB PO SCH (09:51)
[2023-09-21] MEDS: PYRIDOXINE (VIT B6) 50 MG TAB PO SCH (09:52)
[2023-09-21] MEDS: predniSONE 10 MG TAB PO SCH (09:52)
[2023-09-21] MEDS: ENOXAPARIN 40 MG/0.4 ML SQ SCH (09:52)
[2023-09-21] MEDS: DULOXETINE 30 MG CAP PO SCH (09:52)
--- NOTE | 2023-09-21 10:37 | P.PN ---
Subjective Date of Service: 09/21/23 Chief Complaint: Fever Patient is still feeling weak complaining of fever Review of Systems General: Weakness Respiratory: Cough, Shortness of Breath Physical Examination - Vital Signs Temperature: 98.5 F Blood Pressure: 103/60 Pulse: 100 Respirations: 20 Pulse Ox (%): 96 - Physical Exam General: Oriented x3 Respiratory: Clear to auscultation bilaterally, Diminished Cardiovascular: No edema, Normal pulses Assessment And Plan - Current Problems (Diagnosis) (1) Pneumonia Current Visit: No Status: Acute Plan: Patient has light left upper lobe fibrocavitary changes AFB is now positive 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 she never really got any treatment lost to follow-up most likely this is what is causing her problems recommend treating with triple therapy for tuberculosis until cultures are available also add Zithromax DC cefepime and line Nasalide patient is not responding still having fever and is hemodynamically stable discharge home on quadruple therapy Qualifiers: Pneumonia type: due to unspecified organism Laterality: unspecified laterality Lung location: unspecified part of lung Qualified Code(s): J18.9 - Pneumonia, unspecified organism Physician Review: Patient Assessed, Agree with Above Assessment and Plan
[2023-09-21] MEDS: AZITHROMYCIN 250 MG TAB PO SCH (11:50)
[2023-09-21] MEDS ORDERED: PYRIDOXINE (VIT B6) 50 MG TAB PO SCH (14:00)
--- NOTE | 2023-09-21 16:01 | P.PN ---
Subjective Date of Service: 09/22/23 Chief Complaint: Fever Subjective: No new changes Physical Examination - Vital Signs Temperature: 98.6 F Blood Pressure: 94/51 Pulse: 97 Respirations: 16 Pulse Ox (%): 98 - Physical Exam General: Alert HEENT: Atraumatic Respiratory: Normal air movement Cardiovascular: Regular rate/rhythm, Normal S1 S2 Gastrointestinal: Soft and benign Musculoskeletal: No swelling Neurological: Normal speech Assessment And Plan - Plan Assessment and Plan -Assessment and Plan Assessment and Plan Acute hypoxic respiratory failure secondary to pneumonia Sepsis without septic shock secondary to pneumonia COPD exacerbation with severe emphysema and bronchiectasis Sputum culture grew atypical Mycobacterium organism. RIPE therapy started as per pulmonary physician recommendation. Will continue to follow trend of symptoms as patient continues to have tachycardia and suspected to be having active infection. Follow symptomatology closely. Microcytic anemia HH 10.8, 32.6, so we will continue monitoring H&H; check iron levels as well as B12 levels Thrombocytosis Most likely related to anemia. Most likely reactive thrombocytosis Cachexia; Most likely related to bronchiectasis. Continue with steroids and nutritional supplementation Full code DVT Lovenox Diet regular Discharge Plan: Home Plan to discharge in: In the next 24 Hours - Advance Directives Does patient have a Living Will: No Does patient have a Durable POA for Healthcare: No - Code Status/Comfort Care Code Status: Full Code Physician Review: Patient Assessed, Agree with Above Assessment and Plan Critical Care: No Time Spent Managing Pts Care (In Minutes): 35 Physician Review: Patient Assessed, Agree with Above Assessment and Plan
[2023-09-21] MEDS: ETHAMBUTOL HCL 400 MG TAB PO SCH (20:50)
[2023-09-22 07:33] LABS: Hematocrit 24.9 % (36.0-45.0); MPV 6.7 fL (7.6-11.3); Platelets 886 thou/uL (152-406); RBC Red Blood Cell Count 3.32 M/uL (3.86-4.86)
[2023-09-22] MEDS: ENSURE ENLIVE 237 ML CAN PO SCH ×3 (09:00→20:35)
[2023-09-22] MEDS: DULERA 100/5 (MOMETASONE/FORMOTEROL) INHALER IH SCH ×2 (09:00→20:24)
[2023-09-22] MEDS: predniSONE 10 MG TAB PO SCH (09:04)
[2023-09-22] MEDS: DULOXETINE 30 MG CAP PO SCH (09:04)
[2023-09-22] MEDS: ISONIAZID 300 MG TAB PO SCH (09:04)
[2023-09-22] MEDS: PYRAZINAMIDE 500 MG TAB PO SCH ×2 (09:04→20:24)
[2023-09-22] MEDS: PYRIDOXINE (VIT B6) 50 MG TAB PO SCH (09:04)
[2023-09-22] MEDS: ENOXAPARIN 40 MG/0.4 ML SQ SCH (09:04)
[2023-09-22] MEDS: AZITHROMYCIN 250 MG TAB PO SCH (09:04)
--- NOTE | 2023-09-22 10:35 | P.PN ---
Subjective Date of Service: 09/22/23 Chief Complaint: AFB positive as suspected sputum most likely atypical mycobacteria Patient is doing well no fever chest congestion shortness of breath have improved Review of Systems General: Weakness Respiratory: Shortness of Breath Physical Examination - Vital Signs Temperature: 98.6 F Blood Pressure: 102/54 Pulse: 84 Respirations: 16 Pulse Ox (%): 99 - Physical Exam General: Alert, In no apparent distress, Oriented x3 Respiratory: Clear to auscultation bilaterally, Diminished Cardiovascular: No edema, Regular rate/rhythm Assessment And Plan - Current Problems (Diagnosis) (1) Pneumonia Current Visit: No Status: Acute Plan: Patient has AFB positive sputum most likely atypical Mycobacterium infection plan to discharge patient on quadruple therapy until species identified continue with inhaler and will avoid steroids have advised the patient to maintain strict isolation for 2 weeks if she goes out wearing a mask work for at least 2 weeks can resume regular activity once afebrile [facility] to monitor the patient until cultures come back at the time of discharge she was alert oriented responsive cooperative no fever vital signs stable Qualifiers: Pneumonia type: due to unspecified organism Laterality: unspecified laterality Lung location: unspecified part of lung Qualified Code(s): J18.9 - Pneumonia, unspecified organism Physician Review: Patient Assessed, Agree with Above Assessment and Plan
--- NOTE | 2023-09-22 13:08 | P.PN ---
Subjective Date of Service: 09/22/23 Chief Complaint: Fever Subjective: No new changes, Improving Physical Examination - Vital Signs Temperature: 98.6 F Blood Pressure: 94/51 Pulse: 97 Respirations: 16 Pulse Ox (%): 98 - Physical Exam General: Alert HEENT: Atraumatic Neck: Supple Respiratory: Normal air movement Cardiovascular: Regular rate/rhythm, Normal S1 S2 Gastrointestinal: Soft and benign Musculoskeletal: No swelling Neurological: Normal speech Assessment And Plan - Plan Assessment and Plan -Assessment and Plan Assessment and Plan Acute hypoxic respiratory failure secondary to pneumonia Sepsis without septic shock secondary to pneumonia COPD exacerbation with severe emphysema and bronchiectasis Sputum culture grew atypical Mycobacterium organism. RIPE therapy started as per pulmonary physician recommendation. Will continue to follow trend of symptoms as patient continues to have tachycardia and suspected to be having active infection. No fever spikes in the last 12. Will monitor closely. Follow symptomatology closely. Microcytic anemia HH 10.8, 32.6, so we will continue monitoring H&H. Thrombocytosis Most likely related to anemia and active infection. Most likely reactive thrombocytosis Cachexia; Most likely related to bronchiectasis and active mycobacterial infection. Continue with nutritional supplementation. Full code DVT Lovenox Diet regular Discharge Plan: Home Plan to discharge in: In the next 24 Hours - Advance Directives Does patient have a Living Will: No Does patient have a Durable POA for Healthcare: No - Code Status/Comfort Care Code Status: Full Code Physician Review: Patient Assessed, Agree with Above Assessment and Plan Critical Care: No Time Spent Managing Pts Care (In Minutes): 35 Physician Review: Patient Assessed, Agree with Above Assessment and Plan
[2023-09-22] MEDS: ACETAMINOPHEN 500 MG TAB PO PRN (14:23)
[2023-09-22] MEDS: ETHAMBUTOL HCL 400 MG TAB PO SCH (20:24)
[2023-09-23] MEDS: ACETAMINOPHEN 500 MG TAB PO PRN ×2 (02:36→11:57)
--- NOTE | 2023-09-23 07:24 | P.DS ---
Admission Date: 09/13/23 (Hospitalist) Discharge Date: 09/23/23 Disposition: ROUTINE DISCHARGE Discharge Condition: FAIR Reason for Admission: Fever - Problems (1) Pneumonia Current Visit: No Status: Acute Qualifiers: Pneumonia type: due to unspecified organism Laterality: left Lung location: unspecified part of lung Qualified Code(s): J18.9 - Pneumonia, unspecified organism Brief History of Present Illness: Patient is 63 years of age was recently discharged her with pneumonia became worse since Sunday developed more fever chills cough congestion worsening shortness of breath feeling tired. With an elevated white count she was com pliant with therapy at home was using Dulera and levofloxacin developed a fever Hospital Course: Patient is 63 years of age admitted with fever left upper lobe changes failed patient therapy with levofloxacin patient was treated with broad-spectrum antibiotics continue to have fever AFB isolated from the sputum. Patient was started on quadruple therapy till cultures available he did well at time of discharge congestion had improved labs white count was declining bacterial cultures negative Echocardiogram COMMENTS: 1. NORMAL LEFT VENTRICULAR SIZE AND FUNCTION. 2. EJECTION FRACTION 60% 3. MILD CALCIFIED AORTIC VALVE, NO STENOSIS OR AORTIC INSUFFICIENCY 4. MODERATE PERICARDIAL EFFUSION AROUND RIGHT VENTRICLE AND RIGHT ATRIUM, NO TAMPONADE Chest x-ray report FINDINGS: Partial improvement of aeration in the left upper to mid lung. Background hyperinflation and chronic interstitial changes with scarring more pronounced in the left upper lung, otherwise stable. There may be trace left pleural effusion, stable. No pneumothorax. The cardiomediastinal contours are unremarkable. IMPRESSION: Partial improvement of aeration in the left upper to mid lung, suggesting improving pneumonia Patient to follow-up with health care department At the time of discharge oxygenation satisfactory blood pressure stable Vital Signs/Physical Exam: Temp Pulse Resp BP Pulse Ox 99.2 F 80 14 115/80 98 09/23/23 04:00 09/23/23 04:00 09/23/23 04:00 09/23/23 04:00 09/23/23 04:00 Laboratory Data at Discharge: WBC 17.90 thou/uL (4.3-10.9) H 09/22/23 07:00 Hgb 8.2 g/dL (12.0-15.0) L 09/22/23 07:00 Hct 24.9 % (36.0-45.0) L 09/22/23 07:00 Plt Count 886 thou/uL (152-406) H 09/22/23 07:00 PT 14.1 SECONDS (9.5-12.5) H 09/13/23 10:00 INR 1.28 09/13/23 10:00 APTT 33.8 SECONDS (24.3-36.9) 09/13/23 10:00 Sodium 132 mEq/L (136-145) L 09/17/23 05:16 Potassium 4.1 mEq/L (3.5-5.1) 09/17/23 05:16 BUN 14 mg/dL (7-18) 09/17/23 05:16 Creatinine 0.37 mg/dL (0.55-1.02) L 09/17/23 05:16 Glucose 118 mg/dL (74-106) H 09/17/23 05:16 Phosphorus 2.4 mg/dL (2.5-4.9) L 09/17/23 05:16 Magnesium 2.0 mg/dL (1.6-2.4) 09/17/23 05:16 Total Bilirubin 0.3 mg/dL (0.2-1.0) 09/17/23 05:16 AST 29 U/L (15-37) 09/17/23 05:16 ALT 48 U/L (13-56) 09/17/23 05:16 Alkaline Phosphatase 297 U/L (45-117) H 09/17/23 05:16 Home Medications: Duloxetine HCl 30 mg PO DAILY 09/02/23 Mometasone/Formoterol [Dulera 200 Mcg/5 Mcg Inhaler] 2 puff IH BID 30 Days #1 inhaler 09/07/23 Albuterol Inhaler [Ventolin Inhaler*] 2 puff IH Q4HR PRN 09/13/23 Azithromycin Tab [Zithromax*] 250 mg PO DAILY 30 Days #30 tab 09/22/23 Ethambutol HCl 600 mg PO DAILY 30 Days #45 tab 09/22/23 Pyrazinamide [Pyrazinamide*] 500 mg PO BID 15 Days #30 tab 09/22/23 rifAMPin [Rifadin*] 300 mg PO DAILY 30 Days #30 cap 09/22/23 New Medications: Ethambutol HCl 600 mg PO DAILY 30 Days #45 tab Pyrazinamide [Pyrazinamide*] 500 mg PO BID 15 Days #30 tab rifAMPin [Rifadin*] 300 mg PO DAILY 30 Days #30 cap Azithromycin Tab [Zithromax*] 250 mg PO DAILY 30 Days #30 tab Physician Discharge Instructions: Wear a face mask for 2 wks. Avoid close contact and crowded places/ Meds faxed to pharmacy. Resume regular job duties in 2 wks ( only no fever)/Hetal to contact the patient from pressure at [facility] and monitored treatment until cultures are available. Antibiotic therapy will be modified according to culture results Patient is 63 years of age admitted with fever left upper lobe changes failed patient therapy with levofloxacin patient was treated with broad-spectrum antibiotics continue to have fever AFB isolated from the sputum. Patient was started on quadruple therapy till cultures available he did well at time of discharge congestion had improved labs white count was declining bacterial cultures negative/I suspect is atypical Mycobacterium infection there is a history of this before Echocardiogram COMMENTS: 1. NORMAL LEFT VENTRICULAR SIZE AND FUNCTION. 2. EJECTION FRACTION 60% 3. MILD CALCIFIED AORTIC VALVE, NO STENOSIS OR AORTIC INSUFFICIENCY 4. MODERATE PERICARDIAL EFFUSION AROUND RIGHT VENTRICLE AND RIGHT ATRIUM, NO TAMPONADE Patient to follow-up with health care department At the time of discharge oxygenation satisfactory blood pressure stable Diet: Regular Activity: Ad maribeth Followup: Steve Kilpatrick MD [ACTIVE - CAN ADMIT] -
[2023-09-23 07:29] LABS: Hematocrit 24.7 % (36.0-45.0); MCV 74.7 fL (80-100); MPV 6.6 fL (7.6-11.3); Platelets 977 thou/uL (152-406); RBC Red Blood Cell Count 3.31 M/uL (3.86-4.86)
[2023-09-23] MEDS: PYRAZINAMIDE 500 MG TAB PO SCH ×2 (08:49→20:44)
[2023-09-23] MEDS: DULOXETINE 30 MG CAP PO SCH (08:49)
[2023-09-23] MEDS: PYRIDOXINE (VIT B6) 50 MG TAB PO SCH (08:49)
[2023-09-23] MEDS: AZITHROMYCIN 250 MG TAB PO SCH (08:49)
[2023-09-23] MEDS: predniSONE 10 MG TAB PO SCH (08:49)
[2023-09-23] MEDS: ISONIAZID 300 MG TAB PO SCH (08:49)
[2023-09-23] MEDS: DULERA 100/5 (MOMETASONE/FORMOTEROL) INHALER IH SCH ×2 (08:50→21:00)
[2023-09-23] MEDS: ENOXAPARIN 40 MG/0.4 ML SQ SCH (09:00)
[2023-09-23] MEDS: ENSURE ENLIVE 237 ML CAN PO SCH ×3 (09:00→21:00)
[2023-09-23] MEDS ORDERED: ALBUTEROL 2.5 MG/3 ML NEB SOL NEB PRN (15:50)
[2023-09-23] MEDS: ETHAMBUTOL HCL 400 MG TAB PO SCH (20:36)
[2023-09-23] MEDS: ONDANSETRON 4 MG/2 ML VIAL IV PRN (20:44)
[2023-09-24] MEDS: ACETAMINOPHEN 500 MG TAB PO PRN ×3 (01:29→20:51)
[2023-09-24 06:16] LABS: Hematocrit 26.1 % (36.0-45.0); MCV 74.9 fL (80-100); MPV 6.7 fL (7.6-11.3); Platelets 883 thou/uL (152-406); RBC Red Blood Cell Count 3.49 M/uL (3.86-4.86)
[2023-09-24] MEDS: ENSURE ENLIVE 237 ML CAN PO SCH ×3 (08:50→20:52)
[2023-09-24] MEDS: ISONIAZID 300 MG TAB PO SCH (08:50)
[2023-09-24] MEDS: DULOXETINE 30 MG CAP PO SCH (08:50)
[2023-09-24] MEDS: ENOXAPARIN 40 MG/0.4 ML SQ SCH (08:50)
[2023-09-24] MEDS: predniSONE 10 MG TAB PO SCH (08:50)
[2023-09-24] MEDS: DULERA 100/5 (MOMETASONE/FORMOTEROL) INHALER IH SCH ×2 (08:51→20:53)
[2023-09-24] MEDS: AZITHROMYCIN 250 MG TAB PO SCH (08:55)
[2023-09-24] MEDS: PYRIDOXINE (VIT B6) 50 MG TAB PO SCH (09:03)
[2023-09-24] MEDS: PYRAZINAMIDE 500 MG TAB PO SCH ×2 (09:04→20:51)
[2023-09-24] MEDS: ONDANSETRON 4 MG/2 ML VIAL IV PRN ×2 (09:04→20:52)
[2023-09-24] MEDS ORDERED: LIDOCAINE 1% MPF 2 ML AMPULE ONE (13:56)
[2023-09-24] MEDS ORDERED: ALBUTEROL 2.5 MG/3 ML NEB SOL NEB PRN (15:00)
--- NOTE | 2023-09-24 15:15 | P.DS ---
Admission Date: 09/13/23 Discharge Date: 09/24/23 Disposition: ROUTINE DISCHARGE Discharge Condition: FAIR Reason for Admission: Fever Brief History of Present Illness: 63-year-old female with a past medical history pneumonia, COPD, pneumothorax, presents to the emergency room with fever. Reports temperature 103 today. 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 No reported nausea vomiting diarrhea constipation. No reported headache weakness.BP 148 / 90; Pulse 146; Resp 28; Temp 101; Pulse Ox 93% on R/A; Weight 36.29 kg; Height 5 ft. 1 in. ; Pain 8/10; heart rate improved with IV fluids, Plan to admit for acute hypoxic respiratory failure secondary to pneumonia, sepsis without shock. Laboratory evaluation WBCs 29.60, microcytic anemia 10.8, 32.6, blood glucose 146 transaminitis AST 55, ALT 159, elevated ALK 395, UA pending, COVID-negative, chest x-ray IMPRESSION: Increased left upper lobe opacification compared with the recent chest CT and chest radiograph could represent an acute pneumonia superimposed upon chronic changes. EKG 7 Rate is 136 beats/min. Rhythm is regular. Right axis deviation noted. OH interval is normal at 114 msec. QRS interval is normal at 70 msec. QT interval is normal at 272 msec. T waves are Normal. No ST changes noted. Clinical impression: Sinus tachycardia. Sepsis bolus given for pneumonia without hypotension. 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 plan to discharge patient on quadruple therapy until species identified continue with inhaler and will avoid steroids have advised the patient to maintain strict isolation for 2 weeks if she goes out wearing a mask work for at least 2 weeks can resume regular activity once afebrile we will contact the [facility] department to monitor the patient until cultures come back at the time of discharge she was alert oriented responsive cooperative no fever vital signs stable patient to maintain strict isolation for 2 weeks if she goes out wearing a mask work for at least 2 weeks can resume regular activity once afebrile we will contact the [facility] department to monitor the patient until cultures come back at the time of discharge she was alert oriented responsive cooperative no fever vital signs stable Echocardiogram COMMENTS: 1. NORMAL LEFT VENTRICULAR SIZE AND FUNCTION. 2. EJECTION FRACTION 60% 3. MILD CALCIFIED AORTIC VALVE, NO STENOSIS OR AORTIC INSUFFICIENCY 4. MODERATE PERICARDIAL EFFUSION AROUND RIGHT VENTRICLE AND RIGHT ATRIUM, NO TAMPONADE Chest x-ray report FINDINGS: Partial improvement of aeration in the left upper to mid lung. Background hyperinflation and chronic interstitial changes with scarring more pronounced in the left upper lung, otherwise stable. There may be trace left pleural effusion, stable. No pneumothorax. The cardiomediastinal contours are unremarkable.IMPRESSION: Partial improvement of aeration in the left upper to mid lung, suggesting improving pneumonia Patient to follow-up with health care department At the time of discharge oxygenation satisfactory blood pressure stable Follow up with pulmonary, Dr Kilpatrick after discharge 7-10 days Follow up with PCP after discharge 7-10 days Return to ER for worsening of symptoms, or call 911 Physician Discharge Instructions: -DC IV and DC home -Follow-up with PCP in 1 to 2 weeks -Please call Dr. Garcia at [phone] if any questions regarding hospital stay -Please call nursing station at [phone] if any nursing or medication questions -Return to the emergency room if symptoms worsen Diet: Low sodium Activity: Fall precautions Vital Signs/Physical Exam: Temp Pulse Resp BP Pulse Ox 99.0 F 96 H 16 118/57 L 98 09/24/23 08:00 09/24/23 08:00 09/24/23 08:00 09/24/23 08:00 09/24/23 08:00 Laboratory Data at Discharge: WBC 14.80 thou/uL (4.3-10.9) H 09/24/23 05:21 Hgb 8.3 g/dL (12.0-15.0) L 09/24/23 05:21 Hct 26.1 % (36.0-45.0) L 09/24/23 05:21 Plt Count 883 thou/uL (152-406) H 09/24/23 05:21 PT 14.1 SECONDS (9.5-12.5) H 09/13/23 10:00 INR 1.28 09/13/23 10:00 APTT 33.8 SECONDS (24.3-36.9) 09/13/23 10:00 Sodium 132 mEq/L (136-145) L 09/17/23 05:16 Potassium 4.1 mEq/L (3.5-5.1) 09/17/23 05:16 BUN 14 mg/dL (7-18) 09/17/23 05:16 Creatinine 0.37 mg/dL (0.55-1.02) L 09/17/23 05:16 Glucose 118 mg/dL (74-106) H 09/17/23 05:16 Phosphorus 2.9 mg/dL (2.5-4.9) 09/24/23 08:30 Magnesium 2.0 mg/dL (1.6-2.4) 09/17/23 05:16 Total Bilirubin 0.3 mg/dL (0.2-1.0) 09/17/23 05:16 AST 29 U/L (15-37) 09/17/23 05:16 ALT 48 U/L (13-56) 09/17/23 05:16 Alkaline Phosphatase 297 U/L (45-117) H 09/17/23 05:16 Home Medications: Duloxetine HCl 30 mg PO DAILY 09/02/23 Mometasone/Formoterol [Dulera 200 Mcg/5 Mcg Inhaler] 2 puff IH BID 30 Days #1 inhaler 09/07/23 Albuterol Inhaler [Ventolin Inhaler*] 2 puff IH Q4HR PRN 09/13/23 Azithromycin Tab [Zithromax*] 250 mg PO DAILY 30 Days #30 tab 09/22/23 Ethambutol HCl 600 mg PO DAILY 30 Days #45 tab 09/22/23 Pyrazinamide [Pyrazinamide*] 500 mg PO BID 15 Days #30 tab 09/22/23 rifAMPin [Rifadin*] 300 mg PO DAILY 30 Days #30 cap 09/22/23 New Medications: Ethambutol HCl 600 mg PO DAILY 30 Days #45 tab Pyrazinamide [Pyrazinamide*] 500 mg PO BID 15 Days #30 tab rifAMPin [Rifadin*] 300 mg PO DAILY 30 Days #30 cap Azithromycin Tab [Zithromax*] 250 mg PO DAILY 30 Days #30 tab Physician Discharge Instructions: Wear a face mask for 2 wks. Avoid close contact and crowded places/ Meds faxed to pharmacy. Resume regular job duties in 2 wks ( only no fever)/Hetal to contact the patient from pressure at [facility] and monitored treatment until cultures are available. Antibiotic therapy will be modified according to culture results Patient is 63 years of age admitted with fever left upper lobe changes failed patient therapy with levofloxacin patient was treated with broad-spectrum antibiotics continue to have fever AFB isolated from the sputum. Patient was started on quadruple therapy till cultures available he did well at time of discharge congestion had improved labs white count was declining bacterial cultures negative/I suspect is atypical Mycobacterium infection there is a history of this before Echocardiogram COMMENTS: 1. NORMAL LEFT VENTRICULAR SIZE AND FUNCTION. 2. EJECTION FRACTION 60% 3. MILD CALCIFIED AORTIC VALVE, NO STENOSIS OR AORTIC INSUFFICIENCY 4. MODERATE PERICARDIAL EFFUSION AROUND RIGHT VENTRICLE AND RIGHT ATRIUM, NO TAMPONADE Patient to follow-up with health care department At the time of discharge oxygenation satisfactory blood pressure stable Diet: Regular Activity: Ad maribeth Followup: Steve Kilpatrick MD [ACTIVE - CAN ADMIT] -
[2023-09-24] MEDS: ETHAMBUTOL HCL 400 MG TAB PO SCH (20:49)
--- NOTE | 2023-09-25 06:47 | P.PN ---
Subjective Date of Service: 09/25/23 Chief Complaint: Fever febrile overnight, reported not eating breakfast this am, generalized weakness Review of Systems ROSPER HPI Physical Examination - Vital Signs Temperature: 99.5 F Blood Pressure: 128/59 Pulse: 128 Respirations: 18 Pulse Ox (%): 90 - Physical Exam General: Alert, In no apparent distress, Cachectic HEENT: Atraumatic, Normocephalic Neck: Supple, 2+ carotid pulse no bruit Respiratory: Normal air movement Cardiovascular: No edema, Normal pulses Capillary refill: <2 Seconds Gastrointestinal: Hypoactive, Non-distended Musculoskeletal: No clubbing, No swelling Integumentary: No rashes, No breakdown Neurological: Normal speech, Normal tone Assessment And Plan - Plan Assessment and Plan Acute hypoxic respiratory failure secondary to pneumonia Sepsis without septic shock secondary to pneumonia COPD exacerbation vs pneumonitis Pulmonary consult BP 148 / 90; Pulse 146; Resp 28; Temp 101; Pulse Ox 93% on R/A; Weight 36.29 kg; 5 ft. 1 in. ; Pain 8/10; heart rate improved with IV fluids, initia Laboratory evaluation WBCs 29.60, EKG Rate is 136 beats/min. Rhythm is regular. Right axis deviation noted. OK interval is normal at 114 msec. QRS interval is normal at 70 msec. QT interval is normal at 272 msec. T waves are Normal. No ST changes noted. Clinical impression: Sinus tachycardia. UA pending, COVID-negative, chest x-ray IMPRESSION: Increased left upper lobe opacification compared with the recent chest CT and chest radiograph could represent an acute pneumonia superimposed upon chronic changes Sepsis bolus given for pneumonia without hypotension. 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 complaining of nausea slight fever today white count is declining we will recheck her WBC count tomorrow patient has been referred to [facility] to [place] is still pending there is unlikely to change treatment for now also added Tamara Qualifiers: Pneumonia type: due to unspecified organism Laterality: left Qualified Code(s): J18.9 - Pneumonia, unspecifie UPON DC New Medications: Ethambutol HCl 600 mg PO DAILY 30 Days #45 tab Pyrazinamide [Pyrazinamide*] 500 mg PO BID 15 Days #30 tab rifAMPin [Rifadin*] 300 mg PO DAILY 30 Days #30 cap Azithromycin Tab [Zithromax*] 250 mg PO DAILY 30 Days #30 tab Puulmonary Physician Discharge Instructions: Wear a face mask for 2 wks. Avoid close contact and crowded places/ Meds faxed to pharmacy. Resume regular job duties in 2 wks ( only no fever)/Hetal to contact the patient from pressure at [facility] and monitored treatment until cultures are available. Antibiotic therapy will be modified according to culture results Patient is 63 years of age admitted with fever left upper lobe changes failed patient therapy with levofloxacin patient was treated with broad-spectrum antibiotics continue to have fever AFB isolated from the sputum. 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 Bryan in the past, will follow up outpatient Cacehctic History of rectal polyps 39.46 KG Dietary consulted Patient drinks 560 yumiko boost at home Full code DVT Lovenox diet regular Discharge Plan: Home - Code Status/Comfort Care Code Status: Full Code Physician Review: Patient Assessed, Agree with Above Assessment and Plan Critical Care: No Time Spent Managing PTS Care (In Minutes): 35
[2023-09-25] MEDS: PYRAZINAMIDE 500 MG TAB PO SCH ×2 (09:00→21:00)
[2023-09-25] MEDS: DULERA 100/5 (MOMETASONE/FORMOTEROL) INHALER IH SCH ×2 (09:00→21:00)
[2023-09-25] MEDS: ISONIAZID 300 MG TAB PO SCH (09:00)
[2023-09-25] MEDS: ENSURE ENLIVE 237 ML CAN PO SCH ×3 (09:00→21:17)
[2023-09-25] MEDS: ACETAMINOPHEN 500 MG TAB PO PRN ×2 (09:01→21:10)
[2023-09-25] MEDS: ENOXAPARIN 40 MG/0.4 ML SQ SCH (09:01)
[2023-09-25] MEDS: PYRIDOXINE (VIT B6) 50 MG TAB PO SCH (09:01)
[2023-09-25] MEDS: predniSONE 10 MG TAB PO SCH (09:02)
[2023-09-25] MEDS: AZITHROMYCIN 250 MG TAB PO SCH (09:02)
[2023-09-25] MEDS: DULOXETINE 30 MG CAP PO SCH (09:02)
[2023-09-25] MEDS: ONDANSETRON 4 MG/2 ML VIAL IV PRN ×2 (09:09→21:10)
[2023-09-25] MEDS ORDERED: ONDANSETRON 4 MG (ODT) TAB PO PRN (12:27)
--- NOTE | 2023-09-25 12:29 | P.PN ---
Subjective Date of Service: 09/25/23 Chief Complaint: Fever Patient is weak upset sent about her condition developed some fever today borderline hypoxemia very weak Review of Systems General: Weakness Respiratory: Shortness of Breath Physical Examination - Vital Signs Temperature: 97.7 F Blood Pressure: 107/57 Pulse: 88 Respirations: 20 Pulse Ox (%): 92 - Physical Exam General: Alert, Oriented x3 Respiratory: Clear to auscultation bilaterally, Diminished Cardiovascular: No edema, Regular rate/rhythm Assessment And Plan - Current Problems (Diagnosis) (1) Pneumonia Current Visit: No Status: Acute Plan: 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
--- NOTE | 2023-09-25 13:29 | P.PN ---
Subjective Date of Service: 09/25/23 Chief Complaint: Fever febrile overnight, reports mild nausea, generalized weakness Review of Systems per HPI Physical Examination - Vital Signs Temperature: 99.5 F Blood Pressure: 128/59 Pulse: 128 Respirations: 18 Pulse Ox (%): 90 - Physical Exam General: Alert, Oriented x3, Cachectic HEENT: Atraumatic, Normocephalic Neck: Supple, 2+ carotid pulse no bruit Respiratory: Clear to auscultation bilaterally, Normal air movement, Diminished Cardiovascular: No edema, Normal pulses Capillary refill: <2 Seconds Gastrointestinal: Normal bowel sounds, Soft and benign Musculoskeletal: No clubbing, No swelling Integumentary: No rashes, No breakdown Neurological: Normal speech, Other (generalized weakness) Assessment And Plan - Plan Assessment and Plan Acute hypoxic respiratory failure secondary to pneumonia Sepsis without septic shock secondary to pneumonia COPD exacerbation vs pneumonitis Pulmonary consult BP 148 / 90; Pulse 146; Resp 28; Temp 101; Pulse Ox 93% on R/A; Weight 36.29 kg;5 ft. 1 in. ; Pain 8/10; heart rate improved with IV fluids, initia Laboratory evaluation WBCs 29.60, EKG Rate is 136 beats/min. Rhythm is regular. Right axis deviation noted. [place] interval is normal at 114 msec. QRS interval is normal at 70 msec. QT interval is normal at 272 msec. T waves are Normal. No ST changes noted. Clinical impression: Sinus tachycardia. UA pending, COVID-negative, chest x-ray IMPRESSION: Increased left upper lobe opacification compared with the recent chest CT and chest radiograph could represent an acute pneumonia superimposed upon chronic changes Sepsis bolus given for pneumonia without hypotension. 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 complaining of nausea slight fever today white count is declining we will recheck her WBC count tomorrow patient has been referred to [facility] to [place] is still pending there is unlikely to change treatment for now also added Tamara Qualifiers: Pneumonia type: due to unspecified organism Laterality: left Qualified Code(s): J18.9 - Pneumonia, unspecifie UPON DC New Medications: Ethambutol HCl 600 mg PO DAILY 30 Days #45 tab Pyrazinamide [Pyrazinamide*] 500 mg PO BID 15 Days #30 tab rifAMPin [Rifadin*] 300 mg PO DAILY 30 Days #30 cap Azithromycin Tab [Zithromax*] 250 mg PO DAILY 30 Days #30 tab Puulmonary Physician Discharge Instructions: Wear a face mask for 2 wks. Avoid close contact and crowded places/ Meds faxed to pharmacy. Resume regular job duties in 2 wks ( only no fever)/Hetal to contact the patient from pressure at [facility] and monitored treatment until cultures are available. Antibiotic therapy will be modified according to culture results Patient is 63 years of age admitted with fever left upper lobe changes failed patient therapy with levofloxacin patient was treated with broad-spectrum antibiotics continue to have fever AFB isolated from the sputum. 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 Bryan in the past, will follow up outpatient Cacehctic History of rectal polyps 39.46 KG Dietary consulted Patient drinks 560 yumiko boost at home Full code DVT Lovenox diet regular Discharge Plan: Home - Code Status/Comfort Care Code Status: Full Code Physician Review: Patient Assessed, Agree with Above Assessment and Plan Critical Care: No Time Spent Managing PTS Care (In Minutes): 35
[2023-09-25] MEDS: ETHAMBUTOL HCL 400 MG TAB PO SCH (21:00)
[2023-09-26] MEDS: ACETAMINOPHEN 500 MG TAB PO PRN ×3 (06:54→21:07)
--- NOTE | 2023-09-26 07:01 | P.PN ---
Subjective Date of Service: 09/26/23 Chief Complaint: Fever Subjective: Improving resting, reported generalized weakness, no fever today Review of Systems ROS perHPI Physical Examination - Vital Signs Temperature: 100.1 F Blood Pressure: 102/58 Pulse: 86 Respirations: 18 Pulse Ox (%): 88 - Physical Exam General: Alert, In no apparent distress, Cachectic HEENT: Atraumatic, Normocephalic Neck: Supple, 2+ carotid pulse no bruit Respiratory: Normal air movement, Diminished Cardiovascular: Normal pulses, Regular rate/rhythm Capillary refill: <2 Seconds Gastrointestinal: Normal bowel sounds, Soft and benign Musculoskeletal: No clubbing Integumentary: No rashes, No breakdown Neurological: Normal speech, Normal strength at 5/5 x4 extr Assessment And Plan - Plan Assessment and Plan Acute hypoxic respiratory failure secondary to pneumonia Sepsis without septic shock secondary to pneumonia COPD exacerbation vs pneumonitis Pulmonary consult BP 148 / 90; Pulse 146; Resp 28; Temp 101; Pulse Ox 93% on R/A; Weight 36.29 kg;5 ft. 1 in. ; Pain 8/10; heart rate improved with IV fluids, initia Laboratory evaluation WBCs 29.60, EKG Rate is 136 beats/min. Rhythm is regular. Right axis deviation noted. [place] interval is normal at 114 msec. QRS interval is normal at 70 msec. QT interval is normal at 272 msec. T waves are Normal. No ST changes noted. Clinical impres davy: Sinus tachycardia. UA pending, COVID-negative, chest x-ray IMPRESSION: Increased left upper lobe opacification compared with the recent chest CT and chest radiograph could represent an acute pneumonia superimposed upon chronic changes Sepsis bolus given for pneumonia without hypotension. 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 to [place] is still pending there is unlikely to change treatment for now also added Tamara Qualifiers: Pneumonia type: due to unspecified organism Laterality: left Qualified Code(s): J18.9 - Pneumonia, unspecifie UPON DC New Medications: Ethambutol HCl 600 mg PO DAILY 30 Days #45 tab Pyrazinamide [Pyrazinamide*] 500 mg PO BID 15 Days #30 tab rifAMPin [Rifadin*] 300 mg PO DAILY 30 Days #30 cap Azithromycin Tab [Zithromax*] 250 mg PO DAILY 30 Days #30 tab Puulmonary Physician Discharge Instructions: Wear a face mask for 2 wks. Avoid close contact and crowded places/ Meds faxed to pharmacy. Resume regular job duties in 2 wks ( only no fever)/Hetal to contact the patient from pressure at [facility] and monitored treatment until cultures are available. Antibiotic therapy will be modified according to culture results Patient is 63 years of age admitted with fever left upper lobe changes failed patient therapy with levofloxacin patient was treated with broad-spectrum antibiotics continue to have fever AFB isolated from the sputum. 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 Bryan in the past, will follow up outpatient Cacehctic History of rectal polyps 39.46 KG Dietary consulted Patient drinks 560 yumiko boost at home Full code DVT Lovenox diet regular Discharge Plan: Home Plan to discharge in: 48 Hours - Code Status/Comfort Care Code Status: Full Code Physician Review: Patient Assessed, Agree with Above Assessment and Plan Critical Care: No Time Spent Managing PTS Care (In Minutes): 35
[2023-09-26 07:55] LABS: Absolute Lymphocytes (CBC) 1.1 K/uL (0.7-4.9); Lymphocytes % 7.6 % (15.3-44.8); MCV 74.5 fL (80-100); MPV 6.4 fL (7.6-11.3); Platelets 967 thou/uL (152-406); RBC Red Blood Cell Count 3.36 M/uL (3.86-4.86)
[2023-09-26 08:12] LABS: Magnesium 2.2 mg/dL (1.6-2.4); Potassium 4.1 mEq/L (3.5-5.1)
[2023-09-26] MEDS: DULOXETINE 30 MG CAP PO SCH (09:00)
--- NOTE | 2023-09-26 09:34 | RAD REPORT ---
EXAM DESCRIPTION: Dennis Dasilva And Alfred (2 Views)09/26/2023 9:18 am CLINICAL HISTORY: Fever COMPARISON: September 19, 2023 FINDINGS: Mild worsening in the consolidation involving the lateral aspect of the mid left lung. No significant change in the mild reticulonodular opacities within the lungs, bronchiectasis, left up per lobe volume loss and left upper lobe opacities. The heart is normal size. Lungs are hyperaerated IMPRESSION: Mild worsening in the consolidation involving the lateral aspect of the mid left lung
[2023-09-26] MEDS: AZITHROMYCIN 250 MG TAB PO SCH (09:45)
[2023-09-26] MEDS: ISONIAZID 300 MG TAB PO SCH (09:45)
[2023-09-26] MEDS: DULERA 100/5 (MOMETASONE/FORMOTEROL) INHALER IH SCH ×2 (09:45→21:00)
[2023-09-26] MEDS: ENSURE ENLIVE 237 ML CAN PO SCH ×3 (09:45→21:03)
[2023-09-26] MEDS: predniSONE 10 MG TAB PO SCH (09:45)
[2023-09-26] MEDS: ENOXAPARIN 40 MG/0.4 ML SQ SCH (09:45)
[2023-09-26] MEDS: PYRIDOXINE (VIT B6) 50 MG TAB PO SCH (09:45)
[2023-09-26] MEDS: PYRAZINAMIDE 500 MG TAB PO SCH ×2 (09:45→21:00)
--- NOTE | 2023-09-26 12:39 | P.PN ---
Subjective Date of Service: 09/26/23 Chief Complaint: Fever Patient is feeling better cough and congestion have improved still has some borderline fever chest x-ray questionable worsening Review of Systems General: Weakness Respiratory: Cough, Shortness of Breath Physical Examination - Vital Signs Temperature: 97.1 F Blood Pressure: 102/59 Pulse: 117 Respirations: 18 Pulse Ox (%): 93 - Physical Exam General: Alert, Oriented x3 Respiratory: Clear to auscultation bilaterally Cardiovascular: No edema, Regular rate/rhythm Assessment And Plan - Current Problems (Diagnosis) (1) Pneumonia Current Visit: No Status: Acute Plan: Left upper lobe fibrocavitary changes sputum cultures ordered she has a slight fever fever persists will proceed to bronchoscopy patient's white count is declined signs stable urination satisfactory Qualifiers: Pneumonia type: due to unspecified organism Laterality: left Lung location: unspecified part of lung Qualified Code(s): J18.9 - Pneumonia, unspecified organism Physician Review: Patient Assessed, Agree with Above Assessment and Plan
[2023-09-26] MEDS: ONDANSETRON 4 MG/2 ML VIAL IV PRN ×2 (12:56→21:27)
[2023-09-26 16:23] LABS: ALT/SGPT 21 U/L (13-56); AST/SGOT 11 U/L (15-37); Albumin 2.1 g/dL (3.4-5.0); Alkaline Phosphatase 184 U/L (45-117); Bilirubin Total 0.2 mg/dL (0.2-1.0); Protein, Total 6.6 g/dL (6.4-8.2)
[2023-09-26 16:27] LABS: Bilirubin Direct < 0.1 mg/dL (0-0.2); Bilirubin Indirect, Calculated ND mg/dL (0.2-0.8)
[2023-09-26] MEDS: ETHAMBUTOL HCL 400 MG TAB PO SCH (21:00)
[2023-09-27] MEDS: ACETAMINOPHEN 500 MG TAB PO PRN (08:09)
[2023-09-27] MEDS: PYRIDOXINE (VIT B6) 50 MG TAB PO SCH (08:13)
[2023-09-27] MEDS: predniSONE 10 MG TAB PO SCH (08:13)
[2023-09-27] MEDS: DULOXETINE 30 MG CAP PO SCH (08:13)
[2023-09-27] MEDS: ONDANSETRON 4 MG/2 ML VIAL IV PRN (08:13)
[2023-09-27] MEDS: DULERA 100/5 (MOMETASONE/FORMOTEROL) INHALER IH SCH (08:15)
[2023-09-27] MEDS: PYRAZINAMIDE 500 MG TAB PO SCH (08:17)
[2023-09-27] MEDS: ISONIAZID 300 MG TAB PO SCH (08:17)
[2023-09-27] MEDS: ENSURE ENLIVE 237 ML CAN PO SCH (08:18)
[2023-09-27] MEDS: AZITHROMYCIN 250 MG TAB PO SCH (08:23)
[2023-09-27] MEDS: ENOXAPARIN 40 MG/0.4 ML SQ SCH (08:23)
--- NOTE | 2023-09-27 08:28 | P.DS ---
Admission Date: 09/13/23 Discharge Date: 09/27/23 Disposition: ROUTINE DISCHARGE Discharge Condition: FAIR Reason for Admission: Fever Brief History of Present Illness: 63-year-old female with a past medical history pneumonia, COPD, pneumothorax, presents to the emergency room with fever. Reports temperature 103 today. 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 No reported nausea vomiting diarrhea constipation. No reported headache weakness.BP 148 / 90; Pulse 146; Resp 28; Temp 101; Pulse Ox 93% on R/A; Weight 36.29 kg; Height 5 ft. 1 in. ; Pain 8/10; heart rate improved with IV fluids, Plan to admit for acute hypoxic respiratory failure secondary to pneumonia, sepsis without shock. Laboratory evaluation WBCs 29.60, microcytic anemia 10.8, 32.6, blood glucose 146 transaminitis AST 55, ALT 159, elevated ALK 395, UA pending, COVID-negative, chest x-ray IMPRESSION: Increased left upper lobe opacification compared with the recent chest CT and chest radiograph could represent an acute pneumonia superimposed upon chronic changes. EKG 7 Rate is 136 beats/min. Rhythm is regular. Right axis deviation noted. LA interval is normal at 114 msec. QRS interval is normal at 70 msec. QT interval is normal at 272 msec. T waves are Normal. No ST changes noted. Clinical impression: Sinus tachycardia. Sepsis bolus given for pneumonia without hypotension. 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 plan to discharge patient on quadruple therapy until species identified continue with inhaler and will avoid steroids have advised the patient to maintain strict isolation for 2 weeks if she goes out wearing a mask work for at least 2 weeks can resume regular activity once afebrile we will contact the [facility] to monitor the patient until cultures come back at the time of discharge she was alert oriented responsive cooperative no fever vital signs stable patient to maintain strict isolation for 2 weeks if she goes out wearing a mask work for at least 2 weeks can resume regular activity once afebrile we will contact the [facility] department to monitor the patient until cultures come back at the time of discharge she was alert oriented responsive cooperative no fever vital signs stable Echocardiogram COMMENTS: 1. NORMAL LEFT VENTRICULAR SIZE AND FUNCTION. 2. EJECTION FRACTION 60% 3. MILD CALCIFIED AORTIC VALVE, NO STENOSIS OR AORTIC INSUFFICIENCY 4. MODERATE PERICARDIAL EFFUSION AROUND RIGHT VENTRICLE AND RIGHT ATRIUM, NO TAMPONADE Chest x-ray report FINDINGS: Partial improvement of aeration in the left upper to mid lung. Background hyperinflation and chronic interstitial changes with scarring more pronounced in the left upper lung, otherwise stable. There may be trace left pleural effusion, stable. No pneumothorax. The cardiomediastinal contours are unremarkable.IMPRESSION: Partial improvement of aeration in the left upper to mid lung, suggesting improving pneumonia Patient to follow-up with health care department At the time of discharge oxygenation satisfactory blood pressure stable Follow up with pulmonary, Dr Kilpatrick after discharge 7-10 days Follow up with PCP after discharge 7-10 days Return to ER for worsening of symptoms, or call 911 Physician Discharge Instructions: -DC IV and DC home -Follow-up with PCP in 1 to 2 weeks -Please call Dr. Garcia at [phone] if any questions regarding hospital stay -Please call nursing station at [phone] if any nursing or medication questions -Return to the emergency room if symptoms worsen Diet: Low sodium Activity: Fall precautions Vital Signs/Physical Exam: Temp Pulse Resp BP Pulse Ox 100.5 F 103 H 20 115/62 90 L 09/27/23 08:09 09/27/23 04:00 09/27/23 04:00 09/27/23 04:00 09/27/23 04:00 Laboratory Data at Discharge: WBC 14.10 thou/uL (4.3-10.9) H 09/26/23 07:19 Hgb 8.3 g/dL (12.0-15.0) L 09/26/23 07:19 Hct 25.0 % (36.0-45.0) L 09/26/23 07:19 Plt Count 967 thou/uL (152-406) H 09/26/23 07:19 PT 14.1 SECONDS (9.5-12.5) H 09/13/23 10:00 INR 1.28 09/13/23 10:00 APTT 33.8 SECONDS (24.3-36.9) 09/13/23 10:00 Sodium 132 mEq/L (136-145) L 09/26/23 07:19 Potassium 4.1 mEq/L (3.5-5.1) 09/26/23 07:19 BUN 17 mg/dL (7-18) 09/26/23 07:19 Creatinine 0.38 mg/dL (0.55-1.02) L 09/26/23 07:19 Glucose 99 mg/dL (74-106) 09/26/23 07:19 Phosphorus 2.9 mg/dL (2.5-4.9) 09/24/23 08:30 Magnesium 2.2 mg/dL (1.6-2.4) 09/26/23 07:19 Total Bilirubin 0.2 mg/dL (0.2-1.0) 09/26/23 07:19 AST 11 U/L (15-37) L 09/26/23 07:19 ALT 21 U/L (13-56) 09/26/23 07:19 Alkaline Phosphatase 184 U/L (45-117) H 09/26/23 07:19 Home Medications: Duloxetine HCl 30 mg PO DAILY 09/02/23 Mometasone/Formoterol [Dulera 200 Mcg/5 Mcg Inhaler] 2 puff IH BID 30 Days #1 inhaler 09/07/23 Albuterol Inhaler [Ventolin Inhaler*] 2 puff IH Q4HR PRN 09/13/23 Azithromycin Tab [Zithromax*] 250 mg PO DAILY 30 Days #30 tab 09/22/23 Ethambutol HCl 600 mg PO DAILY 30 Days #45 tab 09/22/23 Pyrazinamide [Pyrazinamide*] 500 mg PO BID 15 Days #30 tab 09/22/23 rifAMPin [Rifadin*] 300 mg PO DAILY 30 Days #30 cap 09/22/23 New Medications: Ethambutol HCl 600 mg PO DAILY 30 Days #45 tab Pyrazinamide [Pyrazinamide*] 500 mg PO BID 15 Days #30 tab rifAMPin [Rifadin*] 300 mg PO DAILY 30 Days #30 cap Azithromycin Tab [Zithromax*] 250 mg PO DAILY 30 Days #30 tab Physician Discharge Instructions: Wear a face mask for 2 wks. Avoid close contact and crowded places/ Meds faxed to pharmacy. Resume regular job duties in 2 wks ( only no fever)/Hetal to contact the patient from pressure at [facility] and monitored treatment until cultures are available. Antibiotic therapy will be modified according to culture results Patient is 63 years of age admitted with fever left upper lobe changes failed patient therapy with levofloxacin patient was treated with broad-spectrum antibiotics continue to have fever AFB isolated from the sputum. 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 NORMAL LEFT VENTRICULAR SIZE AND FUNCTION. 2. EJECTION FRACTION 60% 3. MILD CALCIFIED AORTIC VALVE, NO STENOSIS OR AORTIC INSUFFICIENCY 4. MODERATE PERICARDIAL EFFUSION AROUND RIGHT VENTRICLE AND RIGHT ATRIUM, NO TAMPONADE Patient to follow-up with health care department At the time of discharge oxygenation satisfactory blood pressure stable Diet: Regular Activity: Ad maribeth Followup: Steve Kilpatrick MD [ACTIVE - CAN ADMIT] - 1-2 Weeks (make follow up appointment )
[2023-09-27 10:13] VITALS: BP 107/55
[2023-09-27 10:38] VITALS: TEMP 99
[2023-09-27 12:18] VITALS: O2SAT 92
== END 2023-09-27 13:30 | disposition home or self-care (01) | DRG 871 ==
LOC: ER 09:36 → ERHOLD 12:52 → 2ND 16:12
PROVIDERS: ADMIT Hospitalist; ATTEND Hospitalist
DX: A41.9 Sepsis, unspecified organism (principal); E43 Unspecified severe protein-calorie malnutrition; J18.9 Pneumonia, unspecified organism; J96.01 Acute respiratory failure with hypoxia; Z68.1 Body mass index [BMI] 19.9 or less, adult; R64 Cachexia; J47.0 Bronchiectasis with acute lower respiratory infection; A31.9 Mycobacterial infection, unspecified; J43.9 Emphysema, unspecified; D69.6 Thrombocytopenia, unspecified; D50.9 Iron deficiency anemia, unspecified; D75.839 Thrombocytosis, unspecified; F17.200 Nicotine dependence, unspecified, uncomplicated; B96.89 Other specified bacterial agents as the cause of diseases classified elsewhere; R74.01 Elevation of levels of liver transaminase levels; Z90.2 Acquired absence of lung [part of]; Z88.5 Allergy status to narcotic agent; Z11.52 Encounter for screening for COVID-19; Z79.52 Long term (current) use of systemic steroids; Z90.49 Acquired absence of other specified parts of digestive tract; Z90.710 Acquired absence of both cervix and uterus; Z79.899 Other long term (current) drug therapy
CPT/HCPCS: 36415; 71045; 71046; 80048; 80053; 80076; 80202; 81001; 82607; 83540; 83605; 83735; 83880; 84100; 84484; 85025; 85027; 85044; 85610; 85730; 86480; 87015; 87040; 87070; 87116; 87205; 87206; 87804; 87811; 93005; 93306; 94640; 94760; 96365; 96367; 96375; 97110; 97116; 97161; 99285; J0692; J1650; J2405; J3535; J7030; J7050; J7512; J7644; P9047; Q0162

== ENCOUNTER 2023-10-12 08:43 | Inpatient (IN) | payer OTHER ==
--- OUTSIDE RECORDS SUMMARY | 2023-10-12 08:48 | XMS REPORT | Continuity of Care Document ---
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 Name Role Phone FLORY_Richie Attending Clinician Unavailable Umm Ruth Attending Clinician [phone] Umm Ruth Attending Clinician [phone] Doctor Unassigned, [place] Attending Clinician U navailable Lab, Adc Fam Pob I Attending Clinician Unavailab Eboni Abbasi Attending Clinician [phone] EBONI CARRERA Attending Clinician Unavailable FLORY_Richie Admitting Clinician Unavailable Payers Payer Name Policy Type Policy Number Effective Date Expirati on Date Source [facility] FUNDED - MULTIPLAN [id number] 2018 00:00:00 [facility] [id number] 2018 00:00:00 Problems Condition Name Condition Details Condition Category Status Onset Date Resolution Date Last Treatment Date Treating Clinician Comments Source Hernia of anterior abdominal wall Hernia of Anterior Abdominal Wall Problem Active 2022-10 0-16 00:00: 00 [facility] Hemoptysis Hemoptysis Problem Active 9-20 00:00: 00 [facility] 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 Problem Active 8 00:00: 00 [facility] Long-term drug therapy Long-term Drug Therapy Problem Active 8- 00:00: 00 [facility] Adenoma of rectum Adenoma of Rectum Problem Active 6 00:00: 00 [facility] Solitary nodule of lung Solitary Nodule of Lung Problem Active 04-24 00:00: 00 [facility] Thrombocyt osis Thrombocyt osis Problem Active 03-20 00:00: 00 [facility] Loss of appetite Loss of Appetite Problem Active 03-20 00:00: 00 [facility] Pain of right shoulder joint Pain of Right Shoulder Joint Problem Active 03-17 00:00: 00 [facility] Chronic neck pain Chronic Neck Pain Problem Active 07-01 00:00: 00 [facility] Scapulalgi a Scapulalgi a Problem Active 07-01 00:00: 00 [facility] Gout Gout Problem Active 05-19 00:00: 00 [facility] Insomnia Insomnia Problem Active 05-19 00:00: 00 [facility] Hearing loss Hearing Loss Problem Active 05-19 00[facility]00: 00 [facility] Hypertensi ve disorder Hypertensi ve Disorder Problem Active 05-19 00:00: 00 [facility] Seasonal allergy Seasonal Allergy Problem Active 05-19 00:00: 00 [facility] Asthma Asthma Problem Active 05-19 00:00: 00 [facility] Chronic obstructiv e lung disease Chronic Obstructiv e Lung Disease Problem Active 05-19 00:00: 00 [facility] Hematochez ia Hematochez ia Problem Active 05-19 00:00: 00 [facility] Arthritis Arthritis Problem Active 05-19 00:00: 00 [facility] Cramp in lower leg associated with rest Cramp in Lower Leg Associated with Rest Problem Active 05-19 00:00: 00 [facility] Syncope Syncope Problem Active 05-19 00:00: 00 [facility] Malaise Malaise Problem Active 05-19 00:00: 00 [facility] Fracture of multiple ribs Fracture of Multiple Ribs Problem Active 05-19 00:00: 00 [facility] Bipolar disorder Bipolar Disorder Problem Active [facility] History of manic depressive disorder History of Manic Depressive Disorder Problem Active [facility] Allergies, Adverse Reactions, Alerts Allergy Name Allergy Type Status Severity Reaction(s) Onset Date Inactive Date Treating Clinician Comments Source NO KNOWN ALLERGIE S Drug Class Active [facility] Morphine Allergy to substanc e Active [facility] Social History Social Habit Start Date Stop Date Quantity Comments Source Sex Assigned At 1960 00:00:00 1960 00:00:00 [facility] Smoking Status Start Date Stop Date Source Unknown if ever smoked [facility] Heavy Tobacco Smoker [facility] Medications Ordered Medication Name Filled Medication Name Start Date Stop Date Current Medication? Ordering Clinician Indication Dosage Frequency Signature (SIG) Comments Components Source cyanocobala min (vit B-12) 1,000 mcg/mL injection solutionInj ect 1 mL every month by subcutaneou s route. cyanocobala min (vit B-12) 1,000 mcg/mL injection solutionInj ect 1 mL every month by subcutaneou s route. 16 17:16: 36 No cyanocobal rahman (vit B-12) 1,000 mcg/mL injection solutionIn ject 1 mL every month by subcutaneo us route. [facility] albuterol sulfate HFA 90 mcg/actuati on aerosol inhaler Inhale 2 puffs every 4 hours by inhalation route as needed for 90 days. albuterol sulfate HFA 90 mcg/actuati on aerosol inhaler Inhale 2 puffs every 4 hours by inhalation route as needed for 90 days. No 2puff(s ) Q4H albuterol sulfate HFA 90 mcg/actuat ion aerosol inhaler Inhale 2 puffs every 4 hours by inhalation route as needed for 90 days. [facility] cyclobenzap rine 10 mg tablet TAKE 1 TABLET BY MOUTH THREE TIMES A DAY NEEDED cyclobenzap rine 10 mg tablet TAKE 1 TABLET BY MOUTH THREE TIMES A DAY NEEDED No cyclobenza king 10 mg tablet TAKE 1 TABLET BY MOUTH THREE TIMES A DAY NEEDED [facility] gabapentin 300 mg capsule TAKE 1 CAPSULE BY MOUTH TWICE A DAY gabapentin 300 mg capsule TAKE 1 CAPSULE BY MOUTH TWICE A DAY No gabapentin 300 mg capsule TAKE 1 CAPSULE BY MOUTH TWICE A DAY [facility] hydrocodone 5 mg-acetamin ophen 325 mg tablet Take 1 tablet every 6 hours by oral route as needed. hydrocodone 5 mg-acetamin ophen 325 mg tablet Take 1 tablet every 6 hours by oral route as needed. No 1 Q6H hydrocodon e 5 mg-acetami nophen 325 mg tablet Take 1 tablet every 6 hours by oral route as needed. [facility] iron otc one BID with meals iron otc one BID with meals No iron otc one BID with meals [facility] meloxicam 7.5 mg tablet TAKE 1 TABLET BY MOUTH EVERY DAY meloxicam 7.5 mg tablet TAKE 1 TABLET BY MOUTH EVERY DAY No meloxicam 7.5 mg tablet TAKE 1 TABLET BY MOUTH EVERY DAY [facility] quetiapine 100 mg tablet TAKE 1 TABLET BY MOUTH EVERYDAY AT BEDTIME quetiapine 100 mg tablet TAKE 1 TABLET BY MOUTH EVERYDAY AT BEDTIME No quetiapine 100 mg tablet TAKE 1 TABLET BY MOUTH EVERYDAY AT BEDTIME [facility] Symbicort 160 mcg-4.5 mcg/actuati on HFA aerosol inhaler Inhale 2 puffs twice a day by inhalation route as directed for 30 days. Symbicort 160 mcg-4.5 mcg/actuati on HFA aerosol inhaler Inhale 2 puffs twice a day by inhalation route as directed for 30 days. No 2puff(s ) BID Symbicort 160 mcg-4.5 mcg/actuat ion HFA aerosol inhaler Inhale 2 puffs twice a day by inhalation route as directed for 30 days. [facility] venlafaxine ER 37.5 mg capsule,ext ended release 24 hr TAKE 1 CAPSULE BY MOUTH EVERY DAY venlafaxine ER 37.5 mg capsule,ext ended release 24 hr TAKE 1 CAPSULE BY MOUTH EVERY DAY No venlafaxin e ER 37.5 mg capsule,ex tended release 24 hr TAKE 1 CAPSULE BY MOUTH EVERY DAY [facility] Vitamin D3 otc 5000 iu daily Vitamin D3 otc 5000 iu daily No Vitamin D3 otc 5000 iu daily [facility] albuterol sulfate 2.5 mg/3 mL (0.083 %) solution for nebulizatio n USE 1 VIAL IN NEBULIZER 3 TIMES A DAY albuterol sulfate 2.5 mg/3 mL (0.083 %) solution for nebulizatio n USE 1 VIAL IN NEBULIZER 3 TIMES A DAY No albuterol sulfate 2.5 mg/3 mL (0.083 %) solution for nebulizati on USE 1 VIAL IN NEBULIZER 3 TIMES A DAY [facility] albuterol sulfate HFA 90 mcg/actuati on aerosol inhaler INHALE 2 PUFFS EVERY 4 HOURS NEEDED albuterol sulfate HFA 90 mcg/actuati on aerosol inhaler INHALE 2 PUFFS EVERY 4 HOURS NEEDED No albuterol sulfate HFA 90 mcg/actuat ion aerosol inhaler INHALE 2 PUFFS EVERY 4 HOURS NEEDED [facility] azithromyci n 250 mg tablet TAKE 2 TABLETS BY MOUTH TODAY, THEN TAKE 1 TABLET DAILY FOR 4 DAYS azithromyci n 250 mg tablet TAKE 2 TABLETS BY MOUTH TODAY, THEN TAKE 1 TABLET DAILY FOR 4 DAYS No azithromyc in 250 mg tablet TAKE 2 TABLETS BY MOUTH TODAY, THEN TAKE 1 TABLET DAILY FOR 4 DAYS [facility] cyclobenzap rine 10 mg tablet TAKE 1 TABLET BY MOUTH THREE TIMES A DAY NEEDED cyclobenzap rine 10 mg tablet TAKE 1 TABLET BY MOUTH THREE TIMES A DAY NEEDED No cyclobenza king 10 mg tablet TAKE 1 TABLET BY MOUTH THREE TIMES A DAY NEEDED [facility] escitalopra m 10 mg tablet TAKE 1 TABLET BY MOUTH EVERY DAY FOR 30 DAYS escitalopra m 10 mg tablet TAKE 1 TABLET BY MOUTH EVERY DAY FOR 30 DAYS No escitalopr am 10 mg tablet TAKE 1 TABLET BY MOUTH EVERY DAY FOR 30 DAYS [facility] gabapentin 300 mg capsule TAKE 1 CAPSULE BY MOUTH TWICE A DAY gabapentin 300 mg capsule TAKE 1 CAPSULE BY MOUTH TWICE A DAY No gabapentin 300 mg capsule TAKE 1 CAPSULE BY MOUTH TWICE A DAY [facility] hydrocodone 5 mg-acetamin ophen 325 mg tablet Take 1 tablet every 6 hours by oral route as needed. hydrocodone 5 mg-acetamin ophen 325 mg tablet Take 1 tablet every 6 hours by oral route as needed. No 1 Q6H hydrocodon e 5 mg-acetami nophen 325 mg tablet Take 1 tablet every 6 hours by oral route as needed. [facility] iron otc one BID with meals iron otc one BID with meals No iron otc one BID with meals [facility] meloxicam 7.5 mg tablet TAKE 1 TABLET BY MOUTH EVERY DAY meloxicam 7.5 mg tablet TAKE 1 TABLET BY MOUTH EVERY DAY No meloxicam 7.5 mg tablet TAKE 1 TABLET BY MOUTH EVERY DAY [facility] methylpredn isolone 4 mg tablets in a dose pack TAKE 6 TABLETS ON DAY 1 DIRECTED ON PACKAGE AND DECREASE BY 1 TAB EACH DAY FOR A TOTAL OF 6 DAYS methylpredn isolone 4 mg tablets in a dose pack TAKE 6 TABLETS ON DAY 1 DIRECTED ON PACKAGE AND DECREASE BY 1 TAB EACH DAY FOR A TOTAL OF 6 DAYS No methylpred nisolone 4 mg tablets in a dose pack TAKE 6 TABLETS ON DAY 1 DIRECTED ON PACKAGE AND DECREASE BY 1 TAB EACH DAY FOR A TOTAL OF 6 DAYS [facility] quetiapine 100 mg tablet TAKE 1 TABLET BY MOUTH EVERYDAY AT BEDTIME quetiapine 100 mg tablet TAKE 1 TABLET BY MOUTH EVERYDAY AT BEDTIME No quetiapine 100 mg tablet TAKE 1 TABLET BY MOUTH EVERYDAY AT BEDTIME [facility] Symbicort 160 mcg-4.5 mcg/actuati on HFA aerosol inhaler Inhale 2 puffs twice a day by inhalation route as directed for 30 days. Symbicort 160 mcg-4.5 mcg/actuati on HFA aerosol inhaler Inhale 2 puffs twice a day by inhalation route as directed for 30 days. No 2puff(s ) BID Symbicort 160 mcg-4.5 mcg/actuat ion HFA aerosol inhaler Inhale 2 puffs twice a day by inhalation route as directed for 30 days. [facility] venlafaxine ER 37.5 mg capsule,ext ended release 24 hr TAKE 1 CAPSULE BY MOUTH EVERY DAY venlafaxine ER 37.5 mg capsule,ext ended release 24 hr TAKE 1 CAPSULE BY MOUTH EVERY DAY No venlafaxin e ER 37.5 mg capsule,ex tended release 24 hr TAKE 1 CAPSULE BY MOUTH EVERY DAY [facility] Vitamin D3 otc 5000 iu daily Vitamin D3 otc 5000 iu daily No Vitamin D3 otc 5000 iu daily [facility] albuterol sulfate 2.5 mg/3 mL (0.083 %) solution for nebulizatio n USE 1 VIAL IN NEBULIZER 3 TIMES A DAY albuterol sulfate 2.5 mg/3 mL (0.083 %) solution for nebulizatio n USE 1 VIAL IN NEBULIZER 3 TIMES A DAY No albuterol sulfate 2.5 mg/3 mL (0.083 %) solution for nebulizati on USE 1 VIAL IN NEBULIZER 3 TIMES A DAY [facility] albuterol sulfate HFA 90 mcg/actuati on aerosol inhaler INHALE 2 PUFFS EVERY 4 HOURS NEEDED albuterol sulfate HFA 90 mcg/actuati on aerosol inhaler INHALE 2 PUFFS EVERY 4 HOURS NEEDED No albuterol sulfate HFA 90 mcg/actuat ion aerosol inhaler INHALE 2 PUFFS EVERY 4 HOURS NEEDED [facility] benzonatate 100 mg capsule TAKE 1 CAPSULE BY MOUTH THREE TIMES A DAY benzonatate 100 mg capsule TAKE 1 CAPSULE BY MOUTH THREE TIMES A DAY No benzonatat e 100 mg capsule TAKE 1 CAPSULE BY MOUTH THREE TIMES A DAY [facility] cyclobenzap rine 10 mg tablet TAKE 1 TABLET BY MOUTH THREE TIMES A DAY NEEDED cyclobenzap rine 10 mg tablet TAKE 1 TABLET BY MOUTH THREE TIMES A DAY NEEDED No cyclobenza king 10 mg tablet TAKE 1 TABLET BY MOUTH THREE TIMES A DAY NEEDED [facility] escitalopra m 10 mg tablet TAKE 1 TABLET BY MOUTH EVERY DAY FOR 30 DAYS escitalopra m 10 mg tablet TAKE 1 TABLET BY MOUTH EVERY DAY FOR 30 DAYS No escitalopr am 10 mg tablet TAKE 1 TABLET BY MOUTH EVERY DAY FOR 30 DAYS [facility] meloxicam 7.5 mg tablet TAKE 1 TABLET BY MOUTH EVERY DAY meloxicam 7.5 mg tablet TAKE 1 TABLET BY MOUTH EVERY DAY No meloxicam 7.5 mg tablet TAKE 1 TABLET BY MOUTH EVERY DAY [facility] quetiapine 100 mg tablet TAKE 1 TABLET BY MOUTH EVERYDAY AT BEDTIME quetiapine 100 mg tablet TAKE 1 TABLET BY MOUTH EVERYDAY AT BEDTIME No quetiapine 100 mg tablet TAKE 1 TABLET BY MOUTH EVERYDAY AT BEDTIME [facility] Vitamin D3 otc 5000 iu daily Vitamin D3 otc 5000 iu daily No Vitamin D3 otc 5000 iu daily [facility] albuterol sulfate 2.5 mg/3 mL (0.083 %) solution for nebulizatio n USE 1 VIAL IN NEBULIZER 3 TIMES A DAY albuterol sulfate 2.5 mg/3 mL (0.083 %) solution for nebulizatio n USE 1 VIAL IN NEBULIZER 3 TIMES A DAY No albuterol sulfate 2.5 mg/3 mL (0.083 %) solution for nebulizati on USE 1 VIAL IN NEBULIZER 3 TIMES A DAY [facility] albuterol sulfate HFA 90 mcg/actuati on aerosol inhaler INHALE 2 PUFFS EVERY 4 HOURS NEEDED albuterol sulfate HFA 90 mcg/actuati on aerosol inhaler INHALE 2 PUFFS EVERY 4 HOURS NEEDED No albuterol sulfate HFA 90 mcg/actuat ion aerosol inhaler INHALE 2 PUFFS EVERY 4 HOURS NEEDED [facility] benzonatate 100 mg capsule TAKE 1 CAPSULE BY MOUTH THREE TIMES A DAY benzonatate 100 mg capsule TAKE 1 CAPSULE BY MOUTH THREE TIMES A DAY No benzonatat e 100 mg capsule TAKE 1 CAPSULE BY MOUTH THREE TIMES A DAY [facility] cyanocobala min (vit B-12) 1,000 mcg/mL injection solution Inject 1 mL every month by subcutaneou s route. cyanocobala min (vit B-12) 1,000 mcg/mL injection solution Inject 1 mL every month by subcutaneou s route. No 1mL cyanocobal rahman (vit B-12) 1,000 mcg/mL injection solution Inject 1 mL every month by subcutaneo us route. [facility] cyclobenzap rine 10 mg tablet TAKE 1 TABLET BY MOUTH THREE TIMES A DAY NEEDED cyclobenzap rine 10 mg tablet TAKE 1 TABLET BY MOUTH THREE TIMES A DAY NEEDED No cyclobenza king 10 mg tablet TAKE 1 TABLET BY MOUTH THREE TIMES A DAY NEEDED [facility] escitalopra m 10 mg tablet TAKE 1 TABLET BY MOUTH EVERY DAY FOR 30 DAYS escitalopra m 10 mg tablet TAKE 1 TABLET BY MOUTH EVERY DAY FOR 30 DAYS No escitalopr am 10 mg tablet TAKE 1 TABLET BY MOUTH EVERY DAY FOR 30 DAYS [facility] meloxicam 7.5 mg tablet TAKE 1 TABLET BY MOUTH EVERY DAY meloxicam 7.5 mg tablet TAKE 1 TABLET BY MOUTH EVERY DAY No meloxicam 7.5 mg tablet TAKE 1 TABLET BY MOUTH EVERY DAY [facility] quetiapine 100 mg tablet TAKE 1 TABLET BY MOUTH EVERYDAY AT BEDTIME quetiapine 100 mg tablet TAKE 1 TABLET BY MOUTH EVERYDAY AT BEDTIME No quetiapine 100 mg tablet TAKE 1 TABLET BY MOUTH EVERYDAY AT BEDTIME [facility] Vitamin D3 otc 5000 iu daily Vitamin D3 otc 5000 iu daily No Vitamin D3 otc 5000 iu daily [facility] albuterol sulfate 2.5 mg/3 mL (0.083 %) solution for nebulizatio n USE 1 VIAL IN NEBULIZER 3 TIMES A DAY albuterol sulfate 2.5 mg/3 mL (0.083 %) solution for nebulizatio n USE 1 VIAL IN NEBULIZER 3 TIMES A DAY No albuterol sulfate 2.5 mg/3 mL (0.083 %) solution for nebulizati on USE 1 VIAL IN NEBULIZER 3 TIMES A DAY [facility] albuterol sulfate HFA 90 mcg/actuati on aerosol inhaler INHALE 2 PUFFS EVERY 4 HOURS NEEDED albuterol sulfate HFA 90 mcg/actuati on aerosol inhaler INHALE 2 PUFFS EVERY 4 HOURS NEEDED No albuterol sulfate HFA 90 mcg/actuat ion aerosol inhaler INHALE 2 PUFFS EVERY 4 HOURS NEEDED [facility] benzonatate 100 mg capsule TAKE 1 CAPSULE BY MOUTH THREE TIMES A DAY benzonatate 100 mg capsule TAKE 1 CAPSULE BY MOUTH THREE TIMES A DAY No benzonatat e 100 mg capsule TAKE 1 CAPSULE BY MOUTH THREE TIMES A DAY [facility] cyanocobala min (vit B-12) 1,000 mcg/mL injection solution Inject 1 mL every month by subcutaneou s route. cyanocobala min (vit B-12) 1,000 mcg/mL injection solution Inject 1 mL every month by subcutaneou s route. No 1mL cyanocobal rahman (vit B-12) 1,000 mcg/mL injection solution Inject 1 mL every month by subcutaneo us route. [facility] cyclobenzap rine 10 mg tablet TAKE 1 TABLET BY MOUTH THREE TIMES A DAY NEEDED cyclobenzap rine 10 mg tablet TAKE 1 TABLET BY MOUTH THREE TIMES A DAY NEEDED No cyclobenza king 10 mg tablet TAKE 1 TABLET BY MOUTH THREE TIMES A DAY NEEDED [facility] escitalopra m 10 mg tablet TAKE 1 TABLET BY MOUTH EVERY DAY FOR 30 DAYS escitalopra m 10 mg tablet TAKE 1 TABLET BY MOUTH EVERY DAY FOR 30 DAYS No escitalopr am 10 mg tablet TAKE 1 TABLET BY MOUTH EVERY DAY FOR 30 DAYS [facility] megestrol 400 mg/10 mL (40 mg/mL) oral suspension Take 10 mL every day by oral route in the morning. megestrol 400 mg/10 mL (40 mg/mL) oral suspension Take 10 mL every day by oral route in the morning. No 10mL Q1D megestrol 400 mg/10 mL (40 mg/mL) oral suspension Take 10 mL every day by oral route in the morning. [facility] meloxicam 7.5 mg tablet TAKE 1 TABLET BY MOUTH EVERY DAY meloxicam 7.5 mg tablet TAKE 1 TABLET BY MOUTH EVERY DAY No meloxicam 7.5 mg tablet TAKE 1 TABLET BY MOUTH EVERY DAY [facility] quetiapine 100 mg tablet TAKE 1 TABLET BY MOUTH EVERYDAY AT BEDTIME quetiapine 100 mg tablet TAKE 1 TABLET BY MOUTH EVERYDAY AT BEDTIME No quetiapine 100 mg tablet TAKE 1 TABLET BY MOUTH EVERYDAY AT BEDTIME [facility] Vitamin D3 otc 5000 iu daily Vitamin D3 otc 5000 iu daily No Vitamin D3 otc 5000 iu daily [facility] albuterol sulfate 2.5 mg/3 mL (0.083 %) solution for nebulizatio n USE 1 VIAL IN NEBULIZER 3 TIMES A DAY albuterol sulfate 2.5 mg/3 mL (0.083 %) solution for nebulizatio n USE 1 VIAL IN NEBULIZER 3 TIMES A DAY No albuterol sulfate 2.5 mg/3 mL (0.083 %) solution for nebulizati on USE 1 VIAL IN NEBULIZER 3 TIMES A DAY [facility] albuterol sulfate HFA 90 mcg/actuati on aerosol inhaler INHALE 2 PUFFS EVERY 4 HOURS NEEDED albuterol sulfate HFA 90 mcg/actuati on aerosol inhaler INHALE 2 PUFFS EVERY 4 HOURS NEEDED No albuterol sulfate HFA 90 mcg/actuat ion aerosol inhaler INHALE 2 PUFFS EVERY 4 HOURS NEEDED [facility] benzonatate 100 mg capsule TAKE 1 CAPSULE BY MOUTH THREE TIMES A DAY benzonatate 100 mg capsule TAKE 1 CAPSULE BY MOUTH THREE TIMES A DAY No benzonatat e 100 mg capsule TAKE 1 CAPSULE BY MOUTH THREE TIMES A DAY [facility] cyanocobala min (vit B-12) 1,000 mcg/mL injection solution Inject 1 mL every month by subcutaneou s route. cyanocobala min (vit B-12) 1,000 mcg/mL injection solution Inject 1 mL every month by subcutaneou s route. No 1mL cyanocobal rahman (vit B-12) 1,000 mcg/mL injection solution Inject 1 mL every month by subcutaneo us route. [facility] cyclobenzap rine 10 mg tablet TAKE 1 TABLET BY MOUTH THREE TIMES A DAY NEEDED cyclobenzap rine 10 mg tablet TAKE 1 TABLET BY MOUTH THREE TIMES A DAY NEEDED No cyclobenza king 10 mg tablet TAKE 1 TABLET BY MOUTH THREE TIMES A DAY NEEDED [facility] escitalopra m 10 mg tablet TAKE 1 TABLET BY MOUTH EVERY DAY FOR 30 DAYS escitalopra m 10 mg tablet TAKE 1 TABLET BY MOUTH EVERY DAY FOR 30 DAYS No escitalopr am 10 mg tablet TAKE 1 TABLET BY MOUTH EVERY DAY FOR 30 DAYS [facility] megestrol 400 mg/10 mL (40 mg/mL) oral suspension TAKE 10 ML BY MOUTH EVERY DAY IN THE MORNING. megestrol 400 mg/10 mL (40 mg/mL) oral suspension TAKE 10 ML BY MOUTH EVERY DAY IN THE MORNING. No megestrol 400 mg/10 mL (40 mg/mL) oral suspension TAKE 10 ML BY MOUTH EVERY DAY IN THE MORNING. [facility] meloxicam 7.5 mg tablet TAKE 1 TABLET BY MOUTH EVERY DAY meloxicam 7.5 mg tablet TAKE 1 TABLET BY MOUTH EVERY DAY No meloxicam 7.5 mg tablet TAKE 1 TABLET BY MOUTH EVERY DAY [facility] quetiapine 100 mg tablet TAKE 1 TABLET BY MOUTH EVERYDAY AT BEDTIME quetiapine 100 mg tablet TAKE 1 TABLET BY MOUTH EVERYDAY AT BEDTIME No quetiapine 100 mg tablet TAKE 1 TABLET BY MOUTH EVERYDAY AT BEDTIME [facility] Vitamin D3 otc 5000 iu daily Vitamin D3 otc 5000 iu daily No Vitamin D3 otc 5000 iu daily [facility] albuterol sulfate 2.5 mg/3 mL (0.083 %) solution for nebulizatio n USE 1 VIAL IN NEBULIZER 3 TIMES A DAY albuterol sulfate 2.5 mg/3 mL (0.083 %) solution for nebulizatio n USE 1 VIAL IN NEBULIZER 3 TIMES A DAY No albuterol sulfate 2.5 mg/3 mL (0.083 %) solution for nebulizati on USE 1 VIAL IN NEBULIZER 3 TIMES A DAY [facility] albuterol sulfate HFA 90 mcg/actuati on aerosol inhaler INHALE 2 PUFFS EVERY 4 HOURS NEEDED albuterol sulfate HFA 90 mcg/actuati on aerosol inhaler INHALE 2 PUFFS EVERY 4 HOURS NEEDED No albuterol sulfate HFA 90 mcg/actuat ion aerosol inhaler INHALE 2 PUFFS EVERY 4 HOURS NEEDED [facility] benzonatate 100 mg capsule TAKE 1 CAPSULE BY MOUTH THREE TIMES A DAY benzonatate 100 mg capsule TAKE 1 CAPSULE BY MOUTH THREE TIMES A DAY No benzonatat e 100 mg capsule TAKE 1 CAPSULE BY MOUTH THREE TIMES A DAY [facility] cyanocobala min (vit B-12) 1,000 mcg/mL injection solution Inject 1 mL every month by subcutaneou s route. cyanocobala min (vit B-12) 1,000 mcg/mL injection solution Inject 1 mL every month by subcutaneou s route. No 1mL cyanocobal rahman (vit B-12) 1,000 mcg/mL injection solution Inject 1 mL every month by subcutaneo us route. [facility] cyclobenzap rine 10 mg tablet TAKE 1 TABLET BY MOUTH THREE TIMES A DAY NEEDED cyclobenzap rine 10 mg tablet TAKE 1 TABLET BY MOUTH THREE TIMES A DAY NEEDED No cyclobenza king 10 mg tablet TAKE 1 TABLET BY MOUTH THREE TIMES A DAY NEEDED [facility] escitalopra m 10 mg tablet TAKE 1 TABLET BY MOUTH EVERY DAY FOR 30 DAYS escitalopra m 10 mg tablet TAKE 1 TABLET BY MOUTH EVERY DAY FOR 30 DAYS No escitalopr am 10 mg tablet TAKE 1 TABLET BY MOUTH EVERY DAY FOR 30 DAYS [facility] megestrol 400 mg/10 mL (40 mg/mL) oral suspension TAKE 10 ML BY MOUTH EVERY DAY IN THE MORNING. megestrol 400 mg/10 mL (40 mg/mL) oral suspension TAKE 10 ML BY MOUTH EVERY DAY IN THE MORNING. No megestrol 400 mg/10 mL (40 mg/mL) oral suspension TAKE 10 ML BY MOUTH EVERY DAY IN THE MORNING. [facility] meloxicam 7.5 mg tablet TAKE 1 TABLET BY MOUTH EVERY DAY meloxicam 7.5 mg tablet TAKE 1 TABLET BY MOUTH EVERY DAY No meloxicam 7.5 mg tablet TAKE 1 TABLET BY MOUTH EVERY DAY [facility] prednisone 10 mg tablet TAKE 1 TABLET BY MOUTH EVERY DAY FOR 30 DAYS prednisone 10 mg tablet TAKE 1 TABLET BY MOUTH EVERY DAY FOR 30 DAYS No prednisone 10 mg tablet TAKE 1 TABLET BY MOUTH EVERY DAY FOR 30 DAYS [facility] quetiapine 100 mg tablet TAKE 1 TABLET BY MOUTH EVERYDAY AT BEDTIME quetiapine 100 mg tablet TAKE 1 TABLET BY MOUTH EVERYDAY AT BEDTIME No quetiapine 100 mg tablet TAKE 1 TABLET BY MOUTH EVERYDAY AT BEDTIME [facility] tramadol 37.5 mg-acetamin ophen 325 mg tablet TAKE 1 TABLET BY MOUTH EVERY 8 HOURS NEEDED FOR 15 DAYS. tramadol 37.5 mg-acetamin ophen 325 mg tablet TAKE 1 TABLET BY MOUTH EVERY 8 HOURS NEEDED FOR 15 DAYS. No tramadol 37.5 mg-acetami nophen 325 mg tablet TAKE 1 TABLET BY MOUTH EVERY 8 HOURS NEEDED FOR 15 DAYS. [facility] Vitamin D3 otc 5000 iu daily Vitamin D3 otc 5000 iu daily No Vitamin D3 otc 5000 iu daily [facility] albuterol sulfate 2.5 mg/3 mL (0.083 %) solution for nebulizatio n USE 1 VIAL IN NEBULIZER 3 TIMES A DAY albuterol sulfate 2.5 mg/3 mL (0.083 %) solution for nebulizatio n USE 1 VIAL IN NEBULIZER 3 TIMES A DAY No albuterol sulfate 2.5 mg/3 mL (0.083 %) solution for nebulizati on USE 1 VIAL IN NEBULIZER 3 TIMES A DAY [facility] albuterol sulfate HFA 90 mcg/actuati on aerosol inhaler Inhale 2 puffs every 4 hours by inhalation route as needed for 90 days. albuterol sulfate HFA 90 mcg/actuati on aerosol inhaler Inhale 2 puffs every 4 hours by inhalation route as needed for 90 days. No 2puff(s ) Q4H albuterol sulfate HFA 90 mcg/actuat ion aerosol inhaler Inhale 2 puffs every 4 hours by inhalation route as needed for 90 days. [facility] Cymbalta 60 mg capsule,del ayed release Take 1 capsule every day by oral route. Cymbalta 60 mg capsule,del ayed release Take 1 capsule every day by oral route. No 1capsul e(s) Q1D Cymbalta 60 mg capsule,de layed release Take 1 capsule every day by oral route. [facility] albuterol sulfate 2.5 mg/3 mL (0.083 %) solution for nebulizatio n USE 1 VIAL IN NEBULIZER 3 TIMES A DAY albuterol sulfate 2.5 mg/3 mL (0.083 %) solution for nebulizatio n USE 1 VIAL IN NEBULIZER 3 TIMES A DAY No albuterol sulfate 2.5 mg/3 mL (0.083 %) solution for nebulizati on USE 1 VIAL IN NEBULIZER 3 TIMES A DAY [facility] albuterol sulfate HFA 90 mcg/actuati on aerosol inhaler INHALE 2 PUFFS BY MOUTH EVERY 4 HOURS NEEDED albuterol sulfate HFA 90 mcg/actuati on aerosol inhaler INHALE 2 PUFFS BY MOUTH EVERY 4 HOURS NEEDED No albuterol sulfate HFA 90 mcg/actuat ion aerosol inhaler INHALE 2 PUFFS BY MOUTH EVERY 4 HOURS NEEDED [facility] duloxetine 30 mg capsule,del ayed release TAKE 1 CAPSULE BY MOUTH EVERY DAY duloxetine 30 mg capsule,del ayed release TAKE 1 CAPSULE BY MOUTH EVERY DAY No duloxetine 30 mg capsule,de layed release TAKE 1 CAPSULE BY MOUTH EVERY DAY [facility] albuterol sulfate 2.5 mg/3 mL (0.083 %) solution for nebulizatio n USE 1 VIAL IN NEBULIZER 3 TIMES A DAY albuterol sulfate 2.5 mg/3 mL (0.083 %) solution for nebulizatio n USE 1 VIAL IN NEBULIZER 3 TIMES A DAY No albuterol sulfate 2.5 mg/3 mL (0.083 %) solution for nebulizati on USE 1 VIAL IN NEBULIZER 3 TIMES A DAY [facility] albuterol sulfate HFA 90 mcg/actuati on aerosol inhaler INHALE 2 PUFFS EVERY 4 HOURS NEEDED albuterol sulfate HFA 90 mcg/actuati on aerosol inhaler INHALE 2 PUFFS EVERY 4 HOURS NEEDED No albuterol sulfate HFA 90 mcg/actuat ion aerosol inhaler INHALE 2 PUFFS EVERY 4 HOURS NEEDED [facility] cyanocobala min (vit B-12) 1,000 mcg/mL injection solution Inject 1 mL every month by subcutaneou s route. cyanocobala min (vit B-12) 1,000 mcg/mL injection solution Inject 1 mL every month by subcutaneou s route. No 1mL cyanocobal rahman (vit B-12) 1,000 mcg/mL injection solution Inject 1 mL every month by subcutaneo us route. [facility] doxycycline hyclate 100 mg tablet TAKE 1 TABLET BY MOUTH TWICE A DAY doxycycline hyclate 100 mg tablet TAKE 1 TABLET BY MOUTH TWICE A DAY No doxycyclin e hyclate 100 mg tablet TAKE 1 TABLET BY MOUTH TWICE A DAY [facility] levofloxaci n 500 mg tablet TAKE 1 TABLET BY MOUTH EVERY DAY levofloxaci n 500 mg tablet TAKE 1 TABLET BY MOUTH EVERY DAY No levofloxac in 500 mg tablet TAKE 1 TABLET BY MOUTH EVERY DAY [facility] prednisone 10 mg tablet TAKE 1 TABLET BY MOUTH EVERY DAY FOR 30 DAYS prednisone 10 mg tablet TAKE 1 TABLET BY MOUTH EVERY DAY FOR 30 DAYS No prednisone 10 mg tablet TAKE 1 TABLET BY MOUTH EVERY DAY FOR 30 DAYS [facility] tramadol 37.5 mg-acetamin ophen 325 mg tablet TAKE 1 TABLET BY MOUTH EVERY 8 HOURS NEEDED FOR 15 DAYS. tramadol 37.5 mg-acetamin ophen 325 mg tablet TAKE 1 TABLET BY MOUTH EVERY 8 HOURS NEEDED FOR 15 DAYS. No tramadol 37.5 mg-acetami nophen 325 mg tablet TAKE 1 TABLET BY MOUTH EVERY 8 HOURS NEEDED FOR 15 DAYS. [facility] Vitamin D3 otc 5000 iu daily Vitamin D3 otc 5000 iu daily No Vitamin D3 otc 5000 iu daily [facility] Immunizations Ordered Immunization Name Filled Immunization Name Date Status Comments Source SARS-COV-2 (COVID-19) vaccine, UNSPECIFIED SARS-COV-2 (COVID-19) vaccine, UNSPECIFIED 2021-01-26 00:00:00 Completed [facility] SARS-COV-2 (COVID-19) vaccine, UNSPECIFIED SARS-COV-2 (COVID-19) vaccine, UNSPECIFIED 2021-01-26 00:00:00 [facility] COVID-19 (SARS-COV-2) vaccine, unspecified COVID-19 (SARS-COV-2) vaccine, unspecified 2021-01-26 00:00:00 Completed [facility] COVID-19 (SARS-COV-2) vaccine, unspecified COVID-19 (SARS-COV-2) vaccine, unspecified 2021-01-26 00:00:00 Completed [facility] COVID-19 (SARS-COV-2) vaccine, unspecified COVID-19 (SARS-COV-2) vaccine, unspecified 2021-01-26 00:00:00 Completed [facility] COVID-19 (SARS-COV-2) vaccine, unspecified COVID-19 (SARS-COV-2) vaccine, unspecified 2021-01-26 00:00:00 Completed [facility] COVID-19 (SARS-COV-2) vaccine, unspecified COVID-19 (SARS-COV-2) vaccine, unspecified 2021-01-26 00:00:00 Completed [facility] COVID-19 (SARS-COV-2) vaccine, unspecified COVID-19 (SARS-COV-2) vaccine, unspecified 2021-01-26 00:00:00 Completed [facility] COVID-19 (SARS-COV-2) vaccine, unspecified COVID-19 (SARS-COV-2) vaccine, unspecified 2021-01-26 00:00:00 Completed [facility] COVID-19 (SARS-COV-2) vaccine, unspecified COVID-19 (SARS-COV-2) vaccine, unspecified 2021-01-26 00:00:00 Completed [facility] COVID-19 (SARS-COV-2) vaccine, unspecified COVID-19 (SARS-COV-2) vaccine, unspecified 2021-01-26 00:00:00 Completed [facility] COVID-19 (SARS-COV-2) vaccine, unspecified COVID-19 (SARS-COV-2) vaccine, unspecified 2021-01-26 00:00:00 Completed [facility] COVID-19 (SARS-COV-2) vaccine, unspecified COVID-19 (SARS-COV-2) vaccine, unspecified 2021-01-26 00:00:00 Completed [facility] COVID-19 (SARS-COV-2) vaccine, unspecified COVID-19 (SARS-COV-2) vaccine, unspecified 2021-01-26 00:00:00 Completed [facility] COVID-19 (SARS-COV-2) vaccine, unspecified COVID-19 (SARS-COV-2) vaccine, unspecified 2021-01-26 00:00:00 Completed [facility] COVID-19 (SARS-COV-2) vaccine, unspecified COVID-19 (SARS-COV-2) vaccine, unspecified 2021-01-26 00:00:00 Completed [facility] COVID-19 (SARS-COV-2) vaccine, unspecified COVID-19 (SARS-COV-2) vaccine, unspecified Unknown Completed [facility] COVID-19 (SARS-COV-2) vaccine, unspecified COVID-19 (SARS-COV-2) vaccine, unspecified Unknown Completed [facility] COVID-19 (SARS-COV-2) vaccine, unspecified COVID-19 (SARS-COV-2) vaccine, unspecified Unknown Completed [facility] COVID-19 (SARS-COV-2) vaccine, unspecified COVID-19 (SARS-COV-2) vaccine, unspecified Unknown Completed [facility] Vital Signs Vital Name Observation Time Observation Value Comments S ource Height 2023-08-13 00:00:00 61 [in_i] [facility] BP Diastolic 2023-08-13 00:00:00 80 mm[Hg] [facility] Body Weight 2023-08-13 00:00:00 1308.8 [oz_av] [facility] BP Systolic 2023-08-13 00:00:00 140 mm[Hg] [facility] BMI (Body Mass Index) 2023-08-13 00:00:00 15.5 kg/m2 [facility] BMI (Body Mass Index) 2023-07-19 00:00:00 15.2 kg/m2 [facility] Height 2023-07-19 00:00:00 61 [in_i] [facility] Body Weight 2023-07-19 00:00:00 1286.4 [oz_av] [facility] BP Diastolic 2023-07-19 00:00:00 80 mm[Hg] [facility] BP Systolic 2023-07-19 00:00:00 130 mm[Hg] [facility] BP Diastolic 2022-07-18 00:00:00 84 mm[Hg] [facility] Height 2022-07-18 00:00:00 61 [in_i] [facility] BMI (Body Mass Index) 2022-07-18 00:00:00 17 kg/m2 [facility] BP Systolic 2022-07-18 00:00:00 160 mm[Hg] [facility] Body Weight 2022-07-18 00:00:00 1440 [oz_av] [facility] BP Diastolic 2022-06-20 00:00:00 80 mm[Hg] [facility] Height 2022-06-20 00:00:00 61 [in_i] [facility] BMI (Body Mass Index) 2022-06-20 00:00:00 17.2 kg/m2 [facility] BP Systolic 2022-06-20 00:00:00 121 mm[Hg] [facility] Body Weight 2022-06-20 00:00:00 1452.8 [oz_av] [facility] BP Diastolic 2022-04-24 00:00:00 80 mm[Hg] [facility] Height 2022-04-24 00:00:00 61 [in_i] [facility] BMI (Body Mass Index) 2022-04-24 00:00:00 17.3 kg/m2 [facility] BP Systolic 2022-04-24 00:00:00 120 mm[Hg] [facility] Body Weight 2022-04-24 00:00:00 1465.6 [oz_av] [facility] BP Diastolic 2022-03-20 00:00:00 88 mm[Hg] [facility] Height 2022-03-20 00:00:00 61 [in_i] [facility] BMI (Body Mass Index) 2022-03-20 00:00:00 16 kg/m2 [facility] BP Systolic 2022-03-20 00:00:00 144 mm[Hg] [facility] Body Weight 2022-03-20 00:00:00 1356.8 [oz_av] [facility] BP Diastolic 2022-03-13 00:00:00 80 mm[Hg] [facility] Height 2022-03-13 00:00:00 61 [in_i] [facility] BMI (Body Mass Index) 2022-03-13 00:00:00 15.9 kg/m2 [facility] BP Systolic 2022-03-13 00:00:00 125 mm[Hg] [facility] Body Weight 2022-03-13 00:00:00 1347.2 [oz_av] [facility] Height 2022-02-20 00:00:00 61 [in_i] [facility] BP Diastolic 2021-03-17 00:00:00 90 mm[Hg] [facility] Height 2021-03-17 00:00:00 61 [in_i] [facility] BMI (Body Mass Index) 2021-03-17 00:00:00 17.7 kg/m2 [facility] BP Systolic 2021-03-17 00:00:00 160 mm[Hg] [facility] Body Weight 2021-03-17 00:00:00 1497.6 [oz_av] [facility] Procedures Procedure Date / Time Performed Performing Clinicia n Source Biopsy of Lung 2022-05-25 00:00:[address] [facility] [address], abdomen + pelvis, w/ contrast 2022-04-24 00:00:[address] [facility] [address], chest, w/ contrast 2022-04-24 00:00:00 [facility] XR, chest, 2 view 2022-03-13 00:00:00 [facility] REFERRAL- REQUEST/RESPONSE 2021-03-17 05:01:00 Doctor Unassigned, [facility] XR, shoulder, 2 or more view 2021-03-17 00:00:00 [facility] Procedure on Spleen [facility] Procedure on Lung [facility] Procedure on Ear [facility] Unlisted Procedure Stomach [facility] Plan of Care Planned Activity Planned Date Details Comments Source Diagnostic Test Pending 2022-06-20 00:00:00 CMP, serum or plasma [code = CMP, serum or plasma] [facility] Diagnostic Test Pending 2022-06-20 00:00:00 CBC w/ diff [code = CBC w/ diff] [facility] Diagnostic Test Pending 2022-06-20 00:00:00 iron panel, serum or plasma [code = iron panel, serum or plasma] [facility] Future Appointment 2023-11-13 00:00:00 Umm Ruth, [address], [place] [address] [facility] Encounters Start Date/Time End Date/Time Encounter Type Admission Type Attending [facility] Care Department Encounter ID Source 2023-08-13 00:00:00 2023-08-13 00:00:00 Outpatient LYN [facility] [id number] [facility] 2023-08-13 00:00:00 2023-08-13 00:00:00 Umm Ruth MD: [address], [address], [place] [address] , Ph. [facility], DR. RUTH [id number] [facility] 2023-07-19 00:00:00 2023-07-19 00:00:00 Outpatient LYN [facility] [id number] [facility] 2023-07-19 00:00:00 2023-07-19 00:00:00 Umm Ruth MD: [address], [address], [place] [address] , Ph. [facility], DR. RUTH [id number] [facility] 2022-10-01 00:00:00 2022-10-01 00:00:00 Outpatient KEFFER_[facility] [id number] [facility] 2022-08-26 00:00:00 2022-08-26 00:00:00 Outpatient KEFFER_[facility] [id number] [facility] 2022-07-22 00:00:00 2022-07-22 00:00:00 Outpatient KEFFER_[facility] [id number] [facility] 2022-07-18 00:00:00 2022-07-18 00:00:00 Outpatient KEFFER[facility] [id number] [facility] 2022-07-18 00:00:00 2022-07-18 00:00:00 Umm Ruth MD: Matt Moss, [facility] B, [facility] [address], [place] [address] , Ph. [facility], DR. RUTH [id number] [facility] 2022-06-23 00:00:00 2022-06-23 00:00:00 Outpatient KEFFER_[facility] [id number] [facility] 2022-06-20 00:00:00 2022-06-20 00:00:00 Outpatient KEFFER_[facility] [id number] [facility] 2022-06-20 00:00:00 2022-06-20 00:00:00 Outpatient Umm Ruth [facility] [id number] 2022-06-20 00:00:00 2022-06-20 00:00:00 Umm Ruth MD: [address], [place] [address] , Ph. [facility], DR. RUTH [id number] [facility] 2022-06-17 00:00:00 2022-06-17 00:00:00 Outpatient KEFFER[facility] [id number] [facility] 2022-05-15 05:02:00 2022-05-15 05:02:00 Outpatient FLORY_A [facility] [id number] [facility] 2022-04-24 02:04:00 2022-04-24 02:04:00 Outpatient FLORY_A [facility] [id number] [facility] 2022-04-24 00:00:00 2022-04-24 00:00:00 Umm Ruth MD: [address], [address], [place] [address] , Ph. [facility], DR. RUTH [id number] [facility] 2022-04-24 00:00:00 2022-04-24 00:00:00 Outpatient Umm Ruth [facility] [id number] 2022-04-08 01:24:00 2022-04-08 01:24:00 Outpatient FLORY[facility] [id number] [facility] 2022-03-20 02:04:00 2022-03-20 02:04:00 Outpatient FLORAFFER_A [facility] [id number] [facility] 2022-03-20 00:00:00 2022-03-20 00:00:00 Umm Ruth MD: [address], [address], [place] [address] , Ph. [facility], DR. RUTH [id number] [facility] 2022-03-20 00:00:00 2022-03-20 00:00:00 Outpatient Umm Ruth [facility] [id number] 2022-03-13 06:18:00 2022-03-13 06:18:00 Outpatient FLORAEDVIN_Richie [facility] [id number] [facility] 2022-03-13 00:00:00 2022-03-13 00:00:00 Umm Ruth MD: [address], [place] [address] , Ph. [facility], DR. RUTH [id number] [facility] 2022-03-13 00:00:00 2022-03-13 00:00:00 Outpatient Umm Ruth [facility] [id number] 2022-03-13 00:00:00 2022-03-13 00:00:00 Outpatient Umm Ruth [facility] [id number] 2022-02-20 04:34:00 2022-02-20 04:34:00 Outpatient FLORY_Richie [facility] [id number] [facility] 2022-02-20 00:00:00 2022-02-20 00:00:00 Umm Ruth MD: [address], [place] [address] , [address] [facility], DR. RUTH [id number] [facility] 2022-02-20 00:00:00 2022-02-20 00:00:00 Outpatient Umm Ruth [facility] [id number] 2022-02-15 07:49:00 2022-02-15 07:49:00 Outpatient FLORY_[facility] [id number] [facility] 2021-07-28 12:51:00 2021-07-28 12:51:00 Outpatient FLORY_A [facility] [id number] [facility] 2021-03-30 00:00:00 2021-03-30 00:00:00 Letter (Out) Umm Ruth [facility] 1..[id number] [facility] 2021-03-17 12:03:00 2021-03-17 12:03:00 Outpatient FLORY_Richie [facility] [id number] [facility] 2021-03-17 00:00:00 2021-03-17 00:00:00 Orders Only Doctor Unassigned, [facility] ..840.114 [id number] [facility] 2021-03-17 00:00:00 2021-03-17 00:00:00 Outpatient Umm Ruth [facility] [id number] 2021-03-17 00:00:00 2021-03-17 00:00:00 Umm Ruth MD: Matt Moss, [address], [place] [address] , [address] [facility], DR. RUTH [id number] [facility] 2020-12-12 01:03:00 2020-12-12 01:03:00 Outpatient [facility] [id number] [facility] 2020-11-07 01:02:00 2020-11-07 01:02:00 Outpatient FLORY_A [facility] [id number] [facility] 2020-06-17 12:47:46 2020-06-17 13:07:46 Laboratory Only Lab, Adc Fam Pob Shea Carrera [facility] 1..840.114 [id number] [facility] 2020-06-17 13:00:00 2020-06-17 13:00:00 Outpatient Gregoria EBONI CARRERA [facility] [id number] [facility] 2020-06-17 11:00:00 2020-06-17 11:00:00 Outpatient [facility] [id number] [facility] 2020-06-17 00:00:00 2020-06-17 00:00:00 Letter (Out) Doctor Unassigned, [facility] .840.114 [id number] [facility] Results Test Description Test Time Test Comments Results Result Co mments Source [facility] W Auto Differential panel - [id number] 00:00:00* Test Item Value Reference Range Interpretation Comme nts Leukocytes [#/volume] in Blo od by Automated count (test code = 6690-2) 13.0 x10e3/uL 3.4-10.8 H Erythrocytes [#/volume] in Blood by Automated count (test code = 789-8) 4.74 x10e6/uL 3.77-5.28 Hemoglobin [Mass/volume] in Blood (test code = 718-7) 11.5 g/dL 11.1-15.9 Hematocrit [Volume Fraction] of Blood by Automated count (test code = 4544-3) 35.5 % 34.0-46.6 Erythrocyte mean corpuscular volume [Entitic volume] by Automated count (test code = 787-2) 75 fL 79-97 L MCH [Entitic mass] by Automa lani count (test code = 785-6) 24.3 pg 26.6-33.0 L Erythrocyte mean corpuscular hemoglobin concentration [Mass/volume] by Automated count (test code = 786-4) 32.4 g/dL 31.5-35.7 Erythrocyte distribution wid th [Ratio] by Automated count (test code = 788-0) 13.7 % 11.7-15.4 Platelets [#/volume] in Bloo d by Automated count (test code = 777-3) 743 x10e3/uL 150-450 H Neutrophils/100 leukocytes i n Blood by Automated count (test code = 770-8) 75 % not estab. Lymphocytes/100 leukocytes i n Blood by Automated count (test code = 736-9) 15 % not estab. Monocytes/100 leukocytes in Blood by Automated count (test code = 5905-5) 8 % not estab. Eosinophils/100 leukocytes i n Blood by Automated count (test code = 713-8) 2 % not estab. Basophils/100 leukocytes in Blood by Automated count (test code = 706-2) 0 % not estab. immature cells (test code = immature cells) clean out driller helper Neutrophils [#/volume] in Bl ood by Automated count (test code = 751-8) 9.8 x10e3/uL 1.4-7.0 H Lymphocytes [#/volume] in Bl ood by Automated count (test code = 731-0) 1.9 x10e3/uL 0.7-3.1 Monocytes [#/volume] in Bloo d by Automated count (test code = 742-7) 1.0 x10e3/uL 0.1-0.9 H Eosinophils [#/volume] in Bl ood by Automated count (test code = 711-2) 0.2 x10e3/uL 0.0-0.4 Basophils [#/volume] in Bloo d by Automated count (test code = 704-7) 0.0 x10e3/uL 0.0-0.2 Immature granulocytes/100 leukocytes in Blood by Automated count (test code = 88226-1) 0 % not estab. Immature granulocytes [#/volume] in Blood by Automated count (test code = 35138-2) 0.0 x10e3/uL 0.0-0.1 Nucleated erythrocytes/100 leukocytes [Ratio] in Blood by Automated count (test code = 21099-1) clean out driller helper Morphology [Interpretation] in Blood Narrative (test code = 28341-0) clean out driller helper [facility] - Serum or [id number] 00:00:00* Test Item Value Reference Range Interpretation Comme nts Glucose [Mass/volume] in Serum or Plasma (test code = 2345-7) 92 mg/dL 65-99 Urea nitrogen [Mass/volume] in Serum or Plasma (test code = 3094-0) 9 mg/dL 6-24 Creatinine [Mass/volume] in Serum or Plasma (test code = 2160-0) 0.53 mg/dL 0.57-1.00 L eGFR (test code = eGFR) 106 mL/min/1.73 >59 Urea nitrogen/Creatinine [Mass Ratio] in Serum or Plasma (test code = 3097-3) 17 9-23 Sodium [Moles/volume] in Serum or Plasma (test code = 2951-2) 137 mmol/L 134-144 Potassium [Moles/volume] in Serum or Plasma (test code = 2823-3) 4.1 mmol/L 3.5-5.2 Chloride [Moles/volume] in Serum or Plasma (test code = 2075-0) 97 mmol/L 96-106 Carbon dioxide, total [Moles/volume] in Serum or Plasma (test code = 2027-9) 26 mmol/L 20-29 Calcium [Mass/volume] in Serum or Plasma (test code = 97984-6) 9.4 mg/dL 8.7-10.2 Protein [Mass/volume] in Serum or Plasma (test code = 2885-2) 6.5 g/dL 6.0-8.5 Albumin [Mass/volume] in Serum or Plasma (test code = 1751-7) 3.8 g/dL 3.8-4.9 Globulin [Mass/volume] in Serum by calculation (test code = 77814-0) 2.7 g/dL 1.5-4.5 Albumin/Globulin [Mass Ratio ] in Serum or Plasma (test code = 1759-0) 1.4 1.2-2.2 Bilirubin.total [Mass/volume ] in Serum or Plasma (test code = 1975-2) <0.2 0.0-1.2 Alkaline phosphatase [Enzymatic activity/volume] in Serum or Plasma (test code = 6768-6) 212 IU/L 44-121 H Aspartate aminotransferase [Enzymatic activity/volume] in Serum or Plasma (test code = 1920-8) 12 IU/L 0-40 Alanine aminotransferase [Enzymatic activity/volume] in Serum or Plasma (test code = 1742-6) 12 IU/L 0-32 [facility] Ref[facility] Culture panel - [id number] 00:00:00* Test Item Value Reference Range Interpretation Comme nts Specific gravity of Urine by Test strip (test code = 5811-5) 1.013 1.005-1.030 pH of Urine by Test strip (t est code = 5803-2) 5.5 5.0-7.5 Color of Urine (test code = 5778-6) yellow yellow Appearance of Urine (test co de = 5767-9) clear clear Leukocyte esterase [Presence ] in Urine by Test strip (test code = 5799-2) 1+ negative A Protein [Presence] in Urine by Test strip (test code = 58813-0) negative negative/trace Glucose [Presence] in Urine by Test strip (test code = 09694-0) negative negative Ketones [Presence] in Urine by Test strip (test code = 2514-8) negative negative Hemoglobin [Presence] in Uri ne by Test strip (test code = 5794-3) negative negative Bilirubin.total [Presence] i n Urine by Test strip (test code = 5770-3) negative negative Urobilinogen [Mass/volume] i n Urine by Test strip (test code = 06538-0) 0.2 mg/dL 0.2-1.0 Nitrite [Presence] in Urine by Test strip (test code = 5802-4) negative negative Microscopic observation [Identifier] in Urine sediment by Light microscopy (test code = 80877-2) clean out driller helper Leukocytes [#/area] in Urine sediment by Microscopy high power field (test code = 5821-4) 6-10 0-5 A Erythrocytes [#/area] in Uri ne sediment by Microscopy high power field (test code = 26835-1) none seen 0-2 Epithelial cells [#/area] in Urine sediment by Microscopy high power field (test code = 5787-7) 0-10 0-10 Epithelial cells.renal [#/ar ea] in Urine sediment by Microscopy high power field (test code = 26720-4) clean out driller helper Casts [Presence] in Urine se diment by Light microscopy (test code = 93061-5) none seen none seen Casts [Type] in Urine sedime nt by Light microscopy (test code = 99420-8) clean out driller helper Unidentified crystals [Prese nce] in Urine sediment by Light microscopy (test code = 5783-6) clean out driller helper Crystals [type] in Urine sed iment by Light microscopy (test code = 5782-8) clean out driller helper Mucus [Presence] in Urine se diment by Light microscopy (test code = 8247-9) clean out driller helper Bacteria [#/area] in Urine s ediment by Microscopy high power field (test code = 5769-5) none seen none seen/few Yeast [#/area] in Urine sedi ment by Microscopy high power field (test code = 5822-2) clean out driller helper Trichomonas vaginalis [Prese nce] in Urine sediment by Light microscopy (test code = 5813-1) clean out driller helper Urine sediment comments by L ight microscopy Narrative (test code = 84543-4) clean out driller helper urinalysis reflex (test code = urinalysis reflex) comment Bacteria identified in Urine by Culture (test code = 630-4) no growth [facility]obal[facility] [Interpretation] in Serum or [id number] 00:00:00* Test Item Value Reference Range Interpretation Comme nts Cobalamin (Vitamin B12) [Mass/volume] in Serum or Plasma (test code = 2132-9) 870 pg/mL 232-1245 Folate [Mass/volume] in Seru m or Plasma (test code = 2284-8) 9.7 NG/mL >3.0 [facility]25-Hydroxyvitamin D3+25-Hydroxyvitamin D2 [Mass/volume] in Serum or [id number] 00:00:00* Test Item Value Reference Range Interpretation Comme nts 25-Hydroxyvitamin D3+25-Hydroxyvitamin D2 [Mass/volume] in Serum or Plasma (test code = 94321-9) 34.4 NG/mL 30.0-100.0 [facility]/Hemoglobin.total in Blood 2022-03-14 00:00:00* Test Item Value Reference Range Interpretation Comme nts Hemoglobin A1c/Hemoglobin.to manolo in Blood (test code = 4548-4) 6.1 % 4.8-5.6 H [facility] Hospital[facility]ryth[facility] sedimentation [id number] 00:00:00* Test Item Value Reference Range Interpretation Comme nts Erythrocyte sedimentation ra te by Westergren method (test code = 4537-7) 76 mm/HR 0-40 [facility] protein, [id number] 00:00:00* Test Item Value Reference Range Interpretation Comme nts C reactive protein [Mass/vol ume] in Serum or Plasma (test code = 1988-5) 41 mg/L 0-10 H [facility]
[2023-10-12] MEDS ORDERED: ONDANSETRON 4 MG/2 ML VIAL ONE ×3 (09:34→16:06)
[2023-10-12] MEDS ORDERED: FENTANYL CITR 100 MCG/2 ML ONE ×3 (09:34→12:20)
[2023-10-12] MEDS ORDERED: NA CHLORIDE 0.9% 1,000 ML ONE ×2 (09:34→15:39)
[2023-10-12 09:57] LABS: Absolute Lymphocytes (CBC) 0.8 K/uL (0.7-4.9); Hematocrit 29.5 % (36.0-45.0); Lymphocytes % 4.7 % (15.3-44.8); MCV 73.6 fL (80-100); MPV 6.7 fL (7.6-11.3); Platelets 1234 thou/uL (152-406); RBC Red Blood Cell Count 4.01 M/uL (3.86-4.86)
[2023-10-12 10:21] LABS: Albumin 2.2 g/dL (3.4-5.0); Bilirubin Total 0.2 mg/dL (0.2-1.0); Potassium 3.9 mEq/L (3.5-5.1)
[2023-10-12 10:33] LABS: Blood Morphology Comment NOT SEEN (NOT SEEN); Platelet Estimate INCR
--- NOTE | 2023-10-12 10:42 | RAD REPORT ---
EXAM DESCRIPTION: CTAbdomen Pelvis W Contrast - 10/12/2023 10:27 am CLINICAL HISTORY: Abdominal pain. ABD PAIN COMPARISON: CT ABD PELVIS W CONTRAST dated 03/31/2014; Chest Pa And Lat (2 Views) dated 09/26/2023 TECHNIQUE: Biphasic CT imaging of the abdomen and pelvis was performed with 100 ml non-ionic IV cont rast. All CT scans are performed using dose optimization technique as appropriate and may include automated exposure control or mA/KV adjustment according to patient size. FINDINGS: The inferior lung cross are emphysematous. Mild pneumoperitoneum is present. Fluid and air collection is are also seen in the lower abdomen, for example in the right aspect of pelvis measuring 3.2 cm (image 59/84). Mild fluid is seen layering de pendently in the abdomen and pelvis. There is a large amount stool throughout the colon. Thickening of multiple small bowel loops also noted in the central abdomen. No suspicious bony findings. IMPRESSION: Pneumoperitoneum is present. There is also free fluid seen laying dependently in the abd omen pelvis with air and fluid collections also noted. This raises the suspicion for peritonitis or p eritoneal infection. There is a large amount of stool retained throughout the colon. Delete that The findings were discussed with Dr. Dos Santos in the ER On 10/12/2023 at 10:30 a.m. by telephone.
--- NOTE | 2023-10-12 10:48 | ER ---
Nurse's Notes [facility] Name: Irene Venegas Age: 63 yrs Sex: Female : 1960 Arrival Date: 10/12/2023 Time: 08:43 Bed 5 Private MD: Diagnosis: Pneumoperitoneum Presentation: 10/12 08:50 Chief complaint: Chief complaint: Patient states: was voiding sitting on the toilet aa5 when started having severe sharp abdominal pain. Pt also reports nausea. Pt reports she was recently discharged from hospital and was admitted for "the flu and Pneumonia". 08:56 Coronavirus screen: At this time, the client does not indicate any symptoms associated aa5 with coronavirus-19. Ebola Screen: No symptoms or risks identified at this time. Initial Sepsis Screen: Does the patient meet any 2 criteria? No. Patient's initial sepsis screen is negative. Does the patient have a suspected source of infection? No. Patient's initial sepsis screen is negative. Risk Assessment: Do you want to hurt yourself or someone else? Patient reports no desire to harm self or others. Onset of symptoms was October 12, 2023. 08:56 Acuity: REVA 3 aa5 08:56 Method Of Arrival: EMS: [facility] aa5 Historical: - Allergies: 08:55 Morphine; aa5 - PMHx: 08:55 COPD; Pneumonia; Pneumothorax; aa5 - PSHx: 08:55 Lobectomy of lung; Partial stomach removed; Total abdominal hysterectomy; aa5 - Immunization history:: Adult Immunizations unknown. - Social history:: Smoking status: Patient/guardian denies using tobacco. - Family history:: not pertinent. Screenin:00 [facility] ED Fall Risk Assessment (Adult) History of falling in the last 3 months, ko1 including since admission No falls in past 3 months (0 pts) Confusion or Disorientation No (0 pts) Intoxicated or Sedated No (0 pts) Impaired Gait No (0 pts) Mobility Assist Device Used No (0 pt) Altered Elimination No (0 pt) Score/Fall Risk Level 0 - 2 = Low Risk Oriented to surroundings, Maintained a safe environment, Educated pt \\T\\ family on fall prevention, incl call for assistance when getting out of bed, Assessed \\T\\ reinforced patient's understanding of fall precautions, Provided non-skid footwear, Hourly rounding (assess needs \\T\\ fall precautionary measures) done, Used ambulatory aids as needed (educated on \\T\\ assisted with), Used gait belt as appropriate. Abuse screen: Denies threats or abuse. Denies injuries from another. Nutritional screening: No deficits noted. Tuberculosis screening: No symptoms or risk factors identified. Assessment: 09:00 General: Appears distressed, uncomfortable, ill, Behavior is cooperative, appropriate ko1 for age, restless. Pain: Complains of pain in abdomen. GI: Bowel sounds present X 4 quads. Abd is soft X 4 quads. Vital Signs: 08:56 BP 141 / 72; Pulse 83; Resp 18 S; Temp 98(TE); Pulse Ox 96% on R/A; aa5 09:00 BP 121 / 58; Pulse 93; Resp 20; Pulse Ox 95% ; ko1 11:15 BP 118 / 64; Pulse 98; Resp 18; Pulse Ox 95% on 2 lpm NC; ko1 ED Course: 08:50 Patient arrived in ED. eb 08:50 Arm band placed on. aa5 08:57 Triage completed. aa5 09:00 Patient has correct armband on for positive identification. Bed in low position. Call ko1 light in reach. Side rails up X2. Provided Education on: na. Client placed on continuous cardiac and pulse oximetry monitoring. NIBP monitoring applied. monitoring analyst on. Door closed. Noise minimized. Lights dimmed. Warm blanket given. 09:09 Cornel Dos Santos MD is Attending Physician. rt 09:24 Nighat Naranjo, CONNIE is Primary Nurse. ko1 09:45 Inserted saline lock: 20 gauge in right forearm, using aseptic technique. Blood ko1 collected. 09:48 CBC with Diff Sent. ko1 09:48 CMP Sent. ko1 09:48 Lipase Sent. ko1 10:28 CT Abd/Pelvis - IV Contrast Only In Process Unspecified. EDMS 10:47 Vince Fong is Hospitalizing Provider. rt 11:15 No provider procedures requiring assistance completed. Patient admitted, IV remains in ko1 place. 11:23 Ptt, Activated Sent. ko1 11:23 PT-INR Sent. ko1 11:23 Blood Culture Adult (2) Sent. ko1 11:23 Lactate w/ 2H reflex if indic. Sent. ko1 Administered Medications: 09:45 Drug: NS 0.9% IV 1000 ml IV at 1 bolus Per protocol; 1000 mL bolus Route: IV; Rate: 1 ko1 bolus; Site: right antecubital; 09:46 Drug: Ondansetron IVP 4 mg IVP once; over 2 minutes Route: IVP; Site: right antecubital;ko1 09:48 Drug: fentaNYL (PF) IVP 100 mcg IVP once Route: IVP; Site: right antecubital; ko1 11:00 Drug: Piperacillin-Tazobactam IVPB 3.375 grams IVPB once over 60 mins; (mix in NS 100 ko1 mL) Route: IVPB; Infused Over: 60 mins; Site: right antecubital; 11:24 Drug: NS 0.9% IV 1000 ml IV at 1 bolus Per protocol; 1000 mL bolus Route: IV; Rate: 1 ko1 bolus; Site: right antecubital; Medication: 11:15 VIS not applicable for this client. ko1 Outcome: 10:47 Decision to Hospitalize by Provider. rt 11:15 Admitted to OR accompanied by nurse, via stretcher, with oxygen, with chart, ko1 11:15 Condition: stable 11:15 Instructed on the need for admit, Demonstrated understanding of 11:26 Patient left the ED. ko1 Signatures: Dispatcher [employer] Kelsey Glass, RN RN [email or web address] Dayana Cooper Kathy, RN RN ko1 Cornel Dos Santos MD MD rt Corrections: (The following items were deleted from the chart) 08:57 08:50 Chief complaint: jairo gill
--- NOTE | 2023-10-12 10:48 | EDPHYS ---
Physician Documentation [facility] Name: Irene Venegas Age: 63 yrs Sex: Female : 1960 Arrival Date: 10/12/2023 Time: 08:43 Bed 5 Private MD: ED Physician Cornel Dos Santos HPI: 10/12 14:59 This 63 yrs old Female presents to ER via EMS with complaints of Abdominal Pain. rt 14:59 Patient presents to the ED with an acute onset of abdominal pain about 20 minutes prior rt to arrival while she was urinating. Reports nausea without vomiting. Pain is generalized, nonradiating, severe in severity, no other aggravating elevating factors.. Historical: - Allergies: 08:55 Morphine; aa5 - PMHx: 08:55 COPD; Pneumonia; Pneumothorax; aa5 - PSHx: 08:55 Lobectomy of lung; Partial stomach removed; Total abdominal hysterectomy; aa5 - Immunization history:: Adult Immunizations unknown. - Social history:: Smoking status: Patient/guardian denies using tobacco. - Family history:: not pertinent. ROS: 14:59 Constitutional: Negative for fever, chills, and weight loss, Cardiovascular: Negative rt for chest pain, palpitations, and edema, Respiratory: Negative for shortness of breath, cough, wheezing, and pleuritic chest pain, MS/Extremity: Negative for injury and deformity, Skin: Negative for injury, rash, and discoloration, Neuro: Negative for headache, weakness, numbness, tingling, and seizure, Psych: Negative for depression, anxiety, suicide ideation, homicidal ideation, and hallucinations, 14:59 Abdomen/GI: Positive for abdominal pain, Negative for vomiting, Exam: 14:59 Constitutional: This is a well developed, well nourished patient who is awake, alert, rt and in no acute distress. Head/Face: Normocephalic, atraumatic. Chest/axilla: Normal chest wall appearance and motion. Nontender with no deformity. No lesions are appreciated. Cardiovascular: Regular rate and rhythm with a normal S1 and S2. No gallops, murmurs, or rubs. Normal PMI, no JVD. No pulse deficits. Respiratory: Lungs have equal breath sounds bilaterally, clear to auscultation and percussion. No rales, rhonchi or wheezes noted. No increased work of breathing, no retractions or nasal flaring. Skin: Warm, dry with normal turgor. Normal color with no rashes, no lesions, and no evidence of cellulitis. MS/ Extremity: Pulses equal, no cyanosis. Neurovascular intact. Full, normal range of motion. Neuro: Awake and alert, GCS 15, oriented to person, place, time, and situation. Cranial nerves II-XII grossly intact. Motor strength 5/5 in all extremities. Sensory grossly intact. Cerebellar exam normal. Normal gait. Psych: Awake, alert, with orientation to person, place and time. Behavior, mood, and affect are within normal limits. 14:59 Abdomen/GI: Tenderness diffusely with guarding, rebound, distention, Vital Signs: 08:56 BP 141 / 72; Pulse 83; Resp 18 S; Temp 98(TE); Pulse Ox 96% on R/A; aa5 09:00 BP 121 / 58; Pulse 93; Resp 20; Pulse Ox 95% ; ko1 11:15 BP 118 / 64; Pulse 98; Resp 18; Pulse Ox 95% on 2 lpm NC; ko1 MDM: 09:11 Patient medically screened. rt 14:59 Differential diagnosis: Peptic Ulcer Disease, Perf. Duodenal Ulcer, Perf. Gastric rt Ulcer, Peritonitis, Ureterolithiasis. Data reviewed: vital signs, nurses notes, lab test result(s), EKG, radiologic studies. Consideration of Admission/Observation Patient was admitted/placed on observation. Management of patient was discussed with the following: Product Safety Technician: Discussed with general surgery on-call, will evaluate the patient and take to the operating room. I considered the following discharge prescriptions or medication management in the emergency department Medications were administered in the Emergency Department. See MAR. Independent interpretation of the following test(s) in the Emergency Department CT Scan: My interpretation is Pneumoperitoneum seen on interpretation of CT scan images. Care significantly affected by the following chronic conditions: Chronic Obstructive Pulmonary Disease. Counseling: I had a detailed discussion with the patient and/or guardian regarding the historical points, exam findings, and any diagnostic results supporting the discharge/admit diagnosis, lab results, radiology results, the need for further work-up and treatment in the hospital. Response to treatment: the patient's symptoms have mildly improved after treatment. 10/12 09:16 Order name: CBC with Diff; Complete Time: 10:36 rt 10/12 09:16 Order name: CMP; Complete Time: 10:36 rt 10/12 09:16 Order name: Lipase; Complete Time: 10:36 rt 10/12 09:16 Order name: Urinalysis w/ reflexes rt 10/12 10:04 Order name: Manual Differential; Complete Time: 10:36 EDMS 10/12 10:37 Order name: Lactate w/ 2H reflex if indic. rt 10/12 10:37 Order name: Blood Culture Adult (2) rt 10/12 10:37 Order name: PT-INR rt 10/12 10:37 Order name: Ptt, Activated rt 10/12 09:16 Order name: CT Abd/Pelvis - IV Contrast Only; Complete Time: 10:46 rt 10/12 09:16 Order name: IV Saline Lock; Complete Time: 09:48 rt 10/12 09:16 Order name: Labs collected and sent; Complete Time: 09:48 rt Administered Medications: 09:45 Drug: NS 0.9% IV 1000 ml IV at 1 bolus Per protocol; 1000 mL bolus Route: IV; Rate: 1 ko1 bolus; Site: right antecubital; 09:46 Drug: Ondansetron IVP 4 mg IVP once; over 2 minutes Route: IVP; Site: right antecubital;ko1 09:48 Drug: fentaNYL (PF) IVP 100 mcg IVP once Route: IVP; Site: right antecubital; ko1 11:00 Drug: Piperacillin-Tazobactam IVPB 3.375 grams IVPB once over 60 mins; (mix in NS 100 ko1 mL) Route: IVPB; Infused Over: 60 mins; Site: right antecubital; 11:24 Drug: NS 0.9% IV 1000 ml IV at 1 bolus Per protocol; 1000 mL bolus Route: IV; Rate: 1 ko1 bolus; Site: right antecubital; Disposition Summary: 10/12/23 10:47 Hospitalization Ordered Notes: Hospitalization Status: Inpatient Admission rt Provider: Vince Fong rt Location: Operating Room rt Condition: Guarded rt Problem: new rt Symptoms: are unchanged rt Bed/Room Type: Standard rt Room Assignment: rt Diagnosis - Pneumoperitoneum rt Forms: - Medication Reconciliation Form rt - SBAR form rt - Leadership Thank You Letter rt Critical care time excluding procedures: 14:59 Critical care time: Bedside Care: 30 minutes, Consultation: 10 minutes. Total time: 40 rt minutes Signatures: Dispatcher [employer] Kelsey Glass RN RN aa5 Nighat Naranjo RN RN ko1 Cornel Dos Santos MD MD rt
[2023-10-12] MEDS ORDERED: PIPERACIL/TAZO 3.375 GM VIAL IV ONE (10:50)
[2023-10-12 11:23] LABS: Protime INR 1.08
[2023-10-12] MEDS ORDERED: propofoL 200 MG/20 ML VIAL IV ONE (11:59)
[2023-10-12] MEDS ORDERED: ROCURONIUM 50 MG/5 ML VIAL IV ONE (11:59)
[2023-10-12] MEDS ORDERED: dexAMETHasone 4 MG/ML VIAL ONE (11:59)
[2023-10-12] MEDS ORDERED: LIDOCAINE 1% MPF 5 ML VIAL ONE (11:59)
[2023-10-12] MEDS ORDERED: MIDAZOLAM HCL 2 MG/2 ML INJ ONE (11:59)
[2023-10-12] MEDS: NA CHLORIDE 0.9% 1,000 ML IV SCH (12:00)
[2023-10-12] MEDS ORDERED: Ringers Lactate 1,000 ML IV ONE ×2 (12:10→13:32)
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
[2023-10-12 13:53] LABS: Specific Gravity > 1.030 (1.005-1.030); Urine Bacteria <20 /HPF (<20); Urine Bilirubin NEGATIVE (Negative); Urine Blood 2+ (Negative); Urine Clarity Clear (Clear); Urine Color Light-Yellow (Yellow); Urine Glucose NEGATIVE (Negative); Urine Protein NEGATIVE (Negative); Urine RBC 21-50 /HPF (None Seen); Urine Urobilinogen Normal (Normal); Urine pH 5.5 (5.0-7.0)
[2023-10-12] MEDS ORDERED: Phenylephrine HCl 10 MG/ML 1 ML VIAL ONE (13:55)
[2023-10-12] MEDS ORDERED: NEOSTIGMINE 1 MG/ML -10 ML VIAL ONE (14:14)
[2023-10-12] MEDS ORDERED: GLYCOPYRROLATE 0.2 MG/ML SYR ONE (14:14)
[2023-10-12] MEDS: FENTANYL CITR 100 MCG/2 ML ONE ×2 (15:21→15:56)
[2023-10-12] MEDS: Ringers Lactate 1,000 ML IV ONE ×2 (15:21→15:29)
--- NOTE | 2023-10-12 15:21 | P.BOP ---
Preoperative diagnosis: Pneumoperitoneum, perforated viscous, pneumonia Postoperative diagnosis: perforated sigmoid colon, intrabdominal abscess Primary procedure: Emergent exploratory laparotomy, sigmoid bowel resection Secondary procedure: End colostomy, extensive lysis of adhesions, appendectomy Estimated blood loss: <10cc Specimen: bowel, appendix Findings: see dicta Anesthesia: General Complications: None Drain(s): LULY drain Transferred to: Recovery Room Condition: Serious
[2023-10-12] MEDS ORDERED: MEPERIDINE HCL 50 MG/ML IV PRN (15:27)
[2023-10-12] MEDS ORDERED: SODIUM CHLORIDE 0.9% 10ML INJ IV PRN (15:33)
[2023-10-12] MEDS: ONDANSETRON 4 MG/2 ML VIAL IV PRN (16:15)
[2023-10-12] MEDS ORDERED: HYDROMORPHONE HCL 2 MG/ML inj ONE ×2 (16:22→20:08)
[2023-10-12] MEDS: HYDROMORPHONE HCL 2 MG/ML inj IV PRN ×2 (16:30→20:14)
[2023-10-12] MEDS: PIPER TAZO 3.375 GM in NA CHLORIDE 0.9% 100 ML IV SCH (16:32)
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
[2023-10-12 18:43] VITALS: BMI 16.0
[2023-10-13] MEDS ORDERED: NA CHLORIDE 0.9% 1,000 ML ONE (00:04)
[2023-10-13] MEDS: PIPER TAZO 3.375 GM in NA CHLORIDE 0.9% 100 ML IV SCH ×3 (00:06→16:40)
[2023-10-13] MEDS: NA CHLORIDE 0.9% 1,000 ML IV SCH ×4 (00:06→20:59)
[2023-10-13] MEDS ORDERED: HYDROMORPHONE HCL 2 MG/ML inj ONE ×3 (01:01→12:40)
[2023-10-13] MEDS: HYDROMORPHONE HCL 2 MG/ML inj IV PRN ×6 (01:03→20:40)
[2023-10-13 04:51] LABS: Absolute Lymphocytes (CBC) 1.2 K/uL (0.7-4.9); Hematocrit 23.1 % (36.0-45.0); Lymphocytes % 8.3 % (15.3-44.8); MCV 73.5 fL (80-100); MPV 6.5 fL (7.6-11.3); Platelets 839 thou/uL (152-406); RBC Red Blood Cell Count 3.15 M/uL (3.86-4.86)
[2023-10-13 05:09] LABS: Magnesium 1.9 mg/dL (1.6-2.4); Potassium 4.8 mEq/L (3.5-5.1)
[2023-10-13] MEDS: PANTOPRAZOLE 40 MG INJ IVP SCH (08:31)
[2023-10-13] MEDS: ONDANSETRON 4 MG/2 ML VIAL IV PRN (08:32)
--- NOTE | 2023-10-13 08:44 | P.PN ---
Date of Service: 10/13/23 Subjective: C/O thoat pain Abd pain Dark drainage from NGT ROS: 10 point ROS as noted above, otherwise negative Physical exam GEN: Alert, oriented, NAD HEENT: Normal conjunctiva, sclera anicteric CV: Regular rate and rhythm, no edema Pulm: Nonlabored respirations on nasal cannula ABD: Soft, mildly tender, LULY drain in place x2, LLQ colostomy in place, stoma pink, dressings CDI MSK: No joint tenderness Integumentary: No rashes Neuro: Normal speech, normal affect Vitals reviewed Problem List Pneumoperitoneum, perforated sigmoid colon, intra-abdominal abscess S/P ex lap, sigmoid bowel resection with end colostomy, appendectomy with LUYL drain x2 10/12 -Dr. Herrera consulted and following -Continue zosyn -Dilaudid for pain -Continue ICU level of care -NPO for now, further diet per surgery Thrombocythemia Platelets 1234, improving, 839 10/13 continue to follow Microcytic anemia MEGAN studies Transfuse hemoglobin< 7 repeat CBC today COPD As needed neb treatments DVT PPx SCDs for now, lovenox when cleared by surgery team Full code LOS 4 to 5 days Time Spent Managing Pts Care (In Minutes): 35
[2023-10-13 13:03] LABS: Hematocrit 22.8 % (36.0-45.0); MCV 74.6 fL (80-100); MPV 6.5 fL (7.6-11.3); Platelets 877 thou/uL (152-406); RBC Red Blood Cell Count 3.05 M/uL (3.86-4.86)
[2023-10-13 13:21] LABS: Ferritin 209.1 ng/mL (8-388); Iron < 10.0 ug/dL (50-170); Transferrin 111 mg/dL (200-360)
--- NOTE | 2023-10-13 17:59 | PN ---
Date of Progress Note: 10/13/2023 Diagnoses: Pneumoperitoneum, perforated viscus, history of pneumonia, perforated sigmoid colon, intr aabdominal abscess. Procedure: Emergent exploratory laparotomy with sigmoid bowel resection and colostomy, extensive elliott is of adhesions and appendectomy. Subjective: The patient is doing well. She has no shortness of breath. No chest pain. Back still, not passing flatus yet. Objective: Chest: Clear. Abdomen: Soft and depressible. Intact surgical site. Ostomy, viable, nonfunctional yet. Extremities: Good capillary refill. Laboratory Data: Blood work shows WBC count of 13 with hemoglobin of 7.4, and the platelets of 839. Plan: We may clamp the NG tube, probably remove it tomorrow. Incentive spirometry, ambulation as so on as possible. Probably, we may need to rehab evaluation with a hemoglobin of 7 and all this emerge nt procedure. She may benefit from blood transfusion. We will discuss with the primary doctors to s ee the pros and cons of it. Keep n.p.o. although she may have some ice chips. HM/MODL Voice ID: [id number] Report ID: [id number]
[2023-10-14] MEDS: PIPER TAZO 3.375 GM in NA CHLORIDE 0.9% 100 ML IV SCH ×3 (00:23→16:58)
[2023-10-14] MEDS: HYDROMORPHONE HCL 2 MG/ML inj IV PRN ×5 (01:55→19:32)
[2023-10-14 05:06] LABS: MPV 6.7 fL (7.6-11.3)
[2023-10-14 05:11] LABS: Absolute Lymphocytes (CBC) 1.1 K/uL (0.7-4.9); Hematocrit 20.9 % (36.0-45.0); Lymphocytes % 6.4 % (15.3-44.8); MCV 75.6 fL (80-100); Platelets 802 thou/uL (152-406); RBC Red Blood Cell Count 2.77 M/uL (3.86-4.86)
[2023-10-14 05:18] LABS: Magnesium 2.1 mg/dL (1.6-2.4); Phosphorus 2.3 mg/dL (2.5-4.9)
[2023-10-14] MEDS: NA CHLORIDE 0.9% 1,000 ML IV SCH ×2 (05:57→19:52)
--- NOTE | 2023-10-14 08:26 | P.PN ---
Date of Service: 10/14/23 Subjective: C/O Abd pain Tolerating ice chips asking for ensure Dark drainage from NGT ROS: 10 point ROS as noted above, otherwise negative Physical exam GEN: Alert, oriented, NAD HEENT: Normal conjunctiva, sclera anicteric CV: Regular rate and rhythm, no edema Pulm: Nonlabored respirations on nasal cannula ABD: Soft, mildly tender, LULY drain in place x2, LLQ colostomy in place, stoma pink, dressings CDI MSK: No joint tenderness Integumentary: No rashes Neuro: Normal speech, normal affect Vitals reviewed Problem List Pneumoperitoneum, perforated sigmoid colon, intra-abdominal abscess S/P ex lap, sigmoid bowel resection with end colostomy, appendectomy with LULY drain x2 10/12 -Dr. Herrera consulted and following -Continue zosyn -Dilaudid for pain -Continue ICU level of care -NPO for now,ok for ice chips per surgery Thrombocythemia initially platelets 1234, improving, 800s now continue to follow Microcytic anemia-severe iron deficiency anemia with acute blood loss anemia severe MEGAN iron level <10 HGB 6.5 today, unit of PRBC ordered Repeat H/H after transfusion COPD As needed neb treatments DVT PPx SCDs for now, lovenox when cleared by surgery team Full code LOS 4 to 5 days Time Spent Managing Pts Care (In Minutes): 35
[2023-10-14] MEDS: PANTOPRAZOLE 40 MG INJ IVP SCH (08:28)
[2023-10-14] MEDS ORDERED: POTASSIUM PHOS IN 0.9 % NACL 15 MMOL/250 ML BAG IV ONE (08:30)
[2023-10-14] MEDS ORDERED: HYDROMORPHONE HCL 2 MG/ML inj ONE ×2 (10:22→14:59)
[2023-10-14] MEDS ORDERED: NA CHLORIDE 0.9% 250 ML ONE (10:23)
[2023-10-14 16:34] LABS: Hematocrit 25.7 % (36.0-45.0)
[2023-10-14] MEDS ORDERED: NA CHLORIDE 0.9% 100 ML ONE (16:51)
[2023-10-14] MEDS ORDERED: PIPERACIL/TAZO 3.375 GM VIAL IV ONE (16:51)
--- NOTE | 2023-10-14 18:13 | PN ---
Date of Progress Note: 10/14/2023 Diagnoses: Status post perforated viscus with an emergent laparotomy, bowel resection, and colostomy . Subjective: The patient is doing better. She is awake and alert. No distress. Objective: HEENT: Pupils are equal and reactive. Anicteric. Neck: Supple. Chest: Clear. Heart: S1, S2. Abdomen: Soft and depressible. Viable ostomy, nonfunctional yet. Bowel sounds diminished. Extremities: Good capillary refill. Laboratory Data: Blood work reviewed. Plan: Agree with the blood transfusion and out of bed, may move to the floor. Remove NG tube. HM/MODL Voice ID: [id number] Report ID: [id number]
[2023-10-14] MEDS ORDERED: ZOLPIDEM TARTRATE 10 MG TABLET ONE (21:52)
[2023-10-15] MEDS: HYDROMORPHONE HCL 2 MG/ML inj IV PRN ×5 (00:36→19:57)
[2023-10-15] MEDS: PIPER TAZO 3.375 GM in NA CHLORIDE 0.9% 100 ML IV SCH ×3 (00:37→16:09)
[2023-10-15 06:11] LABS: Absolute Lymphocytes (CBC) 1.2 K/uL (0.7-4.9); Hematocrit 22.7 % (36.0-45.0); Lymphocytes % 6.9 % (15.3-44.8); MCV 77.3 fL (80-100); MPV 6.5 fL (7.6-11.3); Platelets 786 thou/uL (152-406); RBC Red Blood Cell Count 2.94 M/uL (3.86-4.86)
[2023-10-15] MEDS: NA CHLORIDE 0.9% 1,000 ML IV SCH ×2 (06:17→20:00)
[2023-10-15 06:18] LABS: Magnesium 1.9 mg/dL (1.6-2.4); Phosphorus 2.2 mg/dL (2.5-4.9); Potassium 3.7 mEq/L (3.5-5.1)
--- NOTE | 2023-10-15 08:26 | P.PN ---
Date of Service: 10/15/23 Subjective: C/O Abd pain Tolerating Clear liquids this morning NGT discontinued overnight ROS: 10 point ROS as noted above, otherwise negative Physical exam GEN: Alert, oriented, NAD HEENT: Normal conjunctiva, sclera anicteric CV: Regular rate and rhythm, no edema Pulm: Nonlabored respirations on nasal cannula ABD: Soft, mildly tender, LULY drain in place x2, LLQ colostomy in place, stoma pink, dressings CDI MSK: No joint tenderness Integumentary: No rashes Neuro: Normal speech, normal affect Vitals reviewed Problem List Pneumoperitoneum, perforated sigmoid colon, intra-abdominal abscess S/P ex lap, sigmoid bowel resection with end colostomy, appendectomy with LULY drain x2 10/12 -Dr. Herrera consulted and following -Continue zosyn -Dilaudid for pain -Moved to floor -Clear liquids for now, diet per surgery -PT consult added Thrombocythemia Improving, possibly reactive Microcytic anemia-severe iron deficiency anemia with acute blood loss anemia severe MEGAN iron level <10 HGB 7.2 today Had 1 unit PRBC so far Repeat hgb at noon COPD As needed neb treatments DVT PPx SCDs for now, lovenox when cleared by surgery team Full code LOS 3 to 4 days Time Spent Managing Pts Care (In Minutes): 35
[2023-10-15] MEDS: PANTOPRAZOLE 40 MG INJ IVP SCH (08:34)
[2023-10-15] MEDS ORDERED: POTASSIUM PHOS IN 0.9 % NACL 15 MMOL/250 ML BAG IV ONE (09:00)
[2023-10-15] MEDS ORDERED: NA CHLORIDE 0.9% 250 ML IV SCH ×2 (14:00)
[2023-10-15] MEDS ORDERED: NA CHLORIDE 0.9% 250 ML ONE (14:32)
--- NOTE | 2023-10-15 18:11 | PN ---
Date of Progress Note: 10/15/2023 Diagnosis: Status post pneumoperitoneum, perforated viscus, intraabdominal abscess, bowel resection, and colostomy. Subjective: The patient is doing great, is very positive. She is trying liquid diet. No shortness of breath. No chest pain. Objective: Chest: Clear. Abdomen: Soft and depressible. Bowel sounds are diminished but positive. Ostomy viable, some tiny little amount of air present, but no stool she had. Extremities: Good capillary refill. Plan: The blood work was reviewed, still anemia, I believe, and I agree with the primary doctors. I believe we should give her a unit of blood. They are still trying to find balance on this patient a fter this large surgery. She has not eaten in few days and I do not believe she is in good condition to produce her hemoglobin any time soon. So I believe the blood transfusion should be given. I do not see any active bleeding. LULY drains are there, but we suspect a little bit of drop in hemoglobin, we do not want to round her in the 6. Ambulation is importance, so is incentive spirometry. Contin ue antibiotics. HM/MODL Voice ID: [id number] Report ID: [id number]
[2023-10-15] MEDS: ZOLPIDEM TARTRATE 5 MG TABLET PO SCH (19:57)
[2023-10-15 20:52] LABS: Hematocrit 28.6 % (36.0-45.0)
[2023-10-16] MEDS: NA CHLORIDE 0.9% 1,000 ML IV SCH ×3 (00:11→16:16)
[2023-10-16] MEDS: PIPER TAZO 3.375 GM in NA CHLORIDE 0.9% 100 ML IV SCH ×3 (00:11→16:16)
[2023-10-16] MEDS: HYDROMORPHONE HCL 2 MG/ML inj IV PRN ×5 (00:12→18:45)
[2023-10-16 06:38] LABS: Absolute Lymphocytes (CBC) 1.1 K/uL (0.7-4.9); Hematocrit 28.2 % (36.0-45.0); Lymphocytes % 9.4 % (15.3-44.8); MPV 6.6 fL (7.6-11.3); Platelets 804 thou/uL (152-406); RBC Red Blood Cell Count 3.61 M/uL (3.86-4.86)
[2023-10-16 06:58] LABS: Magnesium 1.8 mg/dL (1.6-2.4); Potassium 3.6 mEq/L (3.5-5.1)
[2023-10-16] MEDS: PANTOPRAZOLE 40 MG INJ IVP SCH (08:00)
[2023-10-16] MEDS ORDERED: MAGNESIUM SULFATE 1 gm IVPB 1 GM/100 ML BAG IV ONE (09:00)
[2023-10-16] MEDS ORDERED: POTASSIUM PHOS IN 0.9 % NACL 15 MMOL/250 ML BAG IV ONE (09:00)
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
--- NOTE | 2023-10-16 09:53 | P.PN ---
Date of Service: 10/16/23 Subjective: C/O Abd pain Tolerating Clear liquids this morning Small amt serosanginous output in ostomy ROS: 10 point ROS as noted above, otherwise negative Physical exam GEN: Alert, oriented, NAD HEENT: Normal conjunctiva, sclera anicteric CV: Regular rate and rhythm, no edema Pulm: Nonlabored respirations on nasal cannula ABD: Soft, mildly tender, LULY drain in place x2, LLQ colostomy in place, stoma pink, dressings CDI MSK: No joint tenderness Integumentary: No rashes Neuro: Normal speech, normal affect Vitals reviewed Problem List Pneumoperitoneum, perforated sigmoid colon, intra-abdominal abscess S/P ex lap, sigmoid bowel resection with end colostomy, appendectomy with LULY drain x2 10/12 -Dr. Herrera consulted and following -Continue zosyn -Dilaudid for pain -Moved to floor -Clear liquids for now, diet per surgery -PT consult added Thrombocythemia Improving, possibly reactive Microcytic anemia-severe iron deficiency anemia with acute blood loss anemia severe MEGAN iron level <10 HGB improved today Had 2 unit PRBC so far COPD As needed neb treatments DVT PPx SCDs for now, lovenox when cleared by surgery team Full code LOS 3 to 4 days Time Spent Managing Pts Care (In Minutes): 35
--- NOTE | 2023-10-16 17:47 | PN ---
Date of Progress Note: 10/16/2023 Diagnosis: Status post perforated viscus. Subjective: The patient is doing great. Ostomy has some liquid, little bit of gas, nothing big. No shortness of breath. No chest pain. No fever. Review of Systems: Ten points otherwise unremarkable. Physical Examination: Chest: Clear. Abdomen: Soft and depressible. Ostomy viable. Some time with a piece of stool and liquid present. Extremities: Good capillary refill. Laboratory Data: The blood work shows improved WBC count. Plan: Continue treatment and antibiotics per ID. Ambulation with land surveyor assistant. Once we have a colosto my bag with some air, we are going to advance to a diet. In the meantime, we are waiting for that os min to work better. Midline incision. Continue wet to dry. HM/MODL Voice ID: [id number] Report ID: [id number]
[2023-10-16] MEDS: ZOLPIDEM TARTRATE 5 MG TABLET PO SCH (20:42)
[2023-10-17] MEDS: HYDROMORPHONE HCL 2 MG/ML inj IV PRN ×5 (00:55→18:33)
[2023-10-17] MEDS: PIPER TAZO 3.375 GM in NA CHLORIDE 0.9% 100 ML IV SCH ×3 (00:55→16:23)
[2023-10-17] MEDS: NA CHLORIDE 0.9% 1,000 ML IV SCH ×4 (02:00→20:46)
[2023-10-17] MEDS: ALBUTEROL 2.5 MG/3 ML NEB SOL NEB SCH ×5 (05:47→20:40)
[2023-10-17] MEDS: IPRATROPIUM BROM 0.5MG/2.5ML NEB SCH ×5 (05:47→20:40)
[2023-10-17 07:15] LABS: Bicarbonate 28 mEq/L (21-32); Glomerular Filtration Rate 119 ml/min (=/>90); Glucose Level 88 mg/dL (74-106); Magnesium 1.9 mg/dL (1.6-2.4); Phosphorus 2.7 mg/dL (2.5-4.9); Potassium 3.8 mEq/L (3.5-5.1); Sodium Level 140 mEq/L (136-145)
[2023-10-17 07:16] LABS: BUN Blood Urea Nitrogen < 3 mg/dL (7-18)
[2023-10-17 07:20] LABS: Absolute Lymphocytes (CBC) 1.2 K/uL (0.7-4.9); Hematocrit 30.5 % (36.0-45.0); Lymphocytes % 8.8 % (15.3-44.8); MPV 6.6 fL (7.6-11.3); Platelets 884 thou/uL (152-406); RBC Red Blood Cell Count 3.91 M/uL (3.86-4.86)
[2023-10-17] MEDS: PANTOPRAZOLE 40 MG INJ IVP SCH (07:38)
--- NOTE | 2023-10-17 07:51 | RAD REPORT ---
EXAM DESCRIPTION: RAD - Chest Single View - 10/17/2023 6:18 am CLINICAL HISTORY: Cough Chest pain. COMPARISON: Chest Pa And Lat (2 Views) dated 09/26/2023; Chest Pa And Lat (2 Views) dated 09/19/2023 ; Chest Single View dated 09/17/2023; Chest Single View dated 09/13/2023; Abdomen Pelvis W Contrast dated 10/12/2023; Thorax Wo Con dated 09/04/2023 FINDINGS: Portable technique limits examination quality. Advanced pleural and parenchymal scarring is present in the left upper lobe. Emphysematous changes ar e present with irregular areas of nodularity also noted in the right upper lobe. Mild opacities in maurice th lung bases, greater on the right likely atypical infection. . The heart is mildly enlarged in size . IMPRESSION: Mild linear opacities in both lung bases are seen, probably representing mild atypical i nfection.
[2023-10-17] MEDS ORDERED: KCL 20 MEQ/100 mL IVPB 20 MEQ/100 ML BAG IV SCH (09:00)
--- NOTE | 2023-10-17 09:06 | P.PN ---
Date of Service: 10/17/23 Chief Complaint: abdominal pain Subjective: Patient seen and examined at bedside. In no apparent distress at this time. + abdominal pain + shortness of breath + generalized weakness Physical Examination Temp Pulse Resp BP Pulse Ox 97.6 F 102 H 18 146/88 H 96 10/17/23 12:00 10/17/23 12:00 10/17/23 12:00 10/17/23 12:00 10/17/23 12:00 General: Alert, In no apparent distress, Oriented x3 HEENT: Atraumatic. Corrective lenses. Respiratory: Diminished, Crackles/rales. On 3L nasal cannula Cardiovascular: Regular rate/rhythm. BLE edema 1+ Gastrointestinal: LULY drain x2. LLQ colostomy. Tenderness Integumentary: Abdominal incision site dressing is clean dry and intact. Msk: generalized weakness Laboratory Data - Reviewed Microbiology Data - Reviewed Imagings Data: - Reviewed Medications list: Reviewed Assessment and Plan Problem List Pneumoperitoneum Perforated sigmoid colon Intra-abdominal abscess COPD Microcytic Anemia Pneumoperitoneum Perforated sigmoid colon Intra-abdominal abscess - s/p emergent exploratory laparotomy, sigmoid bowel resection, end colostomy, extensive lysis of adesions and appendectomy on 10/[address] Herrera. - On Zosyn (started 10/12) - Blood cutlures 10/12: No growth to date - Wound cultures 10/12: no growth to date - Leukocytosis improving - Afebrile Recommendations - Continue with antibiotics for 7 days postoperatively. Currently on day 6 of 7. - Continue with Zosyn for now - Monitor WBC and fever trends - Surgical site care per Dr. Herrera - Pain management per primary team - Continue supportive care Case discussed with Gurjit Ibarra.
--- NOTE | 2023-10-17 10:32 | P.PN ---
Date of Service: 10/17/23 Subjective: Feeling better this morning No acute events overnight ROS: 10 point ROS as noted above, otherwise negative Physical exam GEN: Alert, oriented, NAD HEENT: Normal conjunctiva, sclera anicteric CV: Regular rate and rhythm, no edema Pulm: Nonlabored respirations on nasal cannula ABD: Soft, mildly tender, LULY drain in place x2, LLQ colostomy in place, stoma pink, dressings CDI MSK: No joint tenderness Integumentary: No rashes Neuro: Normal speech, normal affect Vitals reviewed Problem List Pneumoperitoneum, perforated sigmoid colon, intra-abdominal abscess S/P ex lap, sigmoid bowel resection with end colostomy, appendectomy with LULY drain x2 10/12 -Dr. Herrera consulted and following -Continue sandra stone 10/18 -Dilaudid for pain -Moved to floor -Clear liquids for now, diet per surgery -PT consult added Thrombocythemia Improving, possibly reactive Microcytic anemia-severe iron deficiency anemia with acute blood loss anemia severe MEGNA iron level <10 HGB improved today Had 2 unit PRBC so far COPD As needed neb treatments DVT PPx SCDs for now, lovenox when cleared by surgery team Full code LOS 2 to 3 days Time Spent Managing Pts Care (In Minutes): 35
[2023-10-17] MEDS: ONDANSETRON 4 MG/2 ML VIAL IV PRN (11:03)
--- NOTE | 2023-10-17 16:58 | PN ---
Diagnoses: Perforated viscus with emergent laparotomy, bowel resection and colostomy. Subjective: The patient is doing better, tolerating diet, passing flatus in the ostomy bag. No shor tness of breath. No chest pain. No fever. Objective: Chest: Clear. Abdomen: Soft and depressible. Ostomy viable and functional. Extremities: Good capillary refill. Plan: Advance the diet, then after that she will be cleared from the surgical standpoint, and she mi ght need Home Health for wound care and a midline incision, ostomy care and probably rehabilitation _ from the rehab standpoint. ODIN/SURESH Voice ID: [id number] Report ID: [id number]
[2023-10-17] MEDS: ZOLPIDEM TARTRATE 5 MG TABLET PO SCH (20:46)
[2023-10-17] MEDS: ENSURE HIGH PROTEIN 237 ML CAN PO SCH (20:47)
[2023-10-18] MEDS: PIPER TAZO 3.375 GM in NA CHLORIDE 0.9% 100 ML IV SCH ×3 (00:27→17:59)
[2023-10-18] MEDS: IPRATROPIUM BROM 0.5MG/2.5ML NEB SCH ×6 (01:10→20:24)
[2023-10-18] MEDS: ALBUTEROL 2.5 MG/3 ML NEB SOL NEB SCH ×6 (01:10→20:24)
[2023-10-18] MEDS ORDERED: METHYLPREDNISOLONE 125 MG INJ IV ONE (03:27)
[2023-10-18] MEDS ORDERED: FUROSEMIDE 40 MG/4 ML VIAL IV ONE (03:27)
[2023-10-18 04:31] LABS: Arterial Blood Carboxyhemoglob 0.7 % (0-1.5); Blood Gas Oxyhemoglobin 96.6 % (94-97); Blood O2 Saturation 98.7 % (92-98.5)
[2023-10-18] MEDS: HYDROMORPHONE HCL 2 MG/ML inj IV PRN ×4 (04:42→19:45)
[2023-10-18 07:20] LABS: Bicarbonate 31 mEq/L (21-32); Glomerular Filtration Rate 115 ml/min (=/>90); Glucose Level 123 mg/dL (74-106); Magnesium 1.8 mg/dL (1.6-2.4); Phosphorus 3.1 mg/dL (2.5-4.9); Potassium 3.3 mEq/L (3.5-5.1); Sodium Level 139 mEq/L (136-145)
[2023-10-18 07:22] LABS: BUN Blood Urea Nitrogen < 3 mg/dL (7-18)
[2023-10-18 07:27] LABS: Absolute Lymphocytes (CBC) 0.4 K/uL (0.7-4.9); Hematocrit 33.6 % (36.0-45.0); Lymphocytes % 2.3 % (15.3-44.8); MCV 77.9 fL (80-100); MPV 6.8 fL (7.6-11.3); RBC Red Blood Cell Count 4.31 M/uL (3.86-4.86)
[2023-10-18 07:36] LABS: Platelets 948 thou/uL (152-406)
[2023-10-18] MEDS: NA CHLORIDE 0.9% 1,000 ML IV SCH (08:00)
--- NOTE | 2023-10-18 08:46 | P.PN ---
Date of Service: 10/18/23 Chief Complaint: abdominal pain Subjective: Patient reportedly desaturated overnight with shortness of breath, started on BiPAP. Patient seen and examined at bedside. Currently on 3L nasal cannula. In no apparent distress at this time. + generalized weakness + shortness of breath + decreased appetite + abdominal pain Physical Examination Temp Pulse Resp BP Pulse Ox 97.6 F 91 H 20 116/59 L 100 10/18/23 08:00 10/18/23 08:00 10/18/23 08:00 10/18/23 08:00 10/18/23 08:00 General: Alert, In no apparent distress, Oriented x3. Thin, frail. HEENT: Atraumatic. Corrective lenses. Respiratory: Diminished. On 3L nasal cannula Cardiovascular: Regular rate/rhythm. BLE edema 1+ Gastrointestinal: LULY drain x2. LLQ colostomy. Tenderness Integumentary: Abdominal incision site dressing is clean dry and intact. Msk: generalized weakness Laboratory Data - Reviewed Microbiology Data - Reviewed Imagings Data: - Reviewed Medications list: Reviewed Assessment and Plan Problem List Pneumoperitoneum Perforated sigmoid colon Intra-abdominal abscess COPD Microcytic Anemia Pneumoperitoneum Perforated sigmoid colon Intra-abdominal abscess - s/p emergent exploratory laparotomy, sigmoid bowel resection, end colostomy, extensive lysis of adesions and appendectomy on 10/[address] Herrera. - On Zosyn (started 10/12) - Blood cultures 10/12: No growth to date - Wound cultures 10/12: no growth to date - Afebrile Pulmonary Embolus, Right Lower Lobe - CT PE 10/18: " Right lower lobe pulmonary embolus. Development of 7 centimeter soft tissue anterior left upper lobe abutting the pleural surface most likely inflammatory." - On Lovenox Recommendations - On Zosyn day 7 of 7 - Monitor WBC and fever trends - Surgical site care per Dr. Herrera - Pain management per primary team - Continue supportive care Case discussed with Andrew Ibarra
[2023-10-18] MEDS: ENSURE HIGH PROTEIN 237 ML CAN PO SCH ×3 (09:00→19:46)
[2023-10-18] MEDS: PANTOPRAZOLE 40 MG INJ IVP SCH (09:51)
--- NOTE | 2023-10-18 11:01 | RAD REPORT ---
EXAM DESCRIPTION: CT - Chest For Pe Angio - 10/18/2023 10:39 am CLINICAL HISTORY: Shortness of breath COMPARISON: August 2023 TECHNIQUE: Dynamically enhanced axial 3 mm thick images of the chest were obtained during administra tion of 100 mL Isovue 370 IV contrast. Coronal and oblique reconstruction images were generated and r eviewed. Exam utilizes a protocol for optimal evaluation of pulmonary arterial tree. Maximum intensity projections 3D imaging was utilized All CT scans are performed using dose optimization technique as appropriate and may include automated exposure control or mA/KV adjustment according to patient size. FINDINGS: Thrombus left lower lobe pulmonary artery. No thrombus main pulmonary, right main or left pulmonary arteries. A thoracic aortic aneurysm is not noted. Small pleural effusions COPD. Left upper lobe bronchiectasis. Bilateral calcified granulomas. Scarring within the lungs. 7 centimeter soft tissue anterior left upper lobe abutting the pleural surface IMPRESSION: Right lower lobe pulmonary embolus Development of 7 centimeter soft tissue anterior left upper lobe abutting the pleural surface most li jermaine inflammatory. This should be monitored on subsequent exam
--- NOTE | 2023-10-18 11:45 | P.PN ---
Date of Service: 10/18/23 Subjective: Had onset of shortness of breath overnight requiring BiPAP Was given IV steroids, IV Lasix Breathing is better this morning ROS: 10 point ROS as noted above, otherwise negative Physical exam GEN: Alert, oriented, NAD HEENT: Normal conjunctiva, sclera anicteric CV: Regular rate and rhythm, no edema Pulm: Nonlabored respirations on nasal cannula ABD: Soft, mildly tender, LULY drain in place x2, LLQ colostomy in place, stoma pink, dressings CDI MSK: No joint tenderness Integumentary: No rashes Neuro: Normal speech, normal affect Vitals reviewed Problem List Pneumoperitoneum, perforated sigmoid colon, intra-abdominal abscess S/P ex lap, sigmoid bowel resection with end colostomy, appendectomy with LULY drain x2 10/12 -Dr. Herrera consulted and following -Dilaudid for pain -Diet has been advanced -Patient working with PT -Pending rehab placement Right lower lobe pulmonary embolus 7 cm soft tissue anterior left upper lobe abutting the pleural surface CT PE protocol obtained given sudden onset shortness of breath overnight Right lower lobe pulm embolism noted-discussed with surgery, continue with therapeutic Lovenox Additionally noted 7 cm soft tissue anterior left upper lobe abutting the pleural surface- radiology notes likely inflammatory will need follow-up imaging-discussed with patient Thrombocythemia Improving, possibly reactive Microcytic anemia-severe iron deficiency anemia with acute blood loss anemia severe MEGAN iron level <10 Had 2 unit PRBC so far Monitor H&H COPD As needed neb treatments DVT PPx therapeutic Lovenox Full code LOS 2 to 3 days Time Spent Managing Pts Care (In Minutes): 35
--- NOTE | 2023-10-18 13:17 | RAD REPORT ---
EXAM DESCRIPTION: RAD - Chest Single View - 10/18/2023 3:47 am CLINICAL HISTORY: SOB COMPARISON: 10/17/2023. TECHNIQUE: XR CHEST 1 VIEW 10/18/2023 3:27 AM COMMUNITY ENGAGEMENT REPRESENTATIVE FINDINGS: Cardiac silhouette is normal in size. There is a large masslike consolidation in the left upper lobe. There is vague right basilar airspace disease. There are several scattered calcified gran ulomas in both upper lobes. There are small pleural effusions. There is loculated pleural fluid in th e upper lateral left chest. There are bilateral pleural effusions. There is no pneumothorax. There ar e no acute osseous findings. IMPRESSION: No change. Electronically signed by: Orlando Gold MD 10/18/2023 05:39 AM COMMUNITY ENGAGEMENT REPRESENTATIVE Due to temporary technical issues with the PACS/Fluency reporting system, reports are being signed by the in house radiologist without review as a courtesy to ensure prompt reporting. The interpreting r adiologist is fully responsible for the content of the report.
[2023-10-18] MEDS: ENOXAPARIN 40 MG/0.4 ML SQ SCH ×2 (13:26→19:45)
[2023-10-18] MEDS ORDERED: POTASSIUM CL SA 10 MEQ TAB PO ONE (17:00)
[2023-10-18] MEDS: ZOLPIDEM TARTRATE 5 MG TABLET PO SCH (19:44)
[2023-10-18] MEDS: ONDANSETRON 4 MG/2 ML VIAL IV PRN (19:56)
[2023-10-18] MEDS: METOPROLOL TAR 25 MG TAB PO SCH (22:42)
[2023-10-19] MEDS: IPRATROPIUM BROM 0.5MG/2.5ML NEB SCH ×5 (00:54→16:21)
[2023-10-19] MEDS: ALBUTEROL 2.5 MG/3 ML NEB SOL NEB SCH ×6 (00:54→16:21)
[2023-10-19] MEDS: METOPROLOL TAR 25 MG TAB PO SCH ×2 (06:16→18:32)
[2023-10-19 06:37] LABS: Absolute Lymphocytes (CBC) 1.5 K/uL (0.7-4.9); Hematocrit 30.1 % (36.0-45.0); MCV 76.6 fL (80-100); MPV 6.2 fL (7.6-11.3); Platelets 958 thou/uL (152-406); RBC Red Blood Cell Count 3.93 M/uL (3.86-4.86)
[2023-10-19 06:54] LABS: Magnesium 1.7 mg/dL (1.6-2.4); Phosphorus 2.3 mg/dL (2.5-4.9); Potassium 3.7 mEq/L (3.5-5.1)
[2023-10-19] MEDS: HYDROMORPHONE HCL 2 MG/ML inj IV PRN ×2 (07:14→11:58)
[2023-10-19 07:33] LABS: Anisocytosis 1+; Blood Morphology Comment NOTED (NOT SEEN); Platelet Estimate INCR; White Blood Cell Scan OK (OK)
[2023-10-19] MEDS: ENSURE HIGH PROTEIN 237 ML CAN PO SCH ×3 (09:00→20:21)
[2023-10-19] MEDS ORDERED: POTASSIUM CL SA 10 MEQ TAB PO ONE (09:00)
[2023-10-19] MEDS: ENOXAPARIN 40 MG/0.4 ML SQ SCH ×2 (09:05→20:19)
[2023-10-19] MEDS: PANTOPRAZOLE 40 MG INJ IVP SCH (09:05)
--- NOTE | 2023-10-19 09:19 | P.PN ---
Date of Service: 10/19/23 Chief Complaint: abdominal pain Subjective: In no apparent distress. + shortness of breath + generalized weakness No acute events overnight. Physical Examination Temp Pulse Resp BP Pulse Ox 97.8 F 80 18 131/77 97 10/19/23 08:00 10/19/23 08:00 10/19/23 08:00 10/19/23 08:00 10/19/23 08:00 General: Alert, In no apparent distress, Oriented x3. Thin, frail. HEENT: Atraumatic. Corrective lenses. Respiratory: Diminished. On 3L nasal cannula Cardiovascular: Regular rate/rhythm. BLE edema 1+ Gastrointestinal: LULY drain x2. LLQ colostomy. Tenderness MSK: generalized weakness Integumentary: Abdominal incision site dressing is clean dry and intact. Laboratory Data - Reviewed Microbiology Data - Reviewed Imagings Data: - Reviewed Medications list: Reviewed Assessment and Plan Problem List Pneumoperitoneum Perforated sigmoid colon Intra-abdominal abscess COPD Microcytic Anemia Severe Protein-Calorie Malnutrition Pneumoperitoneum Perforated sigmoid colon Intra-abdominal abscess - s/p emergent exploratory laparotomy, sigmoid bowel resection, end colostomy, extensive lysis of adesions and appendectomy on 10/[address] Herrera. - Blood cultures 10/12: No growth to date - Wound cultures 10/12: no growth to date - Afebrile - Completed 7 days Zosyn (10/12-10/18) Pulmonary Embolus, Right Lower Lobe - CT PE 10/18: " Right lower lobe pulmonary embolus. Development of 7 centimeter soft tissue anterior left upper lobe abutting the pleural surface most likely inflammatory." - On Lovenox Recommendations - Completed 7 days Zosyn. Continue to monitor for worsening s/s of infection - Surgical site care per Dr. Herrera - Monitor WBC and fever trends - Pain management per primary team - Continue supportive care. - Supplemental nutrition Case discussed with Andrew Ibarra
[2023-10-19] MEDS: ONDANSETRON 4 MG/2 ML VIAL IV PRN ×2 (11:58→20:19)
--- NOTE | 2023-10-19 15:25 | PN ---
Status post laparotomy for bowel perforation and ostomy. The patient is doing better. Yesterday, victor manuel peterson had an incident where they had to use a BiPAP machine and she has a chronic history of pneumonias n ot too long ago. She was admitted for a long time. She has also surgery for lobectomies for lung ma sses. Yesterday, the CAT scan was done and found to have also a PE and proper treatment was initiate d by the primary doctor as safe as we can. We understand patient has laparotomy, but in that case I believe the benefit outweighed the risk of heparinization. In the meantime, she has been getting out of bed. She has SCDs on as before. At this moment, she has no calf tenderness. No Homans signs. Workup for PE has been done by the primary doctors. We have no contraindication for heparinization a t this time, although we obviously have to look for the fluid output. HM/MODL Voice ID: [id number] Report ID: [id number]
[2023-10-19] MEDS ORDERED: IPRATROPIUM BROM 0.5MG/2.5ML NEB PRN (16:22)
--- NOTE | 2023-10-19 16:39 | RAD REPORT ---
EXAM DESCRIPTION: US - Extrem Venous W Compress Arjun - 10/19/2023 4:01 pm CLINICAL HISTORY: Shortness of breath. Evaluate for DVT. COMPARISON: None. TECHNIQUE: Real-time sonographic evaluation of the bilateral lower extremity deep venous systems was performed. FINDINGS: Normal compressibility, flow augmentation, phasic flow and spontaneous flow is identified in both the left and right lower extremity deep venous systems. No intraluminal filling defects seen. IMPRESSION: No DVT in either lower extremity.
[2023-10-19] MEDS: HYDROMORPHONE HCL 1 MG/ML INJ IV PRN (18:32)
--- NOTE | 2023-10-19 18:36 | P.PN ---
Date of Service: 10/19/23 Subjective: Awake, alert, and oriented x3 conversing well and full of conversation this AM on 3 LNC titrated down to 2 sating 95% ROS: 10 point ROS as noted above, otherwise negative Physical exam GEN: Alert, oriented, NAD HEENT: Normal conjunctiva, sclera anicteric CV: Regular rate and rhythm, no edema Pulm: Nonlabored respirations on nasal cannula ABD: Soft, mildly tender, LULY drain in place x2, LLQ colostomy in place, stoma pink, dressings CDI MSK: No joint tenderness Integumentary: No rashes Neuro: Normal speech, normal affect Vitals reviewed Problem List Pneumoperitoneum, perforated sigmoid colon, intra-abdominal abscess S/P ex lap, sigmoid bowel resection with end colostomy, appendectomy with LULY drain x2 10/12 -Dr. Herrera consulted and following -[place] every 5, Dilaudid every 6 -Diet has been advanced -LULY drains with trace purulent drainage -Patient working with PT -Pending rehab placement Right lower lobe pulmonary embolus 7 cm soft tissue anterior left upper lobe abutting the pleural surface CT PE protocol obtained given sudden onset shortness of breath overnight Right lower lobe pulm embolism noted-discussed with surgery, continue with therapeutic Lovenox Additionally noted 7 cm soft tissue anterior left upper lobe abutting the pleu ral surface- radiology notes likely inflammatory will need follow-up imaging-discussed with patient Thrombocythemia Improving, possibly reactive Microcytic anemia-severe iron deficiency anemia with acute blood loss anemia severe MEGAN iron level <10 Had 2 unit PRBC so far 10/14-10/15 Monitor H&H, 9.8/30.1 COPD As needed neb treatments DVT PPx therapeutic Lovenox Full code LOS 2 to 3 days Time Spent Managing Pts Care (In Minutes): 35
[2023-10-19] MEDS: HYDROCODONE/APAP 5/325 MG TAB PO PRN (20:19)
[2023-10-19] MEDS: ZOLPIDEM TARTRATE 5 MG TABLET PO SCH (20:19)
[2023-10-20] MEDS: METOPROLOL TAR 25 MG TAB PO SCH ×2 (06:00→17:18)
[2023-10-20 07:01] LABS: Absolute Lymphocytes (CBC) 1.1 K/uL (0.7-4.9); Hematocrit 31.6 % (36.0-45.0); Lymphocytes % 7.7 % (15.3-44.8); MPV 6.5 fL (7.6-11.3); Platelets 841 thou/uL (152-406)
[2023-10-20 07:13] LABS: Magnesium 1.8 mg/dL (1.6-2.4); Phosphorus 2.6 mg/dL (2.5-4.9)
[2023-10-20] MEDS: ENSURE HIGH PROTEIN 237 ML CAN PO SCH ×3 (09:00→20:35)
[2023-10-20] MEDS: POTASSIUM PHOS IN 0.9 % NACL 15 MMOL/250 ML BAG IV ONE ×2 (09:00→09:37)
[2023-10-20] MEDS: PANTOPRAZOLE 40 MG INJ IVP SCH (09:34)
[2023-10-20] MEDS: ENOXAPARIN 40 MG/0.4 ML SQ SCH ×2 (09:34→20:34)
[2023-10-20] MEDS: HYDROMORPHONE HCL 1 MG/ML INJ IV PRN ×3 (09:45→20:34)
[2023-10-20] MEDS: HYDROCODONE/APAP 5/325 MG TAB PO PRN (11:20)
--- NOTE | 2023-10-20 11:49 | P.PN ---
Date of Service: 10/20/23 Subjective: On bipap this morning, pain controlled, conversing well Awaiting inpatient rehab approval ROS: 10 point ROS as noted above, otherwise negative Physical exam GEN: Alert, oriented, NAD HEENT: Normal conjunctiva, sclera anicteric CV: Regular rate and rhythm, no edema Pulm: Nonlabored respirations on nasal cannula ABD: Soft, mildly tender, LULY drain in place x2, LLQ colostomy in place, stoma pink, dressings CDI MSK: No joint tenderness Integumentary: No rashes Neuro: Normal speech, normal affect Vitals reviewed Problem List Pneumoperitoneum, perforated sigmoid colon, intra-abdominal abscess S/P ex lap, sigmoid bowel resection with end colostomy, appendectomy with LULY drain x2 10/12 -Dr. Herrera consulted and following -[place] every 5, Dilaudid every 6 -Diet has been advanced -LULY drains with trace purulent drainage -Patient working with PT -Pending rehab placement Right lower lobe pulmonary embolus 7 cm soft tissue anterior left upper lobe abutting the pleural surface CT PE protocol obtained given sudden onset shortness of breath overnight Right lower lobe pulm embolism noted-discussed with surgery, continue with therapeutic Lovenox Additionally noted 7 cm soft tissue anterior left upper lobe abutting the pleural surface- radiology notes likely inflammatory will need follow-up imaging-discussed with patient Thrombocythemia Improving, possibly reactive Microcytic anemia-severe iron deficiency anemia with acute blood loss anemia severe MEGAN iron level <10 Had 2 unit PRBC so far 10/14-10/15 Monitor H&H, 08/28 COPD As needed neb treatments DVT PPx therapeutic Lovenox Full code LOS 2 to 3 days- pending inpatient rehab Time Spent Managing Pts Care (In Minutes): 35
--- NOTE | 2023-10-20 13:13 | PN ---
Date of Progress Note: 10/20/2023 Subjective: Status post bowel perforation with an end colostomy and Madhuri procedure. The patient is doing well. No complaint. She feels better spirits. She has no shortness of breath. Sometimes she uses CPAP machine, not using at this moment. She is not short of breath. She is feeling good. She is very positive today. She feels stronger. Objective: Chest: Bilateral breath sounds. Abdomen: Soft and depressible. Extremities: Good capillary refill. No calf tenderness. No Homans signs. Plan: Continue treatment per primary doctors. Ostomy is functional, viable. She is tolerating diet . Laboratory Data: WBC count is 13.9, hemoglobin is 10.3. We have to consider this patient also has b een on steroids. Potassium 4.0, creatinine is 0.34. HM/MODL Voice ID: [id number] Report ID: [id number]
[2023-10-20] MEDS: ZOLPIDEM TARTRATE 5 MG TABLET PO SCH (20:34)
[2023-10-21] MEDS: METOPROLOL TAR 25 MG TAB PO SCH ×2 (06:04→17:36)
[2023-10-21] MEDS: HYDROCODONE/APAP 5/325 MG TAB PO PRN ×3 (06:05→18:28)
[2023-10-21 07:55] LABS: Hematocrit 31.3 % (36.0-45.0); Lymphocytes % 8.3 % (15.3-44.8); MCV 77.1 fL (80-100); MPV 6.9 fL (7.6-11.3); Platelets 787 thou/uL (152-406); RBC Red Blood Cell Count 4.06 M/uL (3.86-4.86)
[2023-10-21 07:57] LABS: Magnesium 1.7 mg/dL (1.6-2.4); Phosphorus 2.6 mg/dL (2.5-4.9); Potassium 3.7 mEq/L (3.5-5.1)
[2023-10-21 08:30] LABS: Anisocytosis 3+; Blood Morphology Comment NOTED (NOT SEEN); White Blood Cell Scan OK (OK)
[2023-10-21 08:31] LABS: Platelet Estimate INCR
[2023-10-21] MEDS: ALBUTEROL 2.5 MG/3 ML NEB SOL NEB PRN ×2 (09:05→14:23)
[2023-10-21] MEDS: ENOXAPARIN 40 MG/0.4 ML SQ SCH ×2 (09:44→21:14)
[2023-10-21] MEDS: PANTOPRAZOLE 40 MG INJ IVP SCH (09:45)
[2023-10-21] MEDS: HYDROMORPHONE HCL 1 MG/ML INJ IV PRN ×3 (09:45→21:13)
[2023-10-21] MEDS: ENSURE HIGH PROTEIN 237 ML CAN PO SCH ×3 (10:35→21:00)
--- NOTE | 2023-10-21 11:01 | RAD REPORT ---
EXAM DESCRIPTION: [facility] Single View10/21/2023 6:58 am CLINICAL HISTORY: f/u opacities COMPARISON: Chest Single View dated 10/18/2023; Chest Single View dated 10/17/2023; Chest Pa And Lat (2 Views) dated 09/26/2023; Chest Pa And Lat (2 Views) dated 09/19/2023; Chest For Pe Angio dated TECHNIQUE: Portable AP view of the chest. FINDINGS: Patchy opacification in the left apex with peripheral pleural thickening or consolidation as well as streaky opacities extending towards the hilum and lower lung, stable. Stable small left pl eural effusion. Less pronounced focal areas of scarring in the right apex are also stable. No pneumo thorax. The cardiomediastinal contours are unremarkable. IMPRESSION: Stable findings as above.
--- NOTE | 2023-10-21 11:28 | P.PN ---
Date of Service: 10/21/23 Subjective: anxious this morning, she is holding the bipap to her face, her oxygen saturation is 100% Awaiting inpatient rehab approval ROS: 10 point ROS as noted above, otherwise negative Physical exam GEN: Alert, oriented, NAD HEENT: Normal conjunctiva, sclera anicteric CV: Regular rate and rhythm, no edema Pulm: Nonlabored respirations on nasal cannula ABD: Soft, mildly tender, LULY drain in place x2, LLQ colostomy in place, stoma pink, dressings CDI MSK: No joint tenderness Integumentary: No rashes Neuro: Normal speech, normal affect Vitals reviewed Problem List Pneumoperitoneum, perforated sigmoid colon, intra-abdominal abscess S/P ex lap, sigmoid bowel resection with end colostomy, appendectomy with LULY drain x2 10/12 Right lower lobe pulmonary embolus 7 cm soft tissue anterior left upper lobe abutting the pleural surface Hx Mycobacterium abscessus infection Thrombocythemia Plan Pneumoperitoneum, perforated sigmoid colon, intra-abdominal abscess S/P ex lap, sigmoid bowel resection with end colostomy, appendectomy with LULY drain x2 10/12 -Dr. Herrera consulted and following -[place] every 5, Dilaudid every 6 -Diet has been advanced -LULY drains with trace purulent drainage -Patient working with PT -Pending rehab placement Right lower lobe pulmonary embolus 7 cm soft tissue anterior left upper lobe abutting the pleural surface CT PE protocol obtained given sudden onset shortness of breath overnight Right lower lobe pulm embolism noted-discussed with surgery, continue with therapeutic Lovenox 40 BID Additionally noted 7 cm soft tissue anterior left upper lobe abutting the pleural surface- radiology notes likely inflammatory will need follow-up imaging-discussed with patient Hx Mycobacterium abscessus infection Merrem started today (10/21) Thrombocythemia Improving, possibly reactive Microcytic anemia-severe iron deficiency anemia with acute blood loss anemia severe MEGAN iron level <10 Had 2 unit PRBC so far 10/14-10/15 Monitor H&H, 08/28 COPD As needed neb treatments DVT PPx therapeutic Lovenox Full code LOS 2 to 3 days- pending inpatient rehab Time Spent Managing Pts Care (In Minutes): 35
[2023-10-21] MEDS ORDERED: MAGNESIUM SULFATE 1 gm IVPB 1 GM/100 ML BAG IV ONE (11:45)
[2023-10-21] MEDS ORDERED: POTASSIUM 25 MEQ EFFERV TAB PO ONE (11:45)
--- NOTE | 2023-10-21 12:46 | P.PN ---
Subjective Date of Service: 10/21/23 Chief Complaint: Mycobacterium abscessus infection Subjective: Improving (Clinically improving bowel perforation) Review of Systems General: Weakness Respiratory: Shortness of Breath Physical Examination - Vital Signs Temperature: 97.5 F Blood Pressure: 148/80 Pulse: 80 Respirations: 30 Pulse Ox (%): 100 - Physical Exam General: Alert, Oriented x3 Respiratory: Clear to auscultation bilaterally, Diminished Cardiovascular: No edema, Normal pulses Assessment And Plan - Current Problems (Diagnosis) (1) Mycobacterium abscessus infection Current Visit: Yes Status: Acute Plan: Patient is 63 years of age 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 I was not able to arrange for outpatient PICC line meropenem treatment PICC line now start on meropenem patient will need macrolide treatment well addition of a third agent if tolerated history of pulmonary embolus continue with Lovenox until on a full diet to p.o. [place] or Eliquis
[2023-10-21] MEDS: Mupirocin NASAL 2 APPL/1 GM TUBE NAS SCH ×2 (14:11→21:14)
[2023-10-21] MEDS: Meropenem 500 MG in NA CHLORIDE 0.9% 100 ML IV SCH ×2 (14:12→21:15)
[2023-10-21] MEDS: IPRATROPIUM BROM 0.5MG/2.5ML NEB SCH ×2 (14:23→21:20)
[2023-10-21] MEDS: ARFORMOTEROL TARTRATE 15 MCG/2 ML VIAL.NEB NEB SCH (20:55)
[2023-10-21] MEDS: ZOLPIDEM TARTRATE 5 MG TABLET PO SCH (21:14)
[2023-10-22] MEDS: HYDROCODONE/APAP 5/325 MG TAB PO PRN ×3 (00:48→19:21)
[2023-10-22] MEDS: IPRATROPIUM BROM 0.5MG/2.5ML NEB SCH ×4 (01:45→22:43)
[2023-10-22] MEDS: METOPROLOL TAR 25 MG TAB PO SCH ×2 (06:00→17:32)
[2023-10-22] MEDS: Meropenem 500 MG in NA CHLORIDE 0.9% 100 ML IV SCH ×3 (06:25→21:26)
[2023-10-22 06:46] LABS: Magnesium 2.1 mg/dL (1.6-2.4); Phosphorus 2.7 mg/dL (2.5-4.9); Potassium 3.7 mEq/L (3.5-5.1)
[2023-10-22 06:55] LABS: Absolute Lymphocytes (CBC) 1.6 K/uL (0.7-4.9); Hematocrit 29.9 % (36.0-45.0); Lymphocytes % 16.8 % (15.3-44.8); MCV 77.3 fL (80-100); Platelets 663 thou/uL (152-406); RBC Red Blood Cell Count 3.88 M/uL (3.86-4.86)
[2023-10-22] MEDS: ARFORMOTEROL TARTRATE 15 MCG/2 ML VIAL.NEB NEB SCH ×2 (07:28→22:43)
[2023-10-22] MEDS ORDERED: ENOXAPARIN 40 MG/0.4 ML SQ SCH (09:00)
[2023-10-22] MEDS: Mupirocin NASAL 2 APPL/1 GM TUBE NAS SCH ×2 (09:37→20:50)
[2023-10-22] MEDS: HYDROMORPHONE HCL 1 MG/ML INJ IV PRN ×3 (09:37→20:49)
[2023-10-22] MEDS: ENSURE HIGH PROTEIN 237 ML CAN PO SCH ×3 (09:38→21:00)
[2023-10-22] MEDS: ENOXAPARIN 40 MG/0.4 ML SQ SCH ×2 (09:38→20:49)
--- NOTE | 2023-10-22 12:35 | PN ---
Subjective: Patient is lying in bed. No acute event. Chart reviewed. Currently on high-flow oxyge n. Objective: Vital Signs: Temperature 97.6, pulse 84, respirations 16, blood pressure 150/85. Lungs: Basal crackles. Heart: S1, S2. Regular. Abdomen: Soft. Bowel sounds present. Skin: Wound noted. Extremities: No edema. Laboratory Data: Shows WBC 9.4 down from 12.5, hemoglobin 9.7, platelets are 663. Chemistry shows B UN of 10, creatinine 0.25, glucose is 74. Micro data shows wound cultures have no growth. Currently , the patient is on meropenem. Assessment And Plan: Pneumoperitoneum with intraabdominal abscess, perforated sigmoid colon, chronic obstructive pulmonary disease, microcytic anemia, severe protein-calorie malnourishment. Continue e mpiric antibiotic and supportive care. We will follow the patient as needed. NF/MODL Voice ID: [id number] Report ID: [id number]
--- NOTE | 2023-10-22 12:40 | P.PN ---
Date of Service: 10/22/23 Subjective: More calm today, daughter at the bedside helping with the colostomy bag. She is on HF with oxygen saturatio of 98%. Awaiting inpatient rehab approval ROS: 10 point ROS as noted above, otherwise negative Physical exam GEN: Alert, oriented, NAD HEENT: Normal conjunctiva, sclera anicteric CV: Regular rate and rhythm, no edema Pulm: Nonlabored respirations on nasal cannula ABD: Soft, mildly tender, LULY drain in place x2, LLQ colostomy in place, stoma pink, dressings CDI MSK: No joint tenderness Integumentary: No rashes Neuro: Normal speech, normal affect Vitals reviewed Problem List Pneumoperitoneum, perforated sigmoid colon, intra-abdominal abscess S/P ex lap, sigmoid bowel resection with end colostomy, appendectomy with LULY drain x2 10/12 Right lower lobe pulmonary embolus 7 cm soft tissue anterior left upper lobe abutting the pleural surface Hx Mycobacterium abscessus infection Thrombocythemia Plan Pneumoperitoneum, perforated sigmoid colon, intra-abdominal abscess S/P ex lap, sigmoid bowel resection with end colostomy, appendectomy with LULY drain x2 10/12 -Dr. Herrera consulted and following -[place] every 5, Dilaudid every 6 -Diet has been advanced -LULY drains with trace purulent drainage -Patient working with PT -Pending rehab placement Right lower lobe pulmonary embolus 7 cm soft tissue anterior left upper lobe abutting the pleural surface CT PE protocol obtained given sudden onset shortness of breath overnight Right lower lobe pulm embolism noted-discussed with surgery, continue with therapeutic Lovenox 40 BID Additionally noted 7 cm soft tissue anterior left upper lobe abutting the pleural surface- radiology notes likely inflammatory will need follow-up imaging-discussed with patient Hx Mycobacterium abscessus infection Merrem started today (10/21) Thrombocythemia Improving, possibly reactive Microcytic anemia-severe iron deficiency anemia with acute blood loss anemia severe MEGAN iron level <10 Had 2 unit PRBC so far 10/14-10/15 Monitor H&H, 08/28 COPD As needed neb treatments DVT PPx therapeutic Lovenox Full code LOS 2 to 3 days- pending inpatient rehab Time Spent Managing Pts Care (In Minutes): 35
[2023-10-22] MEDS: ZOLPIDEM TARTRATE 5 MG TABLET PO SCH (20:50)
[2023-10-23] MEDS: IPRATROPIUM BROM 0.5MG/2.5ML NEB SCH ×4 (01:00→20:33)
[2023-10-23] MEDS: HYDROMORPHONE HCL 1 MG/ML INJ IV PRN ×5 (01:05→19:33)
[2023-10-23 03:53] LABS: Potassium 3.9 mEq/L (3.5-5.1)
[2023-10-23] MEDS: HYDROCODONE/APAP 5/325 MG TAB PO PRN ×3 (04:00→21:12)
[2023-10-23] MEDS: Meropenem 500 MG in NA CHLORIDE 0.9% 100 ML IV SCH ×3 (05:12→21:05)
[2023-10-23] MEDS: METOPROLOL TAR 25 MG TAB PO SCH ×2 (05:12→18:00)
[2023-10-23] MEDS: ARFORMOTEROL TARTRATE 15 MCG/2 ML VIAL.NEB NEB SCH ×2 (08:26→20:33)
[2023-10-23] MEDS: ENSURE HIGH PROTEIN 237 ML CAN PO SCH ×3 (09:00→21:00)
--- NOTE | 2023-10-23 09:35 | P.PN ---
Date of Service: 10/23/23 Chief Complaint: abdominal pain Subjective: Physical Examination Temp Pulse Resp BP Pulse Ox 97.0 F 63 16 147/69 H 98 10/23/23 04:00 10/23/23 08:26 10/23/23 05:42 10/23/23 04:00 10/23/23 08:26 General: Alert, In no apparent distress, Oriented x3. Thin, frail. HEENT: Atraumatic. Corrective lenses. Respiratory: Diminished. Cardiovascular: Regular rate/rhythm. BLE edema 1+ Gastrointestinal: LULY drain x2. LLQ colostomy. Tenderness MSK: generalized weakness Integumentary: Abdominal incision site dressing is clean dry and intact. Laboratory Data - Reviewed Microbiology Data - Reviewed Imagings Data: - Reviewed Medications list: Reviewed Assessment and Plan Problem List Pneumoperitoneum Perforated sigmoid colon Intra-abdominal abscess COPD Microcytic Anemia Severe Protein-Calorie Malnutrition Pneumoperitoneum Perforated sigmoid colon Intra-abdominal abscess - s/p emergent exploratory laparotomy, sigmoid bowel resection, end colostomy, extensive lysis of adesions and appendectomy on 10/[address] Herrera. - Blood cultures 10/12: No growth to date - Wound cultures 10/12: no growth to date - Afebrile - Completed 7 days Zosyn (10/12-10/18) Pulmonary Embolus, Right Lower Lobe - CT PE 10/18: " Right lower lobe pulmonary embolus. Development of 7 centimeter soft tissue anterior left upper lobe abutting the pleural surface most likely inflammatory." - On Lovenox Mycobacterium abscessus - prior hospitalization sputum cultures growing mycobacterium abscessus - started on meropenem 10/22 Recommendations - mycobacterium abscessus: patient will require 3 drug regimen - Recommend following up with infectious disease specialist at [facility] for outpatient management of mycobacterium abscessus, as patient will require monitoring and management of long-term IV/PO therapy. - Obtain sputum specimen every 1-2 months to monitor culture conversion/clearance. - Surgical site care per Dr. Herrera - Monitor WBC and fever trends - Pain management per primary team - Continue supportive care. - Supplemental nutrition Case discussed with Andrew Ibarra
[2023-10-23] MEDS: ENOXAPARIN 40 MG/0.4 ML SQ SCH ×2 (09:42→21:06)
[2023-10-23] MEDS: MEDIHONEY 44 ML TOPICAL TUBE TOP SCH (12:01)
[2023-10-23] MEDS: Mupirocin NASAL 2 APPL/1 GM TUBE NAS SCH ×2 (12:01→21:05)
--- NOTE | 2023-10-23 16:27 | P.PN ---
Date of Service: 10/23/23 Subjective: On HF now, will wean for discharge, PICC line expected today. Ativan added for anxiety Approval for ROS: 10 point ROS as noted above, otherwise negative Physical exam GEN: Alert, oriented, NAD HEENT: Normal conjunctiva, sclera anicteric CV: Regular rate and rhythm, no edema Pulm: Nonlabored respirations on nasal cannula ABD: Soft, mildly tender, LULY drain in place x2, LLQ colostomy in place, stoma pink, dressings CDI MSK: No joint tenderness Integumentary: No rashes Neuro: Normal speech, normal affect Vitals reviewed Problem List Pneumoperitoneum, perforated sigmoid colon, intra-abdominal abscess S/P ex lap, sigmoid bowel resection with end colostomy, appendectomy with LULY drain x2 10/12 Right lower lobe pulmonary embolus 7 cm soft tissue anterior left upper lobe abutting the pleural surface Hx Mycobacterium abscessus infection Thrombocythemia Plan Pneumoperitoneum, perforated sigmoid colon, intra-abdominal abscess S/P ex lap, sigmoid bowel resection with end colostomy, appendectomy with LULY drain x2 10/12 -Dr. Herrera consulted and following -[place] every 5, Dilaudid every 6 -Diet has been advanced -LULY drains with trace purulent drainage -Patient working with PT -Pending rehab placement Right lower lobe pulmonary embolus 7 cm soft tissue anterior left upper lobe abutting the pleural surface CT PE protocol obtained given sudden onset shortness of breath overnight Right lower lobe pulm embolism noted-discussed with surgery, continue with therapeutic Lovenox 40 BID Additionally noted 7 cm soft tissue anterior left upper lobe abutting the pleural surface- radiology notes likely inflammatory will need follow-up imaging-discussed with patient Hx Mycobacterium abscessus infection Merrem started today (10/21) Thrombocythemia Improving, possibly reactive Microcytic anemia-severe iron deficiency anemia with acute blood loss anemia severe MEGAN iron level <10 Had 2 unit PRBC so far 10/14-10/15 Monitor H&H, 08/28 COPD As needed neb treatments Anxiety Ativan DVT PPx therapeutic Lovenox Full code LOS 2 to 3 days- [facility] rehab has approval, will need to wean O2 need Time Spent Managing Pts Care (In Minutes): 35
[2023-10-23] MEDS: ZOLPIDEM TARTRATE 5 MG TABLET PO SCH (21:04)
[2023-10-24] MEDS: HYDROMORPHONE HCL 1 MG/ML INJ IV PRN ×3 (02:13→16:52)
[2023-10-24] MEDS: IPRATROPIUM BROM 0.5MG/2.5ML NEB SCH ×4 (02:54→20:00)
[2023-10-24 04:10] LABS: Potassium 3.8 mEq/L (3.5-5.1)
[2023-10-24] MEDS: LORazepam 2 MG/ML VIAL IV PRN (04:12)
[2023-10-24] MEDS: Meropenem 500 MG in NA CHLORIDE 0.9% 100 ML IV SCH ×2 (06:53→13:37)
[2023-10-24] MEDS: METOPROLOL TAR 25 MG TAB PO SCH ×2 (06:57→16:58)
[2023-10-24] MEDS ORDERED: POTASSIUM CL SA 10 MEQ TAB PO ONE (08:00)
[2023-10-24] MEDS: ARFORMOTEROL TARTRATE 15 MCG/2 ML VIAL.NEB NEB SCH ×2 (08:09→20:00)
--- NOTE | 2023-10-24 08:14 | P.PN ---
Date of Service: 10/24/23 Subjective: HF weaned down to 15 L, she is calm and sleeping comfortably Will continue Merrem until Dr. Brooks receives further recommendations Approval for [facility] ROS: 10 point ROS as noted above, otherwise negative Physical exam GEN: Sleeping, oriented, NAD HEENT: Normal conjunctiva, sclera anicteric CV: Regular rate and rhythm, no edema Pulm: Nonlabored respirations on nasal cannula ABD: Soft, mildly tender, LULY drain in place x2, LLQ colostomy in place, stoma pink, dressings CDI MSK: No joint tenderness Integumentary: No rashes Neuro: Normal speech, normal affect Vitals reviewed Problem List Pneumoperitoneum, perforated sigmoid colon, intra-abdominal abscess S/P ex lap, sigmoid bowel resection with end colostomy, appendectomy with LULY drain x2 10/12 Right lower lobe pulmonary embolus 7 cm soft tissue anterior left upper lobe abutting the pleural surface Hx Mycobacterium abscessus infection Thrombocythemia Plan Pneumoperitoneum, perforated sigmoid colon, intra-abdominal abscess S/P ex lap, sigmoid bowel resection with end colostomy, appendectomy with LULY drain x2 10/12 -Dr. Herrera consulted and following -[place] every 5, Dilaudid every 6 -Diet has been advanced -LULY drains with trace purulent drainage -Patient working with PT -Pending rehab placement Right lower lobe pulmonary embolus 7 cm soft tissue anterior left upper lobe abutting the pleural surface CT PE protocol obtained given sudden onset shortness of breath overnight Right lower lobe pulm embolism noted-discussed with surgery, continue with therapeutic Lovenox 40 BID Additionally noted 7 cm soft tissue anterior left upper lobe abutting the pleural surface- radiology notes likely inflammatory will need follow-up imaging-discussed with patient HF started 10/23 at 20, weaned to 15 Hx Mycobacterium abscessus infection Merrem started today (10/21) PICC line ordered Dr. Brooks consulted Dr. Lu for a clear treatment plan Thrombocythemia Improving, possibly reactive Microcytic anemia-severe iron deficiency anemia with acute blood loss anemia severe MEGAN iron level <10 Had 2 unit PRBC so far 10/14-10/15 Monitor H&H, 9.7/29.9 10/24 COPD As needed neb treatments Anxiety Ativan DVT PPx therapeutic Lovenox Full code LOS 2 to 3 days- [facility] re[facility] has approval, will need to wean O2 need Time Spent Managing Pts Care (In Minutes): 35 <HusamAlberta - Last Filed: 10/24/23 13:05> Patient seen and examined with Ms. Weiner. She is currently dependent on high flow oxygen, flow rate decreased to 15 L per minute. Patient also has significant anxiety contributing to her shortness of breath. Pulmonary considering IV meropenem and p.o. Zithromax for Mycobacterium abscessus. Infectious disease note reviewed and recommendations to wait for antibiotic sensitivity can take several weeks to result. PICC laced for outpatient IV meropenem for now. Infectious disease and pulmonology to follow. Started Xanax for anxiety. <natalie ashraf - Last Filed: 10/24/23 16:19>
[2023-10-24] MEDS: ENSURE HIGH PROTEIN 237 ML CAN PO SCH ×3 (08:44→20:46)
[2023-10-24] MEDS: Mupirocin NASAL 2 APPL/1 GM TUBE NAS SCH ×2 (08:44→20:46)
[2023-10-24] MEDS: MEDIHONEY 44 ML TOPICAL TUBE TOP SCH (08:45)
[2023-10-24] MEDS: ENOXAPARIN 40 MG/0.4 ML SQ SCH ×2 (08:45→20:46)
[2023-10-24] MEDS: AZITHROMYCIN 200 MG/5ML ORAL SUSP PO SCH (10:16)
--- NOTE | 2023-10-24 11:36 | RAD REPORT ---
EXAM DESCRIPTION: RADChest Single View10/24/2023 10:31 am CLINICAL HISTORY: post op picc placement COMPARISON: Chest Single View dated 10/21/2023; Chest Single View dated 10/18/2023; Chest Single Vie w dated 10/17/2023; Chest Pa And Lat (2 Views) dated 09/26/2023; Chest Pa And Lat (2 Views) dated TECHNIQUE: Portable AP view of the chest. FINDINGS: Patchy and streaky opacities with curvilinear hyperdensities in the left lung apex, with u nderlying pleural thickening, stable. Background hyperlucency and hyperinflation. Left arm PICC has b een placed with tip projecting at the distal SVC. No pneumothorax or effusion. The cardiomediastinal contours are unremarkable. IMPRESSION: Satisfactory positioning of left arm PICC. Stable parenchymal lung findings as above.
--- NOTE | 2023-10-24 11:55 | P.PN ---
Subjective Date of Service: 10/24/23 Chief Complaint: Mycobacterium abscessus infection Subjective: Improving (Patient is doing better she is having a bowel movement morning patient was sedated requiring Ativan as desat at night requires BiPAP) Review of Systems is unable to be obtained Physical Examination - Vital Signs Temperature: 97.9 F Blood Pressure: 160/91 Pulse: 79 Respirations: 18 Pulse Ox (%): 90 - Physical Exam General: Unresponsive Respiratory: Clear to auscultation bilaterally, Diminished Cardiovascular: No edema, Normal pulses Assessment And Plan - Current Problems (Diagnosis) (1) Mycobacterium abscessus infection Current Visit: Yes Status: Acute Plan: Patient's sputum cultures are both positive for Mycobacterium abscessus and start on IV meropenem and p.o. Zithromax (2) COPD (chronic obstructive pulmonary disease) Current Visit: Yes Status: Acute Plan: Continue with bronchodilators labs reviewed stable patient also has perforated bowel and is clinically improving Qualifiers: COPD type: unspecified COPD Qualified Code(s): J44.9 - Chronic obstructive pulmonary disease, unspecified
[2023-10-24] MEDS: HYDROCODONE/APAP 5/325 MG TAB PO PRN ×2 (12:16→20:46)
--- NOTE | 2023-10-24 14:32 | P.PN ---
Date of Service: 10/24/23 Chief Complaint: abdominal pain Subjective: In no apparent distress. No acute events overnight. + SOB + generalized weakness Physical Examination Temp Pulse Resp BP Pulse Ox 97.9 F 81 16 160/91 H 93 10/24/23 11:55 10/24/23 13:39 10/24/23 13:16 10/24/23 11:55 10/24/23 13:39 General: Alert, In no apparent distress, Oriented x3. Thin, frail. HEENT: Atraumatic. Corrective lenses. Respiratory: Diminished. on HFNC % Cardiovascular: Regular rate/rhythm. BLE edema 1+ Gastrointestinal: LULY drain x2. LLQ colostomy. Tenderness MSK: generalized weakness Integumentary: Abdominal incision site dressing is clean dry and intact. Laboratory Data - Reviewed Microbiology Data - Reviewed Imagings Data: - Reviewed Medications list: Reviewed Assessment and Plan Problem List Pneumoperitoneum Perforated sigmoid colon Intra-abdominal abscess COPD Microcytic Anemia Severe Protein-Calorie Malnutrition Pneumoperitoneum Perforated sigmoid colon Intra-abdominal abscess - s/p emergent exploratory laparotomy, sigmoid bowel resection, end colostomy, extensive lysis of adesions and appendectomy on 10/[address] Herrera. - Blood cultures 10/12: No growth to date - Wound cultures 10/12: no growth to date - Afebrile - Completed 7 days Zosyn (10/12-10/18) Pulmonary Embolus, Right Lower Lobe - CT PE 10/18: " Right lower lobe pulmonary embolus. 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 Sensitivities pending, takes up to 6 weeks. Due to high rate of macrolide resistance, it is recommended to avoid empiric antibiotic treatment until results finalized. - AFB culture & smear 09/20: Mycobacterium abscessus complex Recommendations - mycobacterium abscessus: patient will require 3 drug regimen. pending sensisivity results prior to starting on antibiotic therapy. This can take up to 6 weeks before results finalized. It is recommended that patient follow up with infectious disease specialist as outpatient to manage treatment. We have discussed treatment options for Mycobacterium abscessus with Juan Lu MD at [facility]. - Recommend following up with infectious disease specialist at [facility] for outpatient management of mycobacterium abscessus, as patient will require monitoring and management of long-term IV/PO therapy. - Obtain sputum specimen every 1-2 months to monitor culture conversion/clearance. - Surgical site care per Dr. Herrera - Monitor WBC and fever trends - Pain management per primary team - Continue supportive care. - Supplemental nutrition Case discussed with Andrew Ibarra
[2023-10-24] MEDS: ALPRAZOLAM 0.25 MG TABLET PO PRN (17:37)
[2023-10-24] MEDS: ZOLPIDEM TARTRATE 5 MG TABLET PO SCH (20:46)
[2023-10-25] MEDS: IPRATROPIUM BROM 0.5MG/2.5ML NEB SCH ×4 (01:31→19:27)
[2023-10-25] MEDS: HYDROMORPHONE HCL 1 MG/ML INJ IV PRN ×3 (05:30→21:18)
[2023-10-25] MEDS: METOPROLOL TAR 25 MG TAB PO SCH ×2 (05:31→17:00)
[2023-10-25] MEDS: ARFORMOTEROL TARTRATE 15 MCG/2 ML VIAL.NEB NEB SCH ×2 (08:00→19:27)
--- NOTE | 2023-10-25 08:49 | P.PN ---
Date of Service: 10/25/23 Chief Complaint: abdominal pain Subjective: In no apparent distress. Remains on high flow nasal cannula 15lpm 29% FiO2. No acute events reported overnight. Physical Examination General: Alert, In no apparent distress, Oriented x3. Thin, frail. HEENT: Atraumatic. Corrective lenses. Respiratory: Diminished. on HFNC 15/29% Cardiovascular: Regular rate/rhythm. BLE edema 1+ Gastrointestinal: LLQ colostomy. Normoactive bowel sounds. + Tenderness MSK: generalized weakness Integumentary: Abdominal surgical site with wound vac noted. Laboratory Data - Reviewed Microbiology Data - Reviewed Imagings Data: - Reviewed Medications list: Reviewed Assessment and Plan Problem List Pneumoperitoneum Perforated sigmoid colon Intra-abdominal abscess COPD Microcytic Anemia Severe Protein-Calorie Malnutrition Pneumoperitoneum Perforated sigmoid colon Intra-abdominal abscess - s/p emergent exploratory laparotomy, sigmoid bowel resection, end colostomy, extensive lysis of adesions and appendectomy on 10/[address] Herrera. - Blood cultures 10/12: No growth to date - Wound cultures 10/12: no growth to date - Afebrile - Completed 7 days Zosyn (10/12-10/18) Pulmonary Embolus, Right Lower Lobe - CT PE 10/18: " Right lower lobe pulmonary embolus. 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 Sensitivities pending, may take up to 6 weeks to receive final results. Due to high rate of macrolide resistance, it is recommended to avoid empiric antibiotic treatment until results finalized. - AFB culture & smear 09/20: Mycobacterium abscessus complex Recommendations - mycobacterium abscessus: patient will require at least a 3 drug regimen. pending sensitivity results prior to starting on antibiotic therapy. This can take up to 6 weeks before results finalized. Combination of Amikacin +/- Imipenem, Azithromycin and Linezolid recommended. - Recommend following up with infectious disease specialist at [facility] for outpatient management of mycobacterium abscessus, as patient will require monitoring and management of long-term IV/PO therapy. - Obtain sputum specimen every 1-2 months to monitor culture conversion/clearance. - Surgical site care per Dr. Herrera - Monitor WBC and fever trends - Pain management per primary team - Continue supportive care. - Supplemental nutrition Case discussed with Andrew Ibarra
[2023-10-25] MEDS: AZITHROMYCIN 200 MG/5ML ORAL SUSP PO SCH (09:00)
[2023-10-25] MEDS: Mupirocin NASAL 2 APPL/1 GM TUBE NAS SCH ×2 (09:00→20:28)
[2023-10-25] MEDS: ENSURE HIGH PROTEIN 237 ML CAN PO SCH ×3 (09:00→20:36)
[2023-10-25] MEDS: MEDIHONEY 44 ML TOPICAL TUBE TOP SCH (09:00)
[2023-10-25] MEDS: HYDROCODONE/APAP 5/325 MG TAB PO PRN (09:21)
[2023-10-25] MEDS: ENOXAPARIN 40 MG/0.4 ML SQ SCH ×2 (09:22→20:28)
[2023-10-25 10:03] LABS: Absolute Lymphocytes (CBC) 1.7 K/uL (0.7-4.9); Hematocrit 29.7 % (36.0-45.0); Lymphocytes % 17.7 % (15.3-44.8); MCV 76.8 fL (80-100); MPV 6.7 fL (7.6-11.3); Platelets 567 thou/uL (152-406); RBC Red Blood Cell Count 3.87 M/uL (3.86-4.86)
[2023-10-25 12:34] LABS: Potassium 4.3 mEq/L (3.5-5.1)
[2023-10-25] MEDS: ONDANSETRON 4 MG/2 ML VIAL IV PRN (12:45)
[2023-10-25] MEDS: ALPRAZOLAM 0.25 MG TABLET PO PRN ×2 (14:12→20:29)
--- NOTE | 2023-10-25 18:00 | P.PN ---
Date of Service: 10/25/23 Subjective: On high flow weaned down to 14 L today with goal to wean down to 10 L, calm, talkative, cooperative. Approval for [facility] ROS: 10 point ROS as noted above, otherwise negative Physical exam GEN: Awake and talkative, oriented, NAD HEENT: Normal conjunctiva, sclera anicteric CV: Regular rate and rhythm, no edema Pulm: Nonlabored respirations on nasal cannula with high flow ABD: Soft, mildly tender, LLQ colostomy in place, stoma pink, wound VAC in place MSK: No joint tenderness Integumentary: No rashes Neuro: Normal speech, normal affect Vitals reviewed Problem List Pneumoperitoneum, perforated sigmoid colon, intra-abdominal abscess S/P ex lap, sigmoid bowel resection with end colostomy, appendectomy with LULY drain x2 10/12 Right lower lobe pulmonary embolus 7 cm soft tissue anterior left upper lobe abutting the pleural surface Hx Mycobacterium abscessus infection Thrombocythemia Plan Pneumoperitoneum, perforated sigmoid colon, intra-abdominal abscess S/P ex lap, sigmoid bowel resection with end colostomy, appendectomy with LULY drain x2 10/12 -Dr. Herrera consulted and following -[place] every 5, Dilaudid stopped 10/25/2023, allergic to morphine -Diet has been advanced -LULY drains removed 10/24/2023 -Wound VAC in place -Patient working with PT -Approval for [facility] Right lower lobe pulmonary embolus 7 cm soft tissue anterior left upper lobe abutting the pleural surface CT PE protocol obtained given sudden onset shortness of breath overnight Right lower lobe pulm embolism noted-discussed with surgery, continue with therapeutic Lovenox 40 BID Additionally noted 7 cm soft tissue anterior left upper lobe abutting the pleural surface- radiology notes likely inflammatory will need follow-up imaging-discussed with patient HF started 10/23 at 20, weaned to 15 Hx Mycobacterium abscessus infection Merrem stopped 10/24/[address] Brooks consulted Dr. Lu for a clear treatment plan Recommendations pending Thrombocythemia Improving, possibly reactive Platelets 567 K Microcytic anemia-severe iron deficiency anemia with acute blood loss anemia severe MEGAN iron level <10 Had 2 unit PRBC so far 10/14-10/15 Monitor H&H, 9.8/29.7 10/25 COPD As needed neb treatments Anxiety Ativan as needed DVT PPx therapeutic Lovenox Full code LOS 2 to 3 days- [facility] re[facility] has approval, will need to wean O2 need Time Spent Managing Pts Care (In Minutes): 35
[2023-10-25] MEDS: ZOLPIDEM TARTRATE 5 MG TABLET PO SCH (20:29)
--- NOTE | 2023-10-25 20:31 | PN ---
Subjective: Patient is doing well. No complaint. No shortness of breath. No chest pain. Patient has been treated for lung disease by the primary doctor. Objective: Chest: Clear. Abdomen: Soft and depressible. Wound VAC in the midline. Ostomy viable and functional. Extremities: Good capillary refill. No calf tenderness. Plan: Continue treatment by the medical doctors. If she gets discharged, we would like to follow he r at the office in a week from now. Continue diet. ODIN/SURESH Voice ID: [id number] Report ID: [id number]
[2023-10-26] MEDS: LORazepam 2 MG/ML VIAL IV PRN (00:09)
[2023-10-26] MEDS: IPRATROPIUM BROM 0.5MG/2.5ML NEB SCH ×4 (01:02→18:14)
[2023-10-26] MEDS: METOPROLOL TAR 25 MG TAB PO SCH ×2 (05:16→17:19)
[2023-10-26] MEDS: HYDROMORPHONE HCL 1 MG/ML INJ IV PRN (05:16)
[2023-10-26] MEDS: ARFORMOTEROL TARTRATE 15 MCG/2 ML VIAL.NEB NEB SCH ×3 (07:47→19:01)
[2023-10-26] MEDS: ENOXAPARIN 40 MG/0.4 ML SQ SCH ×2 (08:23→20:50)
[2023-10-26] MEDS: AZITHROMYCIN 200 MG/5ML ORAL SUSP PO SCH (08:23)
[2023-10-26] MEDS: ENSURE HIGH PROTEIN 237 ML CAN PO SCH ×3 (08:24→20:50)
[2023-10-26] MEDS: MEDIHONEY 44 ML TOPICAL TUBE TOP SCH (08:24)
--- NOTE | 2023-10-26 08:45 | P.PN ---
Date of Service: 10/26/23 Subjective: On high flow weaned down to 10 L today with goal to wean down to 8, sitting up in the chair this morning after working with PT. Reduced pain medication to only p.o. [place] Approval for [facility] ROS: 10 point ROS as noted above, otherwise negative Physical exam GEN: Awake and talkative, oriented, NAD HEENT: Normal conjunctiva, sclera anicteric CV: Regular rate and rhythm, no edema Pulm: Nonlabored respirations on nasal cannula with high flow ABD: Soft, mildly tender, LLQ colostomy in place, stoma pink, wound VAC in place MSK: No joint tenderness Integumentary: No rashes Neuro: Normal speech, normal affect Vitals reviewed Problem List Pneumoperitoneum, perforated sigmoid colon, intra-abdominal abscess S/P ex lap, sigmoid bowel resection with end colostomy, appendectomy with LULY drain x2 10/12 Right lower lobe pulmonary embolus 7 cm soft tissue anterior left upper lobe abutting the pleural surface Hx Mycobacterium abscessus infection Thrombocythemia Plan Pneumoperitoneum, perforated sigmoid colon, intra-abdominal abscess S/P ex lap, sigmoid bowel resection with end colostomy, appendectomy with LULY drain x2 10/12 -Dr. Herrera consulted and following- Cleared for discharge , with 1 week follow-up, -[place] every 5, Dilaudid stopped 10/25/2023, allergic to morphine -Diet has been advanced -LULY drains removed 10/24/2023 -Wound VAC in place -Patient working with PT -Wound culture with 1+ yeast- micafungin 100 mg IV daily -Body fluid- no organism seen -blood culture NGTD -Approval for [facility] Right lower lobe pulmonary embolus 7 cm soft tissue anterior left upper lobe abutting the pleural surface CT PE protocol obtained given sudden onset shortness of breath overnight Right lower lobe pulm embolism noted-discussed with surgery, continue with therapeutic Lovenox 40 BID Additionally noted 7 cm soft tissue anterior left upper lobe abutting the pleural surface- radiology notes likely inflammatory will need follow-up imaging-discussed with patient HF started 10/23 at 20, weaned to 10- bicarb 32, with oxygen saturation of 98%- goal to wean HF to 8L Hx Mycobacterium abscessus infection Merrem stopped 10/24/2023 PICC line placed 10/24/[address] Lu for a clear treatment plan- need sputum culture sensitivity Recommendations pending, possibly amikacin +/- Imipenem, azithromycin, linezolid need new sputum culture ordered 10/24/2023 Thrombocythemia Improving, possibly reactive Platelets 567 K Microcytic anemia-severe iron deficiency anemia with acute blood loss anemia severe MEGAN iron level <10 Had 2 unit PRBC so far 10/14-10/15 Monitor H&H, 9.8/29.7 10/25 COPD As needed neb treatments Anxiety Ativan as needed DVT PPx therapeutic Lovenox Full code LOS 2 to 3 days- [facility] re[facility] has approval, will need to wean O2 need Time Spent Managing Pts Care (In Minutes): 35
--- NOTE | 2023-10-26 08:58 | P.PN ---
Date of Service: 10/26/23 Chief Complaint: abdominal pain Subjective: In no apparent distress. No acute events reported overnight. + shortness of breath. + generalized weakness. + mild abdominal pain. On high flow nasal cannula 10lpm 35% FiO2. Plan of care discussed with patient at bedside. Physical Examination Temp Pulse Resp BP Pulse Ox 97.4 F 78 17 145/68 H 98 10/26/23 04:00 10/26/23 04:00 10/26/23 05:46 10/26/23 04:00 10/26/23 05:46 General: Thin, frail. In no apparent distress, Oriented x3. HEENT: Atraumatic. Corrective lenses. Respiratory: Diminished. On HFNC 10/35% Cardiovascular: Regular rate/rhythm. BLE edema 1+. Gastrointestinal: LLQ colostomy. Normoactive bowel sounds. + Tenderness MSK: Generalized weakness. Integumentary: Abdominal surgical site with wound vac noted. Laboratory Data - Reviewed Microbiology Data - Reviewed Imagings Data: - Reviewed Medications list: Reviewed Assessment and Plan Problem List Pneumoperitoneum Perforated sigmoid colon Intra-abdominal abscess COPD Microcytic Anemia Severe Protein-Calorie Malnutrition Pneumoperitoneum Perforated sigmoid colon Intra-abdominal abscess - s/p emergent exploratory laparotomy, sigmoid bowel resection, end colostomy, extensive lysis of adesions and appendectomy on 10/[address] Herrera. - Blood cultures 10/12: No growth to date - Wound cultures 10/12: no growth to date - Afebrile - Completed 7 days Zosyn (10/12-10/18) Pulmonary Embolus, Right Lower Lobe - CT PE 10/18: " Right lower lobe pulmonary embolus. 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 Sensitivities pending, may take up to 6 weeks to receive final results. Due to high rate of macrolide resistance, it is recommended to avoid empiric antibiotic treatment until results finalized. - AFB culture & smear 09/20: Mycobacterium abscessus complex Recommendations - mycobacterium abscessus: patient will require at least a 3 drug regimen. pending sensitivity results prior to starting on antibiotic therapy. This can take up to 6 weeks before results finalized. - Recommend following up with infectious disease specialist at [facility] for outpatient management of mycobacterium abscessus, as patient will require monitoring and management of long-term IV&PO antibiotic therapy. - Surgical site care per Dr. Herrera - Monitor WBC and fever trends - Pain management per primary team - Continue supportive care. - Supplemental nutrition Amikacin level monitoring not readily available at this facility, it is a send- out lab with values resulting in ~5 days; therefore not a safe option to start at this time. Imipenem IV not available at this facility. Recommend transfer to [facility] for further management of mycobacterium abscessus and follow up. She is requiring high flow nasal cannula. Case discussed with Andrew Ibarra
[2023-10-26] MEDS: HYDROCODONE/APAP 5/325 MG TAB PO PRN ×3 (10:48→23:40)
[2023-10-26] MEDS: MORPHINE 2 MG/ML SYR IV PRN ×3 (10:49→20:50)
[2023-10-26] MEDS: ALPRAZOLAM 0.25 MG TABLET PO PRN (13:54)
[2023-10-26] MEDS ORDERED: MICAFUNGIN SODIUM 100 MG VIAL IV SCH (14:25)
[2023-10-26] MEDS: CEFOXITIN 2 GM in NA CHLORIDE 0.9% 100 ML IVPB SCH ×2 (16:16→22:02)
[2023-10-26] MEDS: ZOLPIDEM TARTRATE 5 MG TABLET PO SCH (20:50)
[2023-10-27] MEDS: IPRATROPIUM BROM 0.5MG/2.5ML NEB SCH ×4 (01:11→19:43)
[2023-10-27] MEDS: METOPROLOL TAR 25 MG TAB PO SCH ×2 (05:05→16:39)
[2023-10-27] MEDS: MORPHINE 2 MG/ML SYR IV PRN ×4 (05:05→21:41)
[2023-10-27] MEDS: CEFOXITIN 2 GM in NA CHLORIDE 0.9% 100 ML IVPB SCH ×3 (05:06→21:42)
[2023-10-27] MEDS: HYDROCODONE/APAP 5/325 MG TAB PO PRN ×3 (05:56→19:37)
[2023-10-27] MEDS: MEDIHONEY 44 ML TOPICAL TUBE TOP SCH (08:08)
[2023-10-27] MEDS: AZITHROMYCIN 200 MG/5ML ORAL SUSP PO SCH (08:10)
[2023-10-27] MEDS: ENOXAPARIN 40 MG/0.4 ML SQ SCH ×2 (08:13→21:41)
[2023-10-27] MEDS: ENSURE HIGH PROTEIN 237 ML CAN PO SCH ×3 (08:13→21:42)
[2023-10-27] MEDS: ARFORMOTEROL TARTRATE 15 MCG/2 ML VIAL.NEB NEB SCH ×2 (08:35→19:45)
--- NOTE | 2023-10-27 10:02 | P.PN ---
Subjective Date of Service: 10/27/23 Chief Complaint: Mycobacterium abscessus infection Subjective: Improving (Patient is improving doing well very weak) Review of Systems General: Weakness Respiratory: Shortness of Breath Physical Examination - Vital Signs Temperature: 97.1 F Blood Pressure: 128/74 Pulse: 52 Respirations: 18 Pulse Ox (%): 100 - Physical Exam General: Alert, In no apparent distress, Oriented x3 Respiratory: Clear to auscultation bilaterally, Diminished Cardiovascular: No edema, Normal pulses, Normal S1 S2 Assessment And Plan - Current Problems (Diagnosis) (1) Mycobacterium abscessus infection Current Visit: Yes Status: Acute Plan: Patient has Mycobacterium abscessus infection risk for amikacin change her over to cefoxitin 2 g IV every 12 for 6 weeks as per Szymanski criteria and p.o. Zithromax [place] patient is doing well no fever white count is also normal (2) COPD (chronic obstructive pulmonary disease) Current Visit: Yes Status: Acute Plan: Patient is stable doing better discharge planning Qualifiers: COPD type: unspecified COPD Qualified Code(s): J44.9 - Chronic obstructive pulmonary disease, unspecified
--- NOTE | 2023-10-27 11:53 | P.PN ---
Date of Service: 10/27/23 Subjective: On 3 L NC, not using the High flow anymore. She is feeling excited to be off the High flow and making improvement Approval for [facility] ROS: 10 point ROS as noted above, otherwise negative Physical exam GEN: Awake and talkative, oriented, NAD HEENT: Normal conjunctiva, neck Supple, no JVD CV: Regular rate and rhythm, no edema Pulm: Nonlabored respirations on 3 LNC ABD: Soft, mildly tender, LLQ colostomy in place, stoma pink, wound VAC in place MSK: No joint tenderness Integumentary: No rashes Neuro: Normal speech, normal affect Vitals reviewed Problem List Pneumoperitoneum, perforated sigmoid colon, intra-abdominal abscess S/P ex lap, sigmoid bowel resection with end colostomy, appendectomy with LULY drain x2 10/12 Right lower lobe pulmonary embolus 7 cm soft tissue anterior left upper lobe abutting the pleural surface Hx Mycobacterium abscessus infection Thrombocythemia Plan Pneumoperitoneum, perforated sigmoid colon, intra-abdominal abscess S/P ex lap, sigmoid bowel resection with end colostomy, appendectomy with LULY drain x2 10/12 -Dr. Herrera consulted and following- Cleared for discharge , with 1 week follow-up, -[place] every 5, Dilaudid stopped 10/25/2023, allergic to morphine -Diet has been advanced -LULY drains removed 10/24/2023 -Wound VAC in place -Patient working with PT -Wound culture with 1+ yeast-only in the broth- no treatment needed -Body fluid- no organism seen -blood culture NGTD -Approval for [facility] Right lower lobe pulmonary embolus 7 cm soft tissue anterior left upper lobe abutting the pleural surface CT PE protocol obtained given sudden onset shortness of breath overnight Right lower lobe pulm embolism noted-discussed with surgery, continue with therapeutic Lovenox 40 BID Additionally noted 7 cm soft tissue anterior left upper lobe abutting the pleural surface- radiology notes likely inflammatory will need follow-up imaging-discussed with patient HF started 10/23 at 20, weaned to 10- bicarb 32, with oxygen saturation of 98%- 3 LNC 96% Hx Mycobacterium abscessus infection Merrem stopped 10/24/2023 PICC line placed 10/24/[address] Lu for a clear treatment plan- need sputum culture sensitivity Recommendations pending, possibly amikacin +/- Imipenem, azithromycin, linezolid Dr Kilpatrick recommends treatment for better monitoring: azithromycin 200 mg daily, cefoxitin 2 g every 8 hours x 6 weeks, treatment started 10/27 need new sputum culture ordered 10/24/2023 Thrombocythemia Improving, possibly reactive Platelets 567 K Microcytic anemia-severe iron deficiency anemia with acute blood loss anemia severe MEGAN iron level <10 Had 2 unit PRBC so far 10/14-10/15 Monitor H&H, 9.8/29.7 10/25 COPD As needed neb treatments Anxiety Ativan as needed DVT PPx therapeutic Lovenox Full code LOS 2 to 3 days- [facility] rehab has approval, plan for discharge on Sunday Time Spent Managing Pts Care (In Minutes): 35
[2023-10-27 15:23] LABS: SARS-CoV-2 Antigen Rapid Res Negative (Negative)
[2023-10-27] MEDS: ZOLPIDEM TARTRATE 5 MG TABLET PO SCH (21:41)
[2023-10-27] MEDS: ALPRAZOLAM 0.25 MG TABLET PO PRN (22:44)
[2023-10-28] MEDS: IPRATROPIUM BROM 0.5MG/2.5ML NEB SCH ×4 (01:25→20:02)
[2023-10-28] MEDS: METOPROLOL TAR 25 MG TAB PO SCH ×2 (06:12→17:39)
[2023-10-28] MEDS: CEFOXITIN 2 GM in NA CHLORIDE 0.9% 100 ML IVPB SCH ×3 (06:12→21:27)
[2023-10-28] MEDS: ARFORMOTEROL TARTRATE 15 MCG/2 ML VIAL.NEB NEB SCH ×2 (07:20→20:02)
[2023-10-28] MEDS: ENSURE HIGH PROTEIN 237 ML CAN PO SCH ×3 (09:00→21:00)
[2023-10-28] MEDS: AZITHROMYCIN 200 MG/5ML ORAL SUSP PO SCH (09:00)
[2023-10-28] MEDS: MEDIHONEY 44 ML TOPICAL TUBE TOP SCH (09:00)
[2023-10-28] MEDS: ENOXAPARIN 40 MG/0.4 ML SQ SCH (09:11)
[2023-10-28] MEDS: HYDROCODONE/APAP 5/325 MG TAB PO PRN ×2 (09:12→16:24)
--- NOTE | 2023-10-28 09:23 | P.DS ---
Admission Date: 10/12/23 Discharge Date: 10/28/23 Disposition: TRANSFER TO INPATIENT REHAB Discharge Condition: GOOD Reason for Admission: Mycobacterium abscessus infection, pneumoperitoneum Consultations: General surgeryDr. Herrera Infectious diseaseDrMaritza Brooks PulmonologyDr. Kilpatrick Procedures: Pneumoperitoneum, perforated sigmoid colon, intra-abdominal abscess S/P ex lap, sigmoid bowel resection with end colostomy, appendectomy with LULY drain x2 10/12- LULY drains since removed, ostomy in place Brief History of Present Illness: Irene Venegas is a 63-year-old female with past medical history of COPD, gastrectomy, rectal polyps presents to the ED complaining of intense abdominal pain that began last night causing nausea. CT abdomen with contrast reveals "pneumoperitoneum, also with free fluid seen laying dependently in the abdomen pelvis with air and fluid collection". Dr. Herrera consulted and he took her to surgery immediately. Significant labs WBC 16.6, H&H 9.5/29.5, platelets 1234, lipase 12, alk phos 131, albumin 2.2. She has had previous admissions on 09/02 and 09/13 both for COPD exacerbation and sepsis without septic shock secondary to pneumonia. On examination Irene is in acute distress, cachectic, alert and oriented x 3. Initial vitals BP 141 / 72; Pulse 83; Resp 18; Temp 98; Pulse Ox 96% on R/A. Of note, Irene sees Dr. Bryan for Thrombocythemia. Irene will be admitted to hospitalist service for further evaluation and treatment, Dr. Herrera consulted with surgery immediately. Hospital Course: Patient was admitted to the hospital for pneumoperitoneum with perforated sigmoid colon, intra-abdominal abscess status post ex lap, sigmoid bowel resection with end colostomy, appendectomy on 10/12/2023. 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 She was evaluated by pulmonology who is following her to the health department as well as infectious disease would need recommendations for antibiotics with cefoxitin IV every 8 hours for 6 weeks total as well as p.o. Zithromax for 6 weeks. Patient wanted to follow-up with her PCP, general surgeryDr. Herrera and pulmonology within 1 to 2 weeks. She has wound VAC in place to abdominal surgical wound. Of note CTA of her chest was revealed a 7 cm soft tissue anterior left upper lobe abutting the pleural surface-this was discussed with patient recommend fo llow-up CT in 3 to 6 months. Problem List Pneumoperitoneum, perforated sigmoid colon, intra-abdominal abscess S/P ex lap, sigmoid bowel resection with end colostomy, appendectomy with LULY drain x2 10/12 Right lower lobe pulmonary embolus 7 cm soft tissue anterior left upper lobe abutting the pleural surface Hx Mycobacterium abscessus infection Thrombocythemia COPD Microcytic anemia Anxiety Vital Signs/Physical Exam: Temp Pulse Resp BP Pulse Ox 98.9 F 73 16 145/74 H 99 10/28/23 08:00 10/28/23 08:00 10/28/23 09:12 10/28/23 08:00 10/28/23 09:12 General: Alert, In no apparent distress, Oriented x3 HEENT: Atraumatic, PERRLA Neck: Supple, JVD not distended Respiratory: Clear to auscultation bilaterally, Normal air movement Cardiovascular: Regular rate/rhythm, Normal S1 S2 Gastrointestinal: Normal bowel sounds, Other (colostomy in place) Musculoskeletal: No tenderness Integumentary: No rashes Neurological: Normal speech, Normal tone, Normal affect Laboratory Data at Discharge: WBC 9.50 thou/uL (4.3-10.9) 10/25/23 09:56 Hgb 9.8 g/dL (12.0-15.0) L 10/25/23 09:56 Hct 29.7 % (36.0-45.0) L 10/25/23 09:56 Plt Count 567 thou/uL (152-406) H 10/25/23 09:56 PT 11.9 SECONDS (9.5-12.5) 10/12/23 11:00 INR 1.08 10/12/23 11:00 APTT 23.8 SECONDS (24.3-36.9) L 10/12/23 11:00 Sodium 136 mEq/L (136-145) 10/25/23 12:13 Potassium 4.3 mEq/L (3.5-5.1) 10/25/23 12:13 BUN 9 mg/dL (7-18) 10/25/23 12:13 Creatinine 0.29 mg/dL (0.55-1.02) L 10/25/23 12:13 Glucose 86 mg/dL (74-106) 10/25/23 12:13 Phosphorus 2.7 mg/dL (2.5-4.9) 10/22/23 05:45 Magnesium 2.1 mg/dL (1.6-2.4) 10/22/23 05:45 Total Bilirubin 0.2 mg/dL (0.2-1.0) 10/12/23 09:35 AST 15 U/L (15-37) 10/12/23 09:35 ALT 14 U/L (13-56) 10/12/23 09:35 Alkaline Phosphatase 131 U/L (45-117) H 10/12/23 09:35 Lipase 12 U/L (13-75) L 10/12/23 09:35 Home Medications: Duloxetine HCl 30 mg PO DAILY 09/02/23 Albuterol Inhaler [Ventolin Inhaler*] 2 puff IH Q4HR PRN 09/13/23 predniSONE [Deltasone*] 1 tab PO DAILY 10/15/23 ALPRAZolam [Xanax*] 0.25 mg PO TID PRN tab 10/28/23 Albuterol Neb [Proventil 0.083% Neb Soln] 2.5 mg NEB [id number] PRN amp 10/28/23 Apixaban [Eliquis] 5 mg PO BID 10/28/23 Arformoterol Tartrate [Brovana] 15 mcg NEB BIDRESP vial.neb 10/28/23 Azithromycin Susp [Zithromax*] 5 ml PO DAILY ml 10/28/23 Ensure High Protein 237 ml PO TID can 10/28/23 Hydrocodone 5/APAP 325 [[place] 5/325*] 1 tab PO Q6H PRN tab 10/28/23 Ipratropium Neb [Atrovent*] 0.5 mg NEB [id number] amp 10/28/23 Medihoney [Medihoney Woundcare Gel*] 1 appl TOP DAILY tube 10/28/23 Metoprolol Tartrate [Lopressor*] 12.5 mg PO BID 6AM 6PM tab 10/28/23 Zolpidem Tartrate [Ambien*] 5 mg PO BEDTIME 10/28/23 Physician Discharge Instructions: Patient was admitted to the hospital for pneumoperitoneum with perforated sigmoid colon, intra-abdominal abscess status post ex lap, sigmoid bowel resection with end colostomy, appendectomy on 10/12/2023. 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 She was evaluated by pulmonology who is following her to the health department as well as infectious disease would need recommendations for antibiotics with cefoxitin IV every 8 hours for 6 weeks total as well as p.o. Zithromax for 6 weeks. Patient wanted to follow-up with her PCP, general surgeryDrMaritza Herrera and pulmonology within 1 to 2 weeks. She has wound VAC in place to abdominal surgical wound. Of note CTA of her chest was revealed a 7 cm soft tissue anterior left upper lobe abutting the pleural surface-this was discussed with patient recommend follow-up CT in 3 to 6 months. Diet: Regular Activity: Fall precautions Followup: Steve Kilpatrick MD [ACTIVE - CAN ADMIT] - 1-2 Weeks Umm Starks MD [OUTSIDE PHYSICIAN] - 1-2 Weeks Chapito Herrera MD [ACTIVE - CAN ADMIT] - 1-2 Weeks Time spent managing pt's care (in minutes): 35
--- NOTE | 2023-10-28 10:15 | P.PN ---
Subjective Date of Service: 10/28/23 Chief Complaint: Mycobacterium abscessus infection, Subjective: Improving (Doing well no new complaints colostomy is working stable for transfer to an LTAC) Review of Systems General: Weakness Respiratory: Shortness of Breath Physical Examination - Vital Signs Temperature: 98.9 F Blood Pressure: 145/74 Pulse: 73 Respirations: 16 Pulse Ox (%): 99 - Physical Exam General: Alert, In no apparent distress, Oriented x3 Respiratory: Clear to auscultation bilaterally Cardiovascular: No edema, Regular rate/rhythm Assessment And Plan - Current Problems (Diagnosis) (1) Mycobacterium abscessus infection Current Visit: Yes Status: Acute Plan: Mycobacterium abscessus of infection continue with cefoxitin and Zithromax/high risk for amikacin IV therapy stable on dual therapy continue with cefoxitin for 6 weeks IV Zithromax (2) COPD (chronic obstructive pulmonary disease) Current Visit: Yes Status: Acute Plan: Patient is stable doing better discharge planning no change Qualifiers: COPD type: unspecified COPD Qualified Code(s): J44.9 - Chronic obstructive pulmonary disease, unspecified
[2023-10-28] MEDS ORDERED: PROMETHAZINE 25 MG TABLET PO ONE (11:58)
[2023-10-28] MEDS: MORPHINE 2 MG/ML SYR IV PRN ×2 (13:29→21:26)
[2023-10-28] MEDS: ONDANSETRON 4 MG/2 ML VIAL IV PRN (16:24)
[2023-10-28] MEDS: ZOLPIDEM TARTRATE 5 MG TABLET PO SCH (21:27)
[2023-10-28] MEDS: APIXABAN 5 MG TABLET PO SCH (21:27)
[2023-10-28] MEDS: ALPRAZOLAM 0.25 MG TABLET PO PRN (22:16)
[2023-10-29] MEDS: IPRATROPIUM BROM 0.5MG/2.5ML NEB SCH ×4 (02:10→18:10)
[2023-10-29] MEDS: METOPROLOL TAR 25 MG TAB PO SCH ×2 (05:58→17:01)
[2023-10-29] MEDS: CEFOXITIN 2 GM in NA CHLORIDE 0.9% 100 ML IVPB SCH ×3 (05:59→21:14)
[2023-10-29] MEDS: HYDROCODONE/APAP 5/325 MG TAB PO PRN ×2 (06:04→13:35)
[2023-10-29] MEDS: ARFORMOTEROL TARTRATE 15 MCG/2 ML VIAL.NEB NEB SCH ×2 (07:15→18:10)
[2023-10-29] MEDS: MEDIHONEY 44 ML TOPICAL TUBE TOP SCH (08:14)
[2023-10-29] MEDS: MORPHINE 2 MG/ML SYR IV PRN (08:21)
[2023-10-29] MEDS: APIXABAN 5 MG TABLET PO SCH ×2 (08:21→21:13)
[2023-10-29] MEDS: ENSURE HIGH PROTEIN 237 ML CAN PO SCH ×3 (08:21→21:00)
[2023-10-29] MEDS: AZITHROMYCIN 200 MG/5ML ORAL SUSP PO SCH (09:00)
--- NOTE | 2023-10-29 09:21 | P.PN ---
Date of Service: 10/29/23 Subjective: On 3 L NC, not using the High flow anymore. No acute events overnight, looking forward to inpatient rehab ROS: 10 point ROS as noted above, otherwise negative Physical exam GEN: Awake and talkative, oriented, NAD HEENT: Normal conjunctiva, neck Supple, no JVD CV: Regular rate and rhythm, no edema Pulm: Nonlabored respirations on 3 LNC ABD: Soft, mildly tender, LLQ colostomy in place, stoma pink, wound VAC in place MSK: No joint tenderness Integumentary: No rashes Neuro: Normal speech, normal affect Vitals reviewed Problem List Pneumoperitoneum, perforated sigmoid colon, intra-abdominal abscess S/P ex lap, sigmoid bowel resection with end colostomy, appendectomy with LULY drain x2 10/12 Right lower lobe pulmonary embolus 7 cm soft tissue anterior left upper lobe abutting the pleural surface Hx Mycobacterium abscessus infection Thrombocythemia Plan Awaiting approval from [facility] inpatient rehab, pending insurance approval for long- term antibiotic plan Pneumoperitoneum, perforated sigmoid colon, intra-abdominal abscess S/P ex lap, sigmoid bowel resection with end colostomy, appendectomy with LULY drain x2 10/12 -Dr. Herrera consulted and following- Cleared for discharge , with 1 week follow-up, -[place] every 5, Dilaudid stopped 10/25/2023, allergic to morphine -Diet has been advanced -LULY drains removed 10/24/2023 -Wound VAC in place -Patient working with PT -Wound culture with 1+ yeast-only in the broth- no treatment needed -Body fluid- no organism seen -blood culture NGTD -Approval for [facility] Right lower lobe pulmonary embolus 7 cm soft tissue anterior left upper lobe abutting the pleural surface CT PE protocol obtained given sudden onset shortness of breath overnight Right lower lobe pulm embolism noted-discussed with surgery, continue with therapeutic Lovenox 40 BID Additionally noted 7 cm soft tissue anterior left upper lobe abutting the pleural surface- radiology notes likely inflammatory will need follow-up imaging-discussed with patient HF started 10/23 at 20, weaned to 10- bicarb 32, with oxygen saturation of 98%- 3 LNC 96% Hx Mycobacterium abscessus infection Merrem stopped 10/24/2023 PICC line placed 10/24/[address] Lu for a clear treatment plan- need sputum culture sensitivity Recommendations pending, possibly amikacin +/- Imipenem, azithromycin, linezolid Dr Kilpatrick recommends treatment for better monitoring: azithromycin 200 mg daily, cefoxitin 2 g every 8 hours x 6 weeks, treatment started 10/27 need new sputum culture ordered 10/24/2023 Thrombocythemia Improving, possibly reactive Platelets 567 K Microcytic anemia-severe iron deficiency anemia with acute blood loss anemia severe MEGAN iron level <10 Had 2 unit PRBC so far 10/14-10/15 Monitor H&H, 9.8/29.7 10/25 COPD As needed neb treatments Anxiety Ativan as needed DVT PPx therapeutic Lovenox Full code LOS 1 to 2 days- [facility] awaiting approval Time Spent Managing Pts Care (In Minutes): 35 <Bruce De Los Santos - Last Filed: 10/29/23 09:19> Patient was seen and examined. Plan of care discussed with Bruce De Los Santos. Patient is overall clinically improved and stable for transfer to acute rehab. According to case making machine operator Dr. Smith at [facility] would like to confirm patient can afford him antibiotics after discharge from rehab. podiatry assistant are aware and looking into that. <natalie ashraf - Last Filed: 10/29/23 13:19>
[2023-10-29] MEDS: ALPRAZOLAM 0.25 MG TABLET PO PRN (13:34)
--- NOTE | 2023-10-29 14:51 | P.PN ---
Date of Service: 10/29/23 Chief Complaint: abdominal pain Subjective: Patient sitting in chair, in no apparent distress. Reports abdominal pain. No acute events overnight. pending inpatient rehab placement. Physical Examination Temp Pulse Resp BP Pulse Ox 98.0 F 79 15 144/74 H 97 10/29/23 12:00 10/29/23 12:00 10/29/23 13:35 10/29/23 12:00 10/29/23 13:35 General: Thin, frail. In no apparent distress, Oriented x3. HEENT: Atraumatic. Corrective lenses. Respiratory: Diminished. On 2.5L nasal cannula. Cardiovascular: Regular rate/rhythm. BLE edema 1+. Gastrointestinal: LLQ colostomy. Normoactive bowel sounds. + Tenderness MSK: Generalized weakness. Integumentary: Abdominal surgical site with wound vac noted. Laboratory Data - Reviewed Microbiology Data - Reviewed Imagings Data: - Reviewed Medications list: Reviewed Assessment and Plan Problem List Pneumoperitoneum Perforated sigmoid colon Intra-abdominal abscess COPD Microcytic Anemia Severe Protein-Calorie Malnutrition Pneumoperitoneum Perforated sigmoid colon Intra-abdominal abscess - s/p emergent exploratory laparotomy, sigmoid bowel resection, end colostomy, extensive lysis of adesions and appendectomy on 10/[address] Herrera. - Blood cultures 10/12: No growth to date - Wound cultures 10/12: no growth to date - Afebrile - Completed 7 days Zosyn (10/12-10/18) Pulmonary Embolus, Right Lower Lobe - CT PE 10/18: " Right lower lobe pulmonary embolus. 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 Sensitivities pending, may take up to 6 weeks to receive final results. - AFB culture & smear 09/20: Mycobacterium abscessus complex Recommendations - mycobacterium abscessus: patient will require at least a 3 drug regimen. pending sensitivity results. This can take up to 6 weeks before results finalized. Due to high risk of amikacin toxicity in this patient and Imipenem not available at this facility, recommend starting on Cefoxitin IV + Azithromycin PO + Linezolid PO for now. Please follow up with final sensitivity results following patient discharge. - Recommend following up with infectious disease specialist at [facility] for outpatient management of mycobacterium abscessus, as patient will require monitoring and management of long-term IV&PO antibiotic therapy. - Surgical site care per Dr. Herrera - Monitor WBC and fever trends - Pain management per primary team - Continue supportive care. - Supplemental nutrition Amikacin level monitoring not readily available at this facility, it is a send- out lab with values resulting in ~5 days; high risk of toxicity. Therefore not a safe option to start at this time. Imipenem IV not available at this facility. Recommend transfer to [facility] for further management of mycobacterium abscessus and follow up. Case discussed with Andrew Ibarra
[2023-10-29] MEDS: LINEZOLID 600 MG TAB PO SCH (16:00)
[2023-10-29] MEDS: ZOLPIDEM TARTRATE 5 MG TABLET PO SCH (21:13)
[2023-10-30] MEDS: IPRATROPIUM BROM 0.5MG/2.5ML NEB SCH ×4 (02:42→20:10)
[2023-10-30] MEDS: HYDROCODONE/APAP 5/325 MG TAB PO PRN ×3 (05:30→21:29)
[2023-10-30] MEDS: METOPROLOL TAR 25 MG TAB PO SCH ×2 (05:31→17:39)
[2023-10-30] MEDS: CEFOXITIN 2 GM in NA CHLORIDE 0.9% 100 ML IVPB SCH ×3 (05:31→21:27)
[2023-10-30] MEDS: MEDIHONEY 44 ML TOPICAL TUBE TOP SCH (07:42)
[2023-10-30] MEDS: AZITHROMYCIN 200 MG/5ML ORAL SUSP PO SCH (07:45)
[2023-10-30] MEDS: APIXABAN 5 MG TABLET PO SCH ×2 (07:47→21:27)
[2023-10-30] MEDS: LINEZOLID 600 MG TAB PO SCH (07:47)
[2023-10-30] MEDS: ENSURE HIGH PROTEIN 237 ML CAN PO SCH ×3 (07:48→21:00)
[2023-10-30] MEDS: MORPHINE 2 MG/ML SYR IV PRN ×2 (07:49→17:39)
[2023-10-30] MEDS: ARFORMOTEROL TARTRATE 15 MCG/2 ML VIAL.NEB NEB SCH ×2 (08:30→20:10)
--- NOTE | 2023-10-30 09:09 | P.PN ---
Date of Service: 10/30/23 Chief Complaint: abdominal pain Subjective: Patient sitting up in bed. In no apparent distress. No acute events overnight. Reports abdominal pain. Physical Examination Temp Pulse Resp BP Pulse Ox 97.5 F 69 17 128/64 91 10/30/23 08:00 10/30/23 08:00 10/30/23 08:00 10/30/23 08:00 10/30/23 08:00 General: Thin, frail. In no apparent distress, Oriented x3. HEENT: Atraumatic. Corrective lenses. Respiratory: Diminished. On 2.5L nasal cannula. Cardiovascular: Regular rate/rhythm. Gastrointestinal: LLQ colostomy. Normoactive bowel sounds. + Tenderness MSK: Generalized weakness. Integumentary: Abdominal surgical site with wound vac noted. Laboratory Data - Reviewed Microbiology Data - Reviewed Imagings Data: - Reviewed Medications list: Reviewed Assessment and Plan Problem List Pneumoperitoneum Perforated sigmoid colon Intra-abdominal abscess COPD Microcytic Anemia Severe Protein-Calorie Malnutrition Pneumoperitoneum Perforated sigmoid colon Intra-abdominal abscess - s/p emergent exploratory laparotomy, sigmoid bowel resection, end colostomy, extensive lysis of adesions and appendectomy on 10/[address] Herrera. - Blood cultures 10/12: No growth to date - Wound cultures 10/12: no growth to date - Afebrile - Completed 7 days Zosyn (10/12-10/18) Pulmonary Embolus, Right Lower Lobe - CT PE 10/18: " Right lower lobe pulmonary embolus. 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 Sensitivities pending, may take up to 6 weeks to receive final results. - AFB culture & smear 09/20: Mycobacterium abscessus complex Pending sensitivity results. This can take up to 6 weeks before results finalized. Recommendations - mycobacterium abscessus: patient will require at least a 3 drug regimen. Due to high risk of amikacin toxicity in this patient and Imipenem not available at this facility, recommend starting on Cefoxitin IV + Azithromycin PO + Linezolid PO for now. Please follow up with final sensitivity results following patient discharge. - Recommend following up with infectious disease specialist at [facility] for outpatient management of mycobacterium abscessus, as patient will require monitoring and management of long-term IV&PO antibiotic therapy. - Surgical site care per Dr. Herrera - Monitor WBC and fever trends - Pain management per primary team - Continue supportive care. - Supplemental nutrition Amikacin level monitoring not readily available at this facility, it is a send- out lab with values resulting in ~5 days; high risk of toxicity. Therefore not a safe option to start at this time. Imipenem IV not available at this facility. Case discussed with Gurjit Ibarra.
--- NOTE | 2023-10-30 10:03 | P.PN ---
Date of Service: 10/30/23 Subjective: awaiting placement inpatient rehab no acute events overnight ROS: 10 point ROS as noted above, otherwise negative Physical exam GEN: Awake and talkative, oriented, NAD HEENT: Normal conjunctiva, neck Supple, no JVD CV: Regular rate and rhythm, no edema Pulm: Nonlabored respirations on 3 LNC ABD: Soft, mildly tender, LLQ colostomy in place, stoma pink, wound VAC in place MSK: No joint tenderness Integumentary: No rashes Neuro: Normal speech, normal affect Vitals reviewed Problem List Pneumoperitoneum, perforated sigmoid colon, intra-abdominal abscess S/P ex lap, sigmoid bowel resection with end colostomy, appendectomy with LULY drain x2 10/12 Right lower lobe pulmonary embolus 7 cm soft tissue anterior left upper lobe abutting the pleural surface Hx Mycobacterium abscessus infection Thrombocythemia Plan Awaiting approval from [facility] inpatient rehab, pending insurance approval for long- term antibiotic plan Pneumoperitoneum, perforated sigmoid colon, intra-abdominal abscess S/P ex lap, sigmoid bowel resection with end colostomy, appendectomy with LULY drain x2 10/12 -Dr. Herrera consulted and following- Cleared for discharge , with 1 week follow-up, -[place] every 5, Dilaudid stopped 10/25/2023, allergic to morphine -Diet has been advanced -LULY drains removed 10/24/2023 -Wound VAC in place -Patient working with PT -Wound culture with 1+ yeast-only in the broth- no treatment needed -Body fluid- no organism seen -blood culture NGTD -Approval for [facility] Right lower lobe pulmonary embolus 7 cm soft tissue anterior left upper lobe abutting the pleural surface Right lower lobe pulm embolism noted-discussed with surgery, continue eliquis 5mg po bid Additionally noted 7 cm soft tissue anterior left upper lobe abutting the pleural surface- radiology notes likely inflammatory will need follow-up imaging-discussed with patient on nasal canula 3L Hx Mycobacterium abscessus infection Merrem stopped 10/24/2023 PICC line placed 10/24/23 Dr Kilpatrick recommends treatment for better monitoring: azithromycin 200 mg daily, cefoxitin 2 g every 8 hours x 6 weeks, treatment started 10/27 10/29 infectious disease added Linezolid 600mg daily will need total 6 weeks of three frud therapy need new sputum culture ordered 10/24/2023 Thrombocythemia Improving, possibly reactive Microcytic anemia-severe iron deficiency anemia with acute blood loss anemia severe MEGAN iron level <10 Had 2 unit PRBC so far 10/14-10/15 monitor H/H COPD As needed neb treatments Anxiety Ativan as needed DVT PPx therapeutic Lovenox Full code LOS 1 to 2 days- [facility] awaiting approval Time Spent Managing Pts Care (In Minutes): 35
[2023-10-30 10:05] LABS: Absolute Lymphocytes (CBC) 1.3 K/uL (0.7-4.9); Hematocrit 24.9 % (36.0-45.0); Lymphocytes % 15.2 % (15.3-44.8); MCV 74.5 fL (80-100); MPV 6.8 fL (7.6-11.3); Platelets 607 thou/uL (152-406); RBC Red Blood Cell Count 3.35 M/uL (3.86-4.86)
[2023-10-30 10:19] LABS: Potassium 3.8 mEq/L (3.5-5.1)
[2023-10-30] MEDS: ZOLPIDEM TARTRATE 5 MG TABLET PO SCH (21:27)
[2023-10-31] MEDS: IPRATROPIUM BROM 0.5MG/2.5ML NEB SCH ×4 (01:37→19:49)
[2023-10-31] MEDS: MORPHINE 2 MG/ML SYR IV PRN ×2 (05:45→21:39)
[2023-10-31] MEDS: METOPROLOL TAR 25 MG TAB PO SCH ×2 (05:45→16:33)
[2023-10-31] MEDS: CEFOXITIN 2 GM in NA CHLORIDE 0.9% 100 ML IVPB SCH ×3 (05:45→21:39)
[2023-10-31] MEDS: ARFORMOTEROL TARTRATE 15 MCG/2 ML VIAL.NEB NEB SCH ×2 (08:05→19:49)
[2023-10-31] MEDS: MEDIHONEY 44 ML TOPICAL TUBE TOP SCH (09:00)
[2023-10-31] MEDS ORDERED: POTASSIUM CL SA 10 MEQ TAB PO ONE (09:00)
[2023-10-31] MEDS: AZITHROMYCIN 200 MG/5ML ORAL SUSP PO SCH (09:00)
[2023-10-31] MEDS: HYDROCODONE/APAP 5/325 MG TAB PO PRN ×2 (09:21→15:08)
[2023-10-31] MEDS: LINEZOLID 600 MG TAB PO SCH (09:21)
[2023-10-31] MEDS: APIXABAN 5 MG TABLET PO SCH ×2 (09:22→21:42)
[2023-10-31] MEDS: ENSURE HIGH PROTEIN 237 ML CAN PO SCH ×3 (09:23→21:00)
--- NOTE | 2023-10-31 09:36 | P.PN ---
Date of Service: 10/31/23 Subjective: awaiting placement inpatient rehab no acute events overnight tolerating room air today ROS: 10 point ROS as noted above, otherwise negative Physical exam GEN: Awake and talkative, oriented, NAD HEENT: Normal conjunctiva, neck Supple, no JVD CV: Regular rate and rhythm, no edema Pulm: Nonlabored respirations on 3 LNC ABD: Soft, mildly tender, LLQ colostomy in place, stoma pink, wound VAC in place MSK: No joint tenderness Integumentary: No rashes Neuro: Normal speech, normal affect Vitals reviewed Problem List Pneumoperitoneum, perforated sigmoid colon, intra-abdominal abscess S/P ex lap, sigmoid bowel resection with end colostomy, appendectomy with LULY drain x2 10/12 Right lower lobe pulmonary embolus 7 cm soft tissue anterior left upper lobe abutting the pleural surface Hx Mycobacterium abscessus infection Thrombocythemia Plan Awaiting approval from [facility] inpatient rehab, pending insurance approval for long- term antibiotic plan Pneumoperitoneum, perforated sigmoid colon, intra-abdominal abscess S/P ex lap, sigmoid bowel resection with end colostomy, appendectomy with LULY drain x2 10/12 -Dr. Herrera consulted and following- Cleared for discharge , with 1 week follow-up, -[place] every 5, Dilaudid stopped 10/25/2023, allergic to morphine -Diet has been advanced -LULY drains removed 10/24/2023 -Wound VAC in place -Patient working with PT -Wound culture with 1+ yeast-only in the broth- no treatment needed -Body fluid- no organism seen -blood culture NGTD -Approval for [facility] Right lower lobe pulmonary embolus 7 cm soft tissue anterior left upper lobe abutting the pleural surface Right lower lobe pulm embolism noted-discussed with surgery, continue eliquis 5mg po bid Additionally noted 7 cm soft tissue anterior left upper lobe abutting the pleural surface- radiology notes likely inflammatory will need follow-up imaging-discussed with patient on room air Hx Mycobacterium abscessus infection Merrem stopped 10/24/2023 PICC line placed 10/24/23 Dr Kilpatrick recommends treatment for better monitoring: azithromycin 200 mg daily, cefoxitin 2 g every 8 hours x 6 weeks, treatment started 10/27 10/29 infectious disease added Linezolid 600mg daily will need total 6 weeks of three drug therapy need new sputum culture ordered 10/24/2023 Thrombocythemia Improving, possibly reactive Microcytic anemia-severe iron deficiency anemia with acute blood loss anemia severe MEGAN iron level <10 Had 2 unit PRBC so far 10/14-10/15 monitor H/H COPD As needed neb treatments Anxiety Ativan as needed DVT PPx therapeutic Lovenox Full code LOS 1 to 2 days- [facility] awaiting approval Time Spent Managing Pts Care (In Minutes): 35
--- NOTE | 2023-10-31 09:51 | P.PN ---
Date of Service: 10/31/23 Chief Complaint: abdominal pain Subjective: Improving. In no apparent distress. No new or worsening complaints at this time. Now on room air, intermittent use of 2L nasal cannula as needed. No acute events overnight. Pending rehab approval. Physical Examination Temp Pulse Resp BP Pulse Ox 99.1 F 68 16 145/67 H 100 10/31/23 08:00 10/31/23 08:00 10/31/23 09:21 10/31/23 08:00 10/31/23 09:21 General: Thin, frail. In no apparent distress, Oriented x3. HEENT: Atraumatic. Corrective lenses. Respiratory: Diminished. On room air. Unlabored respirations. Cardiovascular: Regular rate/rhythm. Gastrointestinal: LLQ colostomy. Normoactive bowel sounds. + Tenderness MSK: Generalized weakness. Integumentary: Abdominal surgical site . Laboratory Data - Reviewed Microbiology Data - Reviewed Imagings Data: - Reviewed Medications list: Reviewed Assessment and Plan Problem List Pneumoperitoneum Perforated sigmoid colon Intra-abdominal abscess COPD Microcytic Anemia Severe Protein-Calorie Malnutrition Pneumoperitoneum Perforated sigmoid colon Intra-abdominal abscess - s/p emergent exploratory laparotomy, sigmoid bowel resection, end colostomy, extensive lysis of adesions and appendectomy on 10/[address] Herrera. - Blood cultures 10/12: No growth to date - Wound cultures 10/12: no growth to date - Afebrile - Completed 7 days Zosyn (10/12-10/18) Pulmonary Embolus, Right Lower Lobe - CT PE 10/18: " Right lower lobe pulmonary embolus. 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 Sensitivities pending, may take up to 6 weeks to receive final results. - AFB culture & smear 09/20: Mycobacterium abscessus complex - Pending sensitivity results. This can take up to 6 weeks before results finalized. - Amikacin level monitoring not readily available at this facility, it is a send-out lab with values resulting in ~5 days; high risk of toxicity. Therefore not a safe option to start at this time. Imipenem IV not available at this facility. Recommendations Pending rehab placement. - mycobacterium abscessus: Due to high risk of amikacin toxicity in this patient and Imipenem not available at this facility, recommend starting on Cefoxitin IV + Azithromycin PO + Linezolid PO. Please follow up with final sensitivity results following patient discharge. - Recommend following up with infectious disease specialist at [facility] for outpatient management of mycobacterium abscessus, as patient will require monitoring and management of long-term IV&PO antibiotic therapy. - Surgical site care per Dr. Herrera - Monitor WBC and fever trends - Pain management per primary team - Continue supportive care. - Supplemental nutrition Case discussed with Andrew Ibarra
--- NOTE | 2023-10-31 15:22 | P.DS ---
Admission Date: 10/12/23 Discharge Date: 10/31/23 Disposition: TRANSFER TO INPATIENT REHAB Discharge Condition: GOOD Reason for Admission: Mycobacterium abscessus infection, Consultations: Dr. Herrera general surgery Dr. Kilpatrick pulmonology Dr. Brooks infectious disease Procedures: Pneumoperitoneum, perforated sigmoid colon, intra-abdominal abscess S/P ex lap, sigmoid bowel resection with end colostomy, appendectomy with LULY drain x2 10/12 Brief History of Present Illness: Irene Venegas is a 63-year-old female with past medical history of COPD, gastrectomy, rectal polyps presents to the ED complaining of intense abdominal pain that began last night causing nausea. CT abdomen with contrast reveals "pneumoperitoneum, also with free fluid seen laying dependently in the abdomen pelvis with air and fluid collection". Dr. Herrera consulted and he took her to surgery immediately. Significant labs WBC 16.6, H&H 9.5/29.5, platelets 1234, lipase 12, alk phos 131, albumin 2.2. She has had previous admissions on 09/02 and 09/13 both for COPD exacerbation and sepsis without septic shock secondary to pneumonia. On examination Irene is in acute distress, cachectic, alert and oriented x 3. Initial vitals BP 141 / 72; Pulse 83; Resp 18; Temp 98; Pulse Ox 96% on R/A. Of note, Irene sees Dr. Bryan for Thrombocythemia. Irene will be admitted to hospitalist service for further evaluation and treatment, Dr. Herrera consulted with surgery immediately. Hospital Course: Patient was admitted to the hospital for pneumoperitoneum with perforated sigmoid colon, intra-abdominal abscess status post ex lap, sigmoid bowel resection with end colostomy, appendectomy on 10/12/2023. 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 She was evaluated by pulmonology who is following her through the health department as well as infectious disease who recommend antibiotics with cefoxitin IV every 8 hours for 6 weeks total as well as p.o. Zithromax and Linezolid for 6 weeks. Patient wanted to follow-up with her PCP, general surgeryDr. Herrera and pulmonology within 1 to 2 weeks. She has wound VAC in place to abdominal surgical wound. Of note CTA of her chest was revealed a 7 cm soft tissue anterior left upper lobe abutting the pleural surface-this was discussed with patient recommend follow-up CT in 3 to 6 months. Problem List Pneumoperitoneum, perforated sigmoid colon, intra-abdominal abscess S/P ex lap, sigmoid bowel resection with end colostomy, appendectomy with LULY drain x2 10/12 Right lower lobe pulmonary embolus 7 cm soft tissue anterior left upper lobe abutting the pleural surface Hx Mycobacterium abscessus infection Thrombocythemia COPD Microcytic anemia Anxiety Vital Signs/Physical Exam: Temp Pulse Resp BP Pulse Ox 99.1 F 68 16 145/67 H 97 10/31/23 08:00 10/31/23 08:00 10/31/23 15:08 10/31/23 08:00 10/31/23 15:08 General: Alert, In no apparent distress, Oriented x3 HEENT: Atraumatic, PERRLA Neck: Supple, JVD not distended Respiratory: Clear to auscultation bilaterally, Normal air movement Cardiovascular: Regular rate/rhythm, Normal S1 S2 Gastrointestinal: Other (Ostomy appliance in place, midline incision with dressing in place) Musculoskeletal: No tenderness Integumentary: No rashes Neurological: Normal speech Laboratory Data at Discharge: WBC 8.30 thou/uL (4.3-10.9) 10/30/23 09:53 Hgb 8.3 g/dL (12.0-15.0) L 10/30/23 09:53 Hct 24.9 % (36.0-45.0) L 10/30/23 09:53 Plt Count 607 thou/uL (152-406) H 10/30/23 09:53 PT 11.9 SECONDS (9.5-12.5) 10/12/23 11:00 INR 1.08 10/12/23 11:00 APTT 23.8 SECONDS (24.3-36.9) L 10/12/23 11:00 Sodium 138 mEq/L (136-145) 10/30/23 09:53 Potassium 3.8 mEq/L (3.5-5.1) 10/30/23 09:53 BUN 9 mg/dL (7-18) 10/30/23 09:53 Creatinine 0.44 mg/dL (0.55-1.02) L 10/30/23 09:53 Glucose 103 mg/dL (74-106) 10/30/23 09:53 Phosphorus 2.7 mg/dL (2.5-4.9) 10/22/23 05:45 Magnesium 2.1 mg/dL (1.6-2.4) 10/22/23 05:45 Total Bilirubin 0.2 mg/dL (0.2-1.0) 10/12/23 09:35 AST 15 U/L (15-37) 10/12/23 09:35 ALT 14 U/L (13-56) 10/12/23 09:35 Alkaline Phosphatase 131 U/L (45-117) H 10/12/23 09:35 Lipase 12 U/L (13-75) L 10/12/23 09:35 Home Medications: Duloxetine HCl 30 mg PO DAILY 09/02/23 Albuterol Inhaler [Ventolin Inhaler*] 2 puff IH Q4HR PRN 09/13/23 predniSONE [Deltasone*] 1 tab PO DAILY 10/15/23 ALPRAZolam [Xanax*] 0.25 mg PO TID PRN tab 10/28/23 Albuterol Neb [Proventil 0.083% Neb Soln] 2.5 mg NEB [id number] PRN amp 10/28/23 Apixaban [Eliquis] 5 mg PO BID 10/28/23 Arformoterol Tartrate [Brovana] 15 mcg NEB BIDRESP vial.neb 10/28/23 Azithromycin Susp [Zithromax*] 5 ml PO DAILY ml 10/28/23 Ensure High Protein 237 ml PO TID can 10/28/23 Hydrocodone 5/APAP 325 [[place] 5/325*] 1 tab PO Q6H PRN tab 10/28/23 Ipratropium Neb [Atrovent*] 0.5 mg NEB [id number] amp 10/28/23 Medihoney [Medihoney Woundcare Gel*] 1 appl TOP DAILY tube 10/28/23 Metoprolol Tartrate [Lopressor*] 12.5 mg PO BID 6AM 6PM tab 10/28/23 Zolpidem Tartrate [Ambien*] 5 mg PO BEDTIME 10/28/23 Linezolid [Zyvox*] 600 mg PO DAILY tab 10/31/23 Physician Discharge Instructions: PROBLEM: pneumo-peritoneum - new colostomy GOAL: Clear understanding of disease process INSTRUCTIONS: Diet: Regular Activity: Fall precautions Patient was admitted to the hospital for pneumoperitoneum with perforated sigmoid colon, intra-abdominal abscess status post ex lap, sigmoid bowel resection with end colostomy, appendectomy on 10/12/2023. 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 She was evaluated by pulmonology who is following her through the health department as well as infectious disease who recommend antibiotics with cefoxitin IV every 8 hours for 6 weeks total as well as p.o. Zithromax and Linezolid for 6 weeks. Patient wanted to follow-up with her PCP, general surgeryDrMaritza Herrera and pulmonology within 1 to 2 weeks. She has wound VAC in place to abdominal surgical wound. Of note CTA of her chest was revealed a 7 cm soft tissue anterior left upper lobe abutting the pleural surface-this was discussed with patient recommend follow-up CT in 3 to 6 months. Diet: Regular Activity: Fall precautions Followup: Steve Kilpatrick MD [ACTIVE - CAN ADMIT] - 1-2 Weeks Umm Starks MD [OUTSIDE PHYSICIAN] - 1-2 Weeks Chapito Herrera MD [ACTIVE - CAN ADMIT] - 1-2 Weeks Time spent managing pt's care (in minutes): 35
[2023-10-31] MEDS: ALPRAZOLAM 0.25 MG TABLET PO PRN ×2 (16:35→23:36)
[2023-10-31] MEDS: ZOLPIDEM TARTRATE 5 MG TABLET PO SCH (21:42)
[2023-11-01] MEDS: HYDROCODONE/APAP 5/325 MG TAB PO PRN ×2 (00:10→09:44)
[2023-11-01] MEDS: IPRATROPIUM BROM 0.5MG/2.5ML NEB SCH ×2 (01:12→07:54)
[2023-11-01] MEDS: MORPHINE 2 MG/ML SYR IV PRN (05:13)
[2023-11-01] MEDS: CEFOXITIN 2 GM in NA CHLORIDE 0.9% 100 ML IVPB SCH (05:13)
[2023-11-01] MEDS: METOPROLOL TAR 25 MG TAB PO SCH (05:14)
[2023-11-01] MEDS: ARFORMOTEROL TARTRATE 15 MCG/2 ML VIAL.NEB NEB SCH (07:54)
[2023-11-01 08:09] VITALS: BP 148/86; TEMP 99.2
[2023-11-01] MEDS: MEDIHONEY 44 ML TOPICAL TUBE TOP SCH (09:00)
[2023-11-01] MEDS: ENSURE HIGH PROTEIN 237 ML CAN PO SCH (09:00)
[2023-11-01 09:11] VITALS: O2SAT 98
--- NOTE | 2023-11-01 09:20 | P.PN ---
Date of Service: 11/01/23 Subjective: No acute events overnight Excited for transfer to inpatient rehab today ROS: 10 point ROS as noted above, otherwise negative Physical exam GEN: Awake and talkative, oriented, NAD HEENT: Normal conjunctiva, neck Supple, no JVD CV: Regular rate and rhythm, no edema Pulm: Nonlabored respirations on 3 LNC ABD: Soft, mildly tender, LLQ colostomy in place, stoma pink, wound VAC in place MSK: No joint tenderness Integumentary: No rashes Neuro: Normal speech, normal affect Vitals reviewed Problem List Pneumoperitoneum, perforated sigmoid colon, intra-abdominal abscess S/P ex lap, sigmoid bowel resection with end colostomy, appendectomy with LULY drain x2 10/12 Right lower lobe pulmonary embolus 7 cm soft tissue anterior left upper lobe abutting the pleural surface Hx Mycobacterium abscessus infection Thrombocythemia Plan Accepted to inpatient rehab today See discharge summary from 10/31/2023 for further details/formal discharge summary Time Spent Managing Pts Care (In Minutes): 25
[2023-11-01] MEDS: APIXABAN 5 MG TABLET PO SCH (09:32)
[2023-11-01] MEDS: LINEZOLID 600 MG TAB PO SCH (09:32)
[2023-11-01] MEDS ORDERED: MORPHINE 2 MG/ML SYR IV ONE ×2 (11:37→11:38)
--- NOTE | 2023-11-03 02:16 | OP ---
Date of Procedure: 10/12/2023 Surgeon: Chapito Herrera MD Preoperative Diagnoses: Pneumoperitoneum, perforated viscus, pneumonia. Postoperative Diagnoses: Pneumoperitoneum, perforated viscus, pneumonia, perforated sigmoid colon, i ntraabdominal abscess. Procedures: Emergent exploratory laparotomy, sigmoid bowel resection, end colostomy, extensive lysis of adhesions, appendectomy. Estimated Blood Loss: Less than 10 cc. Specimens: Bowel and appendix. Findings: The patient has perforated sigmoid colon with abscess over the area of the pelvis involvin g not only the sigmoid colon, but some of the small bowel and also the appendix is full of fibrin and inflamed as part of this process. The patient has extensive intraabdominal adhesions, probably from previous surgeries. Anesthesia: General plus local. Drains: LULY #10, multiple. Complications: None. Indications: This is a case of a female who comes to us emergently to the OR with severe abdominal p ain. The patient was diagnosed with pneumoperitoneum. The benefits, alternatives, and risks of robert gent laparotomy with possible bowel resection and possible ostomy fully explained to the patient whic h included, but not limited to, infection, bleeding, damage to adjacent structures, anesthesia compli cation, MO, and even . She also understands this may not relieve symptoms. She might need more than one surgical intervention. She understands this. If we do colostomy, it may or may not be rev ersible. She understands the risks of abscess. She signed the consent. Procedure In Detail: The patient was brought emergently to the operating room, placed in the supine position. Anesthesia was done without complication. Abdominal area was prepped and draped in steril e fashion. A midline incision was done and the incision was carried down to fascia, which was opened under direct visualization. Immediately, we noticed pus coming out of the abdomen with GI content. The patient has adhesions over that region, so with the help of LigaSure, we have to do extensive ly sis of adhesions to be able to gain access and trying to figure it out where it is perforated. The p atient states she has extensive history also in the upper abdomen with gastric resections. Once we d id a laparotomy, we were able to irrigate the area. After lysis of adhesions, we were able to explor e the abdomen. We noticed the patient to have an abscess on the pelvis with sigmoid colon perforatio n. The patient narrow, so the appendix is imbedded right in the middle of the abscess, bu t even though it is fully inflamed and also in the diverticulum. At that moment, I procee ded to irrigate the abdomen profusely. Then after that, we proceeded to obtain distal and proximal c ontrol on the sigmoid area that we were going to remove. First, we opened the lines of Toldt, made s ure we preserved the ureters and the vascular structures, obtained proximal and distal control of the sigmoid and then transected that with TA 60. Once again, the ureters were protected at all times. The area of appendix looked inflamed, so I proceeded then to using a LILIANA to transect the base of appe ndix after creating the window and the mesoappendix transected with a LigaSure. Once we have those o marleni there, we proceeded then to irrigate the abdomen again. Mobilized a little bit more the sigmoid colon to be able to put the colostomy, once again preserving the ureters. At that moment, we created an opening in the left lower quadrant, put the bowel through it. The bowel seemed to be viable. No bleeding. We did once again profuse irrigation of the abdomen until clean. Put LULY drains in that r egion. Checked the area of the lysis of adhesions. No bleeding. We proceeded then to close the mid line with #2 nylon in a running fashion, let the wound open to close by secondary intention, and then we proceeded to Adore the colostomy and created end-colostomy with the help of 0 chromic and also 3 -0 chromic. The ostomy was utilized at the end and looks viable. No bleeding. The fascia was close d, but the skin was left to close by secondary intention, so we packed the area with iodoform. LULY wa s connected to bulb suction. The patient tolerated procedure well. EBL less than 100 cc. The patient was sent to recovery in cri tical condition. ODIN/SURESH Voice ID: [id number] Report ID: [id number]
== END 2023-11-01 12:00 | DRG 329 ==
LOC: ER 08:43 → ERHOLD 11:47 → 3RD-ICU 14:14 → 4TH 10-14 20:43
PROVIDERS: ADMIT Internal Medicine; ATTEND Hospitalist
PROC: 0D1N0Z4 Bypass Sigmoid Colon to Cutaneous, Open Approach (ICD-10-PCS; 2023-10-12)
PROC: 0DNN0ZZ Release Sigmoid Colon, Open Approach (ICD-10-PCS; 2023-10-12)
PROC: 0DTN0ZZ Resection of Sigmoid Colon, Open Approach (ICD-10-PCS; principal; 2023-10-12 11:15)
PROC: 30233N1 Transfusion of Nonautologous Red Blood Cells into Peripheral Vein, Percutaneous Approach (ICD-10-PCS; 2023-10-15)
PROC: 0T9B70Z Drainage of Bladder with Drainage Device, Via Natural or Artificial Opening (ICD-10-PCS; 2023-10-16)
PROC: 5A09357 Assistance with Respiratory Ventilation, Less than 24 Consecutive Hours, Continuous Positive Airway Pressure (ICD-10-PCS; 2023-10-18)
PROC: 02HV33Z Insertion of Infusion Device into Superior Vena Cava, Percutaneous Approach (ICD-10-PCS; 2023-10-24)
DX: K63.1 Perforation of intestine (nontraumatic) (principal); E43 Unspecified severe protein-calorie malnutrition; K65.1 Peritoneal abscess; I26.99 Other pulmonary embolism without acute cor pulmonale; J96.01 Acute respiratory failure with hypoxia; D62 Acute posthemorrhagic anemia; Z68.1 Body mass index [BMI] 19.9 or less, adult; A31.9 Mycobacterial infection, unspecified; J44.9 Chronic obstructive pulmonary disease, unspecified; D69.6 Thrombocytopenia, unspecified; D64.9 Anemia, unspecified; K66.0 Peritoneal adhesions (postprocedural) (postinfection); F41.9 Anxiety disorder, unspecified; F17.200 Nicotine dependence, unspecified, uncomplicated
CPT/HCPCS: 36415; 36430; 71045; 71275; 74177; 80048; 80053; 81001; 82728; 82805; 83540; 83605; 83690; 83735; 84100; 84466; 85014; 85018; 85025; 85027; 85610; 85730; 86850; 86870; 86900; 86901; 86920; 86922; 87040; 87070; 87075; 87205; 87811; 88304; 88305; 93970; 94010; 94640; 94660; 94760; 96374; 96375; 97110; 97116; 97161; 97165; 97530; 99285; C9113; J0694; J1100; J1170; J1650; J1940; J2001; J2250; J2270; J2371; J2405; J2543; J2704; J2710; J2930; J3010; J3475; J3480; J7030; J7050; J7120; J7605; J7613; J7644; P9016; Q9967

== ENCOUNTER 2024-02-16 14:16 | Emergency (ER) | payer OTHER ==
--- OUTSIDE RECORDS SUMMARY | 2024-02-16 14:21 | XMS REPORT | Continuity of Care Document ---
Author Name Unknown Address [address] [facility] [address]. [address] [place] [address] [facility] thconnect Address [address] [facility] [place]. 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 Name Role Phone Lizandro Smith Attending Clinician Unavailraad e FLORY_Richie Attending Clinician Unavailable Umm Ruth Attending Clinician [phone] Umm Ruth Attending Clinician [phone] Doctor Unassigned, [place] Attending Clinician U ISAC Wallace Attending Clinician Unavailable Lab, Adc Fam Pob I Attending Clinician Unavailab Isac Abbasi Attending Clinician [phone] Lizandro Smith Admitting Clinician Unavailraad e FLORY_A Admitting Clinician Unavailable Payers Payer Name Policy Type Policy Number Effective Date Expirati on Date Source [facility] - SELF FUNDED - MULTIPLAN [id number] 2018 00:00:00 [facility] CHOICE PLUS [id number] 2018 00:00:00 Problems Condition Name Condition Details Condition Category Status Onset Date Resolution Date Last Treatment Date Treating Clinician Comments Source Hernia of anterior abdominal wall Hernia of Anterior Abdominal Wall Problem Active 2022-10 0-16 00:00: 00 [facility] Hemoptysis Hemoptysis Problem Active 07-18 00:00: 00 [facility] 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 Problem Active 06-20 00:00: 00 [facility] Long-term drug therapy Long-term Drug Therapy Problem Active 06-20 00:00: 00 [facility] Adenoma of rectum Adenoma of Rectum Problem Active 04-24 00:00: 00 [facility] Solitary nodule of lung Solitary Nodule of Lung Problem Active 04-24 00:00: 00 [facility] Thrombocyt osis Thrombocyt osis Problem Active 03-20 00:00: 00 [facility] Loss of [...] Loss Problem Active 05-19 00:00: 00 [facility] Hypertensi ve disorder Hypertensi ve Disorder Problem Active 05-19 00:00: 00 [facility] Seasonal allergy Seasonal Allergy Problem Active 05-19 00:00: 00 [facility] Asthma Asthma Problem Active 05-19 00:00: 00 [facility] Chronic obstructiv e lung disease Chronic Obstructiv e Lung Disease Problem Active 05-19 00:00: 00 [facility] Hematochez ia Hematochez ia Problem Active 05-19 00:00: 00 [facility] Arthritis Arthritis Problem Active 05-19 00:00: 00 [facility] Cramp in lower leg associated with rest Cramp in Lower Leg Associated with Rest Problem Active 05-19 00:00: 00 [facility] Syncope Syncope Problem Active 05-19 00:00: 00 [facility] Malaise Malaise Problem Active 05-19 00:00: 00 [facility] Fracture of multiple ribs Fracture of Multiple Ribs Problem Active 05-19 00:00: 00 [facility] Bipolar disorder Bipolar Disorder Problem Active [facility] History of manic depressive disorder History of Manic Depressive Disorder Problem Active [facility] Allergies, Adverse Reactions, Alerts Allergy Name Allergy Type Status Severity Reaction(s) Onset Date Inactive Date Treating Clinician Comments Source No Known Allergie s DA Active U 11-01 00:00: 00 [facility] Morphine Allergy to substanc e Active [facility] NO KNOWN ALLERGIE S Drug Class Active [facility] Social History Social Habit Start Date Stop Date Quantity Comments Source Sex Assigned At 1960 00:00:00 1960 00:00:00 [facility] Smoking Status Start Date Stop Date Source Unknown if ever smoked [facility] Heavy Tobacco Smoker [facility] Medications Ordered Medication Name Filled Medication Name Start Date Stop Date Current Medication? Ordering Clinician Indication Dosage Frequency Signature (SIG) Comments Components Source cyanocobala min (vit B-12) 1,000 mcg/mL injection solutionInj ect 1 mL every month by subcutaneou s route. cyanocobala min (vit B-12) 1,000 mcg/mL injection solutionInj ect 1 mL every month by subcutaneou s route. 03-13 17:16: 36 No cyanocobal rahman (vit B-12) 1,000 mcg/mL injection solutionIn ject 1 mL every month by subcutaneo us route. [facility] albuterol sulfate HFA 90 mcg/actuati on aerosol [...] inhalation route as needed for 90 days. [facility] cyclobenzap rine 10 mg tablet TAKE 1 TABLET BY MOUTH THREE TIMES A DAY NEEDED cyclobenzap rine 10 mg tablet TAKE 1 TABLET BY MOUTH THREE TIMES A DAY NEEDED No cyclobenza king 10 mg tablet TAKE 1 TABLET BY MOUTH THREE TIMES A DAY NEEDED [facility] gabapentin 300 mg capsule TAKE 1 CAPSULE BY MOUTH TWICE A DAY gabapentin 300 mg capsule TAKE 1 CAPSULE BY MOUTH TWICE A DAY No gabapentin 300 mg capsule TAKE 1 CAPSULE BY MOUTH TWICE A DAY [facility] hydrocodone 5 mg-acetamin ophen 325 mg tablet Take 1 tablet every 6 hours by oral route as needed. hydrocodone 5 mg-acetamin ophen 325 mg tablet Take 1 tablet every 6 hours by oral route as needed. No 1 Q6H hydrocodon e 5 mg-acetami nophen 325 mg tablet Take 1 tablet every 6 hours by oral route as needed. [facility] iron otc one BID with meals iron otc one BID with meals No iron otc one BID with meals [facility] meloxicam 7.5 mg tablet TAKE 1 TABLET BY MOUTH EVERY DAY meloxicam 7.5 mg tablet TAKE 1 TABLET BY MOUTH EVERY DAY No meloxicam 7.5 mg tablet TAKE 1 TABLET BY MOUTH EVERY DAY [facility] quetiapine 100 mg tablet TAKE 1 TABLET BY MOUTH EVERYDAY AT BEDTIME quetiapine 100 mg tablet TAKE 1 TABLET BY MOUTH EVERYDAY AT BEDTIME No quetiapine 100 mg tablet TAKE 1 TABLET BY MOUTH EVERYDAY AT BEDTIME [facility] Symbicort 160 mcg-4.5 mcg/actuati on HFA aerosol [...] inhalation route as directed for 30 days. [facility] venlafaxine ER 37.5 mg capsule,ext ended release 24 hr TAKE 1 CAPSULE BY MOUTH EVERY DAY venlafaxine ER 37.5 mg capsule,ext ended release 24 hr TAKE 1 CAPSULE BY MOUTH EVERY DAY No venlafaxin e ER 37.5 mg capsule,ex tended release 24 hr TAKE 1 CAPSULE BY MOUTH EVERY DAY [facility] Vitamin D3 otc 5000 iu daily Vitamin D3 otc 5000 iu daily No Vitamin D3 otc 5000 iu daily [facility] albuterol sulfate 2.5 mg/3 mL (0.083 %) solution for nebulizatio n USE 1 VIAL IN NEBULIZER 3 TIMES A DAY albuterol sulfate 2.5 mg/3 mL (0.083 %) solution for nebulizatio n USE 1 VIAL IN NEBULIZER 3 TIMES A DAY No albuterol sulfate 2.5 mg/3 mL (0.083 %) solution for nebulizati on USE 1 VIAL IN NEBULIZER 3 TIMES A DAY [facility] azithromyci n 250 mg tablet TAKE 2 TABLETS BY MOUTH TODAY, THEN TAKE 1 TABLET DAILY FOR 4 DAYS azithromyci n 250 mg tablet TAKE 2 TABLETS BY MOUTH TODAY, THEN TAKE 1 TABLET DAILY FOR 4 DAYS No azithromyc in 250 mg tablet TAKE 2 TABLETS BY MOUTH TODAY, THEN TAKE 1 TABLET DAILY FOR 4 DAYS [facility] escitalopra m 10 mg tablet TAKE 1 TABLET BY MOUTH EVERY DAY FOR 30 DAYS escitalopra m 10 mg tablet TAKE 1 TABLET BY MOUTH EVERY DAY FOR 30 DAYS No escitalopr am 10 mg tablet TAKE 1 TABLET BY MOUTH EVERY DAY FOR 30 DAYS [facility] methylpredn isolone 4 mg tablets in a [...] DAY FOR A TOTAL OF 6 DAYS [facility] benzonatate 100 mg capsule TAKE 1 CAPSULE BY MOUTH THREE TIMES A DAY benzonatate 100 mg capsule TAKE 1 CAPSULE BY MOUTH THREE TIMES A DAY No benzonatat e 100 mg capsule TAKE 1 CAPSULE BY MOUTH THREE TIMES A DAY [facility] albuterol sulfate 2.5 mg/3 mL (0.083 %) solution for nebulizatio n USE 1 VIAL IN NEBULIZER 3 TIMES A DAY albuterol sulfate 2.5 mg/3 mL (0.083 %) solution for nebulizatio n USE 1 VIAL IN NEBULIZER 3 TIMES A DAY No albuterol sulfate 2.5 mg/3 mL (0.083 %) solution for nebulizati on USE 1 VIAL IN NEBULIZER 3 TIMES A DAY [facility] albuterol sulfate HFA 90 mcg/actuati on aerosol inhaler INHALE 2 PUFFS EVERY 4 HOURS NEEDED albuterol sulfate HFA 90 mcg/actuati on aerosol inhaler INHALE 2 PUFFS EVERY 4 HOURS NEEDED No albuterol sulfate HFA 90 mcg/actuat ion aerosol inhaler INHALE 2 PUFFS EVERY 4 HOURS NEEDED [facility] benzonatate 100 mg capsule TAKE 1 CAPSULE BY MOUTH THREE TIMES A DAY benzonatate 100 mg capsule TAKE 1 CAPSULE BY MOUTH THREE TIMES A DAY No benzonatat e 100 mg capsule TAKE 1 CAPSULE BY MOUTH THREE TIMES A DAY [facility] cyclobenzap rine 10 mg tablet TAKE 1 TABLET BY MOUTH THREE TIMES A DAY NEEDED cyclobenzap rine 10 mg tablet TAKE 1 TABLET BY MOUTH THREE TIMES A DAY NEEDED No cyclobenza knig 10 mg tablet TAKE 1 TABLET BY MOUTH THREE TIMES A DAY NEEDED [facility] escitalopra m 10 mg tablet TAKE 1 TABLET BY MOUTH EVERY DAY FOR 30 DAYS escitalopra m 10 mg tablet TAKE 1 TABLET BY MOUTH EVERY DAY FOR 30 DAYS No escitalopr am 10 mg tablet TAKE 1 TABLET BY MOUTH EVERY DAY FOR 30 DAYS [facility] meloxicam 7.5 mg tablet TAKE 1 TABLET BY MOUTH EVERY DAY meloxicam 7.5 mg tablet TAKE 1 TABLET BY MOUTH EVERY DAY No meloxicam 7.5 mg tablet TAKE 1 TABLET BY MOUTH EVERY DAY [facility] quetiapine 100 mg tablet TAKE 1 TABLET BY MOUTH EVERYDAY AT BEDTIME quetiapine 100 mg tablet TAKE 1 TABLET BY MOUTH EVERYDAY AT BEDTIME No quetiapine 100 mg tablet TAKE 1 TABLET BY MOUTH EVERYDAY AT BEDTIME [facility] Vitamin D3 otc 5000 iu daily Vitamin D3 otc 5000 iu daily No Vitamin D3 otc 5000 iu daily [facility] megestrol 400 mg/10 mL (40 mg/mL) oral suspension Take 10 mL every day by oral route in the morning. megestrol 400 mg/10 mL (40 mg/mL) oral suspension Take 10 mL every day by oral route in the morning. No 10mL Q1D megestrol 400 mg/10 mL (40 mg/mL) oral suspension Take 10 mL every day by oral route in the morning. [facility] prednisone 10 mg tablet TAKE 1 TABLET BY MOUTH EVERY DAY FOR 30 DAYS prednisone 10 mg tablet TAKE 1 TABLET BY MOUTH EVERY DAY FOR 30 DAYS No prednisone 10 mg tablet TAKE 1 TABLET BY MOUTH EVERY DAY FOR 30 DAYS [facility] tramadol 37.5 mg-acetamin ophen 325 mg tablet TAKE 1 TABLET BY MOUTH EVERY 8 HOURS NEEDED FOR 15 DAYS. tramadol 37.5 mg-acetamin ophen 325 mg tablet TAKE 1 TABLET BY MOUTH EVERY 8 HOURS NEEDED FOR 15 DAYS. No tramadol 37.5 mg-acetami nophen 325 mg tablet TAKE 1 TABLET BY MOUTH EVERY 8 HOURS NEEDED FOR 15 DAYS. [facility] albuterol sulfate 2.5 mg/3 mL (0.083 %) solution for nebulizatio n USE 1 VIAL IN NEBULIZER 3 TIMES A DAY albuterol sulfate 2.5 mg/3 mL (0.083 %) solution for nebulizatio n USE 1 VIAL IN NEBULIZER 3 TIMES A DAY No albuterol sulfate 2.5 mg/3 mL (0.083 %) solution for nebulizati on USE 1 VIAL IN NEBULIZER 3 TIMES A DAY [facility] albuterol sulfate HFA 90 mcg/actuati on aerosol [...] inhalation route as needed for 90 days. [facility] Cymbalta 60 mg capsule,del ayed release Take 1 capsule every day by oral route. Cymbalta 60 mg capsule,del ayed release Take 1 capsule every day by oral route. No 1capsul e(s) Q1D Cymbalta 60 mg capsule,de layed release Take 1 capsule every day by oral route. [facility] albuterol sulfate 2.5 mg/3 mL (0.083 %) solution for nebulizatio n USE 1 VIAL IN NEBULIZER 3 TIMES A DAY albuterol sulfate 2.5 mg/3 mL (0.083 %) solution for nebulizatio n USE 1 VIAL IN NEBULIZER 3 TIMES A DAY No albuterol sulfate 2.5 mg/3 mL (0.083 %) solution for nebulizati on USE 1 VIAL IN NEBULIZER 3 TIMES A DAY [facility] albuterol sulfate HFA 90 mcg/actuati on aerosol inhaler INHALE 2 PUFFS BY MOUTH EVERY 4 HOURS NEEDED albuterol sulfate HFA 90 mcg/actuati on aerosol inhaler INHALE 2 PUFFS BY MOUTH EVERY 4 HOURS NEEDED No albuterol sulfate HFA 90 mcg/actuat ion aerosol inhaler INHALE 2 PUFFS BY MOUTH EVERY 4 HOURS NEEDED [facility] duloxetine 30 mg capsule,del ayed release TAKE 1 CAPSULE BY MOUTH EVERY DAY duloxetine 30 mg capsule,del ayed release TAKE 1 CAPSULE BY MOUTH EVERY DAY No duloxetine 30 mg capsule,de layed release TAKE 1 CAPSULE BY MOUTH EVERY DAY [facility] albuterol sulfate 2.5 mg/3 mL (0.083 %) solution for nebulizatio n USE 1 VIAL IN NEBULIZER 3 TIMES A DAY albuterol sulfate 2.5 mg/3 mL (0.083 %) solution for nebulizatio n USE 1 VIAL IN NEBULIZER 3 TIMES A DAY No albuterol sulfate 2.5 mg/3 mL (0.083 %) solution for nebulizati on USE 1 VIAL IN NEBULIZER 3 TIMES A DAY [facility] albuterol sulfate HFA 90 mcg/actuati on aerosol inhaler INHALE 2 PUFFS EVERY 4 HOURS NEEDED albuterol sulfate HFA 90 mcg/actuati on aerosol inhaler INHALE 2 PUFFS EVERY 4 HOURS NEEDED No albuterol sulfate HFA 90 mcg/actuat ion aerosol inhaler INHALE 2 PUFFS EVERY 4 HOURS NEEDED [facility] cyanocobala min (vit B-12) 1,000 mcg/mL injection solution Inject 1 mL every month by subcutaneou s route. cyanocobala min (vit B-12) 1,000 mcg/mL injection solution Inject 1 mL every month by subcutaneou s route. No 1mL cyanocobal rahman (vit B-12) 1,000 mcg/mL injection solution Inject 1 mL every month by subcutaneo us route. [facility] doxycycline hyclate 100 mg tablet TAKE 1 TABLET BY MOUTH TWICE A DAY doxycycline hyclate 100 mg tablet TAKE 1 TABLET BY MOUTH TWICE A DAY No doxycyclin e hyclate 100 mg tablet TAKE 1 TABLET BY MOUTH TWICE A DAY [facility] levofloxaci n 500 mg tablet TAKE 1 TABLET BY MOUTH EVERY DAY levofloxaci n 500 mg tablet TAKE 1 TABLET BY MOUTH EVERY DAY No levofloxac in 500 mg tablet TAKE 1 TABLET BY MOUTH EVERY DAY [facility] prednisone 10 mg tablet TAKE 1 TABLET BY MOUTH EVERY DAY FOR 30 DAYS prednisone 10 mg tablet TAKE 1 TABLET BY MOUTH EVERY DAY FOR 30 DAYS No prednisone 10 mg tablet TAKE 1 TABLET BY MOUTH EVERY DAY FOR 30 DAYS [facility] tramadol 37.5 mg-acetamin ophen 325 mg tablet TAKE 1 TABLET BY MOUTH EVERY 8 HOURS NEEDED FOR 15 DAYS. tramadol 37.5 mg-acetamin ophen 325 mg tablet TAKE 1 TABLET BY MOUTH EVERY 8 HOURS NEEDED FOR 15 DAYS. No tramadol 37.5 mg-acetami nophen 325 mg tablet TAKE 1 TABLET BY MOUTH EVERY 8 HOURS NEEDED FOR 15 DAYS. [facility] Vitamin D3 otc 5000 iu daily Vitamin D3 otc 5000 iu daily No Vitamin D3 otc 5000 iu daily [facility] Immunizations Ordered Immunization Name Filled Immunization Name Date Status Comments Source SARS-COV-2 (COVID-19) vaccine, UNSPECIFIED SARS-COV-2 (COVID-19) vaccine, UNSPECIFIED 2021-01-26 00:00:00 Completed [facility] SARS-COV-2 (COVID-19) vaccine, UNSPECIFIED SARS-COV-2 (COVID-19) vaccine, UNSPECIFIED 2021-01-26 00:00:00 Completed [facility] COVID-19 (SARS-COV-2) vaccine, unspecified COVID-19 (SARS-COV-2) vaccine, unspecified 2021-01-26 00:00:00 Completed [facility] COVID-19 (SARS-COV-2) vaccine, unspecified COVID-19 (SARS-COV-2) vaccine, unspecified 2021-01-26 00:00:00 Completed [facility] COVID-19 (SARS-COV-2) vaccine, unspecified COVID-19 (SARS-COV-2) vaccine, unspecified 2021-01-26 00:00:00 Completed [facility] COVID-19 (SARS-COV-2) vaccine, unspecified COVID-19 (SARS-COV-2) vaccine, unspecified 2021-01-26 00:00:00 Completed [facility] COVID-19 (SARS-COV-2) vaccine, unspecified COVID-19 (SARS-COV-2) vaccine, unspecified 2021-01-26 00:00:00 Completed [facility] COVID-19 (SARS-COV-2) vaccine, unspecified COVID-19 (SARS-COV-2) vaccine, unspecified 2021-01-26 00:00:00 Completed [facility] COVID-19 (SARS-COV-2) vaccine, unspecified COVID-19 (SARS-COV-2) vaccine, unspecified 2021-01-26 00:00:00 Completed [facility] COVID-19 (SARS-COV-2) vaccine, unspecified COVID-19 (SARS-COV-2) vaccine, unspecified 2021-01-26 00:00:00 Completed [facility] COVID-19 (SARS-COV-2) vaccine, unspecified COVID-19 (SARS-COV-2) vaccine, unspecified 2021-01-26 00:00:00 Completed [facility] COVID-19 (SARS-COV-2) vaccine, unspecified COVID-19 (SARS-COV-2) vaccine, unspecified 2021-01-26 00:00:00 Completed [facility] COVID-19 (SARS-COV-2) vaccine, unspecified COVID-19 (SARS-COV-2) vaccine, unspecified 2021-01-26 00:00:00 Completed [facility] COVID-19 (SARS-COV-2) vaccine, unspecified COVID-19 (SARS-COV-2) vaccine, unspecified 2021-01-26 00:00:00 Completed [facility] COVID-19 (SARS-COV-2) vaccine, unspecified COVID-19 (SARS-COV-2) vaccine, unspecified 2021-01-26 00:00:00 Completed [facility] COVID-19 (SARS-COV-2) vaccine, unspecified COVID-19 (SARS-COV-2) vaccine, unspecified 2021-01-26 00:00:00 Completed [facility] COVID-19 (SARS-COV-2) vaccine, unspecified COVID-19 (SARS-COV-2) vaccine, unspecified Unknown Completed [facility] COVID-19 (SARS-COV-2) vaccine, unspecified COVID-19 (SARS-COV-2) vaccine, unspecified Unknown Completed [facility] COVID-19 (SARS-COV-2) vaccine, unspecified COVID-19 (SARS-COV-2) vaccine, unspecified Unknown Completed [facility] COVID-19 (SARS-COV-2) vaccine, unspecified COVID-19 (SARS-COV-2) vaccine, unspecified Unknown Completed [facility] Vital Signs Vital Name Observation Time Observation Value Comments S ource Height 2023-08-13 00:00:00 61 [in_i] [facility] BP Diastolic 2023-08-13 00:00:00 80 mm[Hg] [facility] Body Weight 2023-08-13 00:00:00 1308.8 [oz_av] [facility] BP Systolic 2023-08-13 00:00:00 140 mm[Hg] [facility] BMI (Body Mass Index) 2023-08-13 00:00:00 15.5 kg/m2 [facility] BMI (Body Mass Index) 2023-07-19 00:00:00 15.2 kg/m2 [facility] Height 2023-07-19 00:00:00 61 [in_i] [facility] Body Weight 2023-07-19 00:00:00 1286.4 [oz_av] [facility] BP Diastolic 2023-07-19 00:00:00 80 mm[Hg] [facility] BP Systolic 2023-07-19 00:00:00 130 mm[Hg] [facility] BP Diastolic 2022-07-18 00:00:00 84 mm[Hg] [facility] Height 2022-07-18 00:00:00 61 [in_i] [facility] BMI (Body Mass Index) 2022-07-18 00:00:00 17 kg/m2 [facility] BP Systolic 2022-07-18 00:00:00 160 mm[Hg] [facility] Body Weight 2022-07-18 00:00:00 1440 [oz_av] [facility] BP Diastolic 2022-06-20 00:00:00 80 mm[Hg] [facility] Height 2022-06-20 00:00:00 61 [in_i] [facility] BMI (Body Mass Index) 2022-06-20 00:00:00 17.2 kg/m2 [facility] BP Systolic 2022-06-20 00:00:00 121 mm[Hg] [facility] Body Weight 2022-06-20 00:00:00 1452.8 [oz_av] [facility] BP Diastolic 2022-04-24 00:00:00 80 mm[Hg] [facility] Height 2022-04-24 00:00:00 61 [in_i] [facility] BMI (Body Mass Index) 2022-04-24 00:00:00 17.3 kg/m2 [facility] BP Systolic 2022-04-24 00:00:00 120 mm[Hg] [facility] Body Weight 2022-04-24 00:00:00 1465.6 [oz_av] [facility] BP Diastolic 2022-03-20 00:00:00 88 mm[Hg] [facility] Height 2022-03-20 00:00:00 61 [in_i] [facility] BMI (Body Mass Index) 2022-03-20 00:00:00 16 kg/m2 [facility] BP Systolic 2022-03-20 00:00:00 144 mm[Hg] [facility] Body Weight 2022-03-20 00:00:00 1356.8 [oz_av] [facility] BP Diastolic 2022-03-13 00:00:00 80 mm[Hg] [facility] Height 2022-03-13 00:00:00 61 [in_i] [facility] BMI (Body Mass Index) 2022-03-13 00:00:00 15.9 kg/m2 [facility] BP Systolic 2022-03-13 00:00:00 125 mm[Hg] [facility] Body Weight 2022-03-13 00:00:00 1347.2 [oz_av] [facility] Height 2022-02-20 00:00:00 61 [in_i] [facility] BP Diastolic 2021-03-17 00:00:00 90 mm[Hg] [facility] Height 2021-03-17 00:00:00 61 [in_i] [facility] BMI (Body Mass Index) 2021-03-17 00:00:00 17.7 kg/m2 [facility] BP Systolic 2021-03-17 00:00:00 160 mm[Hg] [facility] Body Weight 2021-03-17 00:00:00 1497.6 [oz_av] [facility] Procedures Procedure Date / Time Performed Performing Clinicia n Source [id number] 2023-11-01 00:00:00 [facility]ED [facility] [id number] 2023-11-01 00:00:00 WHEED [facility] Biopsy of Lung 2022-05-25 00:00:[address] [facility] [address], abdomen + pelvis, w/ contrast 2022-04-24 00:00:[address] [facility] [address], chest, w/ contrast 2022-04-24 00:00:00 [facility] XR, chest, 2 view 2022-03-13 00:00:00 [facility] REFERRAL- REQUEST/RESPONSE 2021-03-17 05:01:00 Doctor Unassigned, [place] [facility] XR, shoulder, 2 or more view 2021-03-17 00:00:00 [facility] Procedure on Spleen [facility] Procedure on Lung [facility] Procedure on Ear [facility] Unlisted Procedure Stomach [facility] Plan of Care Planned Activity Planned Date Details Comments Source Diagnostic Test Pending 2022-06-20 00:00:00 CMP, serum or plasma [code = CMP, serum or plasma] [facility] Diagnostic Test Pending 2022-06-20 00:00:00 CBC w/ diff [code = CBC w/ diff] [facility] Diagnostic Test Pending 2022-06-20 00:00:00 iron panel, serum or plasma [code = iron panel, serum or plasma] [facility] Encounters Start Date/Time End Date/Time Encounter Type Admission Type Attending [facility] Care Facility Care Department Encounter ID Source 2023-11-01 13:10:00 2023-11-12 14:00:00 [facility] [id number] [facility] 2023-08-13 00:00:00 2023-08-13 00:00:00 Outpatient KEFFER_A [facility] [id number] 2023-08-13 00:00:00 2023-08-13 00:00:00 Umm Ruth MD: [address], [place] [address] , Ph. [facility], DR. RUTH [id number] [facility] 2023-07-19 00:00:00 2023-07-19 00:00:00 Outpatient FLORY_A [facility] [id number] [facility] 2023-07-19 00:00:00 2023-07-19 00:00:00 Umm Ruth MD: [address], [place] [address] , Ph. [facility], DR. RUTH [id number] [facility] 2022-10-01 00:00:00 2022-10-01 00:00:00 Outpatient FLORY_A [facility] [id number] 2022-08-26 00:00:00 2022-08-26 00:00:00 Outpatient KEFFER_A [facility] [id number] [facility] 2022-07-22 00:00:00 2022-07-22 00:00:00 Outpatient FLORAFFER_A [facility] [id number] 2022-07-18 00:00:00 2022-07-18 00:00:00 Outpatient KEFFER_A [facility] [id number] [facility] 2022-07-18 00:00:00 2022-07-18 00:00:00 Umm Ruth MD: [address], [address], [place] [address] , Ph. [facility], DR. RUTH [id number] [facility] 2022-06-23 00:00:00 2022-06-23 00:00:00 Outpatient FLORY_A [facility] [id number] [facility] 2022-06-20 00:00:00 2022-06-20 00:00:00 Outpatient FLORY_A [facility] [id number] [facility] 2022-06-20 00:00:00 2022-06-20 00:00:00 Outpatient Umm Ruth [facility] [id number] 2022-06-20 00:00:00 2022-06-20 00:00:00 Umm Ruth MD: [address], [address], [place] [address] , Ph. [facility], DR. RUTH [id number] [facility] 2022-06-17 00:00:00 2022-06-17 00:00:00 Outpatient FLORY_A [facility] [id number] [facility] 2022-05-15 05:02:00 2022-05-15 05:02:00 Outpatient FLORY_Richie [facility] [id number] [facility] 2022-04-24 02:04:00 2022-04-24 02:04:00 Outpatient FLORY_A [facility] [id number] [facility] 2022-04-24 00:00:00 2022-04-24 00:00:00 Umm Ruth MD: Matt Moss, [address], [address], [place] [address] , Ph. [facility], DR. RUTH [id number] [facility] 2022-04-24 00:00:00 2022-04-24 00:00:00 Outpatient Umm Ruth [facility] [id number] 2022-04-08 01:24:00 2022-04-08 01:24:00 Outpatient FLORY_Richie [facility] [id number] [facility] 2022-03-20 02:04:00 2022-03-20 02:04:00 Outpatient FLORY_Richie [facility] [id number] [facility] 2022-03-20 00:00:00 2022-03-20 00:00:00 Umm Ruth MD: Avi [address], [place] [address] , Ph. [facility], DR. RUTH [id number] [facility] 2022-03-20 00:00:00 2022-03-20 00:00:00 Outpatient Umm Ruth [facility] [id number] 2022-03-13 06:18:00 2022-03-13 06:18:00 Outpatient FLORY_Richie [facility] [id number] [facility] 2022-03-13 00:00:00 2022-03-13 00:00:00 Umm Ruth MD: Avi [address], [place] [address] , Ph. [facility], DR. RUTH [id number] [facility] 2022-03-13 00:00:00 2022-03-13 00:00:00 Outpatient Umm Ruth [facility] [id number] 2022-03-13 00:00:00 2022-03-13 00:00:00 Outpatient Umm Ruth [facility] [id number] 2022-02-20 04:34:00 2022-02-20 04:34:00 Outpatient KEFFER_A [facility] [id number] [facility] 2022-02-20 00:00:00 2022-02-20 00:00:00 Umm Ruth MD: Avi [address], [place] [address] , Ph. [facility], DR. RUTH [id number] [facility] 2022-02-20 00:00:00 2022-02-20 00:00:00 Outpatient Umm Ruth [facility] [id number] 2022-02-15 07:49:00 2022-02-15 07:49:00 Outpatient KEFFER_A [facility] [id number] [facility] 2021-07-28 12:51:00 2021-07-28 12:51:00 Outpatient KEFFER_A [facility] [id number] [facility] 2021-03-30 00:00:00 2021-03-30 00:00:00 Letter (Out) Umm Ruth [facility] [id number] [id number] [facility] 2021-03-17 12:03:00 2021-03-17 12:03:00 Outpatient FLORY_A [facility] [id number] [facility] 2021-03-17 00:00:00 2021-03-17 00:00:00 Outpatient Umm Ruth [facility] [id number] 2021-03-17 00:00:00 2021-03-17 00:00:00 Orders Only Doctor Unassigned, [place] [facility] [id number] [id number] [id number] [id number] [facility] 2021-03-17 00:00:00 2021-03-17 00:00:00 Umm Ruth MD: Matt Moss, [address], [place] [address] , Ph. [facility] [place] [facility], DR. RUTH [id number] [facility] 2020-12-12 01:03:00 2020-12-12 01:03:00 Outpatient FLORY_A [facility] [id number] [facility] 2020-11-07 01:02:00 2020-11-07 01:02:00 Outpatient FLORY_A [facility] [id number] [facility] 2020-06-17 13:00:00 2020-06-17 13:18:[address] [facility] [id number] [facility] 2020-06-17 12:47:46 2020-06-17 13:07:46 Laboratory Only Lab, [facility] 1.840.114 350.1.13.10 4.2.7.2.686 [id number] [facility] 2020-06-17 11:00:00 2020-06-17 11:00:[address] [facility] [id number] [facility] 2020-06-17 00:00:00 2020-06-17 00:00:00 Letter (Out) Doctor Unassigned, [place] [facility] 1.840.114 350.1.13.10 4.2.7.2.686 [id number] [facility] Results Test Description Test Time Test Comments Results Result Co mments Source - XR ABDOMEN 1 [id number] 16:34:00 [facility] 1960 Sex: F FAX: Chelsey Martinez APRN [phone] [place]: St: [facility] FAX: Lizandro Webb MD [phone] Name: MENDOZA VENEGAS [facility] : 1960 Age/S: 63/F [address] [facility] Unit #: [id number] Loc: E.540 [place], [place] Phys: TaneshaeliaabundioChelsey LIZZETH [address] Acct: [id number] Dis Date: Status: ADM IN PHONE #: [phone] Exam Date: 11/10/2023 1613 FAX #: [phone] Reason: abdominal pain s/p bowel perf w/colostomy - R/o EXAMS: CPT CODE: [id number] XR ABDOMEN 1 V 53699 CLINICAL INFORMATION: Status post bowelperforation. Colostomy.. Dictation location: A 1 Comparison: No priors. Technique: Supine view. Findings. The colostomy location is not definitely identified. Anastomotic staple line is seen in the left pelvis. There is stool present in the proximal colon. Both small and large bowel gas is present. No free intraperitoneal air identified. No destructive bone lesion or pathologic calcification. IMPRESSION: Nonspecific appearance. at 1634 Reported and signed by: Shaka Clayton M.D. CC: Chelsey Martinez; Lizandro Smith MD Technologist: RIC SEARS Trnscrd Date/Time/By: 11/10/2023 (1708) : By: AlexandroAGV PAGE 1 Signed Report FAX: Chelsey Martinez [place] [phone] [place]: St: [facility] FAX: Lizandro Webb MD [phone] Name: MENDOZA VENEGAS [facility] : 1960 Age/S: 63/F [address] [place] Unit #: [id number] Loc:E.540 [place], [place] Phys: Chelsey Martinez [place] [address] Acct: [id number] Dis Date: Status: ADM IN PHONE #: [phone] Exam Date: 11/10/2023 1613 FAX #: [phone] Reason: abdominal pain s/p bowel perf w/colostomy - R/o EXAMS: CPT CODE: [id number] XR ABDOMEN 1 V 66959 (Continued) Orig Print D/T:S: 11/10/2023 (1637) PAGE 2 Signed Report COMPREHENSIVE METABOLIC [id number] 06:20:00* Test Item Value Reference Range Interpretation Comme nts SODIUM (test code = NA) 139 mmol/l 134.0-147.0 N POTASSIUM (test code = K) 3.8 mmol/L 3.6-5.2 N CHLORIDE (test code = CL) 103 mmol/l 98.0-107.0 N CARBON DIOXIDE (test code = CO2) 31.0 mmol/l 21.0-33.0 N ANION GAP (test code = GAP) 8.8 0-20 N GLUCOSE (test code = GLU) 73 mg/dl 70.0-110.0 N BLOOD UREA NITROGEN (test code = BUN) 14 mg/dl 7.0-18.0 N GLOMERULAR FILTRATION RATE (test code = GFR) 103 mL/min The Glomerular Filtration Rate is a calculated parameterbased on serum Creatinine, patient age and sex. GFR valuesless than 60 mL/min/1.73 square meters are indicative ofChronic Kidney Disease. Values less than 15 mL/min/1.73square meters indicate Kidney failure. The calculation forGFR is based on the CKD-EPI (2020) calculation. This formulais race indifferent and is the recommended formula for GFRby the National Kidney Foundation for Adults.The GFR will not calculate if the sex is unknown or if thepatient's age is <18 years. CREATININE (test code = CREAT) 0.57 mg/dL 0.60-1.30 L TOTAL PROTEIN (test code = PROT) 6.2 GM/DL 6.0-8.1 N ALBUMIN (test code = ALB) 2.5 gm/dL 3.2-4.7 L CALCIUM (test code = CA) 8.7 mg/dl 8.0-10.5 N BILIRUBIN TOTAL (test code = BILT) 0.3 mg/dl 0.0-1.0 N SGOT/AST (test code = AST) 13 Units/L 15-37 L SGPT/ALT (test code = ALT) 13 Units/L 12.0-78.0 N ALKALINE PHOSPHATASE TOTAL (test code = ALKP) 76 Units/L 50.0-136.0 N ESTIMATED CREAT CLEARANCE (test code = ECRCL) 78 mL/min >30 CBC W/AUTO [id number] 05:56:00* Test Item Value Reference Range Interpretation Comme nts WHITE BLOOD CELL (test code = WBC) 8.6 K/mm3 4.5-11.0 N RED BLOOD CELL (test code = RBC) 3.50 M/mm3 3.80-5.20 L HEMOGLOBIN (test code = HGB) 8.6 gm/dL 12.0-16.0 L HEMATOCRIT (test code = HCT) 27.8 % 36.0-48.0 L MEAN CELL VOLUME (test code = MCV) 79.4 UM3 82.0-99.0 L MEAN CELL HGB (test code = MCH) 24.6 UUG 25.5-32.5 L MEAN CELL HGB CONCETRATION (test code = MCHC) 30.9 gm/dL 29.0-35.5 N RED CELL DISTRIBUTION WIDTH (test code = RDW) 20.7 % 11.5-15.0 H RED CELL DISTRIBUTION WIDTH SD (test code = RDW-SD) 58.3 fL 34.8-50.2 H PLATELET COUNT (test code = PLT) 563 K/mm3 150-400 H MEAN PLATELET VOLUME (test c ode = MPV) 8.5 fl 7.4-10.4 N NEUTROPHIL % (test code = NT%) 53.0 % 49.0-76.0 N IMMATURE GRANULOCYTE % (test code = IG%) 0.5 % 0.0-0.4 H LYMPHOCYTE % (test code = LY%) 31.4 % 23.0-38.0 N MONOCYTE % (test code = MO%) 10.0 % 1.0-10.0 N EOSINOPHIL % (test code = EO%) 4.8 % 1.0-5.0 N BASOPHIL % (test code = BA%) 0.3 % 0.0-1.0 N NUCLEATED RBC % (test code = NRBC%) 0.0 % 0.0-0.1 N NEUTROPHIL # (test code = NT#) 4.6 K/mm3 2.4-6.3 N IMMATURE GRANULOCYTE # (test code = IG#) 0.04 x10 3/uL 0.00-0.07 N LYMPHOCYTE # (test code = LY#) 2.7 K/mm3 1.2-4.0 N MONOCYTE # (test code = MO#) 0.9 K/mm3 0.0-0.6 H EOSINOPHIL # (test code = EO#) 0.4 K/MM3 0.0-0.7 N BASOPHIL # (test code = BA#) 0.0 K/mm3 0.0-0.2 N NUCLEATED RBC # (test code = NRBC#) 0.00 X10 3uL 0.00-0.01 N AMIKACIN [id number] 09:12:00* Test Item Value Reference Range Interpretation Comme nts AMIKACIN TROUGH (test code = AMIKT) 1.6 ug/mL 1.0-8.0 Detection Limit = 0.8 <0.8 indicates None DetectedPerformed At: [address] [id number] Phan MD Ph:[phone] [place] [address] DATE OF LAST DOSE 11/05/23TIME OF LAST DOSE 2345Specimen comments: PLEASE DRAW LEVEL AT 1245 DO NOTCANCEL, THANK YOUComments to Silk Winding Machine Operator: PLEASE DRAW LEVEL AT SCHEDULED TIME, THANK YOUAMIKACIN [id number] 12:11:00* Test Item Value Reference Range Interpretation Comme nts AMIKACIN PEAK (test code = AMIKP) 10.5 ug/mL 20.0-30.0 A Detection Limit = 0.8 <0.8 indicates None DetectedPerformed At: [address] [id number] Phan MD Ph:[phone] PERFORMED AT [place] [id number] DATE OF LAST DOSE 11/05/23TIME OF LAST DOSE 2345Specimen comments: PLEASE DRAW LEVEL AT 0345 DO NOTCANCEL LEVEL, THANK YOUComments to [employer]k Winding Machine Operator: PLEASE DRAW LEVEL AT SCHEDULED TIME 0345 [id number] 09:09:00* Test Item Value Reference Range Interpretation Comme nts CREATININE (test code = CREAT) 0.57 mg/dL 0.60-1.30 L CBC W/AUTO [id number] 08:44:00* Test Item Value Reference Range Interpretation Comme nts WHITE BLOOD CELL (test code = WBC) 8.8 K/mm3 4.5-11.0 N RED BLOOD CELL (test code = RBC) 3.62 M/mm3 3.80-5.20 L HEMOGLOBIN (test code = HGB) 8.9 gm/dL 12.0-16.0 L HEMATOCRIT (test code = HCT) 28.6 % 36.0-48.0 L MEAN CELL VOLUME (test code = MCV) 79.0 UM3 82.0-99.0 L MEAN CELL HGB (test code = MCH) 24.6 UUG 25.5-32.5 L MEAN CELL HGB CONCETRATION (test code = MCHC) 31.1 gm/dL 29.0-35.5 N RED CELL DISTRIBUTION WIDTH (test code = RDW) 20.5 % 11.5-15.0 H RED CELL DISTRIBUTION WIDTH SD (test code = RDW-SD) 57.1 fL 34.8-50.2 H PLATELET COUNT (test code = PLT) 614 K/mm3 150-400 H MEAN PLATELET VOLUME (test c ode = MPV) 8.6 fl 7.4-10.4 N NEUTROPHIL % (test code = NT%) 58.8 % 49.0-76.0 N IMMATURE GRANULOCYTE % (test code = IG%) 0.2 % 0.0-0.4 N LYMPHOCYTE % (test code = LY%) 25.4 % 23.0-38.0 N MONOCYTE % (test code = MO%) 8.8 % 1.0-10.0 N EOSINOPHIL % (test code = EO%) 6.2 % 1.0-5.0 H BASOPHIL % (test code = BA%) 0.6 % 0.0-1.0 N NUCLEATED RBC % (test code = NRBC%) 0.0 % 0.0-0.1 N NEUTROPHIL # (test code = NT#) 5.2 K/mm3 2.4-6.3 N IMMATURE GRANULOCYTE # (test code = IG#) 0.02 x10 3/uL 0.00-0.07 N LYMPHOCYTE # (test code = LY#) 2.2 K/mm3 1.2-4.0 N MONOCYTE # (test code = MO#) 0.8 K/mm3 0.0-0.6 H EOSINOPHIL # (test code = EO#) 0.5 K/MM3 0.0-0.7 N BASOPHIL # (test code = BA#) 0.1 K/mm3 0.0-0.2 N NUCLEATED RBC # (test code = NRBC#) 0.00 X10 3uL 0.00-0.01 N FE W/TOTAL IRON BINDING [id number] 05:42:00* Test Item Value Reference Range Interpretation Comme nts SERUM IRON (test code = IRON) 53 mcg/dl 35.0-150.0 N Patients treated with metal-binding drugs such asdeferoxamine may have depressed iron values due to ironchelation. Clinical impact would be mitigated byconsideration of clinical symptoms. TOTAL IRON BINDING CAPACITY (test code = TIBC) 212 mcg/dl 260.0-445.0 L Result is in leta rogram per deciliter IRON SATURATION (test code = FESAT) 25 % 15-50 N [id number] 05:42:00* Test Item Value Reference Range Interpretation Comme nts TRANSFERRIN (test code = TRANSF) 175 mg/dL 200-370 L FOLIC [id number] 05:42:00* Test Item Value Reference Range Interpretation Comme nts FOLIC ACID (test code = FOL) 4.8 ng/mL 3.1-17.5 N [id number] 05:42:00* Test Item Value Reference Range Interpretation Comme nts FERRITIN (test code = LISA) 141 ng/mL 11.0-306.8 N CBC W/AUTO [id number] 05:11:00* Test Item Value Reference Range Interpretation Comme nts WHITE BLOOD CELL (test code = WBC) 7.1 K/mm3 4.5-11.0 N RED BLOOD CELL (test code = RBC) 3.39 M/mm3 3.80-5.20 L HEMOGLOBIN (test code = HGB) 8.3 gm/dL 12.0-16.0 L HEMATOCRIT (test code = HCT) 26.8 % 36.0-48.0 L MEAN CELL VOLUME (test code = MCV) 79.1 UM3 82.0-99.0 L MEAN CELL HGB (test code = MCH) 24.5 UUG 25.5-32.5 L MEAN CELL HGB CONCETRATION (test code = MCHC) 31.0 gm/dL 29.0-35.5 N RED CELL DISTRIBUTION WIDTH (test code = RDW) 20.1 % 11.5-15.0 H RED CELL DISTRIBUTION WIDTH SD (test code = RDW-SD) 56.6 fL 34.8-50.2 H PLATELET COUNT (test code = PLT) 635 K/mm3 150-400 H MEAN PLATELET VOLUME (test c ode = MPV) 8.9 fl 7.4-10.4 N NEUTROPHIL % (test code = NT%) 50.3 % 49.0-76.0 N IMMATURE GRANULOCYTE % (test code = IG%) 0.3 % 0.0-0.4 N LYMPHOCYTE % (test code = LY%) 34.4 % 23.0-38.0 N MONOCYTE % (test code = MO%) 10.9 % 1.0-10.0 H EOSINOPHIL % (test code = EO%) 3.4 % 1.0-5.0 N BASOPHIL % (test code = BA%) 0.7 % 0.0-1.0 N NUCLEATED RBC % (test code = NRBC%) 0.0 % 0.0-0.1 N NEUTROPHIL # (test code = NT#) 3.6 K/mm3 2.4-6.3 N IMMATURE GRANULOCYTE # (test code = IG#) 0.02 x10 3/uL 0.00-0.07 N LYMPHOCYTE # (test code = LY#) 2.4 K/mm3 1.2-4.0 N MONOCYTE # (test code = MO#) 0.8 K/mm3 0.0-0.6 H EOSINOPHIL # (test code = EO#) 0.2 K/MM3 0.0-0.7 N BASOPHIL # (test code = BA#) 0.1 K/mm3 0.0-0.2 N NUCLEATED RBC # (test code = NRBC#) 0.00 X10 3uL 0.00-0.01 N CBC W/AUTO [id number] 13:51:00* Test Item Value Reference Range Interpretation Comme nts WHITE BLOOD CELL (test code = WBC) 7.8 K/mm3 4.5-11.0 N RED BLOOD CELL (test code = RBC) 3.54 M/mm3 3.80-5.20 L HEMOGLOBIN (test code = HGB) 8.5 gm/dL 12.0-16.0 L HEMATOCRIT (test code = HCT) 27.6 % 36.0-48.0 L MEAN CELL VOLUME (test code = MCV) 78.0 UM3 82.0-99.0 L MEAN CELL HGB (test code = MCH) 24.0 UUG 25.5-32.5 L MEAN CELL HGB CONCETRATION (test code = MCHC) 30.8 gm/dL 29.0-35.5 N RED CELL DISTRIBUTION WIDTH (test code = RDW) 19.7 % 11.5-15.0 H RED CELL DISTRIBUTION WIDTH SD (test code = RDW-SD) 54.0 fL 34.8-50.2 H PLATELET COUNT (test code = PLT) 680 K/mm3 150-400 H MEAN PLATELET VOLUME (test c ode = MPV) 9.2 fl 7.4-10.4 N NEUTROPHIL % (test code = NT%) 62.0 % 49.0-76.0 N IMMATURE GRANULOCYTE % (test code = IG%) 0.4 % 0.0-0.4 N LYMPHOCYTE % (test code = LY%) 20.1 % 23.0-38.0 L MONOCYTE % (test code = MO%) 10.5 % 1.0-10.0 H EOSINOPHIL % (test code = EO%) 6.6 % 1.0-5.0 H BASOPHIL % (test code = BA%) 0.4 % 0.0-1.0 N NUCLEATED RBC % (test code = NRBC%) 0.0 % 0.0-0.1 N NEUTROPHIL # (test code = NT#) 4.8 K/mm3 2.4-6.3 N IMMATURE GRANULOCYTE # (test code = IG#) 0.03 x10 3/uL 0.00-0.07 N LYMPHOCYTE # (test code = LY#) 1.6 K/mm3 1.2-4.0 N MONOCYTE # (test code = MO#) 0.8 K/mm3 0.0-0.6 H EOSINOPHIL # (test code = EO#) 0.5 K/MM3 0.0-0.7 N BASOPHIL # (test code = BA#) 0.0 K/mm3 0.0-0.2 N NUCLEATED RBC # (test code = NRBC#) 0.00 X10 3uL 0.00-0.01 N SCHISTOCYTES (test code = ELA) OCCASIONAL VITAMIN [id number] 07:44:00* Test Item Value Reference Range Interpretation Comme nts VITAMIN B12 (test code = VITB12) 1002 pg/mL 193-986 H T4 [id number] 07:44:00* Test Item Value Reference Range Interpretation Comme nts T4 FREE (test code = T4F) 1.08 ng/dl 0.82-1.77 N TSH REFLEX TO [id number] 07:44:00* Test Item Value Reference Range Interpretation Comme nts TSH REFLEX TO FT4 (test code = TSHREFLEX) 8.43 0.47-5.01 H [id number] 07:20:00* Test Item Value Reference Range Interpretation Comme nts MAGNESIUM (test code = MAG) 2.1 mg/dl 1.8-2.4 N COMPREHENSIVE METABOLIC [id number] 07:20:00* Test Item Value Reference Range Interpretation Comme nts SODIUM (test code = NA) 142 mmol/l 134.0-147.0 N POTASSIUM (test code = K) 4.5 mmol/L 3.6-5.2 N CHLORIDE (test code = CL) 106 mmol/l 98.0-107.0 N CARBON DIOXIDE (test code = CO2) 30.7 mmol/l 21.0-33.0 N ANION GAP (test code = GAP) 9.8 0-20 N GLUCOSE (test code = GLU) 75 mg/dl 70.0-110.0 N BLOOD UREA NITROGEN (test code = BUN) 8 mg/dl 7.0-18.0 N GLOMERULAR FILTRATION RATE (test code = GFR) 106 mL/min The Glomerular Filtration Rate is a calculated parameterbased on serum Creatinine, patient age and sex. GFR valuesless than 60 mL/min/1.73 square meters are indicative ofChronic Kidney Disease. Values less than 15 mL/min/1.73square meters indicate Kidney failure. The calculation forGFR is based on the CKD-EPI (2020) calculation. This formulais race indifferent and is the recommended formula for GFRby the National Kidney Foundation for Adults.The GFR will not calculate if the sex is unknown or if thepatient's age is <18 years. CREATININE (test code = CREAT) 0.52 mg/dL 0.60-1.30 L ESTIMATED CREAT CLEARANCE (test code = ECRCL) 86 mL/min >30 TOTAL PROTEIN (test code = PROT) 5.8 gm/dL 6.4-8.2 L ALBUMIN (test code = ALB) 2.1 gm/dl 3.2-4.7 L CALCIUM (test code = CA) 9.1 mg/dl 8.0-10.5 N BILIRUBIN TOTAL (test code = BILT) 0.2 mg/dl 0.0-1.0 N SGOT/AST (test code = AST) 19 Units/L 15-37 N SGPT/ALT (test code = ALT) 16 Units/L 12.0-78.0 N ALKALINE PHOSPHATASE TOTAL (test code = ALKP) 101 Units/L 50.0-136.0 N [id number] 06:41:00* Test Item Value Reference Range Interpretation Comme nts AMMONIA (test code = AMM) <0.1 MCMOL/L 11.0-32.0 L URINALYSIS [id number] 17:44:00* Test Item Value Reference Range Interpretation Comme nts UA COLOR (test code = COLU) YELLOW UA APPEARANCE (test code = APPU) SLHZY UA GLUCOSE DIPSTICK (test code = DGLUU) NORMAL mg/dl NORMAL UA BILIRUBIN DIPSTICK (test code = BILU) NEGATIVE mg/dL NEGATIVE UA KETONE DIPSTICK (test code = KETU) NEGATIVE mg/dl NEGATIVE UA SPECIFIC GRAVITY (test code = SGU) 1.015 1.000-1.030 UA BLOOD DIPSTICK (test code = MIKE) 250 Geovany/micL Geovany/micL NEGATIVE A UA PH DIPSTICK (test code = KIKO) 6.5 5.0-9.0 UA PROTEIN DIPSTICK (test code = PROU) 15 mg/dl mg/dl NEGATIVE A UA UROBILINIOGEN DIPSTICK (test code = URO) NORMAL mg/dl NORMAL UA NITRITE DIPSTICK (test code = VINNY) NEGATIVE NEGATIVE UA LEUKOCYTE ESTERASE DIPSTICK (test code = LEUU) NEGATIVE José/micL NEGATIVE UA RBC (test code = RBCU) 50-100 RBC/HPF 0-3 A UA EPITHELIAL CELLS (test code = EPIU) 0-3 EPI/HPF 0-3 UA BACTERIA (test code = BACU) FEW NONE UA WBC NO REFLEX (test code = WBCUCL) 0-3 WBC/HPF 0-3 UA MUCUS (test code = MUCU) 1+ Specimen comments: Straight cath if unable to obtain Clean CatchFree T4 and TSH panel - Serum or [id number] 00:00:00* Test Item Value Reference Range Interpretation Comme nts Thyrotropin [Units/volume] i n Serum or Plasma by Detection limit <= 0.005 mIU/L (test code = 74469-0) 2.720 uIU/mL 0.450-4.500 Thyroxine (T4) free [Mass/volume] in Serum or Plasma (test code = 3024-7) 1.02 NG/dL 0.82-1.77 [facility] W Auto Differential panel - [id number] 00:00:00* Test Item Value Reference Range Interpretation [...] immature cells (test code = immature cells) plant custodian Neutrophils [#/volume] in Bl ood by Automated [...] Blood by Automated count (test code = 11501-4) 0 % not estab. Immature granulocytes [#/volume] in Blood by Automated count (test code = 69593-5) 0.0 x10e3/uL 0.0-0.1 Nucleated erythrocytes/100 leukocytes [Ratio] in Blood by Automated count (test code = 42598-1) plant custodian Morphology [Interpretation] in Blood Narrative (test code = 07125-0) [facility] - [facility] or [id number] 00:00:00* Test Item Value Reference Range Interpretation [...] in Serum or Plasma (test code = 2074-0) 97 mmol/L 96-106 Carbon dioxide, total [Moles/volume] in Serum or Plasma (test code = 2027-9) 26 mmol/L 20-29 Calcium [Mass/volume] in Serum or Plasma (test code = 26858-7) 9.4 mg/dL 8.7-10.2 Protein [Mass/volume] in Serum or Plasma (test code = 2885-2) 6.5 g/dL 6.0-8.5 Albumin [Mass/volume] in Serum or Plasma (test code = 1751-7) 3.8 g/dL 3.8-4.9 Globulin [Mass/volume] in Serum by calculation (test code = 71048-8) 2.7 g/dL 1.5-4.5 Albumin/Globulin [Mass Ratio ] in Serum or Plasma (test code = 1759-0) 1.4 1.2-2.2 Bilirubin.total [Mass/volume ] in Serum or Plasma (test code = 1974-2) <0.2 0.0-1.2 Alkaline phosphatase [Enzymatic activity/volume] in Serum or Plasma (test code = 6768-6) 212 IU/L 44-121 H Aspartate aminotransferase [Enzymatic activity/volume] in Serum or Plasma (test code = 1920-8) 12 IU/L 0-40 Alanine aminotransferase [Enzymatic activity/volume] in Serum or Plasma (test code = 1742-6) 12 IU/L 0-32 [facility] W Reflex Culture panel - [id number] 00:00:00* Test Item Value Reference Range Interpretation [...] Urine by Test strip (test code = 28313-5) negative negative/trace Glucose [Presence] in Urine by Test strip (test code = 55715-7) negative negative Ketones [Presence] in Urine by Test strip (test code = 2514-8) negative negative Hemoglobin [Presence] in Uri ne by Test strip (test code = 5794-3) negative negative Bilirubin.total [Presence] i n Urine by Test strip (test code = 5770-3) negative negative Urobilinogen [Mass/volume] i n Urine by Test strip (test code = 63799-7) 0.2 mg/dL 0.2-1.0 Nitrite [Presence] in Urine by Test strip (test code = 5802-4) negative negative Microscopic observation [Identifier] in Urine sediment by Light microscopy (test code = 57934-2) plant custodian Leukocytes [#/area] in Urine sediment by Microscopy high power field (test code = 5821-4) 6-10 0-5 A Erythrocytes [#/area] in Uri ne sediment by Microscopy high power field (test code = 27249-7) none seen 0-2 Epithelial cells [#/area] in Urine sediment by Microscopy high power field (test code = 5787-7) 0-10 0-10 Epithelial cells.renal [#/ar ea] in Urine sediment by Microscopy high power field (test code = 34394-0) plant custodian Casts [Presence] in Urine se diment by Light microscopy (test code = 04819-2) none seen none seen Casts [Type] in Urine sedime nt by Light microscopy (test code = 58685-3) plant custodian Unidentified crystals [Prese nce] in Urine sediment by Light microscopy (test code = 5783-6) plant custodian Crystals [type] in Urine sed iment by Light microscopy (test code = 5782-8) plant custodian Mucus [Presence] in Urine se diment by Light microscopy (test code = 8247-9) plant custodian Bacteria [#/area] in Urine s ediment by Microscopy high power field (test code = 5769-5) none seen none seen/few Yeast [#/area] in Urine sedi ment by Microscopy high power field (test code = 5822-2) plant custodian Trichomonas vaginalis [Prese nce] in Urine sediment by Light microscopy (test code = 5813-1) plant custodian Urine sediment comments by L ight microscopy Narrative (test code = 12396-1) plant custodian urinalysis reflex (test code = urinalysis reflex) comment Bacteria identified in Urine by Culture (test code = 630-4) no growth [facility]+Cyanocobalamin [Interpretation] in Serum or Azmlv9786-12-76 00:00:00* Test Item Value Reference Range Interpretation Comme nts Cobalamin (Vitamin B12) [Mass/volume] in Serum or Plasma (test code = 2132-9) 870 pg/mL 232-1245 Folate [Mass/volume] in Seru m or Plasma (test code = 2284-8) 9.7 NG/mL >3.0 [facility]25-Hydroxyvitamin D3+25-Hydroxyvitamin D2 [Mass/volume] in Serum or Lrpzys1841-94-99 00:00:00* Test Item Value Reference Range Interpretation Comme nts 25-Hydroxyvitamin D3+25-Hydroxyvitamin D2 [Mass/volume] in Serum or Plasma (test code = 33363-7) 34.4 NG/mL 30.0-100.0 [facility]Hemoglobin A1c/Hemoglobin.total in Blood 2022-03-14 00:00:00* Test Item Value Reference Range Interpretation Comme nts Hemoglobin A1c/Hemoglobin.to manolo in Blood (test code = 4548-4) 6.1 % 4.8-5.6 H [facility]manErythrocyte sedimentation tfip1741-53-80 00:00:00* Test Item Value Reference Range Interpretation Comme nts Erythrocyte sedimentation ra te by Westergren method (test code = 4537-7) 76 mm/HR 0-40 H [facility]C-reactive protein, bytiibeeuecz8185-85-25 00:00:00* Test Item Value Reference Range Interpretation Comme nts C reactive protein [Mass/vol ume] in Serum or Plasma (test code = 1988-5) 41 mg/L 0-10 H [facility] Notes Date/Time Note Provider Source 2024-01-10 16:58:00 [id number] sncFmIkxj+f2mpoAuk6SR+pOaHVr6 VnUkiQaP0RGy98OE4xdpJMCpg3F9567-54-48F99:58:46350 4-0038 [place] [address] PATIENT NAME: MENDOZA VENEGAS ADMIT DATE: 11/01/23ACCOUNT NO: [id number] DISCHARGE DATE: 11/12/23MEDICAL RECORD NO: [id number] ROOM NO: E.[facility] REPORT TYPE: 360 - QUERY RESPONSE DOCUMENT DATE OF : [birth year] AGE: 63 SEX: F ADMITTING PHYSICIAN:Lizandro Smith MD ATTENDING PHYSICIAN:Lizandro Smith MD Provider Query QUERY TEXT: Clarification Conflicting Diagnosis Procedure 360MD Query related questions should be directed to: Based on your clinical judgement, please clarify the following conflicting documentation: Per HP pg. 1 11/02/23 patient was found to have MICRObacterium abcess in sputum cultures. Per Consult Report 11/02/23 documents MYCObacterial abcessus infection of the lungs. Discharge Summary documents MYCObacterium abscess of the lung and MYCObacterium pulmonary infection. Please clarify MYCO versus MICRO bacterium abscessus versus abscess versus abscesses. The patient's Clinical Indicators include:HISTORY and PHYSICAL 11/02/2023She was found to have a microbacterium abscess in sputum cultures requiring long-term antibiotics and was seen by Infectious Disease for this, who recommended 6 weeks total of the IV antibiotics.This is a 63-year-old lady with a history of debility due to perforated colon, status post colostomy as well as sepsis and microbacterium infection.In addition to the rehab program medically, the patient continues with the microbacterium infection and needs long-term antibiotics. Rehab Preadmission Screen 10/31/2023Intra-abdominal abscess, Pneumoperitoneum, Mycobacterium abscessusRecovery complicated by mycobacterium abscesses found in sputum cultures requiring extermination inspector antibiotics ,Cultures: Sputum CX positive for mycobacterium abscessus CONSULTATION REPORT 11/02/2023Mycobacterial abscessus infection of the lungs.ASSESSMENT: Pulmonary mycobacterial abscessus infection. Options provided:-- Respond - Create new note now-- Dismiss - Not applicable / Not valid-- Dismiss - Clinically unable to determine / Unknown-- Assign to another provider QUERY RESPONSE: mycobacteria Query created by: Dayana Herrera on 01/08/2024 3:34 PM at 1658 PATIENT NAME: MENDOZA VENEGAS noteE.[id number] for patient wiujEBQBKVHMYIQCNE4173-76-73S64:59:28 [facility] 2024-01-06 21:36:00 [id number] TLq7Dik2It602/DLv6+PXPQ74AQw3 kTBJFQrGZZHZUcWzsD7S1OWauwP6194-43-24X37:36:49277 0-0061 [place] [address] PATIENT NAME: MENDOZA VENEGAS ADMIT DATE: 11/01/23ACCOUNT NO: [id number] DISCHARGE DATE: 11/12/23MEDICAL RECORD NO: [id number] ROOM NO: E.540 REPORT TYPE: 360 - QUERY RESPONSE DOCUMENT DATE OF : [birth year] AGE: 63 SEX: F ADMITTING PHYSICIAN:Lizandro Smith MD ATTENDING PHYSICIAN:Lizandro Smith MD Provider Query QUERY TEXT: Clarification Conflicting Diagnosis Procedure 360MD Query related questions should be directed to: Based on your clinical judgement, please clarify the following conflicting documentation: Per HP pg. 1 11/02/23 patient was found to have MICRObacterium abcess in sputum cultures. Per Consult Report 11/02/23 documents MYCObacterial abcessus infection of the lungs. Discharge Summary documents MYCObacterium abscess of the lung and MYCObacterium pulmonary infection. Please clarify MYCO versus MICRO bacterium abscessus versus abscess versus abscesses. The patient's Clinical Indicators include:HISTORY and PHYSICAL 11/02/2023She was found to have a microbacterium abscess in sputum cultures requiring long-term antibiotics and was seen by Infectious Disease for this, who recommended 6 weeks total of the IV antibiotics.This is a 63-year-old lady with a history of debility due to perforated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 0.44 Tot protein: Alb: PTT: PT: INR: PLT: 607 Additional labs: Cultures: Sputum CX positive for mycobacterium abscessusImagin10/17/23 0618 CXR Impression: Mild linear opacities in both lung bases are seen, probably representing mild atypical infection. 10/18/23 CTA Chest: Right lower love pulmonary embolus. Development of 7 cm soft tissue anterior left upper love abutting the pleural surface most likely inflammatory. Other supporting diagnostics: RESPIRATORY STATUS: Respiratory treatments: OxygenO2 liters per minute: 2Respiratory status: On room air, needing O2 @ 2L/min intermittently NEUROLOGIC STATUS: Neurologic status: Alert, Oriented to person, Oriented to place, Oriented to time, Oriented to situation, Follows complex commandsPatient's mood and behavior: AppropriateHand dominance: Right BOWEL/BLADDER: Continent of bladder for developmental age: YesNumber of bladder accidents in last 48 hours: Catheter type: External/condomInsertion date: 10/31/23Bladder aids: Bladder comment: Purewick catheter for incontinenceContinent of bowel for developmental age: YesNumber of bowel accidents in last 48 hours: Date of last BM: 10/31/23Colostomy: YesIleostomy: Bowel aids: NoneBowel comment: SKIN: Skin alteration: Present/Exists SKIN ALTERATION 1: Type: Surgical woundLocation: AbdomenStage: Description: Ex-Lap surgical incisions SKIN ALTERATION 2: Type: Location: Stage: Description: SKIN ALTERATION 3: Type: Location: Stage: Description: SKIN ALTERATION 4: Type: Location: Stage: Description: EATING/NUTRITIONAL: Nutritional intake: PO regular food, PO thin liquids, Ensure high protein 3xdayEating compensatory strategies: Medication administration: Medications whole, IV, Subcutaneous REHAB NEEDS: Special rehabilitation needs: IV/PICC/CVC, Intravenous therapy, Wound vacSpecial rehabilitation precautions: Safety/fall, DietRehabilitation precaution detail: Increased risk for falls due to weakness FUNCTIONAL ASSESSMENT: FUNC. TASK PRIOR LOF CURRENT LOF EXPECTED LOF Bathing Independent Partial/moderate asst Independent U.B. Dressing Independent Partial/moderate asst Independent L.B. Dressing Independent Partial/moderate asst Independent Bed/Ch Transf. Independent Partial/moderate asst Independent Toilet Transfer Independent Partial/moderate asst Independent Stairs Independent Partial/moderate asst Independent Locomotion Independent Supervise/touch asst Independent Locomotion prior device use: NoneDescription of prior level of locomotion: Locomotion current device: RW/FWWLocomotion current distance traveled without a rest break: 700 ft. Description of current level of locomotion: Description of expected level of locomotion: MOD-I with assistive device Language and Cognition: A/Ox4, sudanese speaking, able to follow commands and participate in therapyAdd'l functional comment: Patient presents with decreased strength, balance andactivity tolerance negatively impacting his functional mobility and self-care. The patient is unable to safely discharge home prior to in-patient rehab stay. 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 history: Return to work/school plan: Pending medical clearance and functional improvementMarital status: DivorcedHobbies/leisure activities: Prior living situation: HomeLiving with: FamilyLiving with comment: Daughter lives in apartment above her ANTICIPATED DC PLAN/POST IRF: Primary support contact: Pavan Venegas Relationship to patient: FatherPhone number 1: [phone] number 2: Caregiver availability: Evenings only, Nights onlyCaregiver can provide: Intermittent assistancePatient/caregiver goals/preferences: To get stronger and back to PLOFExpected discharge destination: HomeExpected discharge physical layout: One story, Tub/shower combo, First floor apartment Number of external stairs: Number of internal stairs: Railing details: Grab bars location: Barriers to discharge: Caregiver support, Endurance, Medically complexOptions discussed with patient: YesOptions discussed with caregiver: Patient agrees with program requirements: Yes ACTIVITY TOLERANCE: Current treatment interventions: Occupational therapy, Physical therapy, Respiratory therapyPatient able to tolerate 3 hours of therapy a day: YesPatient able to tolerate 15 hours of therapy a week: Altered therapy schedule comment: ACUTE INPATIENT REHAB PLAN: Estimated length of stay in days: 14Anticipated services in acute inpatient rehab: Rehab nursing 21/05, manager gift,Occupational therapy, Physical therapy, Dietitian, Respiratory therapyAcute hospital documents reviewed prior to admission decision: Acute History/Physical, Consult notes, Operative reports, Progress notes, Lab/diagnostics, Therapy notes, Vital signs, Other ancillary notes CRS ELECTRONIC SIGNATURE: CRS #1 electronic signature: Morenita Maurer credentials: RNDate: 10/31/23Time: 1500 CRS #2 electronic signature: SUE credentials: Date: Time: CRS #3 electronic signature: CRS credentials: Date: Time: Provider Pre-Admit SummaryAcute IP rehab admit: criteria metMD determinationBased upon my evaluation and review of the supporting assessment documentation and consultation with the preadmission supervisor dry cleaning, I have determined, prior to admitting this patient, that there is reasonable expectation that at the time of admission to the IRF, the patient's medical management and rehabilitation needs require an inpatient stay and close physician involvement. Patient can be expected to actively participate in, and benefit from, and intensive rehab therapy program whose intensity is not provided in lower levels of care. Significant barriers that can only be addressed in an acute inpatient rehab program, including, but not limited to: Complex acute rehab needs: Custom therapy tx plan, Challenging home layout, Med adjustment/mgmt., New medical diagnosis, Cognitive impairment mgt, Postsurgery req mgt/care, Nutritional compromise, Hospitalist consult, VTE Risk at 2107 RPT #:[id number] OF REPORTCLClinical [id number]:05:[id number] able for patient [id number]:07:18 HCAMN
[2024-02-16] MEDS ORDERED: FENTANYL CITR 100 MCG/2 ML ONE (15:05)
--- NOTE | 2024-02-16 15:45 | RAD REPORT ---
EXAM DESCRIPTION: CT - Pelvis Wo Cont - 02/16/2024 2:59 pm CLINICAL HISTORY: TRAUMA COMPARISON: Abdomen Pelvis W Contrast dated 10/12/2023 TECHNIQUE: Thin cut axial CT imaging of the pelvis was performed without IV contrast. Multiplanar re formats were generated and reviewed. All CT scans are performed using dose optimization technique as appropriate and may include automated exposure control or mA/KV adjustment according to patient size. FINDINGS: No acute fracture. Pelvic ring is intact. Mild sacroiliac joint degenerative changes. Left lower quadrant colostomy in place. Small bowel anastomotic suture in the left lower quadrant. No dilated bowel loops or bowel wall thickening. No free air, free fluid or inflammatory stranding. No hernia, mass or bulky lymphadenopathy. The urinary bladder is without significant finding. IMPRESSION: No acute fracture or suspicious osseous abnormality.
--- NOTE | 2024-02-16 15:52 | EDPHYS ---
Physician Documentation [facility] Name: Irene Venegas Age: 63 yrs Sex: Female : 1960 Arrival Date: 02/16/2024 Time: 14:16 Bed 12 Private MD: ED Physician Cornel Dos Santos HPI: 02/15 17:49 This 63 yrs old Female presents to ER via Wheelchair with complaints of Fall Injury, rt Low Back Pain - Tailbone inj. 17:49 About 4 days ago, patient states that she lost consciousness, falling backwards and rt hitting her tailbone. Denies any pain to the back, denies hitting her head. Denies other acute complaints. Patient reports continued pain to her tailbone, moderate severity, nonradiating. She states that she does not wish to have any workup for syncope be performed, only wishes to make sure that she did not have any broken bones. Denies other acute complaints. Historical: - Allergies: 14:32 Morphine; iw - PMHx: 14:32 COPD; Pneumonia; Pneumothorax; iw - PSHx: 14:32 Lobectomy of lung; Partial stomach removed; Total abdominal hysterectomy; iw - Immunization history:: Adult Immunizations up to date. - Infectious Disease History:: Denies. - Social history:: Smoking status: Patient reports the use of cigarette tobacco products, smokes one-half pack cigarettes per day. - Family history:: not pertinent. ROS: 17:49 Constitutional: Negative for fever, chills, and weight loss, Cardiovascular: Negative rt for chest pain, palpitations, and edema, Respiratory: Negative for shortness of breath, cough, wheezing, and pleuritic chest pain, Abdomen/GI: Negative for abdominal pain, nausea, vomiting, diarrhea, and constipation, Skin: Negative for injury, rash, and discoloration, Psych: Negative for depression, anxiety, suicide ideation, homicidal ideation, and hallucinations, 17:49 Neuro: Positive for syncope, Negative for headache, Exam: 17:49 Constitutional: This is a well developed, well nourished patient who is awake, alert, rt and in no acute distress. Head/Face: Normocephalic, atraumatic. Chest/axilla: Normal chest wall appearance and motion. Nontender with no deformity. No lesions are appreciated. Cardiovascular: Regular rate and rhythm with a normal S1 and S2. No gallops, murmurs, or rubs. Normal PMI, no JVD. No pulse deficits. Respiratory: Lungs have equal breath sounds bilaterally, clear to auscultation and percussion. No rales, rhonchi or wheezes noted. No increased work of breathing, no retractions or nasal flaring. Abdomen/GI: Soft, non-tender, with normal bowel sounds. No distension or tympany. No guarding or rebound. No evidence of tenderness throughout. Neuro: Awake and alert, GCS 15, oriented to person, place, time, and situation. Cranial nerves II-XII grossly intact. Motor strength 5/5 in all extremities. Sensory grossly intact. Cerebellar exam normal. Normal gait. 17:49 Back: No midline tenderness to the lumbar, thoracic spine., Vital Signs: 14:30 BP 123 / 68; Pulse 102; Resp 16; Temp 99; Pulse Ox 97% ; Weight 37.65 kg; Height 5 ft. iw 1 in. ; Pain 10/10; 14:30 Body Mass Index 15.68 (37.65 kg, 154.94 cm) iw 14:30 Pain Scale: Adult iw MDM: 14:34 Patient medically screened. rt 17:49 Differential diagnosis: Fracture, contusion. Data reviewed: vital signs, nurses notes, rt radiologic studies. I considered the following discharge prescriptions or medication management in the emergency department Medications were administered in the Emergency Department. See MAR. Independent interpretation of the following test(s) in the Emergency Department CT Scan: My interpretation is No fracture seen on my interpretation of CT scan images. Test considered but Not performed: Other Details Patient declines any workup for syncope, discussed risk and benefits, she has decision-making capacity, EKG and blood work were not ordered for that reason.. Care significantly affected by the following chronic conditions: Chronic Obstructive Pulmonary Disease. Counseling: I had a detailed discussion with the patient and/or guardian regarding the historical points, exam findings, and any diagnostic results supporting the discharge/admit diagnosis, radiology results, the need for outpatient follow up. 02/15 14:43 Order name: CT Pelvis wo Cont; Complete Time: 15:47 rt Administered Medications: 15:08 Drug: fentaNYL (PF) IM 50 mcg IM once Route: IM; Site: left deltoid; iw Disposition Summary: 02/16/24 15:51 Discharge Ordered Notes: Location: Home rt Problem: new rt Symptoms: have improved rt Condition: Stable rt Diagnosis - Contusion of buttocks rt Followup: rt - With: Private Physician - When: 2 - 3 days - Reason: Discharge Instructions: - Discharge Summary Sheet rt - Contusion rt Forms: - Work release form rt - Medication Reconciliation Form rt - Thank You Letter rt - Antibiotic Education rt - Prescription Opioid Use rt - Patient Portal Instructions rt - Leadership Thank You Letter rt Signatures: Dispatcher [employer] Jeanette Loyola, CONNIE RN Cornel Crandall MD MD rt
--- NOTE | 2024-02-16 15:52 | ER ---
Nurse's Notes [facility] Name: Irene Venegas Age: 63 yrs Sex: Female : 1960 Arrival Date: 02/16/2024 Time: 14:16 Bed 12 Private MD: Diagnosis: Contusion of buttocks Presentation: 02/15 14:30 Chief complaint: Patient states: she fell the other night, does not remember why or iw how, she blacked out and fell to her back, her behind is hurting really bad now. 14:30 Acuity: REVA 3 iw 14:30 Coronavirus screen: At this time, the client does not indicate any symptoms associated iw with coronavirus-19. Ebola Screen: Patient negative for fever greater than or equal to 101.5 degrees Fahrenheit, and additional compatible Ebola Virus Disease symptoms Patient denies exposure to infectious person. Patient denies travel to an Ebola-affected area in the 21 days before illness onset. No symptoms or risks identified at this time. Initial Sepsis Screen: Does the patient meet any 2 criteria? No. Patient's initial sepsis screen is negative. Does the patient have a suspected source of infection? No. Patient's initial sepsis screen is negative. Risk Assessment: Do you want to hurt yourself or someone else? Patient reports no desire to harm self or others. Onset of symptoms was February 14, 2024. 14:30 Method Of Arrival: Wheelchair iw Triage Assessment: 14:30 General: Appears in no apparent distress. Behavior is calm. iw Historical: - Allergies: 14:32 Morphine; iw - PMHx: 14:32 COPD; Pneumonia; Pneumothorax; iw - PSHx: 14:32 Lobectomy of lung; Partial stomach removed; Total abdominal hysterectomy; iw - Immunization history:: Adult Immunizations up to date. - Infectious Disease History:: Denies. - Social history:: Smoking status: Patient reports the use of cigarette tobacco products, smokes one-half pack cigarettes per day. - Family history:: not pertinent. Screenin:12 [facility] ED Fall Risk Assessment (Adult) History of falling in the last 3 months, iw including since admission Yes- single mechanical fall (1 pt). Abuse screen: Denies threats or abuse. Denies injuries from another. Nutritional screening: No deficits noted. Tuberculosis screening: No symptoms or risk factors identified. Assessment: 14:30 General: Appears uncomfortable, Behavior is cooperative, anxious. Pain: Complains of iw pain in lumbar area, sacrum, left low back and right low back Pain currently is 10 out of 10 on a pain scale. Neuro: Level of Consciousness is awake, alert, obeys commands, Oriented to person, place, time. Cardiovascular: Patient's skin is warm and dry. Respiratory: Respiratory effort is even, unlabored, Respiratory pattern is regular. GI: Abdomen is non-distended. Derm: Skin is normal. Musculoskeletal: Range of motion: intact in all extremities. 16:10 Reassessment: Patient appears in no apparent distress at this time. Patient and/or iw family updated on plan of care and expected duration. Pain level reassessed. Patient is alert, oriented x 3, equal unlabored respirations, skin warm/dry/pink. Patient states feeling better. Vital Signs: 14:30 BP 123 / 68; Pulse 102; Resp 16; Temp 99; Pulse Ox 97% ; Weight 37.65 kg; Height 5 ft. iw 1 in. ; Pain 10/10; 14:30 Body Mass Index 15.68 (37.65 kg, 154.94 cm) iw 14:30 Pain Scale: Adult iw ED Course: 14:20 Patient arrived in ED. ra3 14:24 Cornel Dos Santos MD is Attending Physician. rt 14:30 Triage completed. iw 14:30 Patient has correct armband on for positive identification. Provided Education on: . iw 14:32 Arm band placed on. iw 15:00 CT Pelvis wo Cont In Process Unspecified. EDMS 15:05 Jeanette Almendarez, RN is Primary Nurse. iw 15:51 Cornel Dos Santos MD is Referral Physician. rt 16:10 No provider procedures requiring assistance completed. Patient did not have IV access iw during this emergency room visit. Administered Medications: 15:08 Drug: fentaNYL (PF) IM 50 mcg IM once Route: IM; Site: left deltoid; iw Medication: 16:10 VIS not applicable for this client. iw Outcome: 15:51 Discharge ordered by . rt 16:12 Discharged to home via wheelchair, with family, iw 16:12 Condition: good 16:12 Discharge instructions given to patient, Instructed on discharge instructions, follow up and referral plans. Demonstrated understanding of instructions, follow-up care, medications, 16:13 Patient left the ED. iw Signatures: Dispatcher [employer] Jeanette Loyola RN RN iw Cornel Dos Santos MD MD rt [place], Ruby ra3 Corrections: (The following items were deleted from the chart) 02/16 07:01 02/15 16:30 Reassessment: Patient appears in no apparent distress at this time. Patient iw and/or family updated on plan of care and expected duration. Pain level reassessed. Patient is alert, oriented x 3, equal unlabored respirations, skin warm/dry/pink. Patient states feeling better. iw
[2024-02-16 16:21] VITALS: BP 123/68; TEMP 99; O2SAT 97
== END 2024-02-16 16:13 | disposition home or self-care (01) ==
LOC: ER 14:16
DX: S30.0XXA Contusion of lower back and pelvis, initial encounter (principal); J44.9 Chronic obstructive pulmonary disease, unspecified; F17.210 Nicotine dependence, cigarettes, uncomplicated; Z88.5 Allergy status to narcotic agent
CPT/HCPCS: 72192; 96372; 99284; J3010

== ENCOUNTER 2024-12-25 04:57 | Emergency (ER) | payer OTHER ==
--- OUTSIDE RECORDS SUMMARY | 2024-12-25 05:02 | XMS REPORT | Continuity of Care Document ---
Author Name Unknown Address [address] [facility] [address] [place] [address] 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 Name Role Phone Reji [facility] Primary Care Physician Lizandro Smith Attending Clinician Unavailabl kristen RUTH_Richie Attending Clinician Unavailable Umm Ruth Attending Clinician [phone] Umm Ruth Attending Clinician [phone] Doctor Unassigned, [place] Attending Clinician U ISAC Wallace Attending Clinician Unavailable Lab, Adc Fam Pob I Attending Clinician Unavailab Isac Abbasi Attending Clinician [phone] Lizandro Smith Admitting Clinician Unavailabl kristen NICHOLSON Admitting Clinician Unavailable Payers Payer Name Policy Type Policy Number Effective Date Expirati on Date Source [facility] FUNDED - MULTIPLAN [id number] 2018 [facility]:00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 Problem Active 06-20 00:00: 00 [facility] Long-term drug therapy Long-term Drug Therapy Problem Active 06-20 00:00: 00 [facility] Adenoma of rectum Adenoma of Rectum Problem Active 04-24 00:00: 00 [facility] Solitary nodule [...] Clinics Scapulalgi a Scapulalgi a Problem Active 9 00:00: 00 [facility] Gout Gout Problem Active 05-19 00:00: 00 [facility] Insomnia Insomnia Problem Active 05-19 00:00: 00 [facility] Hearing loss Hearing Loss Problem Active 05-19 00:00: 00 [facility] Hypertensi ve disorder Hypertensi ve Disorder Problem Active 05-19 00:00: 00 [facility] Seasonal allergy Seasonal Allergy Problem Active 05-19 00:00: 00 [facility] Asthma Asthma Problem Active 05-19 00:00: 00 [facility] Chronic obstructiv e lung disease Chronic Obstructiv e Lung Disease Problem Active 05-19 00:00: 00 [facility] Hematochez ia Hematochez ia Problem Active 05-19 00:00: 00 [facility] Arthritis Arthritis Problem Active 05-19 00:00: 00 [facility] Cramp in lower leg associated with rest Cramp in Lower Leg Associated with Rest Problem Active 05-19 00:00: 00 [place] Syncope Syncope Problem Active 05-19 00:00: 00 [place] Malaise Malaise Problem Active 05-19 00:00: 00 [place] Fracture of multiple ribs Fracture of Multiple Ribs Problem Active 05-19 00:00: 00 [place] Bipolar disorder Bipolar Disorder Problem Active [place] History of manic depressive disorder History of Manic Depressive Disorder Problem Active [facility] Allergies, Adverse Reactions, Alerts Allergy Name Allergy Type Status Severity Reaction(s) Onset Date Inactive Date Treating Clinician Comments Source No Known Allergie s DA Active U 11-01 00:00: 00 [facility] Morphine Propensi ty to adverse reaction to drug Active 01-23 00:00: 00 Luisito Anthony Morphine Allergy to substanc e Active [facility] NO KNOWN ALLERGIE S Drug Class Active [facility] Social History Social Habit Start Date Stop Date Quantity Comments Source Sex Assigned At 1960 00:00:00 1960 00:00:00 [facility] Smoking Status Start Date Stop Date Source Heavy Tobacco Smoker [facility] Unknown if ever smoked [facility] Medications Ordered Medication Name Filled Medication Name Start Date Stop Date Current Medication? Ordering Clinician Indication Dosage Frequency Signature (SIG) Comments Components Source Symbicort 160 mcg-4.5 mcg/actuati on HFA aerosol inhaler 11-17 00:00: 00 Yes 2mcg/ac tuation Luisito Anthony azithromyci n 250 mg tablet 11-17 00:00: 00 Yes mg Luisito Anthony fluticasone propionate 50 mcg/actuati on nasal spray,suspe nsion 11-05 00:00: 00 Yes 2mcg/ac tuation Luisito Anthony loratadine- pseudoephed rine ER 10 mg-240 mg tablet,exte nded [id number] 11-05 00:00: 00 Yes 1mg Luisito Anthony amoxicillin 875 mg tablet 11-05 00:00: 00 Yes 1mg Luisito Anthony benzonatate 100 mg capsule 11-05 00:00: 00 Yes 1mg Luisito Anthony ProAir HFA 90 mcg/actuati on aerosol inhaler 01-23 00:00: 00 Yes 2mcg/ac tuation Luisito Anthony ipratropium bromide 0.02 % solution for inhalation 01-23 00:00: 00 Yes 1% Luisito Anthony Medrol 4 mg tablet 01-23 00:00: 00 Yes mg Luisito Anthony azithromyci n 250 mg tablet 01-23 00:00: 00 Yes 1mg Luisito Anthony albuterol sulfate 2.5 mg/3 mL (0.083 %) solution for nebulizatio n 01-23 00:00: 00 Yes 3/3 mL (0.083 %) Luisito Anthony ProAir HFA 90 mcg/actuati on aerosol inhaler 2016-10 00:00: 00 Yes 2mcg/ac tuation Luisito Anthony Bactrim DS 800 mg-160 mg tablet 04-06 00:00: 00 Yes 1mg Luisito Anthony erythromyci n 5 mg/gram (0.5 %) eye ointment 03-29 00:00: 00 Yes 1(0.5 %) Luisito Anthony Levaquin 500 mg tablet 2015-10 00:00: 00 Yes 1mg Luisito Anthony Medrol 4 mg tablet 2015-10 00:00: 00 Yes mg Luisito Anthony amoxicillin 875 mg tablet 2016-1 0-20 00:00: 00 Yes 1mg Luisito Lockwoodsalmicheline Perles 100 mg capsule 2015-10 0-20 00:00: 00 Yes 2mg Luisito Anthony albuterol sulfate HFA 90 mcg/actuati on aerosol [...] inhalation route as needed for 90 days. [facility] cyclobenzap rine 10 mg tablet TAKE 1 TABLET BY MOUTH THREE TIMES A DAY NEEDED cyclobenzap rine 10 mg tablet TAKE 1 TABLET BY MOUTH THREE TIMES A DAY NEEDED No cyclobenza king 10 mg tablet TAKE 1 TABLET BY MOUTH THREE TIMES A DAY NEEDED [facility] gabapentin 300 mg capsule TAKE 1 CAPSULE BY MOUTH TWICE A DAY gabapentin 300 mg capsule TAKE 1 CAPSULE BY MOUTH TWICE A DAY No gabapentin 300 mg capsule TAKE 1 CAPSULE BY MOUTH TWICE A DAY [facility] hydrocodone 5 mg-acetamin ophen 325 mg tablet Take 1 tablet every 6 hours by oral route as needed. hydrocodone 5 mg-acetamin ophen 325 mg tablet Take 1 tablet every 6 hours by oral route as needed. No 1 Q6H hydrocodon e 5 mg-acetami nophen 325 mg tablet Take 1 tablet every 6 hours by oral route as needed. [facility] iron otc one BID with meals iron otc one BID with meals No iron otc one BID with meals [facility] meloxicam 7.5 mg tablet TAKE 1 TABLET BY MOUTH EVERY DAY meloxicam 7.5 mg tablet TAKE 1 TABLET BY MOUTH EVERY DAY No meloxicam 7.5 mg tablet TAKE 1 TABLET BY MOUTH EVERY DAY [facility] quetiapine 100 mg tablet TAKE 1 TABLET BY MOUTH EVERYDAY AT BEDTIME quetiapine 100 mg tablet TAKE 1 TABLET BY MOUTH EVERYDAY AT BEDTIME No quetiapine 100 mg tablet TAKE 1 TABLET BY MOUTH EVERYDAY AT BEDTIME [facility] Symbicort 160 mcg-4.5 mcg/actuati on HFA aerosol [...] inhalation route as directed for 30 days. [facility] venlafaxine ER 37.5 mg capsule,ext ended release 24 hr TAKE 1 CAPSULE BY MOUTH EVERY DAY venlafaxine ER 37.5 mg capsule,ext ended release 24 hr TAKE 1 CAPSULE BY MOUTH EVERY DAY No venlafaxin e ER 37.5 mg capsule,ex tended release 24 hr TAKE 1 CAPSULE BY MOUTH EVERY DAY [facility] Vitamin D3 otc 5000 iu daily Vitamin D3 otc 5000 iu daily No Vitamin D3 otc 5000 iu daily [facility] albuterol sulfate 2.5 mg/3 mL (0.083 %) solution for nebulizatio n USE 1 VIAL IN NEBULIZER 3 TIMES A DAY albuterol sulfate 2.5 mg/3 mL (0.083 %) solution for nebulizatio n USE 1 VIAL IN NEBULIZER 3 TIMES A DAY No albuterol sulfate 2.5 mg/3 mL (0.083 %) solution for nebulizati on USE 1 VIAL IN NEBULIZER 3 TIMES A DAY [facility] azithromyci n 250 mg tablet TAKE 2 TABLETS BY MOUTH TODAY, THEN TAKE 1 TABLET DAILY FOR 4 DAYS azithromyci n 250 mg tablet TAKE 2 TABLETS BY MOUTH TODAY, THEN TAKE 1 TABLET DAILY FOR 4 DAYS No azithromyc in 250 mg tablet TAKE 2 TABLETS BY MOUTH TODAY, THEN TAKE 1 TABLET DAILY FOR 4 DAYS [facility] escitalopra m 10 mg tablet TAKE 1 TABLET BY MOUTH EVERY DAY FOR 30 DAYS escitalopra m 10 mg tablet TAKE 1 TABLET BY MOUTH EVERY DAY FOR 30 DAYS No escitalopr am 10 mg tablet TAKE 1 TABLET BY MOUTH EVERY DAY FOR 30 DAYS [facility] methylpredn isolone 4 mg tablets in a [...] DAY FOR A TOTAL OF 6 DAYS [facility] benzonatate 100 mg capsule TAKE 1 CAPSULE BY MOUTH THREE TIMES A DAY benzonatate 100 mg capsule TAKE 1 CAPSULE BY MOUTH THREE TIMES A DAY No benzonatat e 100 mg capsule TAKE 1 CAPSULE BY MOUTH THREE TIMES A DAY [facility] albuterol sulfate 2.5 mg/3 mL (0.083 %) solution for nebulizatio n USE 1 VIAL IN NEBULIZER 3 TIMES A DAY albuterol sulfate 2.5 mg/3 mL (0.083 %) solution for nebulizatio n USE 1 VIAL IN NEBULIZER 3 TIMES A DAY No albuterol sulfate 2.5 mg/3 mL (0.083 %) solution for nebulizati on USE 1 VIAL IN NEBULIZER 3 TIMES A DAY [facility] albuterol sulfate HFA 90 mcg/actuati on aerosol inhaler INHALE 2 PUFFS EVERY 4 HOURS NEEDED albuterol sulfate HFA 90 mcg/actuati on aerosol inhaler INHALE 2 PUFFS EVERY 4 HOURS NEEDED No albuterol sulfate HFA 90 mcg/actuat ion aerosol inhaler INHALE 2 PUFFS EVERY 4 HOURS NEEDED [facility] benzonatate 100 mg capsule TAKE 1 CAPSULE BY MOUTH THREE TIMES A DAY benzonatate 100 mg capsule TAKE 1 CAPSULE BY MOUTH THREE TIMES A DAY No benzonatat e 100 mg capsule TAKE 1 CAPSULE BY MOUTH THREE TIMES A DAY [facility] cyanocobala min (vit B-12) 1,000 mcg/mL injection solution Inject 1 mL every month by subcutaneou s route. cyanocobala min (vit B-12) 1,000 mcg/mL injection solution Inject 1 mL every month by subcutaneou s route. No 1mL cyanocobal rahman (vit B-12) 1,000 mcg/mL injection solution Inject 1 mL every month by subcutaneo us route. [facility] cyclobenzap rine 10 mg tablet TAKE 1 TABLET BY MOUTH THREE TIMES A DAY NEEDED cyclobenzap rine 10 mg tablet TAKE 1 TABLET BY MOUTH THREE TIMES A DAY NEEDED No cyclobenza king 10 mg tablet TAKE 1 TABLET BY MOUTH THREE TIMES A DAY NEEDED [facility] escitalopra m 10 mg tablet TAKE 1 TABLET BY MOUTH EVERY DAY FOR 30 DAYS escitalopra m 10 mg tablet TAKE 1 TABLET BY MOUTH EVERY DAY FOR 30 DAYS No escitalopr am 10 mg tablet TAKE 1 TABLET BY MOUTH EVERY DAY FOR 30 DAYS [facility] meloxicam 7.5 mg tablet TAKE 1 TABLET BY MOUTH EVERY DAY meloxicam 7.5 mg tablet TAKE 1 TABLET BY MOUTH EVERY DAY No meloxicam 7.5 mg tablet TAKE 1 TABLET BY MOUTH EVERY DAY [facility] quetiapine 100 mg tablet TAKE 1 TABLET BY MOUTH EVERYDAY AT BEDTIME quetiapine 100 mg tablet TAKE 1 TABLET BY MOUTH EVERYDAY AT BEDTIME No quetiapine 100 mg tablet TAKE 1 TABLET BY MOUTH EVERYDAY AT BEDTIME [facility] Vitamin D3 otc 5000 iu daily Vitamin D3 otc 5000 iu daily No Vitamin D3 otc 5000 iu daily [facility] megestrol 400 mg/10 mL (40 mg/mL) oral suspension Take 10 mL every day by oral route in the morning. megestrol 400 mg/10 mL (40 mg/mL) oral suspension Take 10 mL every day by oral route in the morning. No 10mL Q1D megestrol 400 mg/10 mL (40 mg/mL) oral suspension Take 10 mL every day by oral route in the morning. [facility] prednisone 10 mg tablet TAKE 1 TABLET BY MOUTH EVERY DAY FOR 30 DAYS prednisone 10 mg tablet TAKE 1 TABLET BY MOUTH EVERY DAY FOR 30 DAYS No prednisone 10 mg tablet TAKE 1 TABLET BY MOUTH EVERY DAY FOR 30 DAYS [facility] tramadol 37.5 mg-acetamin ophen 325 mg tablet TAKE 1 TABLET BY MOUTH EVERY 8 HOURS NEEDED FOR 15 DAYS. tramadol 37.5 mg-acetamin ophen 325 mg tablet TAKE 1 TABLET BY MOUTH EVERY 8 HOURS NEEDED FOR 15 DAYS. No tramadol 37.5 mg-acetami nophen 325 mg tablet TAKE 1 TABLET BY MOUTH EVERY 8 HOURS NEEDED FOR 15 DAYS. [facility] albuterol sulfate 2.5 mg/3 mL (0.083 %) solution for nebulizatio n USE 1 VIAL IN NEBULIZER 3 TIMES A DAY albuterol sulfate 2.5 mg/3 mL (0.083 %) solution for nebulizatio n USE 1 VIAL IN NEBULIZER 3 TIMES A DAY No albuterol sulfate 2.5 mg/3 mL (0.083 %) solution for nebulizati on USE 1 VIAL IN NEBULIZER 3 TIMES A DAY [facility] albuterol sulfate HFA 90 mcg/actuati on aerosol [...] inhalation route as needed for 90 days. [facility] Cymbalta 60 mg capsule,del ayed release Take 1 capsule every day by oral route. Cymbalta 60 mg capsule,del ayed release Take 1 capsule every day by oral route. No 1capsul e(s) Q1D Cymbalta 60 mg capsule,de layed release Take 1 capsule every day by oral route. [facility] albuterol sulfate 2.5 mg/3 mL (0.083 %) solution for nebulizatio n USE 1 VIAL IN NEBULIZER 3 TIMES A DAY albuterol sulfate 2.5 mg/3 mL (0.083 %) solution for nebulizatio n USE 1 VIAL IN NEBULIZER 3 TIMES A DAY No albuterol sulfate 2.5 mg/3 mL (0.083 %) solution for nebulizati on USE 1 VIAL IN NEBULIZER 3 TIMES A DAY [facility] albuterol sulfate HFA 90 mcg/actuati on aerosol inhaler INHALE 2 PUFFS BY MOUTH EVERY 4 HOURS NEEDED albuterol sulfate HFA 90 mcg/actuati on aerosol inhaler INHALE 2 PUFFS BY MOUTH EVERY 4 HOURS NEEDED No albuterol sulfate HFA 90 mcg/actuat ion aerosol inhaler INHALE 2 PUFFS BY MOUTH EVERY 4 HOURS NEEDED [facility] duloxetine 30 mg capsule,del ayed release TAKE 1 CAPSULE BY MOUTH EVERY DAY duloxetine 30 mg capsule,del ayed release TAKE 1 CAPSULE BY MOUTH EVERY DAY No duloxetine 30 mg capsule,de layed release TAKE 1 CAPSULE BY MOUTH EVERY DAY [facility] albuterol sulfate 2.5 mg/3 mL (0.083 %) solution for nebulizatio n USE 1 VIAL IN NEBULIZER 3 TIMES A DAY albuterol sulfate 2.5 mg/3 mL (0.083 %) solution for nebulizatio n USE 1 VIAL IN NEBULIZER 3 TIMES A DAY No albuterol sulfate 2.5 mg/3 mL (0.083 %) solution for nebulizati on USE 1 VIAL IN NEBULIZER 3 TIMES A DAY [facility] albuterol sulfate HFA 90 mcg/actuati on aerosol inhaler INHALE 2 PUFFS EVERY 4 HOURS NEEDED albuterol sulfate HFA 90 mcg/actuati on aerosol inhaler INHALE 2 PUFFS EVERY 4 HOURS NEEDED No albuterol sulfate HFA 90 mcg/actuat ion aerosol inhaler INHALE 2 PUFFS EVERY 4 HOURS NEEDED [facility] cyanocobala min (vit B-12) 1,000 mcg/mL injection solution Inject 1 mL every month by subcutaneou s route. cyanocobala min (vit B-12) 1,000 mcg/mL injection solution Inject 1 mL every month by subcutaneou s route. No 1mL cyanocobal rahman (vit B-12) 1,000 mcg/mL injection solution Inject 1 mL every month by subcutaneo us route. [facility] doxycycline hyclate 100 mg tablet TAKE 1 TABLET BY MOUTH TWICE A DAY doxycycline hyclate 100 mg tablet TAKE 1 TABLET BY MOUTH TWICE A DAY No doxycyclin e hyclate 100 mg tablet TAKE 1 TABLET BY MOUTH TWICE A DAY [facility] levofloxaci n 500 mg tablet TAKE 1 TABLET BY MOUTH EVERY DAY levofloxaci n 500 mg tablet TAKE 1 TABLET BY MOUTH EVERY DAY No levofloxac in 500 mg tablet TAKE 1 TABLET BY MOUTH EVERY DAY [facility] prednisone 10 mg tablet TAKE 1 TABLET BY MOUTH EVERY DAY FOR 30 DAYS prednisone 10 mg tablet TAKE 1 TABLET BY MOUTH EVERY DAY FOR 30 DAYS No prednisone 10 mg tablet TAKE 1 TABLET BY MOUTH EVERY DAY FOR 30 DAYS [facility] tramadol 37.5 mg-acetamin ophen 325 mg tablet TAKE 1 TABLET BY MOUTH EVERY 8 HOURS NEEDED FOR 15 DAYS. tramadol 37.5 mg-acetamin ophen 325 mg tablet TAKE 1 TABLET BY MOUTH EVERY 8 HOURS NEEDED FOR 15 DAYS. No tramadol 37.5 mg-acetami nophen 325 mg tablet TAKE 1 TABLET BY MOUTH EVERY 8 HOURS NEEDED FOR 15 DAYS. [facility] Vitamin D3 otc 5000 iu daily Vitamin D3 otc 5000 iu daily No Vitamin D3 otc 5000 iu daily [facility] Immunizations Ordered Immunization Name Filled Immunization Name Date Status Comments Source SARS-COV-2 (COVID-19) vaccine, UNSPECIFIED SARS-COV-2 (COVID-19) vaccine, UNSPECIFIED 2021-01-26 00:00:00 [facility] COVID-19 (SARS-COV-2) vaccine, unspecified COVID-19 (SARS-COV-2) vaccine, unspecified 2021-01-26 00:00:00 [facility] COVID-19 (SARS-COV-2) vaccine, unspecified COVID-19 (SARS-COV-2) vaccine, unspecified 2021-01-26 00:00:00 [facility] COVID-19 (SARS-COV-2) vaccine, unspecified COVID-19 (SARS-COV-2) vaccine, unspecified Unknown [facility] COVID-19 (SARS-COV-2) vaccine, unspecified COVID-19 (SARS-COV-2) vaccine, unspecified Unknown [facility] Vital Signs Vital Name Observation Time Observation Value Comments S ource Height 2023-08-13 00:00:00 61 [in_i] [facility] BP Diastolic 2023-08-13 00:00:00 80 mm[Hg] [facility] Body Weight 2023-08-13 00:00:00 1308.8 [oz_av] [facility] BP Systolic 2023-08-13 00:00:00 140 mm[facility]Hg] [facility] BMI (Body Mass Index) 2023-08-13 00:00:00 15.5 kg/m2 [facility] BMI (Body Mass Index) 2023-07-19 00:00:00 15.2 kg/m2 [facility] Height 2023-07-19 00:00:00 61 [in_i] [facility] Body Weight 2023-07-19 00:00:00 1286.4 [oz_av] [facility] BP Diastolic 2023-07-19 00:00:00 80 mm[Hg] [facility] BP Systolic 2023-07-19 00:00:00 130 mm[Hg] [facility] BP Diastolic 2022-07-18 00:00:00 84 mm[Hg] [facility] Height 2022-07-18 00:00:00 61 [in_i] [facility] BMI (Body Mass Index) 2022-07-18 00:00:00 17 kg/m2 [facility] BP Systolic 2022-07-18 00:00:00 160 mm[Hg] [facility] Body Weight 2022-07-18 00:00:00 1440 [oz_av] [facility] BP Diastolic 2022-06-20 00:00:00 80 mm[Hg] [facility] Height 2022-06-20 00:00:00 61 [in_i] [facility] BMI (Body Mass Index) 2022-06-20 00:00:00 17.2 kg/m2 [facility] BP Systolic 2022-06-20 00:00:00 121 mm[Hg] [facility] Body Weight 2022-06-20 00:00:00 1452.8 [oz_av] [facility] BP Diastolic 2022-04-24 00:00:00 80 mm[Hg] [facility] Height 2022-04-24 00:00:00 61 [in_i] [facility] BMI (Body Mass Index) 2022-04-24 00:00:00 17.3 kg/m2 [facility] BP Systolic 2022-04-24 00:00:00 120 mm[Hg] [facility] Body Weight 2022-04-24 00:00:00 1465.6 [oz_av] [facility] BP Diastolic 2022-03-20 00:00:00 88 mm[Hg] [facility] Height 2022-03-20 00:00:00 61 [in_i] [facility] BMI (Body Mass Index) 2022-03-20 00:00:00 16 kg/m2 [facility] BP Systolic 2022-03-20 00:00:00 144 mm[Hg] [facility] Body Weight 2022-03-20 00:00:00 1356.8 [oz_av] [facility] BP Diastolic 2022-03-13 00:00:00 80 mm[Hg] [facility] Height 2022-03-13 00:00:00 61 [in_i] [facility] BMI (Body Mass Index) 2022-03-13 00:00:00 15.9 kg/m2 [facility] BP Systolic 2022-03-13 00:00:00 125 mm[Hg] [facility] Body Weight 2022-03-13 00:00:00 1347.2 [oz_av] [facility] Height 2022-02-20 00:00:00 61 [in_i] [facility] BP Diastolic 2021-03-17 00:00:00 90 mm[Hg] [facility] Height 2021-03-17 00:00:00 61 [in_i] [facility] BMI (Body Mass Index) 2021-03-17 00:00:00 17.7 kg/m2 [facility] BP Systolic 2021-03-17 00:00:00 160 mm[Hg] [facility] Body Weight 2021-03-17 00:00:00 1497.6 [oz_av] [facility] Respiratory Rate 2024-11-17 14:28:00 19.00 /min Luisito F Raj BP Systolic 2024-11-17 14:28:00 172 mm[Hg] Step hen F Raj BP Diastolic 2024-11-17 14:28:00 103 mm[Hg] Leonel phen F Raj Weight Measured 2024-11-17 14:28:00 77.60 pounds Luisito F Raj Height Measured 2024-11-17 14:28:00 61.50 inches Luisito F Raj Body Temperature 2024-11-17 14:28:00 100.50 degrees Luisito F Raj Heart Rate 2024-11-17 14:28:00 120.00 /min Step hen F Raj BP Systolic 2018-11-05 11:00:00 144 mm[Hg] Step hen F Raj BP Diastolic 2018-11-05 11:00:00 76 mm[Hg] Leonel phen F Raj Weight Measured 2018-11-05 11:00:00 99.00 pounds Luisito F Raj Height Measured 2018-11-05 11:00:00 61.50 inches Luisito F Raj Body Temperature 2018-11-05 11:00:00 98.10 degrees Luisito F Raj Heart Rate 2018-11-05 11:00:00 71.00 /min Ayana en F Raj Respiratory Rate 2018-11-05 11:00:00 19.00 /min Luisito F Raj BP Systolic 2018-01-23 17:24:00 147 mm[Hg] Step hen F Raj BP Diastolic 2018-01-23 17:24:00 84 mm[Hg] Leonel phen F Raj Weight Measured 2018-01-23 17:24:00 Luisito F Raj Height Measured 2018-01-23 17:24:00 Luisito F Raj Body Temperature 2018-01-23 17:24:00 Luisito F Raj Heart Rate 2018-01-23 17:24:00 Ayana en F Raj Respiratory Rate 2018-01-23 17:24:00 Luisito F Raj BP Systolic 2018-01-23 15:51:00 169 mm[Hg] Step hen F Raj BP Diastolic 2018-01-23 15:51:00 100 mm[Hg] Leonel phen F Raj Weight Measured 2018-01-23 15:51:00 98.80 pounds Luisito F Raj Height Measured 2018-01-23 15:51:00 61.50 inches Luisito F Raj Body Temperature 2018-01-23 15:51:00 99.10 degrees Luisito F Raj Heart Rate 2018-01-23 15:51:00 86.00 /min Ayana en F Raj Respiratory Rate 2018-01-23 15:51:00 18.00 /min Luisito F Raj BP Systolic 2017-10-03 15:12:00 133 mm[Hg] Step hen F Raj BP Diastolic 2017-10-03 15:12:00 86 mm[Hg] Leonel phen F Raj Weight Measured 2017-10-03 15:12:00 100.40 pounds Luisito F Raj Height Measured 2017-10-03 15:12:00 61.50 inches Luisito F Raj Body Temperature 2017-10-03 15:12:00 98.40 degrees Luisito F Raj Heart Rate 2017-10-03 15:12:00 108.00 /min Step hen F Raj Respiratory Rate 2017-10-03 15:12:00 19.00 /min Luisito F Raj BP Systolic 2017-04-06 14:24:00 130 mm[Hg] Step hen F Raj BP Diastolic 2017-04-06 14:24:00 79 mm[Hg] Leonel phen F Raj Weight Measured 2017-04-06 14:24:00 103.20 pounds Luisito F Raj Height Measured 2017-04-06 14:24:00 61.50 inches Luisito F Raj Body Temperature 2017-04-06 14:24:00 97.80 degrees Luisito F Raj Heart Rate 2017-04-06 14:24:00 75.00 /min Ayana en F Raj Respiratory Rate 2017-04-06 14:24:00 18.00 /min Luisito F Raj Heart Rate 2017-03-29 13:30:00 Ayana en F Raj Respiratory Rate 2017-03-29 13:30:00 Luisito F Raj BP Systolic 2017-03-29 13:30:00 135 mm[Hg] Step hen F Raj BP Diastolic 2017-03-29 13:30:00 69 mm[Hg] Leonel phen F Raj Weight Measured 2017-03-29 13:30:00 Luisito F Raj Height Measured 2017-03-29 13:30:00 Luisito F Raj Body Temperature 2017-03-29 13:30:00 Luisito F Raj BP Systolic 2017-03-29 11:35:00 156 mm[Hg] Step hen F Raj BP Diastolic 2017-03-29 11:35:00 89 mm[Hg] Leonel phen F Raj Weight Measured 2017-03-29 11:35:00 103.60 pounds Luisito F Raj Height Measured 2017-03-29 11:35:00 61.50 inches Luisito F Raj Body Temperature 2017-03-29 11:35:00 98.00 degrees Luisito F Raj Heart Rate 2017-03-29 11:35:00 131.00 /min Step hen F Raj Respiratory Rate 2017-03-29 11:35:00 18.00 /min Luisito F Raj BP Systolic 2016-08-23 08:51:00 131 mm[Hg] Step hen F Raj BP Diastolic 2016-08-23 08:51:00 84 mm[Hg] Leonel phen F Raj Weight Measured 2016-08-23 08:51:00 100.20 pounds Luisito F Raj Height Measured 2016-08-23 08:51:00 61.50 inches Luisito F Raj Body Temperature 2016-08-23 08:51:00 97.70 degrees Luisito F Raj Heart Rate 2016-08-23 08:51:00 80.00 /min Ayana en F Raj Respiratory Rate 2016-08-23 08:51:00 16.00 /min Luisito F Raj BP Systolic 2016-08-17 09:54:00 151 mm[Hg] Step hen F Raj BP Diastolic 2016-08-17 09:54:00 88 mm[Hg] Leonel phen F Raj Weight Measured 2016-08-17 09:54:00 101.20 pounds Luisito F Raj Height Measured 2016-08-17 09:54:00 61.50 inches Luisito F Raj Body Temperature 2016-08-17 09:54:00 97.60 degrees Luisito F Raj Heart Rate 2016-08-17 09:54:00 74.00 /min Ayana en F Raj Respiratory Rate 2016-08-17 09:54:00 16.00 /min Luisito F Raj Procedures Procedure Date / Time Performed Performing Clinicia n Source [id number] 2023-11-01 00:00:00 [facility] [id number] 2023-11-01 00:00:00 [facility] Biopsy of Lung 2022-05-25 00:00:[address] [facility] [address], abdomen + pelvis, w/ contrast 2022-04-24 00:00:[address] [facility] [address], chest, w/ contrast 2022-04-24 00:00:00 [facility] XR, chest, 2 view 2022-03-13 00:00:00 [facility] REFERRAL- REQUEST/RESPONSE 2021-03-17 05:01:00 Doctor Unassigned, [place] [facility] XR, shoulder, 2 or more view 2021-03-17 00:00:00 [facility] Procedure on Spleen [facility] Procedure on Lung [facility] Procedure on Ear [facility] Unlisted Procedure Stomach [facility] Plan of Care Planned Activity Planned Date Details Comments Source Diagnostic Test Pending 2022-06-20 00:00:00 CMP, serum or plasma [code = CMP, serum or plasma] [facility] Diagnostic Test Pending 2022-06-20 00:00:00 CBC w/ diff [code = CBC w/ diff] [facility] Diagnostic Test Pending 2022-06-20 00:00:00 iron panel, serum or plasma [code = iron panel, serum or plasma] [facility] Encounters Start Date/Time End Date/Time Encounter Type Admission Type Attending Clinicians Care Facility Care Department Encounter ID Source 2024-11-17 14:13:43 2024-11-17 14:13:43 Outpatient S[facility] [id number] Luisito F Raj 2024-11-17 00:00:00 2024-11-17 00:00:00 Outpatient Visit [facility] [id number] Luisito F Raj 2023-11-01 13:10:00 2023-11-12 14:00:00 Inpatient Lizandro King [facility] [id number] [facility] 2023-08-13 00:00:00 2023-08-13 00:00:00 Outpatient KEFFER_A [facility] [id number] [facility] 2023-08-13 00:00:00 2023-08-13 00:00:00 Umm Ruth MD: Matt Moss, [address], [place] [address] , Ph. [facility], DR. RUTH [id number] [facility] 2023-07-19 00:00:00 2023-07-19 00:00:00 Outpatient KEFFER_A [facility] [id number] [facility] 2023-07-19 00:00:00 2023-07-19 00:00:00 Umm Ruth MD: Matt Moss, [address], [place] [address] , Ph. [facility], DR. RUTH [id number] [facility] 2022-10-01 00:00:00 2022-10-01 00:00:00 Outpatient KEFFER_A [facility] [id number] [facility] 2022-08-26 00:00:00 2022-08-26 00:00:00 Outpatient KEFFER_A [facility] [id number] [facility] 2022-07-22 00:00:00 2022-07-22 00:00:00 Outpatient KEFFER_A [facility] [id number] [facility] 2022-07-18 00:00:00 2022-07-18 00:00:00 Outpatient KEFFER_A [facility] [id number] [facility] 2022-07-18 00:00:00 2022-07-18 00:00:00 Umm Ruth MD: [address], [place] [address] , Ph. [facility], DR. RUTH [id number] [facility] 2022-06-23 00:00:00 2022-06-23 00:00:00 Outpatient KEFFER_A [facility] [id number] [facility] 2022-06-20 00:00:00 2022-06-20 00:00:00 Outpatient FLORAFFER_A [facility] [id number] [facility] 2022-06-20 00:00:00 2022-06-20 00:00:00 Outpatient Umm Ruth [facility] [id number] 2022-06-20 00:00:00 2022-06-20 00:00:00 Umm Ruth MD: [address]vi [address], [place] [address] , Ph. [facility], DR. RUTH [id number] [facility] 2022-06-17 00:00:00 2022-06-17 00:00:00 Outpatient KEFFER_A [facility] [id number] [facility] 2022-05-15 05:02:00 2022-05-15 05:02:00 Outpatient KEFFER_A [facility] [id number] [facility] 2022-04-24 02:04:00 2022-04-24 02:04:00 Outpatient FLORAFFER_A [facility] [id number] [facility] 2022-04-24 00:00:00 2022-04-24 00:00:00 Umm Ruth MD: Avi Palm, [place] [address] , Ph. [facility], DR. RUTH [id number] [facility] 2022-04-24 00:00:00 2022-04-24 00:00:00 Outpatient Umm Ruth [facility] [id number] 2022-04-08 01:24:00 2022-04-08 01:24:00 Outpatient FLORY_Richie [facility] [id number] [facility] 2022-03-20 02:04:00 2022-03-20 02:04:00 Outpatient FLORY_Richie [facility] [id number] [facility] 2022-03-20 00:00:00 2022-03-20 00:00:00 Umm Ruth MD: Avi Palm, [place] [address] , Ph. [facility], DR. RUTH [id number] [facility] 2022-03-20 00:00:00 2022-03-20 00:00:00 Outpatient Umm Ruth [facility] [id number] 2022-03-13 06:18:00 2022-03-13 06:18:00 Outpatient FLORY_Richie [facility] [id number] [facility] 2022-03-13 00:00:00 2022-03-13 00:00:00 Umm Ruth MD: Avi Palm, [place] [address] , Ph. [facility], DR. RUTH [id number] [facility] 2022-03-13 00:00:00 2022-03-13 00:00:00 Outpatient Umm Ruth [facility] [id number] 2022-03-13 00:00:00 2022-03-13 00:00:00 Outpatient Umm Ruth [facility] [id number] 2022-02-20 04:34:00 2022-02-20 04:34:00 Outpatient FLORY_A [facility] [id number] [facility] 2022-02-20 00:00:00 2022-02-20 00:00:00 Umm Ruth MD: Matt Moss, [facility] B, [place] [address] , Ph. [facility], DR. RUTH [id number] [facility] 2022-02-20 00:00:00 2022-02-20 00:00:00 Outpatient Umm Ruth [facility] [id number] 2022-02-15 07:49:00 2022-02-15 07:49:00 Outpatient FLORY_Rihcie [facility] [id number] [facility] 2021-07-28 12:51:00 2021-07-28 12:51:00 Outpatient FLORY_A [facility] [id number] [facility] 2021-03-30 00:00:00 2021-03-30 00:00:00 Letter (Out) Umm Ruth [facility] [id number] [facility] 2021-03-17 12:03:00 2021-03-17 12:03:00 Outpatient KEFFER_A [facility] [id number] [facility] 2021-03-17 00:00:00 2021-03-17 00:00:00 Outpatient Umm Ruth [facility] [id number] 2021-03-17 00:00:00 2021-03-17 00:00:00 Umm Ruth MD: Matt Mosherney, [address] [place] [address] , Ph. [facility], DR. RUTH [id number] [facility] 2021-03-17 00:00:00 2021-03-17 00:00:00 Orders Only Doctor Unassigned, [place] [facility] [id number] [facility] 2020-12-12 01:03:00 2020-12-12 01:03:00 Outpatient FLORY_A [facility] [id number] [facility] 2020-11-07 01:02:00 2020-11-07 01:02:00 Outpatient FLORY_A [facility] [id number] [facility] 2020-06-17 13:00:00 2020-06-17 13:18:29 Outpatient ISAC ROBLES [facility] [id number] [facility] 2020-06-17 12:47:46 2020-06-17 13:07:46 Laboratory Only [id number] [facility] 2020-06-17 11:00:00 2020-06-17 11:00:00 Outpatient R [facility] [id number] [facility] 2020-06-17 00:00:00 2020-06-17 00:00:00 Letter (Out) Doctor Unassigned, [place] [facility] [id number] [facility] Results Test Description Test Time Test Comments Results Result Co mments Source - XR ABDOMEN 1 [id number] 16:34:00 [facility] : 1960 Sex: F FAX: Chelsey Martinez APRN [phone] [place]: St: [facility] FAX: Lizandro Webb MD [phone] Name: MENDOZA VENEGAS [facility] : 1960 Age/S: 63/F [address] Unit #: [id number] Loc: [place], [place] Phys: MichelleChelsey SOLAR PANEL TECHNICIAN [address] Acct: [id number] Dis Date: Status: ADM IN PHONE #: [phone] Exam Date: 11/10/2023 1613 FAX #: [phone] Reason: abdominal pain s/p bowel perf w/colostomy - R/o EXAMS: CPT CODE: [id number] XR ABDOMEN 1 V 00203 CLINICAL INFORMATION: Status post bowel perforation. Colostomy.. Dictation location: A 1 Comparison: No priors. Technique: Supine view. Findings. The colostomy location is not definitely identified. Anastomotic staple line is seen in theleft pelvis. There is stool present in the proximal colon. Both small and large bowel gas is present. No free intraperitoneal air identified. No destructive bone lesion or pathologic calcification. IMPRESSION: Nonspecific appearance. at 1634 Reported and signed by: Shaka Clayton M.D. CC: Chelsey Martinez; Lizandro Smith MD Technologist: RIC SEARS Trnscrd Date/Time/By: 11/10/2023 (5269) : By: AlexandroAGV PAGE 1 Signed Report FAX: Chelsey Martinez APRN [phone] [place]: St: [facility] FAX: Lizandro Webb MD [phone] Name: MENDOZA VENEGAS [facility] : 1960 Age/S: 63/F [address] [facility] Unit #: [id number] Loc: E.540 [place], [place] Phys: Chelsey Martinez SOLAR PANEL TECHNICIAN [address] Acct: [id number] Dis Date: Status: ADM IN PHONE #: [phone] Exam Date: 11/10/2023 1613 FAX #: [phone] Reason: abdominal pain s/p bowel perf w/colostomy - R/o EXAMS: CPT CODE: [id number] XR ABDOMEN 1 V 51062 (Continued) Orig Print D/T: S: 11/10/2023 (1637) PAGE 2 Signed Report COMPREHENSIVE METABOLIC [id number] 06:20:00* Test Item Value Reference Range Interpretation [...] = ECRCL) 78 mL/min >30 CBC W/AUTO [id number] 05:56:00* Test Item Value Reference Range Interpretation [...] NRBC#) 0.00 X10 3uL 0.00-0.01 N AMIKACIN [id number] 09:12:00* Test Item Value Reference Range Interpretation Comme nts AMIKACIN TROUGH (test code = AMIKT) 1.6 ug/mL 1.0-8.0 Detection Limit = 0.8 <0.8 indicates None DetectedPerformed At: [address] [id number] Phan MD Ph:[phone] [place] [address] DATE OF LAST DOSE 11/05/23TIME OF LAST DOSE 2344Specimen comments: PLEASE DRAW LEVEL AT 1245 DO NOTCANCEL, THANK YOUComments to Business Development: PLEASE DRAW LEVEL AT SCHEDULED TIME, THANK YOUAMIKACIN [id number] 12:11:00* Test Item Value Reference Range Interpretation Comme nts AMIKACIN PEAK (test code = AMIKP) 10.5 ug/mL 20.0-30.0 A Detection Limit = 0.8 <0.8 indicates None DetectedPerformed At: [address] [id number] Phan MD Ph:[phone] [place] [address] DATE OF LAST DOSE 11/05/23TIME OF LAST DOSE 234Specimen comments: PLEASE DRAW LEVEL AT 0345 DO NOTCANCEL LEVEL, THANK YOUComments to Business Development: PLEASE DRAW LEVEL AT SCHEDULED TIME 0345 [id number] 09:09:00* Test Item Value Reference Range Interpretation Comme nts CREATININE (test code = CREAT) 0.57 mg/dL 0.60-1.30 L CBC W/AUTO [id number] 08:44:00* Test Item Value Reference Range Interpretation [...] code = FESAT) 25 % 15-50 N [id number] 05:42:00* Test Item Value Reference Range Interpretation Comme nts TRANSFERRIN (test code = TRANSF) 175 mg/dL 200-370 L FOLIC [id number] 05:42:00* Test Item Value Reference Range Interpretation Comme nts FOLIC ACID (test code = FOL) 4.8 ng/mL 3.1-17.5 N [id number] 05:42:00* Test Item Value Reference Range Interpretation Comme nts FERRITIN (test code = LISA) 141 ng/mL 11.0-306.8 N CBC W/AUTO [id number] 05:11:00* Test Item Value Reference Range Interpretation [...] 0.00 X10 3uL 0.00-0.01 N CBC W/AUTO [id number] 13:51:00* Test Item Value Reference Range Interpretation [...] SCHISTOCYTES (test code = ELA) OCCASIONAL VITAMIN [id number] 07:44:00* Test Item Value Reference Range Interpretation Comme nts VITAMIN B12 (test code = VITB12) 1002 pg/mL 193-986 H T4 [id number] 07:44:00* Test Item Value Reference Range Interpretation Comme nts T4 FREE (test code = T4F) 1.08 ng/dl 0.82-1.77 N TSH REFLEX TO [id number] 07:44:00* Test Item Value Reference Range Interpretation Comme nts TSH REFLEX TO FT4 (test code = TSHREFLEX) 8.43 0.47-5.01 H [id number] 07:20:00* Test Item Value Reference Range Interpretation Comme nts MAGNESIUM (test code = MAG) 2.1 mg/dl 1.8-2.4 N COMPREHENSIVE METABOLIC [id number] 07:20:00* Test Item Value Reference Range Interpretation [...] calculation forGFR is based on the CKD-EPI (202) calculation. This formulais race indifferent and is [...] code = ALKP) 101 Units/L 50.0-136.0 N [id number] 06:41:00* Test Item Value Reference Range Interpretation Comme nts AMMONIA (test code = AMM) <0.1 MCMOL/L 11.0-32.0 L URINALYSIS [id number] 17:44:00* Test Item Value Reference Range Interpretation [...] T4 and TSH panel - Serum or [id number] 00:00:00* Test Item Value Reference Range Interpretation Comme nts Thyrotropin [Units/volume] i n Serum or Plasma by Detection limit <= 0.005 mIU/L (test code = 96012-9) 2.720 uIU/mL 0.450-4.500 Thyroxine (T4) free [Mass/volume] in Serum or Plasma (test code = 3024-7) 1.02 NG/dL 0.82-1.77 [facility] W Auto Differential panel - [id number] 00:00:00* Test Item Value Reference Range Interpretation [...] immature cells (test code = immature cells) charter coach driver Neutrophils [#/volume] in Bl ood by Automated [...] Blood by Automated count (test code = 19932-7) 0 % not estab. Immature granulocytes [#/volume] in Blood by Automated count (test code = 21959-5) 0.0 x10e3/uL 0.0-0.1 Nucleated erythrocytes/100 leukocytes [Ratio] in Blood by Automated count (test code = 72766-1) charter coach driver Morphology [Interpretation] in Blood Narrative (test code = 78476-8) charter coach driver [facility] - Serum or [id number] 00:00:00* Test Item Value Reference Range Interpretation [...] in Serum or Plasma (test code = 5-0) 97 mmol/L 96-106 Carbon dioxide, total [Moles/volume] in Serum or Plasma (test code = 2027-) 26 mmol/L 20-29 Calcium [Mass/volume] in Serum or Plasma (test code = 04747-0) 9.4 mg/dL 8.7-10.2 Protein [Mass/volume] in Serum or Plasma (test code = 2885-2) 6.5 g/dL 6.0-8.5 Albumin [Mass/volume] in Serum or Plasma (test code = 1751-7) 3.8 g/dL 3.8-4.9 Globulin [Mass/volume] in Serum by calculation (test code = 75280-9) 2.7 g/dL 1.5-4.5 Albumin/Globulin [Mass Ratio ] in Serum or Plasma (test code = 1759-0) 1.4 1.2-2.2 Bilirubin.total [Mass/volume ] in Serum or Plasma (test code = 1974-) <0.2 0.0-1.2 Alkaline phosphatase [Enzymatic activity/volume] in Serum or Plasma (test code = 6768-6) 212 IU/L 44-121 H Aspartate aminotransferase [Enzymatic activity/volume] in Serum or Plasma (test code = 1920-8) 12 IU/L 0-40 Alanine aminotransferase [Enzymatic activity/volume] in Serum or Plasma (test code = 1742-6) 12 IU/L 0-32 [facility]ics[facility] complete W Reflex Culture panel - [id number] 00:00:00* Test Item Value Reference Range Interpretation [...] Urine by Test strip (test code = 81477-1) negative negative/trace Glucose [Presence] in Urine by Test strip (test code = 16533-1) negative negative Ketones [Presence] in Urine by Test strip (test code = 2514-8) negative negative Hemoglobin [Presence] in Uri ne by Test strip (test code = 5794-3) negative negative Bilirubin.total [Presence] i n Urine by Test strip (test code = 5770-3) negative negative Urobilinogen [Mass/volume] i n Urine by Test strip (test code = 42184-3) 0.2 mg/dL 0.2-1.0 Nitrite [Presence] in Urine by Test strip (test code = 5802-4) negative negative Microscopic observation [Identifier] in Urine sediment by Light microscopy (test code = 41016-3) charter coach driver Leukocytes [#/area] in Urine sediment by Microscopy high power field (test code = 5821-4) 6-10 0-5 A Erythrocytes [#/area] in Uri ne sediment by Microscopy high power field (test code = 19616-2) none seen 0-2 Epithelial cells [#/area] in Urine sediment by Microscopy high power field (test code = 5787-7) 0-10 0-10 Epithelial cells.renal [#/ar ea] in Urine sediment by Microscopy high power field (test code = 95151-6) charter coach driver Casts [Presence] in Urine se diment by Light microscopy (test code = 61348-5) none seen none seen Casts [Type] in Urine sedime nt by Light microscopy (test code = 13208-5) charter coach driver Unidentified crystals [Prese nce] in Urine sediment by Light microscopy (test code = 5783-6) charter coach driver Crystals [type] in Urine sed iment by Light microscopy (test code = 5782-8) charter coach driver Mucus [Presence] in Urine se diment by Light microscopy (test code = 8247-9) charter coach driver Bacteria [#/area] in Urine s ediment by Microscopy high power field (test code = 5769-5) none seen none seen/few Yeast [#/area] in Urine sedi ment by Microscopy high power field (test code = 5822-2) charter coach driver Trichomonas vaginalis [Prese nce] in Urine sediment by Light microscopy (test code = 5813-1) charter coach driver Urine sediment comments by L ight microscopy Narrative (test code = 42608-0) charter coach driver urinalysis reflex (test code = urinalysis reflex) comment Bacteria identified in Urine by Culture (test code = 630-4) no growth [facility] Hospital[facility]olate+Cyanocobalamin [Interpretation] in Serum or [id number] 00:00:00* Test Item Value Reference Range Interpretation Comme nts Cobalamin (Vitamin B12) [Mass/volume] in Serum or Plasma (test code = 2132-9) 870 pg/mL 232-1245 Folate [Mass/volume] in Seru m or Plasma (test code = 2284-8) 9.7 NG/mL >3.0 [facility]25-Hydroxyvitamin D3+25-Hydroxyvitamin D2 [Mass/volume] in Serum or [id number] 00:00:00* Test Item Value Reference Range Interpretation Comme nts 25-Hydroxyvitamin D3+25-Hydroxyvitamin D2 [Mass/volume] in Serum or Plasma (test code = 17782-2) 34.4 NG/mL 30.0-100.0 [facility] HospitalHemoglobin A1c/Hemoglobin.total in Blood 2022-03-14 00:00:00* Test Item Value Reference Range Interpretation Comme nts Hemoglobin A1c/Hemoglobin.to manolo in Blood (test code = 4548-4) 6.1 % 4.8-5.6 H [facility] HospitalErythrocyte sedimentation [id number] 00:00:00* Test Item Value Reference Range Interpretation Comme nts Erythrocyte sedimentation ra te by Westergren method (test code = 4537-7) 76 mm/HR 0-40 H [facility] HospitalC-reactive protein, [id number] 00:00:00* Test Item Value Reference Range Interpretation Comme nts C reactive protein [Mass/vol ume] in Serum or Plasma (test code = 1988-5) 41 mg/L 0-10 H [facility] HospitalACID FAST [id number] 00:00:00* Test Item Value Reference Range Interpretation Comme nts ACID FAST CULTURE (test code = 11335) SPECIMEN NUMBER: [id number] Luisito AnthonyCULTURE, [id number] 00:00:00* Test Item Value Reference Range Interpretation Comme nts CULTURE, SPUTUM (test code = 20017) SPECIMEN NUMBER: [id number] Luisito AnthonyCBC W/AUTO [id number] 00:00:00* Test Item Value Reference Range Interpretation Comme nts WBC (test code = 1001) 10.3 K/UL RBC (test code = 1002) 5.08 M/UL HEMOGLOBIN (test code = 1003) 14.2 G/DL HEMATOCRIT (test code = 1004) 41.2 % MCV (test code = 1005) 81.1 fL MCH (test code = 1006) 28.0 PG MCHC (test code = 1007) 34.5 G/DL RDW (test code = 1038) 14.2 % NEUTROPHILS (test code = 1008) 59.6 % LYMPHOCYTES (test code = 1010) 30.0 % MONOCYTES (test code = 1011) 7.7 % EOSINOPHILS (test code = 1012) 2.2 % BASOPHILS (test code = 1013) 0.5 % PLATELET COUNT (test code = 1015) 501 K/UL Luisito Anthony Notes Date/Time Note Provider Source Luisito CarlosMaritza [facility]2024-03-14 16:58:806166-1007 [place] [address] [address] [place], [place] [address] PATIENT NAME: MENDOZA VENEGAS ADMIT DATE: 11/01/23 ACCOUNT NO: [id number] DISCHARGE DATE: 11/12/23 ROOM NO: E.540 REPORT TYPE: 360 - [...] abscess versus abscesses. The patient's Clinical Indicators include: HISTORY and PHYSICAL 11/02/2023 She was found to have a microbacterium abscess in sputum cultures requiring long-term antibiotics and was seen by Infectious Disease for this, who recommended 6 weeks total of the IV antibiotics. This is a 63-year-old lady with a history of debility due to perforated colon, status post colostomy as well as sepsis and microbacterium infection. In addition to the rehab program medically, the patient continues with the microbacterium infection and needs long-term antibiotics. 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 Options provided: -- Respond - Create new note now -- Dismiss - Not applicable / Not valid -- Dismiss - Clinically unable to determine / Unknown -- Assign to another provider QUERY RESPONSE: mycobacteria Query created by: Dayana Herrera on 01/08/2024 3:34 PM at 1712 PATIENT NAME: MENDOZA VENEGAS 21:36:00 [id number] [place] [address] PATIENT NAME: MENDOZA VENEGAS ADMIT DATE: 11/01/23 ACCOUNT NO: [id number] DISCHARGE DATE: 11/12/23 ROOM NO: E.540 REPORT TYPE: 360 - [...] abscess versus abscesses. The patient's Clinical Indicators include: HISTORY and PHYSICAL 11/02/2023 She was found to have a microbacterium abscess in sputum cultures requiring long-term antibiotics and was seen by Infectious Disease for this, who recommended 6 weeks total of the IV antibiotics. This is a 63-year-old lady with a history of debility due to perforated colon, status post colostomy as well as sepsis and microbacterium infection. In addition to the rehab program medically, the patient continues with the microbacterium infection and needs long-term antibiotics. 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 Options provided: -- Respond - Create new note now -- Dismiss - Not applicable / Not valid -- Dismiss - Clinically unable to determine / Unknown -- Assign to another provider QUERY RESPONSE: Provider dismissed this query because it was not applicable to the patient or not a valid query. please see pulmonary notes for exact dx Query created by: Dayana Herrera on 12/28/2023 11:47 AM at 2131 PATIENT NAME: MENDOZA VENEGAS 14:46:00 [facility] ([facility]) Hospitalist Progress Note REPORT#:[id number] REPORT STATUS: Signed REPORT INITIALIZATION DATE:11/12/23 TIME: 1445 PATIENT: MENDOZA VENEGAS UNIT #: [id number] ROOM/BED: E.540-1 : 62 AGE: 63 SEX: F ATTEND: Lizandro Smith MD ADM AUTHOR: Renetta Mayfield REPT SERVICE DT/TIME: 11/12/231445 * ALL edits or amendments must be made on the electronic/computer document * Subjective Chief complaint: AFD Recent bowel perf awake in bed doing well HPI: Patient is a 63-year-old female who was transferred [...] so they transferred her to here to [facility]. Patient is here for daily PT OT and convalescence. We are consulted to assist with med management during her stay. Patient reports: Yes: pain controlled, resting comfortably. No: abdominal pain, chest pain, chills, cough, diarrhea, dizziness, fever, headache, nausea, shortness of breath , vomiting. Review of Systems Free Text ROS Notes Free Text ROS Notes: Review of Systems Constitutional: Weakness Skin: Healing wound to abd wall Allergy/Immun: Denies: anaphylaxis, hives, itching. Eyes: Denies: discharge, visual loss/blurred, itching. ENT: Denies: earache, hearing loss, mouth pain. Respiratory: Denies: hemoptysis, pleurisy, pleuritic pain. Cardiovascular: Denies: CP, edema, orthopnea, palpitations. GI: Denies: anorexia, constipation, diarrhea. : Denies: flank pain, frequency, hematuria, nocturia. Musculoskeletal: Denies: arthritis, extremity pain, extremity swelling. Heme: Denies: bleeding, petechiae. Endocrine: Denies: heat intolerance, polydipsia, polyphagia. Neuro: Denies: change in LOC, confusion, dizziness. Psych: Denies: auditory hallucination, change in mental status, confusion. All systems rev neg: except as noted Objective General VS/I O: Vital Signs: Date Time Temp Pulse Resp [...] Output, Stool 1500 PATIENT WEIGHT: Weight (lb): 80 Weight (oz): 3.97 Weight (kg): 36.400 Medications: Active Meds + DC'd Last 24 Hrs Azithromycin (ZITHROMAX) 500 MG DAILY PO (DCD) Amikacin Sulfate (AMIKACIN 250 MG/ML VIAL) 500 MG Q36H IV (DCD) Dextrose/Water (DEXTROSE 5% WATER) 100 ML Hydrocodone Bitart/Acetaminophen (NORCO 7.5/325 TABLET) 1 TAB Q4H PRN PRN PO (DCD) Amlodipine Besylate (NORVASC 5MG) 5 MG DAILY PO (DCD) Multi-Ingred Cream/Lotion/Oil/Oint (JORGE BUTTOCKS 113 GM OINT) 1 APPLIC BID TOPICAL (DCD) Miscellaneous Information (AMIKACIN PHARMACY TO DOSE) 1 EACH ASDIR IV ( DCD) Docusate Sodium (COLACE) 100 MG BEDTIME PO (DCD) Dronabinol (MARINOL) 2.5 MG BID PO (DCD) Duloxetine HCl (CYMBALTA) 30 MG BEDTIME PO (DCD) Acetaminophen (TYLENOL 325MG) 650 MG Q6H PRN PRN PO (DCD) Albuterol/Ipratropium (IPRATR-ALBUTEROL 0.5-3 MG/3 ML) 3 ML RTQ6H NEB ( DCD) Apixaban (ELIQUIS 5MG TABLET) 5 MG BID [...] GM BID PRN PRN PO (DCD) Physical Exam Ulcer: Type/cause: pressure (present on admit, buttocks) Free Text Obj Notes Free Text Obj Notes: Physical Exam: General appearance: alert, awake, oriented, no acute distress, pleasant, no respiratory distress Head/Eyes: atraumatic, EOMI, normocephalic ENT: moist mucosal membranes, normal nose, normal sinus Neck: non-tender, no JVD, no masses or swelling Cardiovascular: normal heart sounds, regular rate rhythm, no murmur Respiratory: aerating well, clear to auscultation, symmetric expansion, no distress Abdomen: non-tender, normal bowel sounds, soft, no distention Extremities: moves all, no calf tenderness, no edema Musculoskeletal: no CVA tenderness, no midline vertebral tend, no muscle spasm 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 -Incisional wound is healing, wound vac was discontinued on arrival -F/U with surgery at [facility] -ID on case and pt getting abx for intra-abdominal abscess -Monitor labs PE -On Eliquis -No SOB or CP HTN -Continue current meds and prn available -Fair control, may need titration -Add amlodipine Anemia -Monitor and transfuse for hgB <7 -Will check Fe panel Mon -HgB 8.3, Fe panel noted and acceptable Hypothyroid -TSH 8.32 but T4f is acceptable 1.08 -Repeat lab AFD -Acute illness and prolonged hospitalization -Continue PT/OT Doing very well therapy. She ambulated up and dwn the yusuf today. Pain is controlled and colostomy functioning. Home Sunday. at 1447 at 2244 RPT #:[id number] END OF [id number] 10:28:00 [facility] ([facility]) Clinical Note REPORT#:[id number] REPORT STATUS: Signed REPORT INITIALIZATION DATE:11/12/23 TIME: 1028 PATIENT: MENDOZA VENEGAS UNIT #: [id number] ROOM/BED: [facility] : 62 AGE: 63 SEX: F ATTEND: Lizandro Smith MD ADM AUTHOR: Lizandro Smith MD REPT SERVICE DT/TIME: 11/12/23 1028 * ALL edits or amendments must be made on the electronic/computer document * Clinical Note Note: The patient has a mobility limitation that significantly impairs his/her ability to participate in one or more mobility-related activities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
[2024-12-25] MEDS ORDERED: CEFTRIAXONE 1000 MG/VIAL ONE (05:21)
[2024-12-25] MEDS ORDERED: ALBUTEROL 2.5 MG/3 ML NEB SOL ONE (05:21)
[2024-12-25] MEDS ORDERED: IPRATROPIUM BROM 0.5MG/2.5ML ONE (05:21)
[2024-12-25] MEDS ORDERED: DIAZEPAM 2 MG TABLET ONE (05:22)
[2024-12-25] MEDS ORDERED: ONDANSETRON 4 MG/2 ML VIAL ONE ×2 (05:22→05:54)
[2024-12-25] MEDS ORDERED: METHYLPREDNISOLONE 125 MG INJ ONE (05:22)
[2024-12-25] MEDS ORDERED: AZITHROMYCIN 500 MG INJ IVPB ONE (05:22)
[2024-12-25] MEDS ORDERED: GUAIFENESIN/DM 5 ML UCUP ONE (05:23)
[2024-12-25] MEDS ORDERED: NA CHLORIDE 0.9% 250 ML ONE (05:23)
[2024-12-25] MEDS ORDERED: NA CHLORIDE 0.9% 50 ML ONE (05:23)
[2024-12-25 05:35] LABS: Blood Gas Oxyhemoglobin 75.5 % (94-97); Blood O2 Saturation 77.6 % (92-98.5)
[2024-12-25 05:36] LABS: Blood Gas THB 12.5 g/dl (12-18)
[2024-12-25 05:48] LABS: Absolute Lymphocytes (CBC) 0.7 K/uL (0.7-4.9); Absolute Neutrophil 14.8 K/uL (1.8-8.0); Basophils % 0.2 % (0-1.3); Hematocrit 34.6 % (36.0-45.0); Hemoglobin 11.4 g/dL (12.0-15.0); Lymphocytes % 4.5 % (15.3-44.8); MCH 24.8 pg (27.0-35.0); MCV 75.1 fL (80-100); Monocytes % 5.9 % (3.3-12.3); Neutrophils % 89.4 % (41.7-73.7); Platelets 588 thou/uL (152-406); RBC Red Blood Cell Count 4.61 M/uL (3.86-4.86); Red Cell Distribution Width 16.7 % (12.1-15.2)
[2024-12-25 06:06] LABS: ALT/SGPT 28 U/L (13-56); AST/SGOT 27 U/L (15-37); Albumin 2.9 g/dL (3.4-5.0); Albumin/Globulin Ratio 0.6 (1.1-1.8); Alkaline Phosphatase 140 U/L (45-117); Anion Gap 9.4 mEq/L (5.0-15.0); BUN Blood Urea Nitrogen 21 mg/dL (7-18); Bicarbonate 28 mEq/L (21-32); Bilirubin Total 0.3 mg/dL (0.2-1.0); Globulin 4.9 g/dL (2.3-3.5); Glomerular Filtration Rate 108 ml/min (=/>90); Glucose Level 113 mg/dL (74-106); Magnesium 2.4 mg/dL (1.6-2.4); NT PRO-BNP 292 pg/mL (<125); Potassium 4.4 mEq/L (3.5-5.1); Protein, Total 7.8 g/dL (6.4-8.2); Sodium Level 134 mEq/L (136-145)
[2024-12-25 06:08] LABS: Bilirubin Direct < 0.2 mg/dL (0-0.2); Bilirubin Indirect, Calculated 0.1 mg/dL (0.2-0.8)
[2024-12-25 06:09] LABS: Troponin High Sensitivity 64.5 pg/mL (<58.9)
[2024-12-25 06:27] LABS: Protime INR 1.15
[2024-12-25 06:32] LABS: Influenza A Ag Negative; Influenza B Ag Negative; SARS-CoV-2 Antigen Rapid Res Negative (Negative)
--- NOTE | 2024-12-25 06:45 | RAD REPORT ---
EXAM: XR CHEST 1 VIEW HISTORY: 64 years Female CHEST PAIN COMPARISON: 10/24/2023, chest CT 09/28/2023 FINDINGS: LUNGS/PLEURA: Chronic scarring and architectural distortion in the left greater than right upper lung s [id number] right-sided pneumothorax noted. Coarsened pulmonary interstitium. This measures up to 1.7 cm laterally. Emphysema. CARDIAC/MEDIASTINUM: Stable enlargement. Mild leftward mediastinal shift. UPPER ABDOMEN: No significant abnormality. BONES: No acute abnormality. LINES/TUBES/OTHER: N/A IMPRESSION: 1. Mild to moderate right-sided pneumothorax, best seen along the lateral lung rather than at the ape x. 2. Biapical scarring and architectural distortion, left greater than right. This is chronic. Some inc reased coarsening of the pulmonary interstitium is nonspecific. A mild superimposed infectious or inflammatory process difficult to exclude. THIS REPORT CONTAINS FINDINGS THAT MAY BE CRITICAL TO PATIENT CARE. The emergent findings were commun icated to Dr. Herron on 12/25/2024 6:42 AM BENZENE STILL UTILITY OPERATOR at time of dictation. . Electronically signed by: Bg Chandler MD 12/25/2024 06:42 AM BENZENE STILL UTILITY OPERATOR Due to temporary technical issues with the PACS[employer] reporting system, reports are being celso d by the in-house radiologist without review as a courtesy to ensure prompt reporting the interpreting radiologist is fully responsible for the content of the report. Transcribed Date/Time: 12/25/2024 6:45 AM
[2024-12-25] MEDS ORDERED: NA CHLORIDE 0.9% 500 ML ONE (06:47)
[2024-12-25] MEDS ORDERED: ETOMIDATE 20 MG/10 ML VIAL IV ONE (08:39)
--- NOTE | 2024-12-25 08:44 | RAD REPORT ---
EXAMINATION: ONE VIEW CHEST XR CLINICAL INDICATION: Female, 64 years old.,pleurocath placement ;Chest pain TECHNIQUE: Frontal chest projection is submitted. Examination is limited by patient positioning and t echnique. COMPARISON: 12/25/2024 FINDINGS: Interval placement of apical right pleural pigtail drainage catheter. Interval decrease in size of la teral right pneumothorax, with small residual at the apex showing 4 mm of pleural separation. Heterogeneous opacity with scarring and calcifications in the left lung apex, and multifocal scarring and nodularity with calcifications at the right apex are stable. Background hyperlucency and hyperinflation suggesting COPD again seen. No left pneumothorax. No sizable effusion. The heart is no rmal in size. Mediastinal contours are unchanged. IMPRESSION: Right apical pleural pigtail drainage catheter has been placed with interval decrease in size of the right sided pneumothorax. Other stable findings as above.
--- NOTE | 2024-12-25 09:10 | ER ---
Nurse's Notes [facility] Name: Irene Venegas Age: 64 yrs Sex: Female : 1960 Arrival Date: 12/25/2024 Time: 04:57 Bed 3 Private MD: Diagnosis: Pneumothorax, unspecified;Acute spontaneous pneumothorax right, initial encounter ;COPD with acute exacerbation, physical deconditioning, Presentation: 12/25 05:04 Chief complaint: Patient states: c/o difficulty breathing x3 days. Coronavirus screen: al5 difficulty breathing. Ebola Screen: No symptoms or risks identified at this time. Initial Sepsis Screen: Does the patient meet any 2 criteria? RR > 20 per min. HR > 90 bpm. Yes Does the patient have a suspected source of infection? No. Patient's initial sepsis screen is negative. Risk Assessment: Do you want to hurt yourself or someone else? Patient reports no desire to harm self or others. Onset of symptoms was December 22, 2024. 05:04 Method Of Arrival: EMS: [facility] al5 05:04 Acuity: REVA 3 al5 05:04 Care prior to arrival: Medication(s) given: Albuterol Neb x 1, Atrovent Neb x 1. al5 Triage Assessment: 05:08 General: Appears in no apparent distress. ill, slender, well groomed, Behavior is al5 cooperative. Pain: Complains of pain in chest. EENT: No signs and/or symptoms were reported regarding the EENT system. Neuro: Level of Consciousness is awake, alert, obeys commands, Oriented to person, place, time, situation. Cardiovascular: Capillary refill < 3 seconds Patient's skin is warm and dry. Respiratory: Reports shortness of breath at rest on exertion labored breathing Breath sounds are clear bilaterally. Onset: The symptoms/episode began/occurred 3 days ago, the patient has severe shortness of breath. GI: No signs and/or symptoms were reported involving the gastrointestinal system. : No signs and/or symptoms were reported regarding the genitourinary system. Derm: Skin is intact, is healthy with good turgor, Skin is pink, warm \T\ dry. normal. Musculoskeletal: No signs and/or symptoms reported regarding the musculoskeletal system. Historical: - Allergies: 05:08 No Known Allergies; al5 - Home Meds: 05:06 Albuterol Inhl 2 inhalations every 4 hours [Active]; al5 - PMHx: 05:06 COPD; Pneumonia; Pneumothorax; al5 - PSHx: 05:06 Lobectomy of lung; Partial stomach removed; Total abdominal hysterectomy; al5 - Immunization history:: Adult Immunizations up to date. - Infectious Disease History:: Denies. - Social history:: Smoking status: Patient/guardian denies using tobacco, Stopped _ months ago 4. - Family history:: not pertinent. Screenin:10 [facility] ED Fall Risk Assessment (Adult) History of falling in the last 3 months, al5 including since admission No falls in past 3 months (0 pts) Confusion or Disorientation No (0 pts) Intoxicated or Sedated No (0 pts) Impaired Gait No (0 pts) Mobility Assist Device Used No (0 pt) Altered Elimination No (0 pt) Score/Fall Risk Level 0 - 2 = Low Risk Oriented to surroundings, Maintained a safe environment, Hourly rounding (assess needs \T\ fall precautionary measures) done. Abuse screen: Denies threats or abuse. Denies injuries from another. Nutritional screening: No deficits noted. Tuberculosis screening: No symptoms or risk factors identified. Assessment: 05:09 Cardiovascular: Rhythm is sinus tachycardia. al5 05:10 Reassessment: see triage assessment. al5 05:10 Respiratory: Airway is patent Respiratory effort is even, labored. al5 06:11 Reassessment: Patient appears in no apparent distress at this time. No changes from al5 previously documented assessment. Patient and/or family updated on plan of care and expected duration. Pain level reassessed. Patient is alert, oriented x 3, equal unlabored respirations, skin warm/dry/pink. 07:15 Reassessment: Dr Herron at bedside for emergent chest tube placement to R chest, pt ph tolerating well. 10:21 Reassessment: REPORT TO JOHNNA ROSALES AT [facility]. TRANSPORT PENDING. bp 10:53 Reassessment: EMS AT B/S FOR TRANSPORT. bp Vital Signs: 05:04 BP 188 / 105; Pulse 115; Resp 24; Temp 97.6(A); Pulse Ox 98% on 15 lpm Non-rebreather al5 mask; Weight 31.75 kg; Height 5 ft. 1 in. ; 05:30 BP 174 / 98; Pulse 115; Resp 30; Pulse Ox 100% on 15 lpm Non-rebreather mask; al5 06:00 BP 176 / 89; Pulse 124; Resp 28; Pulse Ox 100% on 15 lpm Non-rebreather mask; al5 06:30 BP 174 / 100; Pulse 125; Resp 25; Pulse Ox 96% on 15 lpm Non-rebreather mask; al5 07:16 BP 143 / 90; Pulse 116; Resp 26; Pulse Ox 100% on 15 lpm Non-rebreather mask; ph 10:21 BP 111 / 72; Pulse 74; Resp 20; Pulse Ox 100% on 4 lpm NC; bp 05:04 Body Mass Index 13.23 (31.75 kg, 154.94 cm) al5 Meenu Coma Score: 08:12 Eye Response: spontaneous(4). Motor Response: obeys commands(6). Verbal Response: sp4 oriented(5). Total: 15. ED Course: 04:58 Patient arrived in ED. jj6 05:00 Capo Herron MD is Attending Physician. sp4 05:06 Triage completed. al5 05:09 Arm band placed on right wrist. Patient placed in the treatment room, in view of staff al5 members, on oxygen, on pulse oximetry. 05:10 No provider procedures requiring assistance completed. al5 05:10 Inserted saline lock: 20 gauge in left forearm, using aseptic technique. Blood al5 collected. Flushed with 10 mL NS. 05:11 Patient has correct armband on for positive identification. Placed in gown. Bed in low al5 position. Call light in reach. Side rails up X2. Provided Education on: plan of care. 05:15 First set of blood cultures drawn by me. vk 05:22 XRAY Chest (1 view) In Process Unspecified. EDMS 05:27 COVID-19 Ag + Flu A+B Ag Sent. vk 05:28 Initial lab(s) drawn, by me, sent to lab. vk 05:29 Maurisio Meehan, RN is Primary Nurse. bm8 05:29 COVID swab sent to lab. Flu and/or RSV swab sent to lab. vk 07:26 Chest Single View XRAY In Process Unspecified. EDMS 08:[address] [facility] transfer center declined transfer do to capacity for ICU. bc6 08:56 initiated transfer with Dereje at [facility]. bc6 08:58 Assist provider with chest tube insertion with 24 Fr. in right lateral chest wall. Tray bp was set up. Attached to pleur-e-vac. Chest tube inserted by Capo Herron MD Placement verified by CXR, fluctuation of fluid, return of air, Dressed with Vaseline gauze, foam tape, Patient tolerated well. 09:09 CXR XRAY In Process Unspecified. EDMS 09:24 initiated transfer with Leanne at [facility] transfer center. bc6 09:25 doc to doc with [facility]. bc6 09:50 received acceptance with Dereje for Dr. Myron Molina to [facility]. bc6 10:22 Patient transferred, IV remains in place. bp 10:40 Patito with [facility] accepted transfer. bc6 Administered Medications: 05:29 Drug: Dextromethorphan-Guaifenesin PO Liquid 10 mg-100 mg/5 mL 10 ml PO once Route: PO; bm8 06:51 Follow up: Response: No adverse reaction al5 05:29 Drug: Ondansetron IVP 4 mg IVP once; over 2 minutes Route: IVP; Site: left forearm; bm8 06:51 Follow up: Response: No adverse reaction; Nausea is decreased al5 05:29 Drug: MethylPrednisoLONE IVP 125 mg IVP once Route: IVP; Site: left forearm; bm8 06:52 Follow up: Response: No adverse reaction al5 05:30 Drug: Albuterol Inhalation 2.5 mg Inhalation once Route: Inhalation; bm8 06:52 Follow up: Response: No adverse reaction al5 05:30 Drug: Ipratropium Inhalation Aerosol 0.5 mg Inhalation once Route: Inhalation; bm8 05:30 Drug: Diazepam PO 2 mg PO once Route: PO; bm8 06:52 Follow up: Response: No adverse reaction; Anxiety decreased al5 05:30 Drug: Rocephin - Rocephin (cefTRIAXone) IVPB 1 grams IVPB once over 30 mins; (mix in 50 bm8 mL NS) Route: IVPB; Infused Over: 30 mins; Site: left forearm; 06:51 Follow up: Response: No adverse reaction; IV Status: Completed infusion; IV Intake: [id number] 05:30 Drug: Zithromax IVPB 500 mg IVPB once over 1 hrs; mix in 250 mL NS Route: IVPB; Infused bm8 Over: 1 hrs; Site: left forearm; 06:52 Follow up: Response: No adverse reaction; IV Status: Completed infusion; IV Intake: al5 250ml 06:51 Drug: NS 0.9% IV 500 ml 500 ml IV at 1 bolus once; to be given as a bolus over 60 al5 minutes Volume: 500 ml; Route: IV; Rate: 1 bolus; Site: left forearm; 10:22 Follow up: IV Status: Completed infusion bp 07:16 Drug: Lidocaine Infiltration (1 %) 40 ml 20 ml Infiltration once; to bedside Volume: 20 ph ml; Route: Infiltration; 08:57 Drug: Etomidate IVP 20 mg IVP once {Note: PER MD FOR CHEST TUBE INSERTION.} Route: IVP; bp Site: left forearm; 10:22 Follow up: Response: No adverse reaction bp 08:57 Not Given (Physician Discretion): [id number] mg IVP once bp 08:57 Not Given (Physician Discretion): [id number] mcg/kg/min IV at calculated rate See bp Administration Instructions; Standard concentration 1000 mg / 100 mL; Recommended max rate 50 mcg/kg/min; Titrate 5 mcg/kg/min every 5 minutes to achieve goal (see titration policy); Goal parameter RASS score 0 to -2 09:23 Not Given (Duplicate Order): [id number] mg IVP once bp Medication: 05:10 VIS not applicable for this client. al5 Intake: 06:51 IV: 50ml; Total: 50ml. al5 06:52 IV: 250ml; Total: 300ml. al5 Outcome: 09:09 ER care complete, transfer ordered by MD. herman 10:22 Transferred by ground EMS to [facility], Transfer form completed. bp 10:22 Condition: stable 10:22 Instructed on the need for transfer, 11:15 Patient left the ED. bp Signatures: Dispatcher [employer] EDMS Danika Mahan RN RN Migue Cagle RN RN Leanne Carreno Breana bc6 Potepalov, Sergey, MD MD sp4 Irlanda Kwok Brad, RN RN bm8 Juhi Jacobo, RN RN al5 Corrections: (The following items were deleted from the chart) 05:08 05:06 Allergies: Morphine; al5 al5 09:10 08:47 Jose Luis edwards [facility] center declined transfer do to capacity bc6 bc6
--- NOTE | 2024-12-25 09:10 | EDPHYS ---
Physician Documentation [facility] Name: Irene Venegas Age: 64 yrs Sex: Female : 1960 Arrival Date: 12/25/2024 Time: 04:57 Bed 3 Private MD: ED Physician Capo Herron HPI: 12/25 05:00 This 64 yrs old Female presents to ER via Unassigned with complaints of sp4 Breathing Difficulty. 08:12 64-year-old female with history of COPD presents with acute moderate dyspnea. Patient sp4 presents with EMS.. Historical: - Allergies: 05:08 No Known Allergies; al5 - Home Meds: 05:06 Albuterol Inhl 2 inhalations every 4 hours [Active]; al5 - PMHx: 05:06 COPD; Pneumonia; Pneumothorax; al5 - PSHx: 05:06 Lobectomy of lung; Partial stomach removed; Total abdominal hysterectomy; al5 - Immunization history:: Adult Immunizations up to date. - Infectious Disease History:: Denies. - Social history:: Smoking status: Patient/guardian denies using tobacco, Stopped _ months ago 4. - Family history:: not pertinent. ROS: 08:12 Constitutional: Negative for fever, chills, and weight loss, positive dyspnea sp4 08:12 All other systems are negative, Exam: 08:12 Constitutional: Thin female acute moderate respiratory distress Head/Face: sp4 Normocephalic, atraumatic. Eyes: Pupils equal round and reactive to light, extra-ocular motions intact. Lids and lashes normal. Conjunctiva and sclera are not injected. Cornea within normal limits. Periorbital areas with no swelling, redness, or edema. ENT: Nares patent. No nasal discharge, no septal abnormalities noted. Tympanic membranes are normal and external auditory canals are clear. Oropharynx with no redness, swelling, or masses, exudates, or evidence of obstruction, uvula midline. Mucous membranes moist. Neck: Trachea midline, no thyromegaly or masses palpated, and no cervical lymphadenopathy. Supple, full range of motion without nuchal rigidity, or vertebral point tenderness. Chest/axilla: Normal chest wall appearance and motion. Nontender with no deformity. No lesions are appreciated. Cardiovascular: Regular rate and rhythm with a normal S1 and S2. No gallops, murmurs, or rubs. Normal PMI, no JVD. No pulse deficits. Respiratory: Lungs have equal breath sounds bilaterally, clear to auscultation and percussion. No rales, rhonchi or wheezes noted. No increased work of breathing, no retractions or nasal flaring. Abdomen/GI: Soft, with normal bowel sounds. No distension or tympany. No guarding or rebound. No evidence of tenderness throughout. Back: No spinal tenderness. No costovertebral tenderness. Skin: Warm, dry with normal turgor. Normal color with no rashes, no lesions, and no evidence of cellulitis. MS/ Extremity: Pulses equal, no cyanosis. Neurovascular intact. Full, normal range of motion. Neuro: Awake and alert, GCS 15, oriented to person, place, time, and situation. Cranial nerves II-XII grossly intact. Motor strength 5/5 in all extremities. Sensory grossly intact. Psych: Awake, alert, with orientation to person, place and time. Behavior, mood, and affect are within normal limits 08:12 ECG was reviewed by the Attending Physician. EKG at 0 524 sinus tachycardia rate 113 Vital Signs: 05:04 BP 188 / 105; Pulse 115; Resp 24; Temp 97.6(A); Pulse Ox 98% on 15 lpm Non-rebreather al5 mask; Weight 31.75 kg; Height 5 ft. 1 in. ; 05:30 BP 174 / 98; Pulse 115; Resp 30; Pulse Ox 100% on 15 lpm Non-rebreather mask; al5 06:00 BP 176 / 89; Pulse 124; Resp 28; Pulse Ox 100% on 15 lpm Non-rebreather mask; al5 06:30 BP 174 / 100; Pulse 125; Resp 25; Pulse Ox 96% on 15 lpm Non-rebreather mask; al5 07:16 BP 143 / 90; Pulse 116; Resp 26; Pulse Ox 100% on 15 lpm Non-rebreather mask; ph 10:21 BP 111 / 72; Pulse 74; Resp 20; Pulse Ox 100% on 4 lpm NC; bp 05:04 Body Mass Index 13.23 (31.75 kg, 154.94 cm) al5 Meenu Coma Score: 08:12 Eye Response: spontaneous(4). Motor Response: obeys commands(6). Verbal Response: sp4 oriented(5). Total: 15. Procedures: 09:14 Chest tube insertion: the site was prepped using Betadine, in sterile fashion, Tube sp4 size: a 24 persian chest tube was inserted, introduced in right lateral in the right lateral posterior chest - Right mid axillary line, 4th to 5th intercostal space , to pleur-e-vac, dressed with vaseline gauze, foam tape, 4x4s, the patient tolerated the procedure well. Procedural sedation: Pre-procedure assessment: the patient has been NPO 4 hour(s) prior to arrival, ASA physical classification: III - organic disease with definite functional impairment, Airway assessment: able to hyperextend neck, able to maintain airway, can open mouth without difficulty, Mallampati classification of tongue size: II - faucial pillars and soft palate can be visualized, but uvula is masked by the base of the tongue, Monitoring during procedure: nurse monitoring, continuous pulse oximetry, nurse at bedside at all times, Medications employed: Etomidate, 10 mg(s), Alternatives to procedural sedation discussed Total intra sedation time 25 minutes, Post-procedure assessment: the patient is moderately sedated, Woodson sedation score: 4 - brisk response to a light glabellar tap, Respiratory status: requires supplemental oxygen to maintain acceptable oxygen saturation, a reversal agent was not used, Moderate sedation provided secondary to a right chest tube placement, no complications. MDM: 05:14 Medical Screening Exam initiated sp4 08:14 Differential diagnosis: Anxiety Reaction asthma, Bronchitis CHF exacerbation, Chronic sp4 Obstructive Pulmonary Disease Myocardial Infarction. Data reviewed: vital signs, nurses notes, EMS record, old medical records, lab test result(s), EKG, radiologic studies, plain films. ED course: Patient was staffed with admitting service.. 09:04 ED course: EXAM: XR CHEST 1 VIEW HISTORY: 64 years Female CHEST PAIN COMPARISON: sp4 10/24/2023, chest CT 09/28/2023 FINDINGS: LUNGS/PLEURA: Chronic scarring and architectural distortion in the left greater than right upper lungs [id number] rightsided pneumothorax noted. Coarsened pulmonary interstitium. This measures up to 1.7 cm laterally. Emphysema. CARDIAC/MEDIASTINUM: Stable enlargement. Mild leftward mediastinal shift. UPPER ABDOMEN: No significant abnormality. BONES: No acute abnormality. LINES/TUBES/OTHER: N/A IMPRESSION: 1. Mild to moderate right-sided pneumothorax, best seen along the lateral lung rather than at the apex. 2. Biapical scarring and architectural distortion, left greater than right. This is chronic. Some increased coarsening of the pulmonary interstitium is nonspecific. A mild superimposed infectious or inflammatory process difficult to exclude. THIS REPORT CONTAINS FINDINGS THAT MAYBE CRITICAL TO PATIENT CARE. The emergent findings were communicated to Dr. Herron on 12/25/2024 6:42 AM ADHESIVE PRIMER at time of dictation. .. ED course: EXAMINATION: ONE VIEW CHEST XR CLINICAL INDICATION: Female, 64 years old.,pleurocath placement ;Chest pain TECHNIQUE: Frontal chest projection is submitted. Examination is limited by patient positioning and technique. COMPARISON: 12/25/2024 FINDINGS: Interval placement of apical right pleural pigtail drainage catheter. Interval decrease in size of lateral right pneumothorax, with small residual at the apex showing 4 mm of pleural separation. Heterogeneous opacity with scarring and calcifications in the left lung apex, and multifocal scarring and nodularity with calcifications at the right apex are stable. Background hyperlucency and hyperinflation suggesting COPD again seen. No left pneumothorax. No sizable effusion. The heart is normal in size. Mediastinal contours are unchanged. IMPRESSION: Right apical pleural pigtail drainage catheter has been placed with interval decrease in size of the right sided pneumothorax. Other stable findings as above. 09:11 Antibiotic administration: Will provide Rocephin and Zithromax IV. sp4 09:11 ED course: Chest tube was placed and lung was reexpanded. Patient is oxygenating sp4 stable. Imaging internal medicine request transfer for possible VATS and consultation with thoracic surgery. Will pursue transfer to [facility] for consultation for Video-assisted thoracic surgery . 09:19 Transition of care: After a detail discussion of the patient's case, care is sp4 transferred to Issa Santamaria MD. 12/25 05:00 Order name: Basic Metabolic Panel; Complete Time: 08:07 sp4 12/25 05:00 Order name: CBC with Diff; Complete Time: 08:07 sp4 12/25 05:00 Order name: LFT's; Complete Time: 08:07 sp4 12/25 05:00 Order name: Magnesium; Complete Time: 08:07 sp4 12/25 05:00 Order name: NT PRO-BNP; Complete Time: 08:07 12/25 05:00 Order name: PT-INR; Complete Time: 08:07 12/25 05:00 Order name: Troponin HS; Complete Time: 08:07 12/25 05:01 Order name: ABG: VBG; Complete Time: 08:07 12/25 05:10 Order name: Blood Culture Adult (2) 12/25 05:16 Order name: COVID-19 Ag + Flu A+B Ag; Complete Time: 08:07 12/25 06:36 Order name: Lactate w/ 2H reflex if indic.; Complete Time: 08:07 al5 12/25 05:00 Order name: XRAY Chest (1 view); Complete Time: 08:07 12/25 07:19 Order name: Chest Single View XRAY; Complete Time: 09:22 12/25 08:56 Order name: CXR XRAY; Complete Time: 10:03 bp 12/25 05:00 Order name: EKG; Complete Time: 05:01 12/25 05:00 Order name: Cardiac monitoring; Complete Time: 05:30 12/25 05:00 Order name: EKG - Nurse/Tech; Complete Time: 05:30 12/25 05:00 Order name: IV Saline Lock; Complete Time: 05:12 12/25 05:00 Order name: Labs collected and sent; Complete Time: 05:12 12/25 05:00 Order name: O2 Per Protocol; Complete Time: 05:12 12/25 05:00 Order name: O2 Sat Monitoring; Complete Time: 05:12 12/25 07:00 Order name: Chest Tube Setup; Complete Time: 07:16 EC:24 Rate is 113 beats/min. Rhythm is regular, Sinus tachycardia. Right axis deviation sp4 noted. DC interval is normal. QRS interval is normal. QT interval is normal. No Q waves. T waves are Normal. No ST changes noted. Clinical impression: No evidence of ischemia. Interpreted by me. Reviewed by me. Administered Medications: 05:29 Drug: Dextromethorphan-Guaifenesin PO Liquid 10 mg-100 mg/5 mL 10 ml PO once Route: PO; bm8 06:51 Follow up: Response: No adverse reaction al5 05:29 Drug: Ondansetron IVP 4 mg IVP once; over 2 minutes Route: IVP; Site: left forearm; bm8 06:51 Follow up: Response: No adverse reaction; Nausea is decreased al5 05:29 Drug: MethylPrednisoLONE IVP 125 mg IVP once Route: IVP; Site: left forearm; bm8 06:52 Follow up: Response: No adverse reaction al5 05:30 Drug: Albuterol Inhalation 2.5 mg Inhalation once Route: Inhalation; bm8 06:52 Follow up: Response: No adverse reaction al5 05:30 Drug: Ipratropium Inhalation Aerosol 0.5 mg Inhalation once Route: Inhalation; bm8 05:30 Drug: Diazepam PO 2 mg PO once Route: PO; bm8 06:52 Follow up: Response: No adverse reaction; Anxiety decreased al5 05:30 Drug: Rocephin - Rocephin (cefTRIAXone) IVPB 1 grams IVPB once over 30 mins; (mix in 50 bm8 mL NS) Route: IVPB; Infused Over: 30 mins; Site: left forearm; 06:51 Follow up: Response: No adverse reaction; IV Status: Completed infusion; IV Intake: [id number] 05:30 Drug: Zithromax IVPB 500 mg IVPB once over 1 hrs; mix in 250 mL NS Route: IVPB; Infused bm8 Over: 1 hrs; Site: left forearm; 06:52 Follow up: Response: No adverse reaction; IV Status: Completed infusion; IV Intake: al5 250ml 06:51 Drug: NS 0.9% IV 500 ml 500 ml IV at 1 bolus once; to be given as a bolus over 60 al5 minutes Volume: 500 ml; Route: IV; Rate: 1 bolus; Site: left forearm; 10:22 Follow up: IV Status: Completed infusion bp 07:16 Drug: Lidocaine Infiltration (1 %) 40 ml 20 ml Infiltration once; to bedside Volume: 20 ph ml; Route: Infiltration; 08:57 Drug: Etomidate IVP 20 mg IVP once {Note: PER MD FOR CHEST TUBE INSERTION.} Route: IVP; bp Site: left forearm; 10:22 Follow up: Response: No adverse reaction bp 08:57 Not Given (Physician Discretion): [id number] mg IVP once bp 08:57 Not Given (Physician Discretion): [id number] mcg/kg/min IV at calculated rate See bp Administration Instructions; Standard concentration 1000 mg / 100 mL; Recommended max rate 50 mcg/kg/min; Titrate 5 mcg/kg/min every 5 minutes to achieve goal (see titration policy); Goal parameter RASS score 0 to -2 09:23 Not Given (Duplicate Order): [id number] mg IVP once bp Disposition: 09:08 Critical Care:. sp4 Disposition Summary: 12/25/24 09:09 Transfer Ordered Notes: Transfer Location: [facility] sp4 Reason: Higher level of care sp4 Condition: Stable sp4 Problem: new sp4 Symptoms: have improved sp4 Accepting Physician: Attending at [facility](12/25/24 11:15) bp Diagnosis - Pneumothorax, unspecified sp4 - Acute spontaneous pneumothorax right, initial encounter sp4 - COPD with acute exacerbation, physical deconditioning, sp4 Forms: - Medication Reconciliation Form sp4 - SBAR form sp4 Critical care time excluding procedures: 09:08 Critical care time: Bedside Care: 36 minutes, Consultation: 12 minutes, Family sp4 Intervention: 12 minutes. Total time: 60 minutes Signatures: Dispatcher [employer] EDMS Issa Santamaria MD MD rn Hall, Patricia, RN RN Migue Cagle, RN RN Capo Starr MD MD sp4 Maurisio Meehan, RN RN bm8 Juhi Jacobo, RN RN al5 Corrections: (The following items were deleted from the chart) 05:01 05:01 Arterial Blood Gas+RC.LAB.BRZ ordered. EDMS EDMS 05:08 05:06 Allergies: Morphine; al5 al5 06:37 06:37 LACTATE+C.LAB.BRZ ordered. EDMS EDMS 07:20 07:20 Chest Single View+RAD.RAD.BRZ ordered. EDMS EDMS 08:57 07:00 Chest Tube Setup ordered. sp4 bp 08:57 07:00 Intubation Setup ordered. sp4 bp 09:12 09:11 Antibiotic administration: Will provide Levaquin IV, sp4 sp4 09:13 09:11 ED course: Chest tube was placed and lung was reexpanded. Patient is oxygenating sp4 stable. Imaging internal medicine request transfer for possible VATS and consultation with thoracic surgery. . sp4 11:15 09:09 Attending at [facility] sp4 bp
--- NOTE | 2024-12-25 10:03 | RAD REPORT ---
EXAMINATION: ONE VIEW CHEST XR CLINICAL INDICATION: Female, 64 years old.,POST CHEST TUBE TECHNIQUE: Frontal chest projection is submitted. Examination is limited by patient positioning and t echnique. COMPARISON: 12/25/2024 FINDINGS: Interval exchange of right apical chest tube, now with a gastrostomy tube seen. Interval decrease in size of lateral right pneumothorax, with small residual at the apex showing 2-3 mm of pleural separation. Heterogeneous opacity with scarring and calcifications in the left lung apex, and multifocal scarring and nodularity with calcifications at the right apex are stable. Background hyperlucency and hyperinflation suggesting COPD again seen. No left pneumothorax. No sizable effusion. The heart is no rmal in size. Mediastinal contours are unchanged. More pronounced soft tissue emphysematous changes along the right lateral chest wall. No pneumothora x or sizable effusion. The heart is normal in size. Mediastinal contours are unremarkable. IMPRESSION: Interval exchange of right thoracostomy tube, with decreasing size of residual right apical pneumotho rax. Other stable findings as above.
[2024-12-25 11:19] VITALS: TEMP 97.6
[2024-12-25 11:26] VITALS: O2SAT 100
[2024-12-25 11:28] VITALS: BP 111/72
--- NOTE | 2024-12-25 16:43 | EKG ---
Test Date: 2024-12-25 Test Time: 05:24:50 [employer]: HUA MEASUREMENT RESULTS: Intervals: Rate: 113 IN: 114 QRSD: 76 QT: 330 QTc: 452 Tillson: P: 111 IN: 114 QRS: 99 T: 90 INTERPRETIVE STATEMENTS: Suspect arm lead reversal, interpretation assumes no reversal Sinus tachycardia Rightward axis Borderline ECG Compared to ECG 09/13/2023 10:04:47 No significant changes Electronically Signed On 12-25-24 16:42:44 [employer]ESS[employer] by Beto Villavicencio
== END 2024-12-25 11:15 | disposition short-term general hospital (02) ==
LOC: ER 04:57
DX: J93.83 Other pneumothorax (principal); J44.1 Chronic obstructive pulmonary disease with (acute) exacerbation; R53.81 Other malaise; Z11.52 Encounter for screening for COVID-19; Z90.2 Acquired absence of lung [part of]
CPT/HCPCS: 96365; 96361; 96368; 93005; 87040 ×2; 85025; 80048; 36415; 83735; 85610; 80076; 83605; 84484; 83880; 71045 ×3; 82805; 96375; 99285; 87428; 36600; 32551; J7613; J7644; J2919; J2405 ×2; J7050; J7040; J0696